=== PATIENT | female | born 1950 | race Caucasian/White ===

== ENCOUNTER 2016-11-11 00:22 | Emergency (ER) | payer MEDICARE, OTHER ==
[~2016-11-11 00:22] MED LIST: CLOP75 PO; ECOT81TA2 PO; GLIP5 PO; LISI-360 PO; LORTA5 PO; OMEP20TA39 PO; OXYC1SOL5 PO; PRAV20TA PO; TRAZ50TA4 PO
[2016-11-11 00:24] VITALS: BP 115/61; PULSE 116; RESP 16; TEMP 99; O2SAT 95
[2016-11-11] MEDS ORDERED: PROCHLORPERAZINE INJ 10 MG/2 ML VIAL IVS ONE (03:15)
[2016-11-11] MEDS ORDERED: ONDANSETRON HCL 4 MG/2 ML VIAL IVP ONE (03:15)
[2016-11-11] MEDS ORDERED: SODIUM CHLORIDE 0.9% FLUSH 10 ML FLUSH IV FLUSH PRN (03:15)
[2016-11-11] MEDS ORDERED: HYDROmorphone HCL PF 1 MG/ML VIAL IVS ONE (03:15)
[2016-11-11] MEDS ORDERED: LISI-515 PO ×2 (03:22)
[2016-11-11] MEDS ORDERED: GABA100C4 PO ×2 (03:22)
[2016-11-11] MEDS ORDERED: PRAV20TA2 PO ×2 (03:22)
[2016-11-11] MEDS ORDERED: GLIP1TAB60 PO ×2 (03:22)
[2016-11-11] MEDS ORDERED: CLOP75TA PO ×2 (03:22)
[2016-11-11] MEDS ORDERED: ASPI1TAB69 PO ×2 (03:22)
[2016-11-11] MEDS ORDERED: SERT-132 PO ×2 (03:22)
[2016-11-11 03:56] LABS: BICARBONATE 15.6 MEQ/L (21.0-32.0); POTASSIUM 4.1 MEQ/L (3.5-5.1)
[2016-11-11 03:57] LABS: AUTOMATED NEUTROPHIL # 4.5 TH/MM3 (1.8-7.7); BASOPHIL % 0.2 % (0.0-2.0); HEMATOCRIT 48.4 % (35.0-46.0); LYMPH % 16.2 % (9.0-44.0); LYMPHOCYTE # 0.9 TH/MM3 (1.0-4.8); MEAN CELL VOLUME 79.1 FL (80.0-100.0); MEAN CORPUSCULAR HEMOGLOBIN 26.6 PG (27.0-34.0); MEAN CORPUSCULAR HGB CONC 33.7 % (32.0-36.0); MONO % 5.6 % (0.0-8.0); PLATELET COUNT 97 TH/MM3 (150-450); RED BLOOD COUNT 6.12 MIL/MM3 (4.00-5.30); RED CELL DISTRIBUTION WIDTH 14.9 % (11.6-17.2); WHITE BLOOD COUNT 5.8 TH/MM3 (4.0-11.0)
[2016-11-11 04:30] LABS: HEMO FLAGS AUTO DIFF
[2016-11-11 04:32] LABS: PLATELET ESTIMATE SMEAR LOW (NORMAL); PLATELET MORPHOLOGY NORMAL (NORMAL); SCAN/DIFF AUTO DIFF CONFIRMED
[2016-11-11] MEDS ORDERED: PROM25TA5 PO (05:13)
--- NOTE | 2016-11-11 05:14 | PD ---
HPI Chief Complaint: Cold / Flu Symptoms Time Seen by Provider: 03:15 Travel History International Travel<30 days: No Contact w/Intl Traveler<30days: No Traveled to known affect area: No History of Present Illness HPI 66-year-old female arrives complaining of nausea vomiting diarrhea for about 3 nights. She also leads she is dehydrated. Oral intake causes vomiting. No blood in the emesis or diarrhea. Severity moderate. Onset gradual. 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) Cardiac Catheterization: Yes Cardiovascular Problems: Yes (HX CP, STRESS TEST NEGATIVE) High Cholesterol: Yes Chest Pain: No Congestive Heart Failure: No COPD: No Diabetes: Yes (GLIPIZIDE) Patient Takes Glucophage: No Diminished Hearing: No Endocrine: Yes Gastrointestinal Disorders: Yes (GERD) GERD: Yes Genitourinary: Yes (STRESS INCONTINENCE) Hepatitis: No Hiatal Hernia: No Hypertension: Yes Immune Disorder: No Implanted Vascular Access Dvce: Yes Kidney Stones: Yes Medical other: Yes (SEVERE PVD, HIGH BLOOD SUGARS, CANNOT MEASURE BP ON R ARM PER PT) Musculoskeletal: Yes (RHEUMATOID ARTHRITIS) Neurologic: No Psychiatric: No Reproductive: No Respiratory: Yes Myocardial Infarction: No Renal Failure: No Sleep Apnea: No Thyroid Disease: No Influenza Vaccination: Yes Past Surgical History Abdominal Surgery: Yes (APPENDECTOMY) AICD: No Appendectomy: Yes Arteriovenous Shunt: No Body Medical Devices: MULTIPLE LEG STENTS, PINS RIGHT ELBOW Cardiac Surgery: No Ear Surgery: No Endocrine Surgery: No Eye Surgery: No Genitourinary Surgery: Yes (LITHOTRIPSY LEFT KIDNEY STONE, OPEN REMOVAL LEFT KIDNEY STONE) Gynecologic Surgery: Yes (COMPLETE HYSTERECTOMY) Hysterectomy: Yes Insulin Pump: No Joint Replacement: No Oral Surgery: Yes (TONSILLECTOMY) Pacemaker: No Thoracic Surgery: No Tonsillectomy: Yes Other Surgery: Yes Social History Alcohol Use: No Tobacco Use: Yes (2 ppd) Substance Use: No Allergies-Medications (Allergen,Severity, Reaction): Coded Allergies: Metformin (Unverified Adverse Reaction, Severe, Diarrhea, 10/03/15) Vancomycin (Verified Adverse Reaction, Severe, 10/03/15) "severe yeast infection" Codeine (Verified Adverse Reaction, Intermediate, Nausea/Vomiting, 10/03/15 ) Reported Meds & Prescriptions Reported Meds & Active Scripts Active Phenergan (Promethazine HCl) 25 Mg Tab 25 Mg PO Q6H PRN Reported Clopidogrel (Clopidogrel Bisulfate) 75 Mg Tab 75 Mg PO DAILY Aspirin 81 Mg Tabdr 81 Mg PO DAILY Gabapentin 100 Mg Cap 100 Mg PO HS Lisinopril 20 Mg Tab 20 Mg PO DAILY Glipizide ER (Glipizide) 2.5 Mg Bibiana 2.5 Mg PO DAILY Take with breakfast or first main meal of the day Pravastatin 20 Mg Tab 20 Mg PO DAILY Sertraline (Sertraline HCl) 50 Mg Tab 50 Mg PO DAILY Review of Systems Except as stated in HPI: all other systems reviewed are Neg Gastrointestinal: Positive: Nausea, Vomiting, Abdominal Pain Physical Exam Narrative GENERAL: 66 yo F, WNWD, NAD SKIN: Warm and dry. HEAD: Atraumatic. Normocephalic. EYES: Pupils equal and round. No scleral icterus. No injection or drainage. ENT: No nasal bleeding or discharge. Mucous membranes pink and moist. NECK: Trachea midline. No JVD. CARDIOVASCULAR: Regular rate and rhythm. RESPIRATORY: No accessory muscle use. Clear to auscultation. Breath sounds equal bilaterally. GASTROINTESTINAL: Abdomen soft, non-tender, nondistended. Hepatic and splenic margins not palpable. MUSCULOSKELETAL: L BKA. R great toe amputation. Otherwise no gross deformity. NEUROLOGICAL: Awake and alert. No obvious cranial nerve deficits. Motor grossly within normal limits. Five out of 5 muscle strength in the arms and legs. Normal speech. PSYCHIATRIC: Appropriate mood and affect; insight and judgment normal. Data Data Last Documented VS Vital Signs Date Time Temp Pulse Resp B/P Pulse Ox O2 Delivery O2 Flow Rate FiO2 11/11/16 05:44 87 16 140/70 98 11/11/16 00:24 99.0 Room Air VS reviewed pulse 86 at 525am Orders Basic Metabolic Panel (Bmp) (11/11/16 03:15) Complete Blood Count With Diff (11/11/16 03:15) Iv Access Insert/Monitor (11/11/16 03:15) Ecg Monitoring (11/11/16 03:15) Oximetry (11/11/16 03:15) Ondansetron Inj (Zofran Inj) (11/11/16 03:15) Sodium Chloride 0.9% Flush (Ns Flush) (11/11/16 03:15) Hydromorphone Pf Inj (Dilaudid Pf Inj) (11/11/16 03:15) Prochlorperazine Inj (Compazine Inj) (11/11/16 03:15) Labs Laboratory Tests Test 11/11/16 03:33 White Blood Count 5.8 TH/MM3 Red Blood Count 6.12 MIL/MM3 Hemoglobin 16.3 GM/DL Hematocrit 48.4 % Mean Corpuscular Volume 79.1 FL Mean Corpuscular Hemoglobin 26.6 PG Mean Corpuscular Hemoglobin 33.7 % Concent Red Cell Distribution Width 14.9 % Platelet Count 97 TH/MM3 Mean Platelet Volume 9.0 FL Neutrophils (%) (Auto) 78.0 % Lymphocytes (%) (Auto) 16.2 % Monocytes (%) (Auto) 5.6 % Eosinophils (%) (Auto) 0.0 % Basophils (%) (Auto) 0.2 % Neutrophils # (Auto) 4.5 TH/MM3 Lymphocytes # (Auto) 0.9 TH/MM3 Monocytes # (Auto) 0.3 TH/MM3 Eosinophils # (Auto) 0.0 TH/MM3 Basophils # (Auto) 0.0 TH/MM3 CBC Comment AUTO DIFF Differential Comment AUTO DIFF CONFIRMED Platelet Estimate LOW Platelet Morphology Comment NORMAL Sodium Level 133 MEQ/L Potassium Level 4.1 MEQ/L Chloride Level 106 MEQ/L Carbon Dioxide Level 15.6 MEQ/L Anion Gap 11 MEQ/L Blood Urea Nitrogen 18 MG/DL Creatinine 0.96 MG/DL Estimat Glomerular Filtration 59 ML/MIN Rate Random Glucose 213 MG/DL Calcium Level 8.8 MG/DL MDM Medical Decision Making Medical Screen Exam Complete: Yes Emergency Medical Condition: Yes Medical Record Reviewed: Yes Differential Diagnosis Constipation, Gastritis, Acute Cholecystitis, Biliary Colic, Pancreatitis, BENOIT , Hepatitis, Bowel Obstruction, Cystitis, Mesenteric Ischemia, AAA, Appendicitis , Renal Stone/Hydronephrosis, GERD, perforated viscous Narrative Course CBC & BMP Diagram 11/11/16 03:33 The patient is resting comfortably and feels better, is alert and in no distress. The patients results and examination findings were discussed. The repeat examination is unremarkable and benign. The history, exam, diagnostic testing, and current condition do not suggest any significant pathology to warrant further testing, continued ED treatment, admission, or surgical evaluation at this point. The vital signs have been stable. The patient does not have uncontrollable pain, intractable vomiting, or other significant symptoms. The patient's condition is stable and appropriate for discharge. The patient will pursue further outpatient evaluation with a primary care physician or other designated or consulting physician as indicated in the discharge instructions. The patient expressed understanding and was agreeable with this plan. Diagnosis Primary Impression: Nausea & vomiting Qualified Code: R11.2 - Nausea and vomiting, intractability of vomiting not specified, unspecified vomiting type Additional Impression: Diarrhea Referrals: [facility] 2 days Additional Instructions: You have a choice when it comes to health care, and we are glad that you chose [facility]. Hopefully, we have met your expectations on today's visit. You are welcome to return to [facility] at any time, as we are committed to meeting the health care needs of our community. Med/Other Pt SpecificInfo: Prescription(s) given Scripts Promethazine (Phenergan)25 Mg Tab25 Mg PO Q6H PRN (Nausea/Vomiting) #20 TAB Ref 0 Prov:Blu Stevens MD 11/11/16 Disposition: 01 DISCHARGE HOME Condition: Stable Blu Stevens MD Nov 11, 2016 05:13
[2016-11-11 05:44] VITALS: BP 140/70
== END 2016-11-11 06:00 | disposition home or self-care (01) ==
LOC: NEPC 00:22
DX: R11.2 Nausea with vomiting, unspecified (principal); R19.7 Diarrhea, unspecified; E11.9 Type 2 diabetes mellitus without complications; Z79.4 Long term (current) use of insulin; E78.00 Pure hypercholesterolemia, unspecified; I10 Essential (primary) hypertension; M06.9 Rheumatoid arthritis, unspecified
CPT/HCPCS: 80048; 85025; 96374; 96375; J0780; J1170; J2405

== ENCOUNTER 2016-11-13 14:04 | Inpatient (IN) | payer OTHER, MEDICARE ==
[~2016-11-13] VITALS: Ht 167.6 cm; Wt 70.0 kg
[~2016-11-13 14:04] MED LIST changes: +ASPI1TAB69 PO; +CLOP75TA PO; +GABA100C4 PO; +GLIP1TAB60 PO; +LISI-515 PO; +PRAV20TA2 PO; +PROM25TA5 PO; +SERT-132 PO
[2016-11-13] MEDS ORDERED: SODIUM CHLOR 0.9% 1000 ML INJ 1,000 ML IV ONE ×2 (14:14→16:00)
[2016-11-13] MEDS ORDERED: ONDANSETRON HCL 4 MG/2 ML VIAL IVP ONE (14:15)
[2016-11-13] MEDS ORDERED: SODIUM CHLORIDE 0.9% FLUSH 10 ML FLUSH IVF PRN (14:15)
--- NOTE | 2016-11-13 14:19 | PD ---
HPI . Low blood pressure Chief Complaint: Low blood pressure Time Seen by Provider: 14:14 Travel History International Travel<30 days: No Contact w/Intl Traveler<30days: No History of Present Illness HPI Patient was sent to us from her doctor's office because of low blood pressure. She was being seen by her doctor because of a 5 day history of nausea, vomiting and diarrhea. She reports that she was seen here several days ago and given fluids and Phenergan. That the vomiting has stopped but she has now started having diarrhea. She describes it as black and watery. She states that she was told that her systolic blood pressure was about 70. She denies fever. She denies urinary tract symptoms. [id number]: GI system SEVERITY: 6+ episodes per day DURATION: 5 days TIMING: It started as vomiting. The vomiting has stopped and she now has diarrhea. MODIFYING FACTORS: Unrelieved by Phenergan ASSOCIATED SYMPTOMS: 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) Cardiac Catheterization: Yes Cardiovascular Problems: Yes (HX CP, STRESS TEST NEGATIVE) High Cholesterol: Yes Chest Pain: No Congestive Heart Failure: No COPD: No Diabetes: Yes (GLIPIZIDE) Diminished Hearing: No Endocrine: Yes Gastrointestinal Disorders: Yes (GERD) GERD: Yes Genitourinary: Yes (STRESS INCONTINENCE) Hepatitis: No Hiatal Hernia: No Hypertension: Yes Immune Disorder: No Implanted Vascular Access Dvce: Yes Kidney Stones: Yes Musculoskeletal: Yes (RHEUMATOID ARTHRITIS) Neurologic: No Psychiatric: No Reproductive: No Respiratory: Yes Myocardial Infarction: No Renal Failure: No Sleep Apnea: No Thyroid Disease: No Past Surgical History Abdominal Surgery: Yes (APPENDECTOMY) AICD: No Appendectomy: Yes Arteriovenous Shunt: No Body Medical Devices: MULTIPLE LEG STENTS, PINS RIGHT ELBOW Cardiac Surgery: No Ear Surgery: No Endocrine Surgery: No Eye Surgery: No Genitourinary Surgery: Yes (LITHOTRIPSY LEFT KIDNEY STONE, OPEN REMOVAL LEFT KIDNEY STONE) Gynecologic Surgery: Yes (COMPLETE HYSTERECTOMY) Hysterectomy: Yes Insulin Pump: No Joint Replacement: No Oral Surgery: Yes (TONSILLECTOMY) Pacemaker: No Thoracic Surgery: No Tonsillectomy: Yes Other Surgery: Yes Social History Alcohol Use: No Tobacco Use: Yes (2 ppd) Substance Use: No Allergies-Medications (Allergen,Severity, Reaction): Coded Allergies: Metformin (Verified Adverse Reaction, Severe, Diarrhea, 11/13/16) Vancomycin (Verified Adverse Reaction, Severe, 11/13/16) "severe yeast infection" Codeine (Verified Adverse Reaction, Intermediate, Nausea/Vomiting, 11/13/16 ) Reported Meds & Prescriptions Reported Meds & Active Scripts Active Phenergan (Promethazine HCl) 25 Mg Tab 25 Mg PO Q6H PRN Reported Tramadol (Tramadol HCl) 50 Mg Tab 50 Mg PO Q8H PRN Omeprazole 20 Mg Tab 20 Mg PO DAILY Clopidogrel (Clopidogrel Bisulfate) 75 Mg Tab 75 Mg PO DAILY Aspirin 81 Mg Tabdr 81 Mg PO DAILY Gabapentin 100 Mg Cap 100 Mg PO HS Lisinopril 20 Mg Tab 20 Mg PO DAILY Glipizide ER (Glipizide) 2.5 Mg Bibiana 2.5 Mg PO DAILY Take with breakfast or first main meal of the day Pravastatin 20 Mg Tab 20 Mg PO DAILY Sertraline (Sertraline HCl) 50 Mg Tab 50 Mg PO DAILY Review of Systems Except as stated in HPI: all other systems reviewed are Neg General / Constitutional: No: Fever, Chills Cardiovascular: No: Chest Pain or Discomfort Respiratory: No: Shortness of Breath Gastrointestinal: Positive: Nausea, Vomiting, Diarrhea, No: Abdominal Pain, Indigestion Genitourinary: No: Urgency, Frequency, Dysuria Physical Exam Narrative GENERAL: Healthy-appearing woman in no acute distress. SKIN: Warm and dry. HEAD: Atraumatic. Normocephalic. EYES: Pupils equal and round. ENT: No nasal bleeding or discharge. Mucous membranes pink and moist. NECK: Trachea midline. Neck supple. CARDIOVASCULAR: Regular rate and rhythm. Heart sounds normal. RESPIRATORY: No accessory muscle use. Lungs are clear with full air movement throughout. GASTROINTESTINAL: Abdomen soft, non-tender, nondistended. RECTAL: Black stool that is Hemoccult positive. No obvious hemorrhoid. MUSCULOSKELETAL: Left AKA NEUROLOGICAL: Awake and alert. No obvious cranial nerve deficits. Motor grossly within normal limits. Normal speech. PSYCHIATRIC: Appropriate mood and affect; insight and judgment normal. Data Data Last Documented VS Vital Signs Date Time Temp Pulse Resp B/P Pulse Ox O2 Delivery O2 Flow Rate FiO2 11/13/16 14:24 98.2 75 28 106/52 97 Orders Complete Blood Count With Diff (11/13/16 14:14) Comprehensive Metabolic Panel (11/13/16 14:14) Urinalysis - C+S If Indicated (11/13/16 14:14) Iv Access Insert/Monitor (11/13/16 14:14) Ecg Monitoring (11/13/16 14:14) Oximetry (11/13/16 14:14) Ondansetron Inj (Zofran Inj) (11/13/16 14:15) Sodium Chlor 0.9% 1000 Ml Inj (Ns 1000 M (11/13/16 14:14) Sodium Chloride 0.9% Flush (Ns Flush) (11/13/16 14:15) C Diff Toxin Pcr (11/13/16 14:14) Enteric Path (Stool) (11/13/16 14:14) Lactic Acid (11/13/16 14:14) Pantoprazole Inj (Protonix Inj) (11/13/16 15:15) Sodium Chlor 0.9% 1000 Ml Inj (Ns 1000 M (11/13/16 16:00) Admit Order (Ed Use Only) (11/13/16 16:14) Labs Laboratory Tests Test 11/13/16 11/13/16 14:45 14:46 White Blood Count 5.5 TH/MM3 Red Blood Count 5.34 MIL/MM3 Hemoglobin 14.2 GM/DL Hematocrit 42.0 % Mean Corpuscular Volume 78.8 FL Mean Corpuscular Hemoglobin 26.6 PG Mean Corpuscular Hemoglobin 33.8 % Concent Red Cell Distribution Width 14.5 % Platelet Count 98 TH/MM3 Mean Platelet Volume 9.6 FL Neutrophils (%) (Auto) 58.2 % Lymphocytes (%) (Auto) 33.5 % Monocytes (%) (Auto) 7.3 % Eosinophils (%) (Auto) 0.3 % Basophils (%) (Auto) 0.7 % Neutrophils # (Auto) 3.2 TH/MM3 Lymphocytes # (Auto) 1.8 TH/MM3 Monocytes # (Auto) 0.4 TH/MM3 Eosinophils # (Auto) 0.0 TH/MM3 Basophils # (Auto) 0.0 TH/MM3 CBC Comment AUTO DIFF Differential Total Cells 100 Counted Neutrophils % (Manual) 55 % Band Neutrophils % 13 % Lymphocytes % 25 % Monocytes % 5 % Eosinophils % 1 % Neutrophils # (Manual) 3.8 TH/MM3 Metamyelocytes 1 % Differential Comment FINAL DIFF MANUAL Platelet Estimate LOW Platelet Morphology Comment NORMAL Ovalocytes 1+ Sodium Level 136 MEQ/L Potassium Level 3.5 MEQ/L Chloride Level 107 MEQ/L Carbon Dioxide Level 21.7 MEQ/L Anion Gap 7 MEQ/L Blood Urea Nitrogen 26 MG/DL Creatinine 2.02 MG/DL Estimat Glomerular Filtration 25 ML/MIN Rate Random Glucose 116 MG/DL Calcium Level 7.6 MG/DL Total Bilirubin 0.5 MG/DL Aspartate Amino Transf 40 U/L (AST/SGOT) Alanine Aminotransferase 22 U/L (ALT/SGPT) Alkaline Phosphatase 76 U/L Total Protein 6.6 GM/DL Albumin 2.6 GM/DL Lactic Acid Level 1.8 mmol/L [facility] Medical Decision Making Medical Screen Exam Complete: Yes Emergency Medical Condition: Yes Differential Diagnosis Differential diagnosis of diarrhea includes but is not limited to early enteritis, bacterial enteritis, antibiotic induced diarrhea, irritable bowel syndrome Narrative Course Patient presents with low blood pressure associated with vomiting and diarrhea. She will be fluid resuscitated. CBC & BMP Diagram 11/13/16 14:45 The patient's renal function is worse than baseline. She will need to be admitted for treatment of the acute renal failure and for monitoring/evaluation of the GI bleed. HemaPrompt Point of Care Internal Pos. & Neg. Controls: Passed Fecal Specimen Occult Blood: Positive Physician Communication Physician Communication Dr. Gilbert will admit Diagnosis Primary Impression: Hypotension Qualified Code: I95.9 - Hypotension, unspecified hypotension type Additional Impressions: Acute renal failure Qualified Code: N17.9 - Acute renal failure, unspecified acute renal failure type GI bleed Qualified Code: K92.2 - Gastrointestinal hemorrhage, unspecified gastrointestinal hemorrhage type Admitting Information Admitting Physician Requests: Observation Condition: Stable Torie Barrios MD Nov 13, 2016 14:19
[2016-11-13 14:24] VITALS: BP 106/52; PULSE 75; RESP 28; TEMP 98.2; O2SAT 97
[2016-11-13 15:00] LABS: AUTOMATED NEUTROPHIL # 3.2 TH/MM3 (1.8-7.7); BASOPHIL % 0.7 % (0.0-2.0); EOSINOPHIL % 0.3 % (0.0-4.0); LYMPH % 33.5 % (9.0-44.0); LYMPHOCYTE # 1.8 TH/MM3 (1.0-4.8); MEAN CELL VOLUME 78.8 FL (80.0-100.0); MEAN CORPUSCULAR HEMOGLOBIN 26.6 PG (27.0-34.0); MEAN CORPUSCULAR HGB CONC 33.8 % (32.0-36.0); MONO % 7.3 % (0.0-8.0); NEUT % 58.2 % (16.0-70.0); PLATELET COUNT 98 TH/MM3 (150-450); RED BLOOD COUNT 5.34 MIL/MM3 (4.00-5.30); RED CELL DISTRIBUTION WIDTH 14.5 % (11.6-17.2); WHITE BLOOD COUNT 5.5 TH/MM3 (4.0-11.0)
[2016-11-13] MEDS ORDERED: OMEP20TA PO ×2 (15:02)
[2016-11-13] MEDS ORDERED: TRAM50TA PO ×2 (15:02)
[2016-11-13 15:07] LABS: HEMO FLAGS AUTO DIFF
[2016-11-13] MEDS ORDERED: PANTOPRAZOLE SODIUM 40 MG VIAL IV PUSH ONE (15:15)
[2016-11-13 15:16] LABS: ALT (GPT) 22 U/L (10-53); ANION GAP 7 MEQ/L (5-15); AST (GOT) 40 U/L (15-37); BICARBONATE 21.7 MEQ/L (21.0-32.0); BLOOD UREA NITROGEN 26 MG/DL (7-18); CHLORIDE 107 MEQ/L (98-107); GLOMERULAR FILTRATION RATE 25 ML/MIN (>89); SODIUM (NA) 136 MEQ/L (136-145)
[2016-11-13 15:19] LABS: ALKALINE PHOSPHATASE 76 U/L (45-117); POTASSIUM 3.5 MEQ/L (3.5-5.1); TOTAL BILIRUBIN ADULT 0.5 MG/DL (0.2-1.0)
[2016-11-13 16:05] LABS: BANDS 13 % (0-6); EOSINOPHILS 1 % (0-4); METAMYELOCYTES 1 % (0-1); NEUTROPHIL # MANUAL DIFF 3.8 TH/MM3 (1.8-7.7); POLYS (SEG NEUTROPHILS) 55 % (16-70); WBC DIFF SAMPLE 100
[2016-11-13 16:06] LABS: PLATELET ESTIMATE SMEAR LOW (NORMAL)
[2016-11-13 16:07] LABS: OVALOCYTES 1+ (NORMAL)
[2016-11-13 16:09] LABS: PLATELET MORPHOLOGY NORMAL (NORMAL); SCAN/DIFF FINAL DIFF MANUAL
[2016-11-13] MEDS ORDERED: SODIUM CHLORIDE 0.9% FLUSH 10 ML FLUSH IV FLUSH PRN (16:15)
[2016-11-13] MEDS ORDERED: ONDANSETRON HCL 4 MG/2 ML VIAL IVP PRN (16:15)
[2016-11-13] MEDS ORDERED: NALOXONE HCL 0.4 MG/ML AMP IV PRN (16:15)
--- NOTE | 2016-11-13 16:41 | HHI.HP ---
[facility] Primary Care Physician No Primary Care Physician Admission Diagnosis arf, hypotension, diarrhea, GI bleed Diagnoses: Chief Complaint: Hypotension Travel History International Travel<30 Days: No Contact w/Intl Traveler <30 Da: No Traveled to Known Affected Are: No History of Present Illness This is a 66-year-old female past medical history of peripheral vascular disease , hypertension, GERD who presented with diarrhea and nausea vomiting. Patient stated that this started Friday and worsen over time so she went to emergency department for 2 days ago in which she was discharged. Labs reviewed that time it was normal. Patient then stated that she went to her PCP today for follow- up and she was found to have hypotension with a systolic blood pressures in the 70s. Patient did admit having lightheadedness today. She denied any chest pain , soreness of breathing, abdominal pain. She stated that her nausea or resolved yesterday and that her diarrhea has been improving. Patient stated that she only had one diarrhea bowel movement yesterday. She remains afebrile. Review of Systems Constitutional: COMPLAINS OF: Dizziness, DENIES: Diaphoretic episodes, Fatigue , Fever, Weight gain, Weight loss, Chills, Change in appetite, Night Sweats Endocrine: DENIES: Abnorml menstrual pattern, Heat/cold intolerance, Polydipsia , Polyuria, Polyphagia Eyes: DENIES: Blurred vision, Diplopia, Eye inflammation, Eye pain, Vision loss , Photosensitivity, Double Vision Ears, nose, mouth, throat: DENIES: Tinnitus, Hearing loss, Vertigo, Nasal discharge, Oral lesions, Throat pain, Hoarseness, Ear Pain, Running Nose, Epistaxis, Sinus Pain, Toothache, Odynophagia Respiratory: DENIES: Apneas, Cough, Snoring, Wheezing, Hemoptysis, Sputum production, Shortness of breath Cardiovascular: DENIES: Chest pain, Palpitations, Syncope, Dyspnea on Exertion , PND, Lower Extremity Edema, Orthopnea, Claudication Gastrointestinal: DENIES: Abdominal pain, Black stools, Bloody stools, Constipation, Diarrhea, Nausea, Vomiting, Difficulty Swallowing, Anorexia Genitourinary: DENIES: Abnormal vaginal bleeding, Dysmenorrhea, Dyspareunia, Sexual dysfunction, Urinary frequency, Urinary incontinence, Urgency, Hematuria , Dysuria, Nocturia, Vaginal discharge Musculoskeletal: DENIES: Joint pain, Muscle aches, Stiffness, Joint Swelling, Back pain, Neck pain Integumentary: DENIES: Abnormal pigmentation, Pruritus, Rash, Nail changes, Breast masses, Breast skin changes, Nipple discharge Hematologic/lymphatic: DENIES: Bruising, Lymphadenopathy Immunologic/allergic: DENIES: Eczema, Urticaria Neurologic: DENIES: Abnormal gait, Headache, Localized weakness, Paresthesias, Seizures, Speech Problems, Tremor, Poor Balance Psychiatric: DENIES: Anxiety, Confusion, Mood changes, Depression, Hallucinations, Agitation, Suicidal Ideation, Homicidal Ideation, Delusions Past Family Social History Past Medical History Hypertension Rheumatoid arthritis Hyperlipidemia Peripheral vascular disease GERD Kidney stones Diabetes mellitus type 2 Past Surgical History Left AKA 2005 Right elbow surgery Right great toe surgery November 2013 Tonsillectomy Appendectomy Hysterectomy Left kidney lithotripsy Angioplasty due to SFA occlusion November 2004 Reported Medications Reported Meds & Active Scripts Active Phenergan (Promethazine HCl) 25 Mg Tab 25 Mg PO Q6H PRN Reported Tramadol (Tramadol HCl) 50 Mg Tab 50 Mg PO Q8H PRN Omeprazole 20 Mg Tab 20 Mg PO DAILY Clopidogrel (Clopidogrel Bisulfate) 75 Mg Tab 75 Mg PO DAILY Aspirin 81 Mg Tabdr 81 Mg PO DAILY Gabapentin 100 Mg Cap 100 Mg PO HS Lisinopril 20 Mg Tab 20 Mg PO DAILY Glipizide ER (Glipizide) 2.5 Mg Bibiana 2.5 Mg PO DAILY Take with breakfast or first main meal of the day Pravastatin 20 Mg Tab 20 Mg PO DAILY Sertraline (Sertraline HCl) 50 Mg Tab 50 Mg PO DAILY Allergies: Coded Allergies: Metformin (Verified Adverse Reaction, Severe, Diarrhea, 11/13/16) Vancomycin (Verified Adverse Reaction, Severe, 11/13/16) "severe yeast infection" Codeine (Verified Adverse Reaction, Intermediate, Nausea/Vomiting, 11/13/16 ) Active Ordered Medications Current Medications Ondansetron HCl 4 mg 4 mg ONCE ONCE IVP ; Start 11/13/16 at 14:15; Stop at 14:16; Status DC Sodium Chloride (NS 1000 ml Inj) 1,000 ml @ 1,000 mls/hr Q1H ONCE IV Last administered on 11/13/16 14:58; Start 11/13/16 at 14:14; Stop 11/13/16 at 15:13 ; Status DC Sodium Chloride (NS Flush) 2 ml UNSCH PRN IVF FLUSH AFTER USING IV ACCESS; Start 11/13/16 at 14:15; Stop 11/13/16 at 16:22; Status DC Pantoprazole Sodium 40 mg 40 mg ONCE ONCE IV PUSH Last administered on 15:41; Start 11/13/16 at 15:15; Stop 11/13/16 at 15:16; Status DC Sodium Chloride 1,000 ml @ 999 mls/hr BOLUS ONCE IV Last administered on 11/13 16:18; Start 11/13/16 at 16:00; Stop 11/13/16 at 17:00 Sodium Chloride (NS 1000 ml Inj) 1,000 ml @ 125 mls/hr Q8H IV ; Start 11/13/16 at 16:30 Sodium Chloride (NS Flush) 2 ml UNSCH PRN IV FLUSH FLUSH AFTER USING IV ACCESS ; Start 11/13/16 at 16:15 Sodium Chloride (NS Flush) 2 ml BID IV FLUSH ; Start 11/13/16 at 21:00 Ondansetron HCl (Zofran Inj) 4 mg Q6H PRN IVP NAUSEA OR VOMITING; Start at 16:15 Naloxone HCl (Narcan Inj) 0.4 mg UNSCH PRN IV SEE LABEL COMMENTS; Start at 16:15 Family History Mother had NC when she was 60 Father had diabetes mellitus at 65 Social History Patient smokes 1 pack per day for the past 40+ years. Denies alcohol or illicit drug use. Physical Exam Vital Signs Vital Signs Date Time Temp Pulse Resp B/P Pulse Ox O2 Delivery O2 Flow Rate FiO2 11/13/16 14:24 98.2 75 28 106/52 97 Physical Exam GENERAL: This is a well-nourished, well-developed patient, in no apparent distress. SKIN: No rashes, ecchymoses or lesions. Cool and dry. HEAD: Atraumatic. Normocephalic. No temporal or scalp tenderness. EYES: Pupils equal round and reactive. Extraocular motions intact. No scleral icterus. No injection or drainage. ENT: Nose without bleeding, purulent drainage or septal hematoma. Throat without erythema, tonsillar hypertrophy or exudate. Uvula midline. Airway patent. NECK: Trachea midline. No JVD or lymphadenopathy. Supple, nontender, no meningeal signs. CARDIOVASCULAR: Regular rate and rhythm without murmurs, gallops, or rubs. RESPIRATORY: Clear to auscultation. Breath sounds equal bilaterally. No wheezes , rales, or rhonchi. GASTROINTESTINAL: Abdomen soft, non-tender, nondistended. No hepato-splenomegaly , or palpable masses. No guarding. MUSCULOSKELETAL: Extremities without clubbing, cyanosis, or edema. No joint tenderness, effusion, or edema noted. No calf tenderness. Negative Homans sign bilaterally. Left leg above the knee amputation. NEUROLOGICAL: Awake and alert. Cranial nerves II through XII intact. Motor and sensory grossly within normal limits. Five out of 5 muscle strength in all muscle groups. Normal speech. Laboratory Laboratory Tests Test 11/13/16 11/13/16 14:45 14:46 White Blood Count 5.5 Red Blood Count 5.34 Hemoglobin 14.2 Hematocrit 42.0 Mean Corpuscular Volume 78.8 Mean Corpuscular Hemoglobin 26.6 Mean Corpuscular Hemoglobin 33.8 Concent Red Cell Distribution Width 14.5 Platelet Count 98 Mean Platelet Volume 9.6 Neutrophils (%) (Auto) 58.2 Lymphocytes (%) (Auto) 33.5 Monocytes (%) (Auto) 7.3 Eosinophils (%) (Auto) 0.3 Basophils (%) (Auto) 0.7 Neutrophils # (Auto) 3.2 Lymphocytes # (Auto) 1.8 Monocytes # (Auto) 0.4 Eosinophils # (Auto) 0.0 Basophils # (Auto) 0.0 CBC Comment AUTO DIFF Differential Total Cells 100 Counted Neutrophils % (Manual) 55 Band Neutrophils % 13 Lymphocytes % 25 Monocytes % 5 Eosinophils % 1 Neutrophils # (Manual) 3.8 Metamyelocytes 1 Differential Comment FINAL DIFF MANUAL Platelet Estimate LOW Platelet Morphology Comment NORMAL Ovalocytes 1+ Sodium Level 136 Potassium Level 3.5 Chloride Level 107 Carbon Dioxide Level 21.7 Anion Gap 7 Blood Urea Nitrogen 26 Creatinine 2.02 Estimat Glomerular Filtration 25 Rate Random Glucose 116 Calcium Level 7.6 Total Bilirubin 0.5 Aspartate Amino Transf 40 (AST/SGOT) Alanine Aminotransferase 22 (ALT/SGPT) Alkaline Phosphatase 76 Total Protein 6.6 Albumin 2.6 Lactic Acid Level 1.8 Result Diagram: 11/13/16 1445 11/13/16 1445 Assessment and Plan Assessment and Plan 66-year-old female past medical history of type 2 diabetes, hypertension, peripheral vascular disease who presented with hypotension Hypotension -Per patient's primary care provider systolic blood pressure was in the 70s. When patient presented to the emergency department her systolic blood pressure was 106. -Improved after fluid bolus. -Most likely secondary to dehydration. We'll continue with IV fluids and monitor her blood pressure. -Will hold any antihypertensive medication. Acute renal failure -Patient presented in the emergency department about 2 days ago which her renal function was normal. Patient now presents in acute renal failure. Her creatinine is 2.02. -This is due to dehydration. -She does report decreased urine output. Strict ins and outs. Continue to monitor creatinine. Avoid nephrotoxins. Gastroenteritis -Seems to resolve. Positive Hemoccult stool -Patient denied any bloody stool. Hemoglobin is stable and she's is hemodynamically stable at the moment. -May be a false positive. Will continue to trend hemoglobin and monitor patient clinically. -If she continues to be hemodynamically stable patient can get a colonoscopy as outpatient. Hypertension -Will hold antihypertensive medication. -If blood pressure improves and kidney function improves can consider restarting tomorrow. Peripheral vascular disease/GERD -Resume home medication. DVT prophylaxis -SCDs. Code Status full Discussed Condition With patient Physician Certification 2 Midnight Certification Type: Admission for Inpatient Services Order for Inpatient Services The services are ordered in accordance with Medicare regulations or non- Medicare payer requirements, as applicable. In the case of services not specified as inpatient-only, they are appropriately provided as inpatient services in accordance with the 2-midnight benchmark. Estimated LOS (days): 3 3 days is the estimated time the patient will need to remain in the hospital, assuming treatment plan goals are met and no additional complications. Post-Hospital Plan: Ann Arambula MD Nov 13, 2016 16:41
[2016-11-13] MEDS: NICOTINE 21 MG/24 HR PATCH T-DERMAL SCH (16:45)
[2016-11-13] MEDS ORDERED: traMADol HCL 50 MG TAB PO PRN (17:00)
[2016-11-13 17:14] LABS: BACTERIA, URINE MANY /hpf; BLOOD, URINE SMALL (NEG); COMMENT (UR) CULTURE INDICATED; CULTURE IF INDICATED CULTURE INDICATED; GLUCOSE,URINE NEG (NEG); KETONE, URINE NEG (NEG); MUCUS URINE FEW /lpf (OCC); SQUAMOUS EPITHELIAL CELL URINE 2 /hpf (0-5); URINE COLOR YELLOW (YELLW/STRAW)
[2016-11-13 17:15] LABS: NITRITE,URINE POS (NEG)
[2016-11-13 18:58] VITALS: BP 109/53; PULSE 74; RESP 18; O2SAT 98
[2016-11-13] MEDS: SODIUM CHLOR 0.9% 1000 ML INJ 1,000 ML IV SCH ×2 (20:07→23:58)
[2016-11-13 20:30] VITALS: PULSE 71
[2016-11-13 20:31] VITALS: BP 104/53; PULSE 68; RESP 18; TEMP 98.6; O2SAT 95
[2016-11-13] MEDS: SODIUM CHLORIDE 0.9% FLUSH 10 ML FLUSH IV FLUSH SCH (21:00)
[2016-11-13] MEDS ORDERED: GLUCAGON 1 MG/ML VIAL OTHER PRN (21:00)
[2016-11-13] MEDS ORDERED: DEXTROSE 50% IN WATER 50 ML VIAL(D50) IV PUSH PRN (21:00)
[2016-11-14 00:24] LABS: C. DIFF EPI 027 PRESUMPTIVE NEGATIVE (NEGATIVE); C. DIFF TOXIN PCR NEGATIVE (NEGATIVE)
[2016-11-14 00:48] VITALS: BP 102/51; PULSE 73; RESP 20; TEMP 98.7; O2SAT 92
[2016-11-14 03:30] VITALS: PULSE 60
[2016-11-14 04:22] VITALS: BP 139/65; PULSE 65; RESP 20; TEMP 98.5; O2SAT 95
[2016-11-14 04:27] LABS: HEMATOCRIT 37.9 % (35.0-46.0); MEAN CELL VOLUME 77.7 FL (80.0-100.0); MEAN CORPUSCULAR HEMOGLOBIN 26.3 PG (27.0-34.0); MEAN CORPUSCULAR HGB CONC 33.9 % (32.0-36.0); PLATELET COUNT 85 TH/MM3 (150-450); RED BLOOD COUNT 4.88 MIL/MM3 (4.00-5.30); WHITE BLOOD COUNT 4.5 TH/MM3 (4.0-11.0)
[2016-11-14 04:30] LABS: REVIEW FLAG FINAL
[2016-11-14 04:58] LABS: BICARBONATE 17.8 MEQ/L (21.0-32.0)
[2016-11-14 05:18] LABS: CALCIUM-PROTEIN CORRECTED 8.1 MG/DL (8.5-10.1)
[2016-11-14] MEDS: INSULIN ASPART SUPPLEMENTAL SCALE SQ SCH ×2 (07:02→11:22)
[2016-11-14 07:46] VITALS: BP 135/61; PULSE 66; RESP 20; TEMP 98; O2SAT 94
[2016-11-14] MEDS: SODIUM CHLORIDE 0.9% FLUSH 10 ML FLUSH IV FLUSH SCH (07:53)
[2016-11-14] MEDS ORDERED: glipiZIDE 5 MG TAB PO SCH (08:00)
[2016-11-14] MEDS: NICOTINE 21 MG/24 HR PATCH T-DERMAL SCH (09:00)
[2016-11-14] MEDS ORDERED: ASPIRIN EC 81 MG TABEC PO SCH (09:00)
[2016-11-14] MEDS ORDERED: CLOPIDOGREL 75 MG TAB PO SCH (09:00)
[2016-11-14] MEDS ORDERED: PRAVASTATIN SOD 20 MG TAB PO SCH (09:00)
[2016-11-14] MEDS ORDERED: SERTRALINE HCL 50 MG TAB PO SCH (09:00)
[2016-11-14] MEDS ORDERED: PANTOPRAZOLE SOD 20 MG DELAYED RELEASE TAB PO SCH (09:00)
[2016-11-14] MEDS: SODIUM CHLOR 0.9% 1000 ML INJ 1,000 ML IV SCH (09:08)
[2016-11-14] MEDS ORDERED: MACR100C2 PO (11:30)
--- NOTE | 2016-11-14 11:31 | HHI.DCPOC ---
Discharge Care Plan Diagnosis: (1) Hypotension (2) Acute renal failure (3) Nausea & vomiting (4) UTI (urinary tract infection) Goals to Promote Your Health * To prevent worsening of your condition and complications * To maintain your health at the optimal level Directions to Meet Your Goals Take your medications as prescribed Follow your dietary instruction Follow activity as directed Keep your appointments as scheduled Take your immunizations and boosters as scheduled If your symptoms worsen call your PCP, if no PCP go to Urgent Care Center or Emergency Room Smoking is Dangerous to Your Health. Avoid second hand smoke Call the 24-hour hour crisis hotline for domestic abuse at Ann Gilbert MD Nov 14, 2016 11:31
--- NOTE | 2016-11-14 11:31 | HHI.DS ---
Discharge Summary Admission Date Nov 13, 2016 at 16:16 Discharge Date: Nov 14, 2016 Admitting Diagnosis arf, hypotension, diarrhea, GI bleed (1) Acute renal failure ICD Code: N17.9 Diagnosis: Principal (2) Hypotension ICD Code: I95.9 Diagnosis: Principal (3) Nausea & vomiting ICD Code: R11.2 Diagnosis: Principal (4) UTI (urinary tract infection) ICD Code: N39.0 Diagnosis: Secondary Procedures none Brief History - From Admission This is a 66-year-old female past medical history of peripheral vascular disease , hypertension, GERD who presented with diarrhea and nausea vomiting. Patient stated that this started Friday and worsen over time so she went to emergency department for 2 days ago in which she was discharged. Labs reviewed that time it was normal. Patient then stated that she went to her PCP today for follow- up and she was found to have hypotension with a systolic blood pressures in the 70s. Patient did admit having lightheadedness today. She denied any chest pain , soreness of breathing, abdominal pain. She stated that her nausea or resolved yesterday and that her diarrhea has been improving. Patient stated that she only had one diarrhea bowel movement yesterday. She remains afebrile. CBC/BMP: 11/14/16 1033 11/14/16 0415 Significant Findings Laboratory Tests Test 11/13/16 11/13/16 11/14/16 14:45 16:51 04:15 Red Blood Count 5.34 MIL/MM3 (4.00-5.30) Mean Corpuscular Volume 78.8 FL 77.7 FL (80.0-100.0) (80.0-100.0) Mean Corpuscular Hemoglobin 26.6 PG 26.3 PG (27.0-34.0) (27.0-34.0) Platelet Count 98 TH/MM3 85 TH/MM3 (150-450) (150-450) Band Neutrophils % 13 % (0-6) Platelet Estimate LOW (NORMAL) Ovalocytes 1+ (NORMAL) Blood Urea Nitrogen 26 MG/DL (7-18) 20 MG/DL (7-18) Creatinine 2.02 MG/DL 1.04 MG/DL (0.50-1.00) (0.50-1.00) Estimat Glomerular Filtration 25 ML/MIN (>89) 53 ML/MIN (>89) Rate Random Glucose 116 MG/DL 188 MG/DL (74-106) (74-106) Calcium Level 7.6 MG/DL 7.1 MG/DL (8.5-10.1) (8.5-10.1) Aspartate Amino Transf 40 U/L (15-37) (AST/SGOT) Albumin 2.6 GM/DL (3.4-5.0) Urine Turbidity HAZY (CLEAR) Urine Protein 30 mg/dL (NEG-TRACE) Urine Occult Blood SMALL (NEG) Urine Nitrite POS (NEG) Urine Leukocyte Esterase LARGE (NEG) Urine RBC 5 /hpf (0-3) Urine WBC 35 /hpf (0-5) Urine Bacteria MANY /hpf (NONE) Urine Mucus FEW /lpf (OCC) Potassium Level 3.0 MEQ/L (3.5-5.1) Chloride Level 114 MEQ/L (98-107) Carbon Dioxide Level 17.8 MEQ/L (21.0-32.0) Protein Corrected Calcium 8.1 MG/DL (8.5-10.1) Total Protein 5.3 GM/DL (6.4-8.2) PE at Discharge GENERAL: in NAD CARDIOVASCULAR: Regular rate and rhythm without murmurs, gallops, or rubs. RESPIRATORY: Breath sounds equal bilaterally. No accessory muscle use. GASTROINTESTINAL: Abdomen soft, non-tender, nondistended. Pt update on day of discharge Follow-up for acute renal failure and hypotension. Patient stated that she feels well and she is ready go home. She denies nausea/vomiting or abdominal pain. She denies any episodes diarrhea or any bloody stools. She has no other complaints. Hospital Course 66-year-old female past medical history of type 2 diabetes, hypertension, peripheral vascular disease who presented with hypotension Hypotension -Resolved. -Per patient's primary care provider systolic blood pressure was in the 70s. When patient presented to the emergency department her systolic blood pressure was 106. -She continued to maintain her blood pressure while in the hospital. -Most likely secondary to dehydration. She was giving IV fluids and did well and was able to take oral intake. Acute renal failure -Patient presented in the emergency department about 2 days ago which her renal function was normal. Patient now presents in acute renal failure. Her creatinine is 2.02. Which after 1 night of IV fluids it improved to 1.01. -This was very likely due to dehydration. -Acute renal failure resolved during hospitalization. Gastroenteritis -Resolved before hospitalization. Positive Hemoccult stool -Patient denied any bloody stool. Hemoglobin is stable and she's is hemodynamically stable at the moment. -May be a false positive. Hemoglobin remained stable to the hospitalization although her second number did decrease but that was likely due to hemoconcentration. After that it stabilizes. Patient had no episodes of bloody stools while in the hospital. -Patient to follow-up her PCP in GI in regards to this determine if she needs a colonoscopy. Hypertension -Antihypertensive medication was held secondary to hypotension caused by dehydration. The next day blood pressure improved and actually one value was elevated. Patient was to restart her antihypertensive medication at home. Peripheral vascular disease/GERD -home medication was resumed during hospitalization. Type 2 diabetes -Home medication resumed. Pt Condition on Discharge: Good Discharge Disposition: Discharge Home Discharge Time: <= 30 minutes Discharge Instructions DIET: Follow Instructions for: Heart Healthy Diet, Diabetic Diet Activities you can perform: Regular-No Restrictions Follow up Referrals: PCP Follow-up - 2-3 Days New Medications: Nitrofurantoin Monohydrate Macrocrystals (Macrobid) 100 Mg Cap 100 MG PO BID Infection #14 Ref 0 CAP Continued Medications: Aspirin (Aspirin) 81 Mg Tabdr 81 MG PO DAILY TAB Clopidogrel (Clopidogrel) 75 Mg Tab 75 MG PO DAILY Blood Clot Prevention #30 Ref 0 TAB Gabapentin (Gabapentin) 100 Mg Cap 100 MG PO HS #30 Ref 0 CAP Glipizide ER (Glipizide ER) 2.5 Mg Bibiana 2.5 MG PO DAILY Take with breakfast or first main meal of the day Blood Sugar Management #30 Ref 0 TAB Lisinopril (Lisinopril) 20 Mg Tab 20 MG PO DAILY #30 Ref 0 TAB Omeprazole (Omeprazole) 20 Mg Tab 20 MG PO DAILY #30 Ref 0 TAB Pravastatin (Pravastatin) 20 Mg Tab 20 MG PO DAILY Cholesterol Management #30 Ref 0 TAB Promethazine (Phenergan) 25 Mg Tab 25 MG PO Q6H PRN Nausea/Vomiting #20 Ref 0 TAB Sertraline (Sertraline) 50 Mg Tab 50 MG PO DAILY #30 Ref 0 TAB Tramadol (Tramadol) 50 Mg Tab 50 MG PO Q8H PRN PAIN Ref 0 TAB Ann Gilbert MD Nov 14, 2016 11:31
[2016-11-14 11:55] VITALS: BP 172/74; PULSE 68; RESP 20; TEMP 98.1; O2SAT 94
== END 2016-11-14 15:05 | disposition home or self-care (01) | DRG 683 ==
LOC: NEPA 14:04 → NEDA 16:16 → NEPHCDU 20:11
PROVIDERS: ADMIT Family Medicine; ATTEND Family Medicine
DX: N17.9 Acute kidney failure, unspecified (principal); N39.0 Urinary tract infection, site not specified; Z89.612 Acquired absence of left leg above knee; I10 Essential (primary) hypertension; N39.3 Stress incontinence (female) (male); F17.210 Nicotine dependence, cigarettes, uncomplicated; K21.9 Gastro-esophageal reflux disease without esophagitis; M06.9 Rheumatoid arthritis, unspecified; I73.9 Peripheral vascular disease, unspecified; E78.5 Hyperlipidemia, unspecified; E86.0 Dehydration; K52.9 Noninfective gastroenteritis and colitis, unspecified; E11.9 Type 2 diabetes mellitus without complications; Z79.84 Long term (current) use of oral hypoglycemic drugs
CPT/HCPCS: 80048; 80053; 81001; 82948; 83605; 84155; 85007; 85018; 85025; 85027; 87077; 87086; 87186; 87493; 87506; 96361; 96374; 96375; C9113; J0780; J1170; J1815; J2405; J7030

== ENCOUNTER 2017-02-20 20:57 | Emergency (ER) | payer MEDICARE, OTHER ==
[~2017-02-20] VITALS: Ht 167.6 cm; Wt 65.0 kg
[~2017-02-20 20:57] MED LIST changes: -CLOP75 PO; -ECOT81TA2 PO; -GLIP5 PO; -LISI-360 PO; -LORTA5 PO; +MACR100C2 PO; +OMEP20TA PO; -OMEP20TA39 PO; -OXYC1SOL5 PO; -PRAV20TA PO; +TRAM50TA PO; -TRAZ50TA4 PO
[2017-02-20 20:59] VITALS: BP 143/68; PULSE 101; RESP 16; TEMP 98.7; O2SAT 97
[2017-02-20 21:38] VITALS: BP 139/79; PULSE 97; RESP 18; O2SAT 95
[2017-02-20] MEDS ORDERED: SODIUM CHLOR 0.9% 1000 ML INJ 1,000 ML IV SCH (21:38)
[2017-02-20 21:40] VITALS: O2SAT 94
[2017-02-20] MEDS ORDERED: ASPI81CH CHEW (21:41)
--- NOTE | 2017-02-20 21:42 | PD ---
HPI Chief Complaint: Allergic/Adverse Reaction Time Seen by Provider: 21:34 Travel History International Travel<30 days: No Contact w/Intl Traveler<30days: No Traveled to known affect area: No History of Present Illness HPI This is a 67-year-old female presents for evaluation of acute swelling of the tongue. She reports that she woke up from a nap at 6:30 PM and her tongue was swollen. She took 2 tablets of Benadryl at that time. Her symptoms have improved mildly since then. She now presents for evaluation. She denies any swelling of the lips. Denies any drug tightness, shortness of breath, rash, pruritus. This is never happened before. She reports that she was started on insulin about 2-3 weeks ago. No other new medications. She has been on lisinopril for 5 years. She has no other complaints at this time. 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) Cardiac Catheterization: Yes Cardiovascular Problems: Yes (HX CP, STRESS TEST NEGATIVE) High Cholesterol: Yes Chest Pain: No Congestive Heart Failure: No COPD: No Diabetes: Yes Diminished Hearing: No Endocrine: Yes Gastrointestinal Disorders: Yes (GERD) GERD: Yes Genitourinary: Yes (STRESS INCONTINENCE) Hepatitis: No Hiatal Hernia: No Hypertension: Yes Immune Disorder: No Implanted Vascular Access Dvce: Yes Kidney Stones: Yes Musculoskeletal: Yes (RHEUMATOID ARTHRITIS) Neurologic: No Psychiatric: No Reproductive: No Respiratory: Yes Myocardial Infarction: No Renal Failure: No Sleep Apnea: No Thyroid Disease: No Past Surgical History Abdominal Surgery: Yes (APPENDECTOMY) AICD: No Appendectomy: Yes Arteriovenous Shunt: No Body Medical Devices: MULTIPLE LEG STENTS, PINS RIGHT ELBOW Cardiac Surgery: No Ear Surgery: No Endocrine Surgery: No Eye Surgery: No Genitourinary Surgery: Yes (LITHOTRIPSY LEFT KIDNEY STONE, OPEN REMOVAL LEFT KIDNEY STONE) Gynecologic Surgery: Yes (COMPLETE HYSTERECTOMY) Hysterectomy: Yes Insulin Pump: No Joint Replacement: No Oral Surgery: Yes (TONSILLECTOMY) Pacemaker: No Thoracic Surgery: No Tonsillectomy: Yes Other Surgery: Yes Social History Alcohol Use: No Tobacco Use: Yes (2 ppd) Substance Use: No Allergies-Medications (Allergen,Severity, Reaction): Coded Allergies: Metformin (Verified Adverse Reaction, Severe, Diarrhea, 02/20/17) Vancomycin (Verified Adverse Reaction, Severe, 02/20/17) "severe yeast infection" Codeine (Verified Adverse Reaction, Intermediate, Nausea/Vomiting, 02/20/17) Reported Meds & Prescriptions Reported Meds & Active Scripts Active Claritin (Loratadine) 10 Mg Cap 10 Mg PO DAILY Pepcid (Famotidine) 40 Mg Tab 40 Mg PO HS Medrol Dosepak (Methylprednisolone) 4 Mg Dspk 4 Mg PO DIRECTED Per Pharmacist direction Reported Aspirin 81 Mg Chew 81 Mg CHEW DAILY Tramadol (Tramadol HCl) 50 Mg Tab 50 Mg PO Q8H PRN Omeprazole 20 Mg Tab 20 Mg PO DAILY Clopidogrel (Clopidogrel Bisulfate) 75 Mg Tab 75 Mg PO DAILY Aspirin 81 Mg Tabdr 81 Mg PO DAILY Gabapentin 100 Mg Cap 100 Mg PO HS Lisinopril 20 Mg Tab 20 Mg PO DAILY Glipizide ER (Glipizide) 2.5 Mg Bibiana 2.5 Mg PO DAILY Take with breakfast or first main meal of the day Pravastatin 20 Mg Tab 20 Mg PO DAILY Sertraline (Sertraline HCl) 50 Mg Tab 50 Mg PO DAILY Review of Systems Except as stated in HPI: all other systems reviewed are Neg Physical Exam Narrative GENERAL: This is a well-developed well-nourished female in no acute distress. Her vital signs reviewed. SKIN: Warm and dry. HEAD: Atraumatic. Normocephalic. EYES: Pupils equal and round. No scleral icterus. No injection or drainage. ENT: No nasal bleeding or discharge. Mucous membranes pink and moist. The tongue is swollen. There is no swelling of the uvula or the lips. Voice is not hoarse or muffled. NECK: Trachea midline. No JVD. CARDIOVASCULAR: Regular rate and rhythm. No murmur appreciated. RESPIRATORY: No accessory muscle use. Clear to auscultation. Breath sounds equal bilaterally. No wheezing. GASTROINTESTINAL: Abdomen soft, non-tender, nondistended. Hepatic and splenic margins not palpable. MUSCULOSKELETAL: No obvious deformities. No clubbing. No cyanosis. No edema. NEUROLOGICAL: Awake and alert. No obvious cranial nerve deficits. Motor grossly within normal limits. Normal speech. PSYCHIATRIC: Appropriate mood and affect; insight and judgment normal. Data Data Last Documented VS Vital Signs Date Time Temp Pulse Resp B/P Pulse Ox O2 Delivery O2 Flow Rate FiO2 02/20/17 21:40 94 Room Air 02/20/17 21:38 97 18 139/79 02/20/17 20:59 98.7 Orders Complete Blood Count With Diff (02/20/17 21:36) Comprehensive Metabolic Panel (02/20/17 21:36) Ecg Monitoring (02/20/17 21:36) Iv Access Insert/Monitor (02/20/17 21:36) Oximetry (02/20/17 21:36) Methylprednisolone So Succ Inj (Solumedr (02/20/17 21:45) Famotidine Inj (Pepcid Inj) (02/20/17 21:45) Sodium Chloride 0.9% Flush (Ns Flush) (02/20/17 21:45) Diphenhydramine Inj (Benadryl Inj) (02/20/17 21:45) Sodium Chlor 0.9% 1000 Ml Inj (Ns 1000 M (02/20/17 21:38) Epinephrine (1:1000) Inj (Adrenalin (1:1 (02/20/17 21:45) Methylprednisolone So Succ Inj (Solumedr (02/21/17 01:00) Epinephrine (1:1000) Inj (Adrenalin (1:1 (02/21/17 01:00) Labs Laboratory Tests Test 02/20/17 21:40 White Blood Count 10.7 TH/MM3 Red Blood Count 5.72 MIL/MM3 Hemoglobin 15.2 GM/DL Hematocrit 45.6 % Mean Corpuscular Volume 79.7 FL Mean Corpuscular Hemoglobin 26.6 PG Mean Corpuscular Hemoglobin 33.4 % Concent Red Cell Distribution Width 15.8 % Platelet Count 209 TH/MM3 Mean Platelet Volume 8.4 FL Neutrophils (%) (Auto) 72.2 % Lymphocytes (%) (Auto) 20.0 % Monocytes (%) (Auto) 3.9 % Eosinophils (%) (Auto) 3.2 % Basophils (%) (Auto) 0.7 % Neutrophils # (Auto) 7.7 TH/MM3 Lymphocytes # (Auto) 2.1 TH/MM3 Monocytes # (Auto) 0.4 TH/MM3 Eosinophils # (Auto) 0.3 TH/MM3 Basophils # (Auto) 0.1 TH/MM3 CBC Comment DIFF FINAL Differential Comment Sodium Level 141 MEQ/L Potassium Level 4.1 MEQ/L Chloride Level 108 MEQ/L Carbon Dioxide Level 25.4 MEQ/L Anion Gap 8 MEQ/L Blood Urea Nitrogen 11 MG/DL Creatinine 0.95 MG/DL Estimat Glomerular Filtration 59 ML/MIN Rate Random Glucose 180 MG/DL Calcium Level 9.2 MG/DL Total Bilirubin 0.3 MG/DL Aspartate Amino Transf 11 U/L (AST/SGOT) Alanine Aminotransferase 14 U/L (ALT/SGPT) Alkaline Phosphatase 126 U/L Total Protein 8.0 GM/DL Albumin 3.4 GM/DL [facility] Medical Decision Making Medical Screen Exam Complete: Yes Emergency Medical Condition: Yes Medical Record Reviewed: Yes Differential Diagnosis STEVE inhibitor-induced angioedema, acute allergic reaction, cellulitis Narrative Course This is a 67-year-old female who is on lisinopril. She presents with 3 hours of tongue swelling. She has no hives, no wheezing. Examination is consistent with angioedema of the tongue. The patient will be placed on the ECG monitor and pulse oximetry. She will be given IV fluids, H1 and H2 antihistamines, Solu -Medrol, 0.15 mg IM epinephrine. Basic lab work has been ordered. She will be monitored closely. 2255: Upon reexamination the patient is feeling improved. She still does have some swelling of the tongue. At the end of my shift the patient was signed out for additional monitoring, likely disposition home of symptoms continue to improve. Scripts Loratadine (Claritin)10 Mg Cap10 Mg PO DAILY #7 CAP Ref 0 Prov:Mj Cabral MD 02/21/17 Famotidine (Pepcid)40 Mg Tab40 Mg PO HS #7 TAB Ref 0 Prov:Mj Cabral MD 02/21/17 Methylprednisolone Dosepak (Medrol Dosepak)4 Mg Dspk4 Mg PO DIRECTED #1 DSPK Per Pharmacist direction Prov:Mj Cabral MD 02/21/17 Lavelle Dexter Feb 20, 2017 21:42
[2017-02-20] MEDS ORDERED: EPINEPHrine HCL (1:1000) 1 MG/ML VIAL IM ONE (21:45)
[2017-02-20] MEDS ORDERED: FAMOTIDINE 20 MG/2 ML VIAL IV PUSH ONE (21:45)
[2017-02-20] MEDS ORDERED: SODIUM CHLORIDE 0.9% FLUSH 10 ML FLUSH IV FLUSH PRN (21:45)
[2017-02-20] MEDS ORDERED: methylPREDNISolone SOD SUCC 125 MG/2 ML VIAL IVP ONE (21:45)
[2017-02-20] MEDS ORDERED: diphenhydrAMINE HCL 50 MG/ML VIAL IVP ONE (21:45)
[2017-02-20 22:09] LABS: AUTOMATED NEUTROPHIL # 7.7 TH/MM3 (1.8-7.7); BASOPHIL # 0.1 TH/MM3 (0-0.2); BASOPHIL % 0.7 % (0.0-2.0); EOSINOPHIL # 0.3 TH/MM3 (0-0.4); EOSINOPHIL % 3.2 % (0.0-4.0); HEMATOCRIT 45.6 % (35.0-46.0); HEMO FLAGS DIFF FINAL; LYMPHOCYTE # 2.1 TH/MM3 (1.0-4.8); MEAN CELL VOLUME 79.7 FL (80.0-100.0); MEAN CORPUSCULAR HEMOGLOBIN 26.6 PG (27.0-34.0); MEAN CORPUSCULAR HGB CONC 33.4 % (32.0-36.0); MONO % 3.9 % (0.0-8.0); NEUT % 72.2 % (16.0-70.0); PLATELET COUNT 209 TH/MM3 (150-450); RED BLOOD COUNT 5.72 MIL/MM3 (4.00-5.30); RED CELL DISTRIBUTION WIDTH 15.8 % (11.6-17.2); WHITE BLOOD COUNT 10.7 TH/MM3 (4.0-11.0)
[2017-02-20 22:24] LABS: ANION GAP 8 MEQ/L (5-15); AST (GOT) 11 U/L (15-37); BICARBONATE 25.4 MEQ/L (21.0-32.0); BLOOD UREA NITROGEN 11 MG/DL (7-18); CHLORIDE 108 MEQ/L (98-107); GLOMERULAR FILTRATION RATE 59 ML/MIN (>89); POTASSIUM 4.1 MEQ/L (3.5-5.1); SODIUM (NA) 141 MEQ/L (136-145)
[2017-02-20 22:27] LABS: ALKALINE PHOSPHATASE 126 U/L (45-117); ALT (GPT) 14 U/L (10-53); TOTAL BILIRUBIN ADULT 0.3 MG/DL (0.2-1.0)
--- NOTE | 2017-02-20 23:25 | PD ---
Physical Exam Narrative GENERAL: SKIN: Warm and dry. HEAD: Atraumatic. Normocephalic. EYES: Pupils equal and round. No scleral icterus. No injection or drainage. ENT: No nasal bleeding or discharge. Mucous membranes pink and moist....TONGUE ENLARGEMENT IS IMPROVING FROM INITIAL EXAM, NO STRIDOR, NO WHEEZING, NO UVULAR EDEMA NECK: Trachea midline. No JVD. CARDIOVASCULAR: Regular rate and rhythm. RESPIRATORY: No accessory muscle use. Clear to auscultation. Breath sounds equal bilaterally. GASTROINTESTINAL: Abdomen soft, non-tender, nondistended. Hepatic and splenic margins not palpable. MUSCULOSKELETAL: Extremities without clubbing, cyanosis, or edema. No obvious deformities. NEUROLOGICAL: Awake and alert. No obvious cranial nerve deficits. Motor grossly within normal limits. Five out of 5 muscle strength in the arms and legs. Normal speech. PSYCHIATRIC: Appropriate mood and affect; insight and judgment normal. Data Data Last Documented VS Vital Signs Date Time Temp Pulse Resp B/P Pulse Ox O2 Delivery O2 Flow Rate FiO2 02/20/17 21:40 94 Room Air 02/20/17 21:38 97 18 139/79 02/20/17 20:59 98.7 Orders Complete Blood Count With Diff (02/20/17 21:36) Comprehensive Metabolic Panel (02/20/17 21:36) Ecg Monitoring (02/20/17 21:36) Iv Access Insert/Monitor (02/20/17 21:36) Oximetry (02/20/17 21:36) Methylprednisolone So Succ Inj (Solumedr (02/20/17 21:45) Famotidine Inj (Pepcid Inj) (02/20/17 21:45) Sodium Chloride 0.9% Flush (Ns Flush) (02/20/17 21:45) Diphenhydramine Inj (Benadryl Inj) (02/20/17 21:45) Sodium Chlor 0.9% 1000 Ml Inj (Ns 1000 M (02/20/17 21:38) Epinephrine (1:1000) Inj (Adrenalin (1:1 (02/20/17 21:45) Methylprednisolone So Succ Inj (Solumedr (02/21/17 01:00) Epinephrine (1:1000) Inj (Adrenalin (1:1 (02/21/17 01:00) Labs Laboratory Tests Test 02/20/17 21:40 White Blood Count 10.7 TH/MM3 Red Blood Count 5.72 MIL/MM3 Hemoglobin 15.2 GM/DL Hematocrit 45.6 % Mean Corpuscular Volume 79.7 FL Mean Corpuscular Hemoglobin 26.6 PG Mean Corpuscular Hemoglobin 33.4 % Concent Red Cell Distribution Width 15.8 % Platelet Count 209 TH/MM3 Mean Platelet Volume 8.4 FL Neutrophils (%) (Auto) 72.2 % Lymphocytes (%) (Auto) 20.0 % Monocytes (%) (Auto) 3.9 % Eosinophils (%) (Auto) 3.2 % Basophils (%) (Auto) 0.7 % Neutrophils # (Auto) 7.7 TH/MM3 Lymphocytes # (Auto) 2.1 TH/MM3 Monocytes # (Auto) 0.4 TH/MM3 Eosinophils # (Auto) 0.3 TH/MM3 Basophils # (Auto) 0.1 TH/MM3 CBC Comment DIFF FINAL Differential Comment Sodium Level 141 MEQ/L Potassium Level 4.1 MEQ/L Chloride Level 108 MEQ/L Carbon Dioxide Level 25.4 MEQ/L Anion Gap 8 MEQ/L Blood Urea Nitrogen 11 MG/DL Creatinine 0.95 MG/DL Estimat Glomerular Filtration 59 ML/MIN Rate Random Glucose 180 MG/DL Calcium Level 9.2 MG/DL Total Bilirubin 0.3 MG/DL Aspartate Amino Transf 11 U/L (AST/SGOT) Alanine Aminotransferase 14 U/L (ALT/SGPT) Alkaline Phosphatase 126 U/L Total Protein 8.0 GM/DL Albumin 3.4 GM/DL [facility] Medical Record Reviewed: Yes Supervised Visit with PATRICIO: No Diagnosis Primary Impression: ANGIOEDEMA DUE TO STEVE INHIBITOR Patient Instructions: Angioedema (ED), General Instructions Additional Instruction: ADVISED TO STOP STEVE INHIBITOR AND CALL PRIMARY TO BE SWITCHED TO ANGIOTENSIN RECEPTOR AJITH (ARB) Scripts Loratadine (Claritin)10 Mg Cap10 Mg PO DAILY #7 CAP Ref 0 Prov:Mj Cabral MD 02/21/17 Famotidine (Pepcid)40 Mg Tab40 Mg PO HS #7 TAB Ref 0 Prov:Mj Cabral MD 02/21/17 Methylprednisolone Dosepak (Medrol Dosepak)4 Mg Dspk4 Mg PO DIRECTED #1 DSPK Per Pharmacist direction Prov:Mj Cabral MD 02/21/17 Disposition: 01 DISCHARGE HOME Condition: Stable Mj Cabral MD Feb 20, 2017 23:25
[2017-02-21] MEDS ORDERED: MEDR4PAK PO (00:54)
[2017-02-21] MEDS ORDERED: CLAR10CA3 PO (00:54)
[2017-02-21] MEDS ORDERED: FAMO1TAB73 PO (00:54)
[2017-02-21] MEDS ORDERED: methylPREDNISolone SOD SUCC 125 MG/2 ML VIAL IV PUSH ONE (01:00)
[2017-02-21] MEDS ORDERED: EPINEPHrine HCL (1:1000) 1 MG/ML VIAL IM ONE (01:00)
== END 2017-02-21 01:51 | disposition home or self-care (01) ==
LOC: NEPC 20:57
DX: T46.4X5A Adverse effect of angiotensin-converting-enzyme inhibitors, initial encounter (principal); T78.3XXA Angioneurotic edema, initial encounter; Y92.9 Unspecified place or not applicable; E11.9 Type 2 diabetes mellitus without complications; I10 Essential (primary) hypertension; K21.9 Gastro-esophageal reflux disease without esophagitis; M06.9 Rheumatoid arthritis, unspecified; Z79.84 Long term (current) use of oral hypoglycemic drugs
CPT/HCPCS: 80053; 85025; 96372; 96374; 96375; 96376; 99284; J0171; J1200; J2930; J7030

== ENCOUNTER 2017-03-19 11:24 | Inpatient (IN) | payer OTHER, MEDICARE ==
[2017-03-19] VITALS (12 sets, daily range): BP systolic 141–191; BP diastolic 87–110; PULSE 97–119; RESP 16–34; TEMP 97.2–98.9; O2SAT 95–100
[~2017-03-19 11:24] MED LIST changes: +ASPI81CH CHEW; +CLAR10CA3 PO; +FAMO1TAB73 PO; -MACR100C2 PO; +MEDR4PAK PO; -PROM25TA5 PO
[2017-03-19 12:05] LABS: AUTOMATED NEUTROPHIL # 7.3 TH/MM3 (1.8-7.7); BASOPHIL # 0.1 TH/MM3 (0-0.2); BASOPHIL % 0.5 % (0.0-2.0); EOSINOPHIL # 0.4 TH/MM3 (0-0.4); EOSINOPHIL % 3.5 % (0.0-4.0); HEMO FLAGS DIFF FINAL; LYMPH % 24.6 % (9.0-44.0); LYMPHOCYTE # 2.6 TH/MM3 (1.0-4.8); MEAN CELL VOLUME 81.6 FL (80.0-100.0); MEAN CORPUSCULAR HEMOGLOBIN 26.6 PG (27.0-34.0); MEAN CORPUSCULAR HGB CONC 32.7 % (32.0-36.0); MONO % 3.6 % (0.0-8.0); NEUT % 67.8 % (16.0-70.0); PLATELET COUNT 252 TH/MM3 (150-450); RED BLOOD COUNT 6.13 MIL/MM3 (4.00-5.30); RED CELL DISTRIBUTION WIDTH 15.1 % (11.6-17.2); WHITE BLOOD COUNT 10.8 TH/MM3 (4.0-11.0)
[2017-03-19 12:12] LABS: APTT (PATIENT) 27.3 SEC (24.3-30.1); INTERNATIONAL NORMALIZED RATIO 0.9 RATIO; PROTHROMBIN TIME - PATIENT 10.2 SEC (9.8-11.6)
--- NOTE | 2017-03-19 12:23 | PD ---
HPI Chief Complaint: Seizure Time Seen by Provider: 11:36 Travel History International Travel<30 days: No Contact w/Intl Traveler<30days: No Traveled to known affect area: No History of Present Illness HPI 67-year-old female presents by ambulance after her heard noise and had his own limited mobility issues so he called the ambulance to check on her. When the fire team got there she was found supine on the ground near her wheelchair with an initial GCS of 3. They placed her on the monitor and she was having intermittent runs of V. tach that resolved on its own. By the time the ambulance team got there she was a GCS of 6 and had been incontinent of urine. In route her blood pressure was significantly elevated. She was 162/ 128 on last blood pressure check. Patient cannot provide me with any history on initial discussion as she is altered and currently a GCS of 9. 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) Cardiac Catheterization: Yes Cardiovascular Problems: Yes (HX CP, STRESS TEST NEGATIVE) High Cholesterol: Yes Chest Pain: No Congestive Heart Failure: No COPD: No Diabetes: Yes Diminished Hearing: No Endocrine: Yes Gastrointestinal Disorders: Yes (GERD) GERD: Yes Genitourinary: Yes (STRESS INCONTINENCE) Hepatitis: No Hiatal Hernia: No Hypertension: Yes Immune Disorder: No Implanted Vascular Access Dvce: Yes Kidney Stones: Yes Musculoskeletal: Yes (RHEUMATOID ARTHRITIS) Neurologic: No Psychiatric: No Reproductive: No Respiratory: Yes Myocardial Infarction: No Renal Failure: No Sleep Apnea: No Thyroid Disease: No Past Surgical History Narrative Surgical Her prior records Abdominal Surgery: Yes (APPENDECTOMY) AICD: No Appendectomy: Yes Arteriovenous Shunt: No Body Medical Devices: MULTIPLE LEG STENTS, PINS RIGHT ELBOW Cardiac Surgery: No Ear Surgery: No Endocrine Surgery: No Eye Surgery: No Genitourinary Surgery: Yes (LITHOTRIPSY LEFT KIDNEY STONE, OPEN REMOVAL LEFT KIDNEY STONE) Gynecologic Surgery: Yes (COMPLETE HYSTERECTOMY) Hysterectomy: Yes Insulin Pump: No Joint Replacement: No Oral Surgery: Yes (TONSILLECTOMY) Pacemaker: No Thoracic Surgery: No Tonsillectomy: Yes Other Surgery: Yes Social History Narrative Social History by records Alcohol Use: No Tobacco Use: Yes (2 ppd) Substance Use: No Allergies-Medications (Allergen,Severity, Reaction): Coded Allergies: Lisinopril (Verified Allergy, Severe, TONGUE SWELLING, 03/19/17) Metformin (Verified Adverse Reaction, Severe, Diarrhea, 03/19/17) Vancomycin (Verified Adverse Reaction, Severe, 03/19/17) "severe yeast infection" Codeine (Verified Adverse Reaction, Intermediate, Nausea/Vomiting, 03/19/17) Reported Meds & Prescriptions Reported Meds & Active Scripts Active Reported Mapap (Acetaminophen) 325 Mg Tab 325 Mg PO Q4-6H PRN Unisom Sleepgels (Diphenhydramine (Sleep)) 50 Mg Cap 50 Mg PO HS PRN Lantus Inj (Insulin Glargine) 1,000 Unit/10 Ml Vial 10 Units SQ HS Allergy (Loratadine) 10 Mg Tab 10 Mg PO DAILY PRN Losartan (Losartan Potassium) 25 Mg Tab 25 Mg PO DAILY Aspirin 81 Mg Chew 81 Mg CHEW DAILY Tramadol (Tramadol HCl) 50 Mg Tab 50 Mg PO Q8H PRN Clopidogrel (Clopidogrel Bisulfate) 75 Mg Tab 75 Mg PO DAILY Gabapentin 100 Mg Cap 100 Mg PO HS Pravastatin 20 Mg Tab 20 Mg PO DAILY Sertraline (Sertraline HCl) 50 Mg Tab 50 Mg PO DAILY Review of Systems ROS Limitations: Clinical Condition, Altered Mental Status Physical Exam Exam Limitations: Clinical Condition, Altered Mental Status Narrative GENERAL: Ill-appearing patient. SKIN: Warm and dry. HEAD: Normocephalic and atraumatic. EYES: No injection or drainage. Pupils are 5 mm and reactive bilaterally ENT: No nasal drainage noted. NECK: Supple, trachea midline. CARDIOVASCULAR: Regular rate and rhythm RESPIRATORY: Breath sounds equal bilaterally at apices. No accessory muscle use. GASTROINTESTINAL: Abdomen nondistended. NEUROLOGICAL: Opens eyes to voice, mumbles to voice, moves all extremities to voice Data Data Last Documented VS Vital Signs Date Time Temp Pulse Resp B/P Pulse Ox O2 Delivery O2 Flow Rate FiO2 03/19/17 13:00 105 18 167/104 100 Nasal Cannula 2 03/19/17 11:29 97.2 Orders Thyroid Stimulating Hormone (03/19/17 11:36) Magnesium (Mg) (03/19/17 11:36) Phosphorus (Po4) (03/19/17 11:36) Complete Blood Count With Diff (03/19/17 11:36) Comprehensive Metabolic Panel (03/19/17 11:36) Ckmb (Isoenzyme) Profile (03/19/17 11:36) Troponin I (03/19/17 11:36) Urinalysis - C+S If Indicated (03/19/17 11:36) Act Partial Throm Time (Ptt) (03/19/17 11:36) Prothrombin Time / Inr (Pt) (03/19/17 11:36) Ct Brain W/O Iv Contrast(Rout) (03/19/17 ) B-Type Natriuretic Peptide (03/19/17 11:36) Chest, Single Ap (03/19/17 ) Electrocardiogram (03/19/17 ) Iv Access Insert/Monitor (03/19/17 11:36) Ecg Monitoring (03/19/17 11:36) Oximetry (03/19/17 11:36) Type And Screen (03/19/17 11:36) Sodium Chloride 0.9% Flush (Ns Flush) (03/19/17 11:45) Drug Screen, Random Urine (03/19/17 11:36) Alcohol (Ethanol) (03/19/17 11:36) Salicylates (Aspirin) (03/19/17 11:36) Tylenol (Acetaminophen) (03/19/17 11:36) Lactic Acid (03/19/17 11:36) Pelvis, Ap Only (Routine) (03/19/17 ) Blood Culture (03/19/17 11:52) Urinary Catheter Insert/Apply (03/19/17 11:52) Ct Cerv Spine W/O Contrast (03/19/17 ) Sodium Chlor 0.9% 1000 Ml Inj (Ns 1000 M (03/19/17 12:30) Urine Culture (03/19/17 11:35) Piperacil-Tazo 4.5 Gm Premix (Zosyn 4.5 (03/19/17 12:47) Sodium Chlor 0.9% 1000 Ml Inj (Ns 1000 M (03/19/17 13:00) Arterial Blood Gas (Abg) (03/19/17 ) Beta Hydroxybutyrate (Acetone) (03/19/17 12:52) Ct Abd/Pel W/O Iv Contrast (03/19/17 ) Lactic Acid (03/19/17 13:21) Basic Metabolic Panel (Bmp) (03/19/17 13:21) Insulin Aspart Inj (Novolog Inj) (03/19/17 13:30) Admit Order (Ed Use Only) (03/19/17 13:23) Consult Cardiology (03/19/17 ) B-Type Natriuretic Peptide (03/19/17 13:27) Labs Laboratory Tests Test 03/19/17 03/19/17 03/19/17 03/19/17 11:35 11:40 11:42 11:45 Urine Color YELLOW Urine Turbidity HAZY Urine pH 6.5 Urine Specific [place] 1.019 Urine Protein GREATER THAN 600 mg/dL Urine Glucose (UA) 300 mg/dL Urine Ketones TRACE mg/dL Urine Occult Blood MOD Urine Nitrite POS Urine Bilirubin NEG Urine Urobilinogen LESS THAN 2.0 MG/DL Urine Leukocyte Esterase MOD Urine RBC 10 /hpf Urine WBC 107 /hpf Urine WBC Clumps FEW Urine Squamous Epithelial <1 /hpf Cells Urine Bacteria FEW /hpf Urine Hyaline Casts 6 /lpf Urine Mucus FEW /lpf Microscopic Urinalysis Comment CULTURE INDICATED Urine Opiates Screen NEG Urine Barbiturates Screen NEG Urine Amphetamines Screen NEG Urine Benzodiazepines Screen NEG Urine Cocaine Screen NEG Urine Cannabinoids Screen NEG White Blood Count 10.8 TH/MM3 Red Blood Count 6.13 MIL/MM3 Hemoglobin 16.3 GM/DL Hematocrit 50.0 % Mean Corpuscular Volume 81.6 FL Mean Corpuscular Hemoglobin 26.6 PG Mean Corpuscular Hemoglobin 32.7 % Concent Red Cell Distribution Width 15.1 % Platelet Count 252 TH/MM3 Mean Platelet Volume 8.0 FL Neutrophils (%) (Auto) 67.8 % Lymphocytes (%) (Auto) 24.6 % Monocytes (%) (Auto) 3.6 % Eosinophils (%) (Auto) 3.5 % Basophils (%) (Auto) 0.5 % Neutrophils # (Auto) 7.3 TH/MM3 Lymphocytes # (Auto) 2.6 TH/MM3 Monocytes # (Auto) 0.4 TH/MM3 Eosinophils # (Auto) 0.4 TH/MM3 Basophils # (Auto) 0.1 TH/MM3 CBC Comment DIFF FINAL Differential Comment Prothrombin Time 10.2 SEC Prothromb Time International 0.9 RATIO Ratio Activated Partial 27.3 SEC Thromboplast Time Sodium Level 140 MEQ/L Potassium Level 3.0 MEQ/L Chloride Level 106 MEQ/L Carbon Dioxide Level 13.5 MEQ/L Anion Gap 21 MEQ/L Blood Urea Nitrogen 8 MG/DL Creatinine 1.25 MG/DL Estimat Glomerular Filtration 43 ML/MIN Rate Random Glucose 330 MG/DL Calcium Level 8.7 MG/DL Phosphorus Level 4.3 MG/DL Magnesium Level 1.9 MG/DL Total Bilirubin 0.4 MG/DL Aspartate Amino Transf 18 U/L (AST/SGOT) Alanine Aminotransferase 14 U/L (ALT/SGPT) Alkaline Phosphatase 146 U/L Total Creatine Kinase 59 U/L Troponin I LESS THAN 0.02 NG/ML B-Type Natriuretic Peptide 112 PG/ML Total Protein 7.9 GM/DL Albumin 3.4 GM/DL Thyroid Stimulating Hormone 1.840 uIU/ML 3rd Gen Salicylates Level 5.9 MG/DL Acetaminophen Level 4.1 MCG/ML Ethyl Alcohol Level LESS THAN 3 MG/DL B-Hydroxybutyrate 0.19 MMOL/L Blood Type O POSITIVE Antibody Screen NEGATIVE Lactic Acid Level 11.0 mmol/L Test 03/19/17 12:49 Blood Gas Puncture Site LT RADIAL Blood Gas Patient Temperature 98.6 Blood Gas HCO3 16 mmol/L Blood Gas Base Excess -8.2 mmol/L Blood Gas Oxygen Saturation 93 % Arterial Blood pH 7.36 Arterial Blood Partial 29 mmHg Pressure CO2 Arterial Blood Partial 85 mmHG Pressure O2 Arterial Blood Oxygen Content 20.7 Vol % Arterial Blood 3.2 % Carboxyhemoglobin Arterial Blood Methemoglobin 0.5 % Blood Gas Hemoglobin 15.9 G/DL Oxygen Delivery Device NASAL CANNULA Blood Gas Liter Flow 3 L/M MDM Medical Decision Making Medical Screen Exam Complete: Yes Emergency Medical Condition: Yes Medical Record Reviewed: Yes (past history confirmed) Interpretation(s) EMS EKG rhythm strip shows multiple stacked PVCs intermittently that appears sinus EKG shows sinus tachycardia at 110, no ST elevation or depression, and no arrhythmias. No significant T-wave inversions. CBC & BMP Diagram 03/19/17 11:40 Last [address] 03/19/17 0000 Signed Impressions: Service Date/Time: Sunday, March 19, 2017 11:53 - CONCLUSION: 1. No acute intracranial abnormality is identified. Blu Velez MD Chest X-Ray 03/19/17 0000 Signed Impressions: Service Date/Time: Sunday, March 19, 2017 12:21 - CONCLUSION: Mild failure bibasilar clinical changes worse in the right. Inflammatory process can't be entirely excluded. Marcos Velez MD FACR acetone is normal lactic acid is 11 Differential Diagnosis Intercranial bleed, postictal from seizure, electrolyte abnormality, mass, cardiac.... Narrative Course Patient with initial GCS of 9. We'll place end tidal CO2 as GCS has improved from prior and closely check. Staff will place IV and blood work will be sent. CT was called and when they were available I went with patient and no large bleed noted. Her GCS was improving and she was able to talk briefly. She asked why she was here. She cannot provide me with other details though. We' ll closely continue to monitor. As patient was coming back from CT scan she started to improve and cannot talk. She does not recall what happened to her or how she got here. She denies symptoms but is still a very poor historian and now a GCS of 14. She cannot tell me her medical history but does tell me her name. We'll continue to monitor. Lab work shows significantly elevated lactic acidosis with concurrent metabolic anion gap acidosis. Will add on acetone to rule out DKA although urine does not show significant ketones. UA shows urinary tract infection so we'll cover with Zosyn. Will add on CT abdomen pelvis given prior history of kidney stone to make sure that she does not have a septic stone. Patient will be admitted to the ICU for further care. 1504 notified by nurse that patient had another altered mental status episode but she did not know when it started but when she went in the room she was altered like she was before. When I assessed patient she is breathing on her own and has a good pulse. Her vitals are stable but she will not respond to voice at this time. Unknown if she had seizure activity. We will discuss with the ICU team and closely monitor, on review of monitor at 1501 she has significant artifact, ?seizure on recheck patient back to gcs of 14, icu doctor updated Critical Care Narrative Aggregate critical care time was 60 minutes. Time to perform other separately billable procedures was not included in the critical care time. My time did not include minutes spent treating any other patients simultaneously or on activities that did not directly contribute to the patient's treatment. The services I provided to this patient were to treat and/or prevent clinically significant deterioration that could result in: Aspiration, I provided critical care services requiring my management, as noted below: Chart data review, documentation time, medication orders and management, vital sign assessments/reviewing monitor data, ordering and reviewing lab tests, ordering and interpreting/reviewing x-rays and diagnostic studies, care of the patient and discussion of the patient with the admitting physicians. Physician Communication Physician Communication Dr. Taylor states that if ventricular tachycardia recurs to place on amiodarone dr yuen agrees to admit, states to cover with ssi for now, recheck lactic and bmp and will take over care dr monsivais updated about change and will see patient, states intubate if needs airway protection dr mosnivais updated about improvement in mental status and added keppra, ?seizure dr taylor states rhythm is sinus and updated at bedside dr gonzales will follow Diagnosis Primary Impression: Altered mental status Qualified Code: R41.82 - Altered mental status, unspecified altered mental status type Additional Impressions: Lactic acidosis High anion gap metabolic acidosis Hypokalemia UTI (urinary tract infection) Qualified Code: N39.0 - Urinary tract infection without hematuria, site unspecified Admitting Information Admitting Physician Requests: Admit Fabienne Mistry MD Mar 19, 2017 12:23
[2017-03-19 12:29] LABS: BACTERIA, URINE FEW /hpf; BLOOD, URINE MOD (NEG); COMMENT (UR) CULTURE INDICATED; CULTURE IF INDICATED CULTURE INDICATED; GLUCOSE,URINE 300 mg/dL (NEG); HYALINE CAST, URINE 6 /lpf (RARE); KETONE, URINE TRACE mg/dL (NEG); MUCUS URINE FEW /lpf (OCC); NITRITE,URINE POS (NEG); PH, URINE 6.5 (5.0-8.5); SQUAMOUS EPITHELIAL CELL URINE <1 /hpf (0-5); URINE COLOR YELLOW (YELLW/STRAW)
[2017-03-19] MEDS ORDERED: SODIUM CHLOR 0.9% 1000 ML INJ 1,000 ML IV ONE ×2 (12:30→13:00)
--- NOTE | 2017-03-19 12:30 | RADRPT ---
EXAM DATE/TIME: 03/19/2017 11:53 [facility] COMPARISON: No previous studies available for comparison. INDICATIONS : Fall today patient became unresponsive RADIATION DOSE: 56.38 CTDIvol (mGy) MEDICAL HISTORY : Cardiovascular disease. Hypertension. SURGICAL HISTORY : Appendectomy. Cholecystectomy.Hysterectomy. ENCOUNTER: Initial ACUITY: 1 day PAIN SCALE: Non-responsive LOCATION: cranial TECHNIQUE: Multiple contiguous axial images were obtained of the head. Using automated exposure control and adj ustment of the mA and/or kV according to patient size, radiation dose was kept as low as reasonably a chievable to obtain optimal diagnostic quality images. DICOM format image data is available electro nically for review and comparison. FINDINGS: CEREBRUM: The ventricles are normal for age. No evidence of midline shift, mass lesion, hemorrhage or acute in farction. No extra-axial fluid collections are seen. POSTERIOR FOSSA: The cerebellum and brainstem are intact. The 4th ventricle is midline. The cerebellopontine angle i s unremarkable. EXTRACRANIAL: The visualized portion of the orbits is intact. SKULL: The calvaria is intact. No evidence of skull fracture. CONCLUSION: 1. No acute intracranial abnormality is identified. Blu Velez MD on March 19, 2017 at 12:27 Board Certified Radiologist. This report was verified electronically.
[2017-03-19 12:35] LABS: ANION GAP 21 MEQ/L (5-15); AST (GOT) 18 U/L (15-37); BICARBONATE 13.5 MEQ/L (21.0-32.0); BLOOD UREA NITROGEN 8 MG/DL (7-18); CHLORIDE 106 MEQ/L (98-107); GLOMERULAR FILTRATION RATE 43 ML/MIN (>89); MAGNESIUM 1.9 MG/DL (1.5-2.5); SODIUM (NA) 140 MEQ/L (136-145)
[2017-03-19 12:37] LABS: ACETAMINOPHEN 4.1 MCG/ML (10.0-30.0); ALKALINE PHOSPHATASE 146 U/L (45-117); ALT (GPT) 14 U/L (10-53); TOTAL BILIRUBIN ADULT 0.4 MG/DL (0.2-1.0)
[2017-03-19 12:42] LABS: CREATINE KINASE 59 U/L (26-192)
[2017-03-19] MEDS ORDERED: PIPERACIL-TAZO 4.5 GM PREMIX 100 ML IV STA (12:47)
--- NOTE | 2017-03-19 12:50 | RADRPT ---
EXAM DATE/TIME: 03/19/2017 12:21 [facility] COMPARISON: CHEST SINGLE AP, October 03, 2015, 22:17. INDICATIONS : Palpitations. MEDICAL HISTORY : Hypertension. Gastroesophageal reflux disease. Diabetes mellitus type II. SURGICAL HISTORY : Hysterectomy. ENCOUNTER: Initial ACUITY: 1 day PAIN SCORE: Non-responsive. LOCATION: Bilateral chest FINDINGS: Bibasilar parenchymal changes are noted worse on the right. There is mild failure. Heart is minimal ly enlarged. The portion of the bony skeleton visualized is unremarkable. CONCLUSION: Mild failure bibasilar clinical changes worse in the right. Inflammatory process can't be entirely e xcluded. Marcos Velez MD FACR on March 19, 2017 at 12:48 Board Certified Radiologist. This report was verified electronically.
[2017-03-19 12:59] LABS: BLOOD GAS BASE EXCESS -8.2 mmol/L (-2-2); BLOOD GAS CARBOXYHEMOGLOBIN 3.2 % (0-4); BLOOD GAS HCO3 16 mmol/L (22-26); BLOOD GAS METHEMOGLOBIN 0.5 % (0-2); BLOOD GAS O2 HGB SATURATION 93 % (90-100); BLOOD GAS OXYGEN CONTENT 20.7 Vol % (12.0-20.0); BLOOD GAS PCO2 29 mmHg (38-42); BLOOD GAS PO2 85 mmHG (61-120); BLOOD GAS TOTAL HGB 15.9 G/DL (12.0-16.0); CRITICAL VALUE YES; TEMP CORR TO 98.6
[2017-03-19 13:00] LABS: DRAW SITE LT RADIAL; LITER FLOW 3 L/M; NUMBER OF ARTERIAL PUNCTURES 1; OXYGEN DEVICE NASAL CANNULA; STAT YES
[2017-03-19 13:28] LABS: AMPHETAMINE, URINE NEG (NEG); BARBITURATES, URINE NEG (NEG); COCAINE, URINE NEG (NEG)
[2017-03-19] MEDS ORDERED: INSULIN ASPART 1,000 UNITS/10 ML VIAL SQ ONE (13:30)
--- NOTE | 2017-03-19 13:33 | RADRPT ---
EXAM DATE/TIME: 03/19/2017 11:56 [facility] COMPARISON: No previous studies available for comparison. INDICATIONS : Fall today now unresponsive. RADIATION DOSE: 35.24 CTDIvol (mGy) MEDICAL HISTORY : Cardiovascular disease. Hypertension. SURGICAL HISTORY : Appendectomy. Cholecystectomy.Hysterectomy. ENCOUNTER: Initial ACUITY: 1 day PAIN SCALE: Non-responsive LOCATION: neck TECHNIQUE: Volumetric scanning of the cervical spine was performed. Multiplanar reconstructions in the sagittal, coronal and oblique axial planes were performed. Using automated exposure control and adjustment o f the mA and/or kV according to patient size, radiation dose was kept as low as reasonably achievable to obtain optimal diagnostic quality images. DICOM format image data is available electronically f or review and comparison. FINDINGS: VERTEBRAE: Normal vertebral body height. ALIGNMENT: No evidence of subluxation. C2-C3: The bony spinal canal is normal in size. No evidence of disc bulge or herniation. The neural forami na are bilaterally patent. C3-C4: The bony spinal canal is normal in size. No evidence of disc bulge or herniation. The neural forami na are bilaterally patent. C4-C5: A mild central bulge. No abutment of the cord or central canal stenosis. Bony uncovertebral hypertrop hy generates mild left neural foraminal narrowing. The right is patent. C5-C6: A mild central disc bulge just touches the ventral portion of the cord. No central canal stenosis. [place] uncovertebral hypertrophy generates mild left neural foraminal narrowing. The right is patent. C6-C7: The bony spinal canal is normal in size. No evidence of disc bulge or herniation. The neural forami na are bilaterally patent. C7-T1: The bony spinal canal is normal in size. No evidence of disc bulge or herniation. The neural forami na are bilaterally patent. CONCLUSION: 1. No fracture or dislocation. 2. Degenerative changes as detailed at each level in the above discussion. Camden Paulino Jr., MD on March 19, 2017 at 13:27 Board Certified Radiologist. This report was verified electronically.
--- NOTE | 2017-03-19 13:39 | RADRPT ---
EXAM DATE/TIME: 03/19/2017 12:25 [facility] COMPARISON: No previous studies available for comparison. INDICATIONS : Pelvic pain, fall. MEDICAL HISTORY : None. SURGICAL HISTORY : Hysterectomy. Aortic stent ENCOUNTER: Initial ACUITY: 1 day PAIN SCORE: 4/10 LOCATION: Bilateral hips FINDINGS: A single frontal view of the pelvis demonstrates no evidence of fracture. The bony pelvic ring is in tact. Bony mineralization is normal. The soft tissues are intact. A vascular stent overlies each he mipelvis. Surgical clips overlie the left hip. Moderate osteoarthritis of the right hip and mild oste oarthritis of the left hip. CONCLUSION: No fracture. Camden Paulino Jr., MD on March 19, 2017 at 13:36 Board Certified Radiologist. This report was verified electronically.
[2017-03-19] MEDS ORDERED: POTASSIUM CHLORIDE 25 MEQ EFFERVESCENT TAB PO PRN (14:00)
[2017-03-19] MEDS ORDERED: CHLORHEXIDINE GLUCONATE 2 % 1 PACK (2 CLOTHS) TOP PRN (14:00)
[2017-03-19] MEDS ORDERED: POTASSIUM PHOSPHATE MONOBASIC 500 MG TAB PO PRN (14:00)
[2017-03-19] MEDS ORDERED: SODIUM PHOSPHATE INJ 30 MMOL in SODIUM CHLOR 0.9% 250 ML INJ 240 ML IV PRN (14:00)
[2017-03-19] MEDS ORDERED: POTASSIUM CHLOR 20 MEQ PREMIX 100 ML IV PRN (14:00)
[2017-03-19] MEDS ORDERED: MAGNESIUM OXIDE 400 MG TAB PO PRN (14:00)
[2017-03-19] MEDS ORDERED: MAGNESIUM SULFATE INJ 2 GM in SODIUM CHLORIDE 0.9% INJ 96 ML IV PRN (14:00)
[2017-03-19] MEDS ORDERED: MAGNESIUM SULFATE INJ 4 GM in SODIUM CHLORIDE 0.9% INJ 92 ML IV PRN (14:00)
[2017-03-19] MEDS ORDERED: POTASSIUM PHOSPHATE INJ 30 MMOL in SODIUM CHLOR 0.9% 250 ML INJ 250 ML IV PRN (14:00)
[2017-03-19] MEDS ORDERED: POTASSIUM CHLOR 40 MEQ PREMIX 100 ML IV PRN ×2 (14:00)
[2017-03-19] MEDS ORDERED: MISCELLANEOUS NURSING INFORMATION XX SCH (14:00)
[2017-03-19] MEDS ORDERED: LACTULOSE SYRUP 20 GM/30 ML CUP PO PRN (14:00)
[2017-03-19] MEDS ORDERED: POTASSIUM PHOSPHATE MONOBASIC 500 MG TAB PO/TUBE PRN (14:00)
[2017-03-19] MEDS ORDERED: BISACODYL 10 MG SUPP RECTAL PRN (14:00)
--- NOTE | 2017-03-19 14:06 | RADRPT ---
EXAM DATE/TIME: 03/19/2017 13:30 [facility] COMPARISON: No previous studies available for comparison. INDICATIONS : Diffuse abdomen pain, calculi ORAL CONTRAST: No oral contrast ingested. RADIATION DOSE: 15.61 CTDIvol (mGy) MEDICAL HISTORY : Cardiovascular disease. Precancerous dysplasia of uterus. SURGICAL HISTORY : Appendectomy. Hysterectomy.Lithotripsy for left kidney stone ENCOUNTER: Initial ACUITY: 1 day PAIN SCALE: Non-responsive LOCATION: Bilateral upper quadrant TECHNIQUE: Volumetric scanning of the abdomen and pelvis was performed. Using automated exposure control and ad justment of the mA and/or kV according to patient size, radiation dose was kept as low as reasonably achievable to obtain optimal diagnostic quality images. DICOM format image data is available electro nically for review and comparison. FINDINGS: LOWER LUNGS: Minimal bibasilar parenchymal changes are evident. LIVER: Homogeneous density without lesion. There is no dilation of the biliary tree. No calcified gallston es. SPLEEN: Normal size with small calcification upper pole. PANCREAS: Within normal limits. KIDNEYS: The left kidney is small and shrunken containing several stones. The right kidney is hypertrophied c ontaining 3 small stones. There is mild prominence of the right ureter extending down to the right u reter ureteral vesicle junction. The bladder is decompressed by Balderrama. I don't see an obstructing s tone. ADRENAL GLANDS: Within normal limits. VASCULAR: Moderate vascular calcifications are noted worse at both iliacs. BOWEL/MESENTERY: The stomach, small bowel, and colon demonstrate no acute abnormality. There is no free intraperitone al air or fluid. ABDOMINAL WALL: Within normal limits. RETROPERITONEUM: There is no lymphadenopathy. BLADDER: Decompressed by Balderrama. REPRODUCTIVE: Within normal limits. INGUINAL: Evidence for previous bypass is seen on both the right and left. MUSCULOSKELETAL: Degenerative changes are present in the lumbar spine worse at L5-S1. CONCLUSION: Small shrunken left kidney providing little renal function Prominent right kidney with prominent right ureter. Stones are present in the kidney but I don't see an obstructing stone. Extensive vascu surgery in both inguinal regions. Marcos Velez MD FACR on March 19, 2017 at 14:01 Board Certified Radiologist. This report was verified electronically.
[2017-03-19] MEDS ORDERED: GLUCAGON 1 MG/ML VIAL OTHER PRN (14:30)
[2017-03-19] MEDS ORDERED: DEXTROSE 50% IN WATER 50 ML VIAL(D50) IV PRN (14:30)
[2017-03-19] MEDS ORDERED: MAGNESIUM HYDROXIDE SUSP 30 ML CUP PO PRN (15:00)
[2017-03-19] MEDS: RESP: ALBUTEROL 2.5 MG/IPRATROPIUM 0.5 MG NEB (SCH) INH ×2 (15:32→21:25)
[2017-03-19] MEDS: SODIUM CHLOR 0.9% 1000 ML INJ 1,000 ML IV SCH (15:38)
[2017-03-19] MEDS: PANTOPRAZOLE SODIUM 40 MG VIAL IV SCH (15:47)
[2017-03-19] MEDS ORDERED: LANTUS2P SQ (15:52)
[2017-03-19] MEDS ORDERED: LOSA25TA PO (15:52)
[2017-03-19] MEDS ORDERED: LORA-520 PO (15:52)
--- NOTE | 2017-03-19 15:56 | MB ---
cc: ALANIS JIMENEZ M.D. DATE OF CONSULTATION: 03/19/2017 REASON FOR CONSULTATION Possible nonsustained ventricular tachycardia. HISTORY OF PRESENT ILLNESS No history is obtainable from the patient. She is minimally responsive. Reportedly she is a 67-year-old white female with an extensive history of peripheral vascular disease, who was brought to the hospital after she was found unresponsive by her at home. Reportedly on monitor in the ambulance and in the emergency department she had salvos of wide complex tachycardia. No other clinical history is obtainable at this time. She is not with family in the room at this time. PAST MEDICAL HISTORY 1. History of left ureteral stone status post left ureteral stent 01/20/2005. She also has a history of right kidney stone status post lithotripsy 03/25/2005. 2. Hyperlipidemia. 3. Rheumatoid arthritis. 4. Diabetes. 5. Extensive history of peripheral vascular disease status post a number of endovascular and open surgical procedures on her left lower extremity in 2005 culminating in the need for a left hxasq-bmf-vprs amputation 07/27/2006. She is also status post a number of endovascular and open surgical procedures on her right lower extremity including right great toe transmetatarsal amputation 05/19/2014, most recently right common femoral and external iliac endarterectomy and right superficial femoral artery angioplasty 10/06/15. PAST SURGICAL HISTORY 1. Tonsillectomy. 2. Appendectomy. 3. Bilateral vein stripping in 1998. 4. A number of left lower extremity peripheral vascular surgeries eventually culminating in the need for left huxjr-cpt-yxlo amputation 07/27/2006. 5. History of transmetatarsal amputation of the right great toe 05/19/2014. MEDICATIONS Her cardiac medications at home: 1. Aspirin 81 mg daily. 2. Clopidogrel 75 mg daily. 3. Lisinopril 20 mg daily. 4. Pravastatin 20 mg q.h.s. ALLERGIES METFORMIN, VANCOMYCIN, CODEINE. FAMILY HISTORY Noncontributory. SOCIAL HISTORY Currently unobtainable. She reportedly continues to smoke cigarettes. There is no documented history of alcohol abuse. REVIEW OF SYSTEMS Currently unobtainable. PHYSICAL EXAMINATION VITAL SIGNS: On physical examination her blood pressure 147/99 with a pulse of 110, respirations 18. GENERAL: She is a well-developed, well-nourished white female currently minimally responsive. HEENT: Jugular venous pressure is normal. Carotid pulses are 2+ bilaterally and without bruits. CHEST: Examination of the chest reveals clear lung cameron anteriorly. CARDIAC: On cardiac examination she has a tachycardic regular rhythm without definite S3-S4 or murmur. ABDOMEN: On abdominal examination she has a soft abdomen. Bowel sounds are present. There is no definite hepatosplenomegaly. EXTREMITIES: Examination of extremities reveals the patient to be status post left ryqjl-cqg-wuky amputation. There is no edema of the right lower extremity. The right foot is cool. Pulses are nonpalpable in the distal right lower extremity. LABORATORY DATA Laboratory data includes WBC 10.8, hemoglobin 16.3, platelets 252, CK 59, troponin less than 0.02. Brain natriuretic peptide level 112. IMAGING STUDIES A chest x-ray shows bibasilar parenchymal changes, worse on the right. EKG Shows sinus tachycardia, left atrial abnormality. IMPRESSION Questionable salvos of wide complex tachycardia in this 67-year-old white female with an extensive history of peripheral vascular disease, history of diabetes, rheumatoid arthritis, hyperlipidemia, nephrolithiasis. Rhythm strip from [facility] has been reviewed. The rhythm strip appears to show sinus tachycardia, possibly with a wider complex QRS. The rhythm clearly is not ventricular tachycardia. All the rhythm strips here in the emergency department show considerable artifact. Overall the discernible rhythm strips appear to show sinus rhythm or sinus tachycardia. EKG also shows sinus tachycardia. There is no definite evidence for acute coronary syndrome. Initial cardiac enzymes are negative for myocardial infarction. Echocardiogram is pending. RECOMMENDATIONS 1. Await her 2-D echo. 2. Unless she definitively demonstrates nonsustained episodes of wide complex tachycardia, would recommend no additional workup or specific therapy at this time. 3. Replete her potassium. 4. Neurological workup for her mental status changes. MD LETY Pillai/RAOUL /3:11 PM /3:30 PM MTDMckenna
[2017-03-19] MEDS ORDERED: UNIS50CA PO (16:02)
[2017-03-19] MEDS ORDERED: MAPA325T PO (16:02)
--- NOTE | 2017-03-19 16:02 | MH ---
cc: YAMILET BOOTH M.D. DATE OF ADMISSION 03/19/2017 DATE OF 1950 HISTORY OF PRESENT ILLNESS The patient is a 67-year-old female with past medical history of rheumatoid arthritis, nephrolithiasis, diabetes mellitus, gastroesophageal reflux disease, peripheral vascular disease, hypertension who presented to [facility] ED with altered mental status. When the fire team got there she was found supine on the ground near her wheelchair with initial GCS score of 3. When she was placed on a monitor she noted to have intermittent runs of V-tach that resolved on its own. En route to the ER she was hypertensive with blood pressure 162/128 and she had a GCS score of 9 in the ER. The patient was tachycardiac, hypertensive and her laboratory data significant for lactic acid level 11.0 with mild acute kidney, creatinine of 1.25. CT scan of the brain in the ER negative for acute intracranial abnormalities. Chest x-ray showed mild failure bibasilar changes worse on the right. She also had a cervical spine CT which showed no fracture or dislocation and a CT scan of the abdomen and pelvis obtained as well which showed small left kidney, stones present in the kidney without any evidence of obstruction. She was hyperglycemic with a blood sugar of 330 on the BMP. The patient was given 15 units IV NovoLog insulin in the ER along with 2 liters of normal saline and Zosyn. Her urine drug screen is negative for amphetamines, benzodiazepines and cannabinoids. When seen in the ER she was on 2 liters nasal cannula with a saturation of 99% and blood pressure of 147/99. The patient does not remember what happened to her. She denies any history of seizures or CVA. In addition, she denies any chest pain, shortness of breath or any GI symptoms. She is oriented to time and place. EKG in the ED showed sinus tachycardia with rate of 109 beats per minute and possible left atrial enlargement. PAST MEDICAL HISTORY Significant for gastroesophageal reflux disease, peripheral vascular disease, diabetes, nephrolithiasis. PAST SURGICAL HISTORY Previous appendectomy. Previous stents in the lower extremity. Previous lithotripsy for left kidney stone. Previous hysterectomy and tonsillectomy. ALLERGIES ALLERGIES TO CODEINE, METFORMIN, VANCOMYCIN. SOCIAL HISTORY Nondrinker, active smoker. Denies any substance use. FAMILY HISTORY Noncontributory. MEDICATIONS Reported medications include: 1. Pravastatin. 2. Sertraline. 3. Lisinopril. 4. Gabapentin. 5. Plavix. 6. Omeprazole. 7. Tramadol. 8. Aspirin. REVIEW OF SYSTEMS As per HPI. The rest of the review of systems unremarkable. PHYSICAL EXAMINATION GENERAL: A 67-year-old female lying in bed in no acute respiratory distress, lethargic at times. VITAL SIGNS: Temperature 98.0, pulse of 99 to 100, blood pressure 147/99, saturation 99% on 2 liters oxygen. HEENT: Atraumatic, normocephalic. Pupils equal and round, reactive to light and accommodation. Extraocular muscles intact. Conjunctivae pink. Nonicteric sclerae. Oral mucosa within normal. NECK: Supple. No JVD, adenopathy or thyromegaly. Trachea in the midline. CARDIOVASCULAR: Tachycardiac. Normal S1-S2. No murmurs, rubs or gallops noted. PULMONARY EXAMINATION: Bilateral equal entry. No rales or wheezing. ABDOMEN: Soft, obese, nontender, no distension, positive bowel sounds. EXTREMITIES: No cyanosis, clubbing or edema. NEURO: Lethargic. No focal or sensory deficit. LABORATORY DATA Sodium 140, potassium 3.0, chloride 106, CO2 13, BUN 8, creatinine 1.25, glucose 330, lactic acid 11, AST 18, ALT 14, total bilirubin 0.4, BNP 112, TSH 1.84, WBC 10.8, hemoglobin 16, hematocrit 50, platelet count 252, INR 0.9, PT 10.2, PTT 27. Urine drug screen negative for amphetamines, benzodiazepines, cannabinoids. Tylenol level of 4.1 and aspirin level 5.9, beta-hydroxybutyrate 0.19. RADIOGRAPHIC STUDIES CT abdomen, pelvis showed small left kidney, prominent right kidney stones present. No evidence of obstruction. CT brain negative for acute intracranial abnormalities. Chest x-ray mild failure. CARDIOLOGY STUDIES EKG showed sinus tachycardia with a rate of 109 beats per minute. IMPRESSION 1. Respiratory insufficiency. 2. Altered mental status, rule out seizures. 3. Lactic acidemia. 4. Anion gap metabolic acidosis. 5. Mild acute kidney injury. 6. Hypertension. 7. Hypokalemia. 8. Questionable V-tach. 9. Urinary tract infection. 10. Hyperglycemia with underlying history of diabetes mellitus. 11. Nephrolithiasis. 12. Peripheral vascular disease. 13. Gastroesophageal reflux disease RECOMMENDATIONS 1. Monitor neuro status closely. A CT scan of the brain in the ED negative for acute intracranial abnormalities and urine drug screen panel unremarkable. Will check EEG to rule out seizures and will consult neurology service. 2. Continue with oxygen to maintain sats above 92%. 3. Bronchodilators in the form of DuoNeb q. 6 plus q. 2 p.r.n. for shortness of breath and aspiration precautions. 4. If there is any worsening in mental status will proceed with intubation for airway protection. 5. Monitor heart rate and blood pressure closely and maintain MAP greater than 65 mmHg. Monitor cardiac enzymes with troponins and will obtain 2-D echo to evaluate LV function and to rule out regional wall motion abnormalities. The patient is being seen by Dr. Powell from cardiology service. 6. Monitor renal function Is and Os and electrolyte replacement per protocol. Will place on IV fluids NS at 84 ml hour. Monitor lactic acid level, likely related to seizures. 7. Keep n.p.o. for now and place on Protonix 40 milligrams IV daily for GI prophylaxis. 8. Continue with antibiotics in the form of Zosyn and monitor for signs of infections which include fever and WBC. I will follow up on blood culture and urine cultures which were performed in the ER. 9. Monitor CBC. 10. Sliding scale insulin with Accu-Chek for glycemic control. TSH measured at 1.84. 11. GI prophylaxis with Protonix 40 milligrams daily and DVT prophylaxis with SCDs and heparin subcu. 12. Further recommendations will be based on hospital course. MD ARTURO Valdez/BJ /3:24 PM /3:42 PM
[2017-03-19] MEDS: levETIRAcetam INJ 500 MG in SODIUM CHLORIDE 0.9% INJ 100 ML IV SCH ×2 (16:07→20:34)
[2017-03-19] MEDS: INSULIN NovoLIN REGULAR SUPPLEMENTAL SCALE SQ SCH ×3 (16:35→23:00)
--- NOTE | 2017-03-19 17:56 | MB ---
cc: ASIYA MYRICK M.D. DATE OF CONSULTATION 03/19/17 REASON FOR CONSULTATION She is a 67-year-old seen in neurological consultation. She is still in the ER but she is being transferred to the unit. I spoke to Dr. Ford. I spoke to her nurse at the bedside. HISTORY OF PRESENT ILLNESS The patient had a history of psychiatric issues and a history of diabetes and rheumatoid arthritis. She comes in with altered mental status and she initially was found on the ground with a GCS score of 3. She has some brief V tach that resolved on its own. She improved in the following period of time and in the emergency room appeared to be much improved but eventually became much worse as well in regards to her responsiveness. She eventually became almost unresponsive in the ED. There is possibility of a seizure which was never witnessed in the emergency room. Keppra 500 milligrams have been ordered but when I saw the patient this had not been given yet. A CT brain was negative for acute process as well as CT cervical spine. She has a blood sugar of 330. Her drug screen was negative. MEDICATIONS Reportedly, she is on: 1. Gabapentin. 2. Plavix. 3. Tramadol. 4. Aspirin. 5. Lisinopril. 6. Sertraline. 7. Pravastatin. PHYSICAL EXAMINATION Examination shows the patient to be asleep but when awakened, she startled and she did not establish eye contact, she seems to be searching for me in the room. She would not count fingers appropriately and seems to fall back asleep quickly when left alone. Her pupils were about the same size, reactive. There is not any overt weakness, though there is some flattening on the left face. I am not sure she if she is neglecting her left side but this is possible. She has diminished reflexes throughout and plantar responses probably flexor bilaterally. I noted some perseveration and she is unable to provide any history and her mental status precludes from obtaining additional information. Her speech was fairly clear but verbalize simple words. LABORATORY DATA White count 10.8, hemoglobin 16.3, platelets 252. Sodium normal, potassium 3.0, BUN 8, creatinine 1.25, glucose 330, calcium 8.7. Lactic acid 11.0, AST and ALT normal. CPK 59, TSH normal. Urine toxicology negative. ASSESSMENT Acute encephalopathy, imprecise cause. Possible seizures, unusual for metabolic encephalopathy to present this severe but possibility as well. Possible cerebrovascular event. MRI of brain pending. As discussed with Dr. Ford will obtain an EEG ANGELA. Keppra to be initiated and monitor her neuro status closely. Thank you for asking us to assist in her care and I will follow her with you. Asiya Myrick MD OFC/EO /4:32 PM /5:38 PM
--- NOTE | 2017-03-19 18:28 | MG ---
cc: CHINYERE SHAH Lab No: Date: 03/19/2017 Age: Sex: F Race: TEST NUMBER [id number] TECHNIQUE A 17 channel EEG. DESCRIPTION The background rhythm reveals generalized slowing mainly in the theta range at 6 Hz. There is some muscle artifact present. There are no lateralizing features present. No epileptiform discharges are seen. Photic stimulation was done with no significant driving response. INTERPRETATION Abnormal study consistent with a moderate diffuse encephalopathy. No seizure activity is identified. MD MIGNON Collier/LLOYD /6:15 PM /6:18 PM
[2017-03-19 19:24] LABS: BICARBONATE 18.2 MEQ/L (21.0-32.0)
[2017-03-19 19:28] LABS: POTASSIUM 2.7 MEQ/L (3.5-5.1)
--- NOTE | 2017-03-19 19:37 | RADRPT ---
EXAM DATE/TIME: 03/19/2017 18:11 [place] COMPARISON: CT BRAIN W/O CONTRAST, March 19, 2017, 11:53. INDICATIONS : Altered mental status. Seizures MEDICAL HISTORY : Cardiovascular disease. Precancerous dysplasia of uterus. SURGICAL HISTORY : Appendectomy. Hysterectomy. Lithotripsy for left kidney stone, Right Great toe amputation, Left lower limb amputation ENCOUNTER: Initial ACUITY: 1 day PAIN SCORE: Nonresponsive. LOCATION: cranial TECHNIQUE: Multiplanar, multisequence MRI of the brain was performed without contrast. FINDINGS: This is a limited quality examination due to significant patient motion. Fast acquisition sequences were performed and the degree of head motion ranges more than 50 between several adjacent images. T he ventricles are normal in size. No extra-axial fluid or blood is seen. No focal areas of restrict ed diffusion seen. On the susceptibility weighted images, no evidence of blood products. No gross a bnormality seen in the brainstem or cerebellum. CONCLUSION: No gross abnormality seen. Significant limitation of image quality due to patient motion. The diffu kang-weighted images, however, are diagnostic and there are no focal areas of restricted diffusion. Camden Flores MD on March 19, 2017 at 19:32 Board Certified Radiologist. This report was verified electronically.
[2017-03-19] MEDS: PIPERACIL-TAZO 4.5 GM PREMIX 100 ML IV SCH (20:34)
[2017-03-19] MEDS: DOCUSATE SODIUM 50 MG/SENNA 8.6 MG TAB PO SCH (20:34)
[2017-03-19] MEDS: HEPARIN SODIUM - SQ 10,000 UNITS/ML VIAL SQ SCH (20:35)
[2017-03-19] MEDS: LABETALOL HCL 100 MG/20 ML VIAL IV PUSH PRN (20:35)
[2017-03-19] MEDS ORDERED: POTASSIUM PHOSPHATE INJ 15 MMOL in SODIUM CHLORIDE 0.9% INJ 150 ML IV ONE (21:00)
[2017-03-19] MEDS ORDERED: SENNOSIDES 8.6 MG TAB PO PRN (21:00)
[2017-03-19] MEDS: POTASSIUM CHLOR 20 MEQ PREMIX 100 ML IV PRN (22:13)
[2017-03-20] VITALS (10 sets, daily range): BP systolic 145–168; BP diastolic 81–94; PULSE 98–108; RESP 23–34; TEMP 97.8–100; O2SAT 92–95
[2017-03-20] MEDS: PIPERACIL-TAZO 4.5 GM PREMIX 100 ML IV SCH ×4 (01:01→20:25)
[2017-03-20] MEDS: POTASSIUM CHLOR 20 MEQ PREMIX 100 ML IV PRN ×3 (01:02→05:59)
[2017-03-20] MEDS: INSULIN NovoLIN REGULAR SUPPLEMENTAL SCALE SQ SCH ×5 (03:00→19:00)
[2017-03-20] MEDS: RESP: ALBUTEROL 2.5 MG/IPRATROPIUM 0.5 MG NEB (SCH) INH ×4 (03:45→21:30)
[2017-03-20] MEDS: SODIUM CHLOR 0.9% 1000 ML INJ 1,000 ML IV SCH ×2 (04:11→16:16)
[2017-03-20] MEDS: CHLORHEXIDINE GLUCONATE 2 % 1 PACK (2 CLOTHS) TOP SCH (04:11)
[2017-03-20] MEDS: ONDANSETRON HCL 4 MG/2 ML VIAL IV PUSH PRN ×2 (04:12→20:23)
[2017-03-20] MEDS: LABETALOL HCL 100 MG/20 ML VIAL IV PUSH PRN (04:42)
[2017-03-20] MEDS: PROCHLORPERAZINE INJ 10 MG/2 ML VIAL IM PRN (06:25)
--- NOTE | 2017-03-20 07:38 | PD.CARD.PN ---
Subjective Subjective Remarks Denies any recent CP. Denies dyspnea, palpitations, syncope, dizziness. Objective Medications Item Value Date Time Heparin Sodium 5,000 units 03/19/172099 (Porcine) Q12HR/SQ 03/19/172034 (Heparin Inj) Vital Signs / I&O Vital Signs Date Time Temp Pulse Resp B/P Pulse Ox O2 Delivery O2 Flow Rate FiO2 03/20/17 04:24 94 Simple Mask 6.00 03/20/17 00:00 98.1 100 33 159/88 94 03/20/17 00:00 100 03/19/17 22:00 100 03/19/17 21:25 96 Nasal Cannula 2.00 03/19/17 20:00 112 03/19/17 20:00 98.9 112 34 191/110 95 03/19/17 16:40 98 16 167/87 99 Nasal Cannula 2 03/19/17 16:00 109 33 157/104 98 03/19/17 16:00 97 16 168/87 99 Nasal Cannula 2 03/19/17 15:33 99 Nasal Cannula 6.00 03/19/17 15:31 98 03/19/17 14:00 98.0 104 18 147/99 99 Nasal Cannula 2 03/19/17 13:00 105 18 167/104 100 Nasal Cannula 2 03/19/17 12:00 107 18 158/108 100 Nasal Cannula 2 03/19/17 11:42 97 03/19/17 11:29 119 24 141/90 96 03/19/17 11:29 97.2 119 24 141/90 96 Room Air I/O 03/19/17 03/19/17 03/19/17 03/20/17 03/20/17 03/20/17 06:59 14:59 22:59 06:59 14:59 22:59 Intake Total 809 ml Output Total 125 ml Balance 684 ml Intake Oral 0 ml IV Total 809 ml Output Urine Total 125 ml Physical Exam GENERAL: Well developed, well nourished. No acute distress. HEENT: Jugular venous pressure is normal. CHEST: Lungs clear to auscultation anteriorly. CARDIAC: Tachycardic regular rhythm without S3, S4, or murmur. ABDOMEN: Soft, nontender, no hepatosplenomegaly. Bowel sounds present. EXTREMITIES: No right pedal edema. Patient s/p left AKA. Laboratory Laboratory Tests Test 03/19/17 03/19/17 03/19/17 03/19/17 11:35 11:40 11:42 11:45 Urine Color YELLOW Urine Turbidity HAZY Urine pH 6.5 Urine Specific [place] 1.019 Urine Protein GREATER THAN 600 mg/dL Urine Glucose (UA) 300 mg/dL Urine Ketones TRACE mg/dL Urine Occult Blood MOD Urine Nitrite POS Urine Bilirubin NEG Urine Urobilinogen LESS THAN 2.0 MG/DL Urine Leukocyte Esterase MOD Urine RBC 10 /hpf Urine WBC 107 /hpf Urine WBC Clumps FEW Urine Squamous Epithelial <1 /hpf Cells Urine Bacteria FEW /hpf Urine Hyaline Casts 6 /lpf Urine Mucus FEW /lpf Microscopic Urinalysis Comment CULTURE INDICATED Urine Opiates Screen NEG Urine Barbiturates Screen NEG Urine Amphetamines Screen NEG Urine Benzodiazepines Screen NEG Urine Cocaine Screen NEG Urine Cannabinoids Screen NEG White Blood Count 10.8 TH/MM3 Red Blood Count 6.13 MIL/MM3 Hemoglobin 16.3 GM/DL Hematocrit 50.0 % Mean Corpuscular Volume 81.6 FL Mean Corpuscular Hemoglobin 26.6 PG Mean Corpuscular Hemoglobin 32.7 % Concent Red Cell Distribution Width 15.1 % Platelet Count 252 TH/MM3 Mean Platelet Volume 8.0 FL Neutrophils (%) (Auto) 67.8 % Lymphocytes (%) (Auto) 24.6 % Monocytes (%) (Auto) 3.6 % Eosinophils (%) (Auto) 3.5 % Basophils (%) (Auto) 0.5 % Neutrophils # (Auto) 7.3 TH/MM3 Lymphocytes # (Auto) 2.6 TH/MM3 Monocytes # (Auto) 0.4 TH/MM3 Eosinophils # (Auto) 0.4 TH/MM3 Basophils # (Auto) 0.1 TH/MM3 CBC Comment DIFF FINAL Differential Comment Prothrombin Time 10.2 SEC Prothromb Time International 0.9 RATIO Ratio Activated Partial 27.3 SEC Thromboplast Time Sodium Level 140 MEQ/L Potassium Level 3.0 MEQ/L Chloride Level 106 MEQ/L Carbon Dioxide Level 13.5 MEQ/L Anion Gap 21 MEQ/L Blood Urea Nitrogen 8 MG/DL Creatinine 1.25 MG/DL Estimat Glomerular Filtration 43 ML/MIN Rate Random Glucose 330 MG/DL Calcium Level 8.7 MG/DL Phosphorus Level 4.3 MG/DL Magnesium Level 1.9 MG/DL Total Bilirubin 0.4 MG/DL Aspartate Amino Transf 18 U/L (AST/SGOT) Alanine Aminotransferase 14 U/L (ALT/SGPT) Alkaline Phosphatase 146 U/L Total Creatine Kinase 59 U/L Troponin I LESS THAN 0.02 NG/ML B-Type Natriuretic Peptide 112 PG/ML Total Protein 7.9 GM/DL Albumin 3.4 GM/DL Thyroid Stimulating Hormone 1.840 uIU/ML 3rd Gen Salicylates Level 5.9 MG/DL Acetaminophen Level 4.1 MCG/ML Ethyl Alcohol Level LESS THAN 3 MG/DL B-Hydroxybutyrate 0.19 MMOL/L Blood Type O POSITIVE Antibody Screen NEGATIVE Lactic Acid Level 11.0 mmol/L Test 03/19/17 03/19/17 03/19/17 03/19/17 12:49 13:30 17:00 18:55 Blood Gas Puncture Site LT RADIAL Blood Gas Patient Temperature 98.6 Blood Gas HCO3 16 mmol/L Blood Gas Base Excess -8.2 mmol/L Blood Gas Oxygen Saturation 93 % Arterial Blood pH 7.36 Arterial Blood Partial 29 mmHg Pressure CO2 Arterial Blood Partial 85 mmHG Pressure O2 Arterial Blood Oxygen Content 20.7 Vol % Arterial Blood 3.2 % Carboxyhemoglobin Arterial Blood Methemoglobin 0.5 % Blood Gas Hemoglobin 15.9 G/DL Oxygen Delivery Device NASAL CANNULA Blood Gas Liter Flow 3 L/M Sodium Level 143 MEQ/L Potassium Level 2.7 MEQ/L Chloride Level 112 MEQ/L Carbon Dioxide Level 18.2 MEQ/L Anion Gap 13 MEQ/L Blood Urea Nitrogen 7 MG/DL Creatinine 0.97 MG/DL Estimat Glomerular Filtration 58 ML/MIN Rate Random Glucose 198 MG/DL Lactic Acid Level 3.2 mmol/L Calcium Level 8.0 MG/DL Nasal Screen MRSA (PCR) MRSA NOT DETECTED Phosphorus Level 1.8 MG/DL Imaging Last 48 hours Impressions Pelvis X-Ray 03/19/17 0000 Signed Impressions: Service Date/Time: Sunday, March 19, 2017 12:25 - CONCLUSION: No fracture. Camden Paulino Jr., MD Head CT 03/19/17 0000 Signed Impressions: Service Date/Time: Sunday, March 19, 2017 11:53 - CONCLUSION: 1. No acute intracranial abnormality is identified. Blu Velez MD Chest X-Ray 03/19/17 0000 Signed Impressions: Service Date/Time: Sunday, March 19, 2017 12:21 - CONCLUSION: Mild failure bibasilar clinical changes worse in the right. Inflammatory process can't be entirely excluded. Marcos Velez MD FACR Cervical Spine CT 03/19/17 0000 Signed Impressions: Service Date/Time: Sunday, March 19, 2017 11:56 - CONCLUSION: 1. No fracture or dislocation. 2. Degenerative changes as detailed at each level in the above discussion. Camden Paulino Jr., MD Brain MRI 03/19/17 Signed Impressions: Service Date/Time: Sunday, March 19, 2017 18:11 - CONCLUSION: No gross abnormality seen. Significant limitation of image quality due to patient motion. The diffusion-weighted images, however, are diagnostic and there are no focal areas of restricted diffusion. Camden Flores MD Abdomen/Pelvis CT 03/19/17 0000 Signed Impressions: Service Date/Time: Sunday, March 19, 2017 13:30 - CONCLUSION: Small shrunken left kidney providing little renal function Prominent right kidney with prominent right ureter. Stones are present in the kidney but I don't see an obstructing stone. Extensive vascu surgery in both inguinal regions. Marcos Velez MD FACR Assessment and Plan Problem List: (1) Ventricular tachycardia Assessment and Plan: Stable overnight. Again, I see no evidence for VT on review of rhythm strips from unit, ER, [facility]. Her tachycardia appears to be sinus tachycardia. Will f/u as needed. Replete K. (2) HTN (hypertension) Assessment and Plan: Hypertensive. Rec consider beta maribell or amlodipine. Code Status full code Discussed Condition With patient Problem Qualifiers (1) HTN (hypertension): Qualified Code: I10 - Essential hypertension Craig Powell MD Mar 20, 2017 07:38
[2017-03-20] MEDS: PANTOPRAZOLE SODIUM 40 MG VIAL IV SCH (09:39)
[2017-03-20] MEDS: levETIRAcetam INJ 500 MG in SODIUM CHLORIDE 0.9% INJ 100 ML IV SCH ×2 (09:39→20:25)
[2017-03-20] MEDS: DOCUSATE SODIUM 50 MG/SENNA 8.6 MG TAB PO SCH ×2 (09:39→20:28)
[2017-03-20] MEDS: HEPARIN SODIUM - SQ 10,000 UNITS/ML VIAL SQ SCH ×2 (09:40→20:24)
--- NOTE | 2017-03-20 11:10 | HHI.CCPN ---
Subjective Remarks/Hospital Course The patient is a 67-year-old female with past medical history of rheumatoid arthritis, nephrolithiasis, diabetes mellitus, gastroesophageal reflux disease, peripheral vascular disease, hypertension who presented to [facility] ED with altered mental status. When the fire team got there she was found supine on the ground near her wheelchair with initial GCS score of 3. When she was placed on a monitor she noted to have intermittent runs of V-tach that resolved on its own. En route to the ER she was hypertensive with blood pressure 162/128 and she had a GCS score of 9 in the ER. The patient was tachycardiac, hypertensive and her laboratory data significant for lactic acid level 11.0 with mild acute kidney, creatinine of 1.25. CT scan of the brain in the ER negative for acute intracranial abnormalities. Chest x-ray showed mild failure bibasilar changes worse on the right. She also had a cervical spine CT which showed no fracture or dislocation and a CT scan of the abdomen and pelvis obtained as well which showed small left kidney, stones present in the kidney without any evidence of obstruction. She was hyperglycemic with a blood sugar of 330 on the BMP. The patient was given 15 units IV NovoLog insulin in the ER along with 2 liters of normal saline and Zosyn. Her urine drug screen is negative for amphetamines, benzodiazepines and cannabinoids. When seen in the ER she was on 2 liters nasal cannula with a saturation of 99% and blood pressure of 147/99. The patient does not remember what happened to her. She denies any history of seizures or CVA. In addition, she denies any chest pain, shortness of breath or any GI symptoms. She is oriented to time and place. EKG in the ED showed sinus tachycardia with rate of 109 beats per minute and possible left atrial enlargement. SUBJ 03/20/17: Patient is oriented 3 today. Lab work is pending for today. EEG shows encephalopathy and no seizures. MRI negative for any acute findings. No further arrhythmia reported. Per Dr. Powell he did not see evidence for VT on review of EKG from ICU, ER, and EVAC. Echo pending Objective Vital Signs Date Time Temp Pulse Resp B/P Pulse Ox O2 Delivery O2 Flow Rate FiO2 03/20/17 08:45 92 Nasal Cannula 5.00 03/20/17 06:00 98 03/20/17 04:00 97.8 34 168/94 Intake and Output 8/2/17 8/2/17 8/3/17 08:00 16:00 00:00 Intake Total 809 ml Output Total 125 ml Balance 684 ml Result Diagram: 03/19/17 1140 03/19/17 1330 Other Results Laboratory Tests Test 03/19/17 12:49 Blood Gas Puncture Site LT RADIAL Blood Gas Patient Temperature 98.6 Blood Gas HCO3 16 mmol/L (22-26) Blood Gas Base Excess -8.2 mmol/L (-2-2) Blood Gas Oxygen Saturation 93 % (90-100) Arterial Blood pH 7.36 (7.380-7.420) Arterial Blood Partial 29 mmHg (38-42) Pressure CO2 Arterial Blood Partial 85 mmHG Pressure O2 (61-120) Arterial Blood Oxygen Content 20.7 Vol % (12.0-20.0) Arterial Blood 3.2 % (0-4) Carboxyhemoglobin Arterial Blood Methemoglobin 0.5 % (0-2) Blood Gas Hemoglobin 15.9 G/DL (12.0-16.0) Oxygen Delivery Device NASAL CANNULA Blood Gas Liter Flow 3 L/M Objective Remarks GENERAL: A 67-year-old female lying in bed in no acute respiratory distress, lying in bed slightly lethargic HEENT: Atraumatic, normocephalic. Pupils equal and round, oral mucosa dry NECK: Supple. No JVD, adenopathy or thyromegaly. Trachea in the midline. CARDIOVASCULAR: Tachycardiac. Normal S1-S2. No murmurs, rubs or gallops noted. PULMONARY EXAMINATION: Bilateral equal entry. No rales or wheezing. ABDOMEN: Soft, obese, nontender, no distension, positive bowel sounds. EXTREMITIES: No cyanosis, clubbing or edema. NEURO: Slightly lethargic but awake alert oriented 3. No focal deficits Urinary Catheter: Yes Assessment to: Continue A/P Assessment and Plan IMPRESSION Altered mental status Metabolic encephalopathy most likely secondary to sepsis Lactic acidemia. Anion gap metabolic acidosis. Mild acute kidney injury. Hypertension. Hypokalemia. Questionable V-tach. Urinary tract infection. Hyperglycemia with underlying history of diabetes mellitus. Nephrolithiasis. Peripheral vascular disease. Gastroesophageal reflux disease RECOMMENDATIONS - Monitor neuro status closely. A CT scan of the brain in the ED, MRI negative for acute intracranial abnormalities and urine drug screen panel unremarkable. - Resume Zoloft and Neurontin - EEG negative for seizures. Acute mental status change symptoms seem secondary to sepsis and UTI - Continue with oxygen to maintain sats above 92%. - Bronchodilators in the form of DuoNeb q. 6 plus q. 2 p.r.n. for shortness of breath and aspiration precautions. - Monitor heart rate and blood pressure closely and maintain MAP greater than 65 mmHg. - Monitor cardiac enzymes with troponins and 2-D echo to evaluate LV function and to rule out regional wall motion abnormalities. - Restart aspirin Plavix and losartan restart statins - Dr. Powell however, he did not see any evidence of V. tach on strips - Monitor renal function Is and Os and electrolyte replacement per protocol. - Continue IV fluids NS at 84 ml hour. Trend lactic acid level - Bedside swallow and start diet - Protonix 40 milligrams IV daily for GI prophylaxis. - Continue with antibiotics in the form of Zosyn and monitor for signs of infections which include fever and WBC. - Follow up on blood culture and urine cultures which were performed in the ER. - Monitor CBC. - Sliding scale insulin with Accu-Chek for glycemic control. TSH measured at 1.84. - GI prophylaxis with Protonix 40 milligrams daily and DVT prophylaxis with SCDs and heparin subcu. Consult hospitalist to assume care in a.m. repeat CMP electrolytes. If normalizing can transfer to floor later today Level 3 Leif Ayala MD Mar 20, 2017 11:10
--- NOTE | 2017-03-20 12:08 | HHI.PR ---
Review/Management Daily Summary 03/20 alert and oriented, no recall of events yesterday moves all limbs well no hemiparesis language ok eeg consistent with met encephalopathy dx metabolic encephalopathy, would d/c anticonvulsants in a few days Subjective Subjective Comments No new acute events reported No headache Active Medications Current Medications Medications (Trade) Dose Ordered Sig/Deuce Route Start Time Stop Time Status Last Admin (NS Flush) 2 ml UNSCH PRN IVF 03/19/17 11:45 (Protonix Inj) 40 mg DAILY IV 03/19/17 15:00 03/20/17 09:39 (Heparin Inj) 5,000 units Q12HR SQ 03/19/17 21:00 03/20/17 09:40 Miscellaneous Information 1 [id number] XX 03/19/17 14:00 (Chlorhexidine 2% Cloth) 3 pack Taper DAILY@04 TOP 03/20/17 04:00 03/16/18 03:59 03/20/17 04:11 (Chlorhexidine 2% Cloth) 3 pack UNSCH PRN TOP 03/19/17 14:00 (Kimberly-Colace) 1 tab BID PO 03/19/17 21:00 03/20/17 09:39 (Milk Of Magnesia Liq) 30 ml Q12HR PRN PO 03/19/17 15:00 (Senokot) 17.2 mg Q12HR PRN PO 03/19/17 21:00 (Dulcolax Supp) 10 mg DAILY PRN RECTAL 03/19/17 14:00 Lactulose 30 ml 30 ml DAILY PRN PO 03/19/17 14:00 Sodium Chloride 1,000 ml @ 84 mls/hr [id number] IV 03/19/17 14:00 03/20/17 04:11 Potassium Chloride 100 ml @ 50 mls/hr Q2H PRN IV 03/19/17 14:00 (KCl 20 Meq Premix Inj) 100 ml @ 50 mls/hr Q2H PRN IV 03/19/17 14:00 03/20/17 05:59 Potassium Bicarb/ Potassium Chloride 50 meq 50 meq UNSCH PRN PO 03/19/17 14:00 Potassium Chloride 100 ml @ 25 mls/hr UNSCH PRN IV 03/19/17 14:00 Potassium Chloride 100 ml @ 50 mls/hr Q2H PRN IV 03/19/17 14:00 (Magnesium Sulfate Inj/NS Inj) 100 ml @ 50 mls/hr UNSCH PRN IV 03/19/17 14:00 Magnesium Oxide 800 mg 800 mg UNSCH PRN PO 03/19/17 14:00 (Magnesium Sulfate Inj/NS Inj) 100 ml @ 50 mls/hr UNSCH PRN IV 03/19/17 14:00 Potassium Phosphate 2000 mg 2,000 mg Q4H PRN PO 03/19/17 14:00 (Sodium Phosphate Inj/NS 250 ml Inj) 250 ml @ 42 mls/hr UNSCH PRN IV 03/19/17 14:00 Potassium Phosphate 2000 mg 2,000 mg UNSCH PRN PO/TUBE 03/19/17 14:00 (Potassium Phosphate Inj/NS 250 ml Inj) 260 ml @ 42 mls/hr UNSCH PRN IV 03/19/17 14:00 (D50w (Vial) Inj) 50 ml UNSCH PRN IV 03/19/17 14:30 (Glucagon Inj) 1 mg UNSCH PRN OTHER 03/19/17 14:30 Insulin Human Regular 1 1 Q4H SQ 03/19/17 15:00 03/19/17 23:00 Piperacillin Sod/ Tazobactam Sod 100 ml @ 200 mls/hr Q6H IV 03/19/17 20:00 03/20/17 09:38 (Keppra Inj/NS Inj) 105 ml @ 420 mls/hr Q12HR IV 03/19/17 15:30 03/20/17 09:39 (Trandate Inj) 10 mg Q4H PRN IV PUSH 03/19/17 20:30 03/20/17 04:42 (Apresoline Inj) 20 mg Q4H PRN IV PUSH 03/19/17 20:30 (Zofran Inj) 4 mg Q6HR PRN IV PUSH 03/19/17 20:30 03/20/17 04:12 (Compazine Inj) 5 mg Q6H PRN IM 03/20/17 06:15 03/20/17 06:25 (Aspirin Chew) 81 mg DAILY CHEW 03/21/17 09:00 UNV (Plavix) 75 mg DAILY PO 03/21/17 09:00 UNV (Neurontin) 100 mg HS PO 03/20/17 21:00 UNV (Cozaar) 25 mg DAILY PO 03/21/17 09:00 UNV (Pravachol) 20 mg DAILY PO 03/21/17 09:00 UNV (Zoloft) 50 mg DAILY PO 03/21/17 09:00 UNV Allergies Allergies Coded Allergies Lisinopril (Verified Allergy, Severe, TONGUE SWELLING, 03/19/17) Metformin (Verified Adverse Reaction, Severe, Diarrhea, 03/19/17) Vancomycin (Verified Adverse Reaction, Severe, 03/19/17) Codeine (Verified Adverse Reaction, Intermediate, Nausea/Vomiting, 03/19/17) Exam I&O / VS 03/19/17 03/19/17 03/20/17 15:00 23:00 07:00 Intake Total 809 ml 883 ml Output Total 125 ml 150 ml Balance 684 ml 733 ml Intake Oral 0 ml 0 ml IV Total 809 ml 883 ml Output Urine Total 125 ml 150 ml # Bowel Movements 0 Vital Signs Date Time Temp Pulse Resp B/P Pulse Ox O2 Delivery O2 Flow Rate FiO2 03/20/17 08:45 92 Nasal Cannula 5.00 03/20/17 06:00 98 03/20/17 04:24 94 Simple Mask 6.00 03/20/17 04:00 108 03/20/17 04:00 97.8 108 34 168/94 93 03/20/17 02:00 99 03/20/17 00:00 98.1 100 33 159/88 94 03/20/17 00:00 100 03/19/17 22:00 100 03/19/17 21:25 96 Nasal Cannula 2.00 03/19/17 20:00 112 03/19/17 20:00 98.9 112 34 191/110 95 03/19/17 16:40 98 16 167/87 99 Nasal Cannula 2 03/19/17 16:00 109 33 157/104 98 03/19/17 16:00 97 16 168/87 99 Nasal Cannula 2 03/19/17 15:33 99 Nasal Cannula 6.00 03/19/17 15:31 98 03/19/17 14:00 98.0 104 18 147/99 99 Nasal Cannula 2 03/19/17 13:00 105 18 167/104 100 Nasal Cannula 2 Objective Radiology Results Last 48 hours Impressions Pelvis X-Ray 03/19/17 0000 Signed Impressions: Service Date/Time: Sunday, March 19, 2017 12:25 - CONCLUSION: No fracture. Camden Paulino Jr., MD Head CT 03/19/17 0000 Signed Impressions: Service Date/Time: Sunday, March 19, 2017 11:53 - CONCLUSION: 1. No acute intracranial abnormality is identified. Blu Velez MD Chest X-Ray 03/19/17 0000 Signed Impressions: Service Date/Time: Sunday, March 19, 2017 12:21 - CONCLUSION: Mild failure bibasilar clinical changes worse in the right. Inflammatory process can't be entirely excluded. Marcos Velez MD FACR Cervical Spine CT 03/19/17 0000 Signed Impressions: Service Date/Time: Sunday, March 19, 2017 11:56 - CONCLUSION: 1. No fracture or dislocation. 2. Degenerative changes as detailed at each level in the above discussion. Camden Paulino Jr., MD Brain MRI 03/19/17 0000 Signed Impressions: Service Date/Time: Sunday, March 19, 2017 18:11 - CONCLUSION: No gross abnormality seen. Significant limitation of image quality due to patient motion. The diffusion-weighted images, however, are diagnostic and there are no focal areas of restricted diffusion. Camden Flores MD Abdomen/Pelvis CT 03/19/17 0000 Signed Impressions: Service Date/Time: Sunday, March 19, 2017 13:30 - CONCLUSION: Small shrunken left kidney providing little renal function Prominent right kidney with prominent right ureter. Stones are present in the kidney but I don't see an obstructing stone. Extensive vascu surgery in both inguinal regions. Marcos Velez MD FACR Micro and Labs Laboratory Tests Test 03/19/17 03/19/17 03/19/17 03/19/17 12:49 13:30 17:00 18:55 Blood Gas Puncture Site LT RADIAL Blood Gas Patient Temperature 98.6 Blood Gas HCO3 16 Blood Gas Base Excess -8.2 Blood Gas Oxygen Saturation 93 Arterial Blood pH 7.36 Arterial Blood Partial 29 Pressure CO2 Arterial Blood Partial 85 Pressure O2 Arterial Blood Oxygen Content 20.7 Arterial Blood 3.2 Carboxyhemoglobin Arterial Blood Methemoglobin 0.5 Blood Gas Hemoglobin 15.9 Oxygen Delivery Device NASAL CANNULA Blood Gas Liter Flow 3 Sodium Level 143 Potassium Level 2.7 Chloride Level 112 Carbon Dioxide Level 18.2 Anion Gap 13 Blood Urea Nitrogen 7 Creatinine 0.97 Estimat Glomerular Filtration 58 Rate Random Glucose 198 Lactic Acid Level 3.2 Calcium Level 8.0 Nasal Screen MRSA (PCR) MRSA NOT DETECTED Phosphorus Level 1.8 Date/Time Procedure Status Source Growth 03/19/17 13:30 Aerobic Blood Culture - Preliminary Resulted Blood Peripheral NO GROWTH IN 1 DAY 03/19/17 13:30 Anaerobic Blood Culture - Preliminary Resulted Blood Peripheral NO GROWTH IN 1 DAY 03/19/17 11:35 Urine Culture Received Urine Clean Catch Pending Mili Myrick MD Mar 20, 2017 12:08
[2017-03-20 15:15] LABS: AUTOMATED NEUTROPHIL # 9.8 TH/MM3 (1.8-7.7); BASOPHIL # 0.1 TH/MM3 (0-0.2); BASOPHIL % 0.4 % (0.0-2.0); HEMATOCRIT 43.5 % (35.0-46.0); HEMO FLAGS DIFF FINAL; LYMPH % 20.7 % (9.0-44.0); LYMPHOCYTE # 2.7 TH/MM3 (1.0-4.8); MEAN CELL VOLUME 80.2 FL (80.0-100.0); MEAN CORPUSCULAR HEMOGLOBIN 26.4 PG (27.0-34.0); MEAN CORPUSCULAR HGB CONC 32.9 % (32.0-36.0); MONO % 4.8 % (0.0-8.0); NEUT % 74.1 % (16.0-70.0); PLATELET COUNT 195 TH/MM3 (150-450); RED BLOOD COUNT 5.42 MIL/MM3 (4.00-5.30); RED CELL DISTRIBUTION WIDTH 15.4 % (11.6-17.2); WHITE BLOOD COUNT 13.2 TH/MM3 (4.0-11.0)
--- NOTE | 2017-03-20 15:27 | EKG ---
Date Performed: 03/19/2017 Time Performed: 11:39:47 PTAGE: 67 years EKG: SINUS TACHYCARDIA POSSIBLE LEFT ATRIAL ENLARGEMENT Nonspecific ST-T wave changes. When comp ared to previous tracing, the patient is now Tachycardic. ABNORMAL RHYTHM ECG PREVIOUS TRACING : 10/03/2015 22.25 DOCTOR: Kellen Barclay Interpretating Date/Time 03/20/2017 15:26:09
[2017-03-20 15:49] LABS: ANION GAP 12 MEQ/L (5-15)
[2017-03-20 15:53] LABS: ALKALINE PHOSPHATASE 101 U/L (45-117); ALT (GPT) 13 U/L (10-53); AST (GOT) 18 U/L (15-37); BICARBONATE 16.9 MEQ/L (21.0-32.0); BLOOD UREA NITROGEN 11 MG/DL (7-18); CHLORIDE 117 MEQ/L (98-107); GLOMERULAR FILTRATION RATE 48 ML/MIN (>89); MAGNESIUM 1.6 MG/DL (1.5-2.5); POTASSIUM 3.8 MEQ/L (3.5-5.1); SODIUM (NA) 146 MEQ/L (136-145); TOTAL BILIRUBIN ADULT 0.5 MG/DL (0.2-1.0)
--- NOTE | 2017-03-20 16:13 | ECHRPT ---
Indication: Cardiomyopathy, unspecified CONCLUSIONS The left ventricular systolic function is mildly reduced with an estimated ejection fraction in the range of 45- 50%. Wall thickness is measured at the upper limits of normal. Normal left ventricular size. Mild mitral valve regurgitation. There is a small pericardial effusion present. Very technically difficult study. BP: 141 / 90 HR: 119 Rhythm: Sinus MEASUREMENTS (Male / Female) Normal Values Technical Quality:Very technically difficult study 2D ECHO LV Diastolic Diameter PLAX 3.5 cm 4.2 - 5.9 / 3.9 - 5.3 cm LV Systolic Diameter PLAX 2.8 cm IVS Diastolic Thickness 1.1 cm 0.6 - 1.0 / 0.6 - 0.9 cm LVPW Diastolic Thickness 1.1 cm 0.6 - 1.0 / 0.6 - 0.9 cm LV Relative Wall Thickness 0.6 LVOT Diameter 2.0 cm M-MODE Aortic Root Diameter MM 2.2 cm LA Systolic Diameter MM 3.8 cm LA Ao Ratio MM 1.7 AV Cusp Separation MM 1.8 cm DOPPLER AV Peak Velocity 99.1 cm/s AV Peak Gradient 3.9 mmHg LVOT Peak Velocity 72.6 cm/s LVOT Peak Gradient 2.1 mmHg AV Area Cont Eq pk 2.3 cm MR Peak Velocity 358.0 cm/s MR Peak Gradient 51.3 mmHg Mitral E Point Velocity 101.0 cm/s Mitral A Point Velocity 128.0 cm/s Mitral E to A Ratio 0.8 LV E' Lateral Velocity 4.7 cm/s Mitral E to LV E' Lateral Ratio 21.6 FINDINGS LEFT VENTRICLE The left ventricular systolic function is mildly reduced with an estimated ejection fraction in the range of 45- 50%. Wall thickness is measured at the upper limits of normal. Normal left ventricular size. RIGHT VENTRICLE Normal right ventricular size and systolic function. LEFT ATRIUM The left atrial size is normal. RIGHT ATRIUM The right atrial size is normal. ATRIAL SEPTUM Normal atrial septal thickness without atrial level shunting by limited color doppler interrogation. AORTA The aortic root and proximal ascending aorta are normal in size on limited imaging. MITRAL VALVE Mild mitral valve regurgitation. AORTIC VALVE Trileaflet aortic valve. No aortic valve stenosis or regurgitation. TRICUSPID VALVE Structurally normal tricuspid valve. No tricuspid valve stenosis or regurgitation. PULMONARY VALVE The pulmonary valve is not well visualized. VESSELS The inferior vena cava is normal in size. PERICARDIUM There is a small pericardial effusion present. Kemal Arechiga MD, FACC (Electronically Signed) Final Date:20 March 2017 16:12
[2017-03-20] MEDS: GABAPENTIN 100 MG CAP PO SCH (20:28)
[2017-03-21] VITALS (26 sets, daily range): BP systolic 69–158; BP diastolic 45–100; PULSE 95–143; RESP 23–32; TEMP 97.9–98.9; O2SAT 82–95
[2017-03-21] MEDS: RESP: IPRATROPIUM 0.5 MG/2.5 ML NEB INH PRN (00:05)
[2017-03-21] MEDS: hydrALAZINE HCL 20 MG/ML VIAL IV PUSH PRN (00:28)
[2017-03-21] MEDS ORDERED: METOPROLOL TARTRATE 5 MG/5 ML VIAL IV PUSH SCH ×2 (00:30→04:00)
[2017-03-21 01:10] LABS: BLOOD GAS BASE EXCESS -8.3 mmol/L (-2-2); BLOOD GAS CARBOXYHEMOGLOBIN 1.1 % (0-4); BLOOD GAS HCO3 16 mmol/L (22-26); BLOOD GAS METHEMOGLOBIN 1.1 % (0-2); BLOOD GAS O2 HGB SATURATION 97 % (90-100); BLOOD GAS OXYGEN CONTENT 19.5 Vol % (12.0-20.0); BLOOD GAS PCO2 26 mmHg (38-42); BLOOD GAS PO2 160 mmHg (61-120); BLOOD GAS TOTAL HGB 14.1 G/DL (12.0-16.0); TEMP CORR TO 98.6
[2017-03-21 01:11] LABS: CRITICAL VALUE YES; FIO2 100 %; LITER FLOW 15 L/M
[2017-03-21 01:12] LABS: DRAW SITE LT RADIAL; NUMBER OF ARTERIAL PUNCTURES 1; STAT YES; ULNAR PULSE PRESENT
[2017-03-21] MEDS: PIPERACIL-TAZO 4.5 GM PREMIX 100 ML IV SCH ×4 (01:45→20:35)
[2017-03-21] MEDS: SODIUM CHLOR 0.9% 1000 ML INJ 1,000 ML IV SCH (01:45)
[2017-03-21] MEDS: PROCHLORPERAZINE INJ 10 MG/2 ML VIAL IM PRN (01:54)
[2017-03-21] MEDS: RESP: ALBUTEROL 2.5 MG/IPRATROPIUM 0.5 MG NEB (SCH) INH ×4 (03:54→20:09)
[2017-03-21] MEDS: CHLORHEXIDINE GLUCONATE 2 % 1 PACK (2 CLOTHS) TOP SCH (04:00)
[2017-03-21 07:27] LABS: AUTOMATED NEUTROPHIL # 13.4 TH/MM3 (1.8-7.7); BASOPHIL # 0.1 TH/MM3 (0-0.2); BASOPHIL % 0.7 % (0.0-2.0); HEMATOCRIT 40.8 % (35.0-46.0); HEMO FLAGS DIFF FINAL; LYMPH % 10.8 % (9.0-44.0); LYMPHOCYTE # 1.7 TH/MM3 (1.0-4.8); MEAN CELL VOLUME 80.2 FL (80.0-100.0); MEAN CORPUSCULAR HEMOGLOBIN 26.6 PG (27.0-34.0); MEAN CORPUSCULAR HGB CONC 33.2 % (32.0-36.0); NEUT % 84.5 % (16.0-70.0); PLATELET COUNT 164 TH/MM3 (150-450); RED BLOOD COUNT 5.08 MIL/MM3 (4.00-5.30); RED CELL DISTRIBUTION WIDTH 15.4 % (11.6-17.2); WHITE BLOOD COUNT 15.8 TH/MM3 (4.0-11.0)
[2017-03-21 07:47] LABS: ALKALINE PHOSPHATASE 90 U/L (45-117); ALT (GPT) 11 U/L (10-53); ANION GAP 12 MEQ/L (5-15); AST (GOT) 21 U/L (15-37); BICARBONATE 16.3 MEQ/L (21.0-32.0); BLOOD UREA NITROGEN 13 MG/DL (7-18); CHLORIDE 116 MEQ/L (98-107); GLOMERULAR FILTRATION RATE 54 ML/MIN (>89); MAGNESIUM 1.6 MG/DL (1.5-2.5); POTASSIUM 3.5 MEQ/L (3.5-5.1); SODIUM (NA) 144 MEQ/L (136-145); TOTAL BILIRUBIN ADULT 0.6 MG/DL (0.2-1.0)
--- NOTE | 2017-03-21 08:28 | HHI.PR ---
Subjective Remarks f/u; encephalopathy patient is moderate respiratory distress and on oxygen mask. no fever. has some cough. d/w the RN and it seems that her mentation has slightly improved. Objective Vitals Vital Signs Date Time Temp Pulse Resp B/P Pulse Ox O2 Delivery O2 Flow Rate FiO2 03/21/17 06:00 116 03/21/17 04:00 98.7 102 28 158/75 95 03/21/17 04:00 102 03/21/17 02:00 143 03/21/17 01:15 95 Non-Rebreather 15.00 03/21/17 00:00 111 03/21/17 00:00 98.9 111 26 150/100 86 03/21/17 00:00 89 Simple Mask 10.00 03/20/17 22:00 104 03/20/17 21:30 95 Nasal Cannula 5.00 03/20/17 20:00 100.0 100 23 145/81 94 03/20/17 20:00 99 03/20/17 12:15 98.3 03/20/17 08:45 92 Nasal Cannula 5.00 I/O 03/20/17 03/20/17 03/20/17 03/21/17 03/21/17 03/21/17 07:00 15:00 23:00 07:00 15:00 23:00 Intake Total 883 ml 1541 ml 874 ml Output Total 150 ml 325 ml 200 ml Balance 733 ml 1216 ml 674 ml Intake Oral 0 ml 150 ml 200 ml IV Total 883 ml 1391 ml 674 ml Output Urine Total 150 ml 325 ml 200 ml # Bowel Movements 0 3 0 Result Diagram: 03/21/17 0653 03/21/17 0653 Imaging Last Impressions Pelvis X-Ray 03/19/17 0000 Signed Impressions: Service Date/Time: Sunday, March 19, 2017 12:25 - CONCLUSION: No fracture. Camden Paulino Jr., MD Head CT 03/19/17 0000 Signed Impressions: Service Date/Time: Sunday, March 19, 2017 11:53 - CONCLUSION: 1. No acute intracranial abnormality is identified. Blu Velez MD Chest X-Ray 03/19/17 0000 Signed Impressions: Service Date/Time: Sunday, March 19, 2017 12:21 - CONCLUSION: Mild failure bibasilar clinical changes worse in the right. Inflammatory process can't be entirely excluded. Marcos Velez MD FACR Cervical Spine CT 03/19/17 0000 Signed Impressions: Service Date/Time: Sunday, March 19, 2017 11:56 - CONCLUSION: 1. No fracture or dislocation. 2. Degenerative changes as detailed at each level in the above discussion. Camden Paulino Jr., MD Brain MRI 03/19/17 0000 Signed Impressions: Service Date/Time: Sunday, March 19, 2017 18:11 - CONCLUSION: No gross abnormality seen. Significant limitation of image quality due to patient motion. The diffusion-weighted images, however, are diagnostic and there are no focal areas of restricted diffusion. Camden Flores MD Abdomen/Pelvis CT 03/19/17 0000 Signed Impressions: Service Date/Time: Sunday, March 19, 2017 13:30 - CONCLUSION: Small shrunken left kidney providing little renal function Prominent right kidney with prominent right ureter. Stones are present in the kidney but I don't see an obstructing stone. Extensive vascu surgery in both inguinal regions. Marcos Velez MD FACR Objective Remarks GENERAL: with some respiratory distress CARDIOVASCULAR: Regular rate and regular rhythm without murmurs, gallops, or rubs. RESPIRATORY: diminished air entry in bases GASTROINTESTINAL: Abdomen soft, non-tender, nondistended. Normal, active bowel sounds MUSCULOSKELETAL: s/p left AKA NEURO: Alert & Oriented x4 to person, place, time, situation. Moves all ext x4 Medications and IVs Current Medications Sodium Chloride 2 ml 2 ml UNSCH PRN IVF FLUSH AFTER USING IV ACCESS; Start 03/19 at 11:45 Sodium Chloride 1,000 ml @ 999 mls/hr BOLUS ONCE IV Last administered on 12:34; Start 03/19/17 at 12:30; Stop 03/19/17 at 13:30; Status DC Piperacillin Sod/ Tazobactam Sod 100 ml @ 200 mls/hr ONCE STAT IV Last administered on 03/19/17 13:47; Start 03/19/17 at 12:47; Stop 03/19/17 at 13:16; Status DC Sodium Chloride (NS 1000 ml Inj) 1,000 ml @ 999 mls/hr BOLUS ONCE IV Last administered on 03/19/17 13:23; Start 03/19/17 at 13:00; Stop 03/19/17 at 14:00; Status DC Insulin Aspart (NovoLOG INJ) 15 units ONCE ONCE SQ Last administered on 13:50; Start 03/19/17 at 13:30; Stop 03/19/17 at 13:31; Status DC Pantoprazole Sodium (Protonix Inj) 40 mg DAILY IV Last administered on 09:39; Start 03/19/17 at 15:00 Albuterol/ Ipratropium (Duoneb Neb) 1 ampule Q6HR NEB INH Last administered on 03/21/17 03:54; Start 03/19/17 at 16:00 Ipratropium [place] (Atrovent Neb) 0.5 mg Q2HR NEB PRN INH WHEEZING Last administered on 03/21/17 00:05; Start 03/19/17 at 14:00 Heparin Sodium (Porcine) (Heparin Inj) 5,000 units Q12HR SQ Last administered on 03/20/17 20:24; Start 03/19/17 at 21:00 Miscellaneous Information 1 Q361D XX ; Start 03/19/17 at 14:00 Chlorhexidine Gluconate (Chlorhexidine 2% Cloth) 3 pack Taper DAILY@04 TOP Last administered on 03/21/17 04:00; Start 03/20/17 at 04:00; Stop 03/16/18 at 03 :59 Chlorhexidine Gluconate (Chlorhexidine 2% Cloth) 3 pack UNSCH PRN TOP HYGIENIC CARE; Start 03/19/17 at 14:00 Senna/Docusate Sodium (Kimberly-Colace) 1 tab BID PO Last administered on 03/20/17 09:39; Start 03/19/17 at 21:00 Magnesium Hydroxide (Milk Of Magnesia Liq) 30 ml Q12HR PRN PO MILD - MODERATE CONSTIPATION; Start 03/19/17 at 15:00 Sennosides (Senokot) 17.2 mg Q12HR PRN PO MODERATE - SEVERE CONSTIPATION; Start 03/19/17 at 21:00 Bisacodyl (Dulcolax Supp) 10 mg DAILY PRN RECTAL SEVERE CONSITIPATION; Start at 14:00 Lactulose 30 ml 30 ml DAILY PRN PO SEVERE CONSITIPATION; Start 03/19/17 at 14:00 Sodium Chloride 1,000 ml @ 84 mls/hr [id number] IV Last administered on 03/21/17 01:45; Start 03/19/17 at 14:00 Potassium Chloride 100 ml @ 50 mls/hr Q2H PRN IV For Potassium 2.8 - 3.2 mEq/L ; Start 03/19/17 at 14:00; Stop 03/20/17 at 22:35; Status DC Potassium Chloride (KCl 20 Meq Premix Inj) 100 ml @ 50 mls/hr Q2H PRN IV For Potassium 2.8 - 3.2 mEq/L Last administered on 03/20/17 05:59; Start 03/19/17 at 14:00; Stop 03/20/17 at 22:35; Status DC Potassium Bicarb/ Potassium Chloride 50 meq 50 meq UNSCH PRN PO For Potassium 3.3 - 3.5 mEq/L; Start 03/19/17 at 14:00; Stop 03/20/17 at 22:35; Status DC Potassium Chloride 100 ml @ 25 mls/hr UNSCH PRN IV For Potassium 3.3 - 3.5 mEq /L; Start 03/19/17 at 14:00; Stop 03/20/17 at 22:35; Status DC Potassium Chloride 100 ml @ 50 mls/hr Q2H PRN IV For Potassium 3.3 - 3.5 mEq/L ; Start 03/19/17 at 14:00; Stop 03/20/17 at 22:35; Status DC Magnesium Sulfate/ Sodium Chloride (Magnesium Sulfate Inj/NS Inj) 100 ml @ 50 mls/hr UNSCH PRN IV For Magnesium 0.9 - 1.1 mg/dL; Start 03/19/17 at 14:00; Stop 03/20/17 at 22:36; Status DC Magnesium Oxide 800 mg 800 mg UNSCH PRN PO For Magnesium 1.2 - 1.6 mg/dL; Start 03/19/17 at 14:00; Stop 03/20/17 at 22:36; Status DC Magnesium Sulfate/ Sodium Chloride (Magnesium Sulfate Inj/NS Inj) 100 ml @ 50 mls/hr UNSCH PRN IV For Magnesium 1.2 - 1.6 mg/dL; Start 03/19/17 at 14:00; Stop 03/20/17 at 22:36; Status DC Potassium Phosphate 2000 mg 2,000 mg Q4H PRN PO For Phosphorus < 2.5 mg/dL; Start 03/19/17 at 14:00; Stop 03/20/17 at 22:36; Status DC Sodium Phosphate/ Sodium Chloride (Sodium Phosphate Inj/NS 250 ml Inj) 250 ml @ 42 mls/hr UNSCH PRN IV For Phosphorus < 2.5 mg/dL; Start 03/19/17 at 14:00; Stop 03/20/17 at 22:36; Status DC Potassium Phosphate 2000 mg 2,000 mg UNSCH PRN PO/TUBE SEE LABEL COMMENTS; Start 03/19/17 at 14:00; Stop 03/20/17 at 22:36; Status DC Potassium Phosphate/Sodium Chloride (Potassium Phosphate Inj/NS 250 ml Inj) 260 ml @ 42 mls/hr UNSCH PRN IV SEE LABEL COMMENTS; Start 03/19/17 at 14:00; Stop 03/20/17 at 22:36; Status DC Dextrose (D50w (Vial) Inj) 50 ml UNSCH PRN IV HYPOGLYCEMIA-SEE COMMENTS; Start 03/19/17 at 14:30 Glucagon (Glucagon Inj) 1 mg UNSCH PRN OTHER HYPOGLYCEMIA-SEE COMMENTS; Start 03/19/17 at 14:30 Insulin Human Regular 1 1 Q4H SQ Last administered on 03/20/17 11:00; Start 03/19/17 at 15:00; Stop 03/20/17 at 21:26; Status DC Piperacillin Sod/ Tazobactam Sod 100 ml @ 200 mls/hr Q6H IV Last administered on 03/21/17 01:45; Start 03/19/17 at 20:00 Levetriacetam 500 mg/Sodium Chloride 105 ml @ 420 mls/hr Q12HR IV Last administered on 03/20/17 20:25; Start 03/19/17 at 15:30 Potassium Phosphate/Sodium Chloride (Potassium Phosphate Inj/NS Inj) 155 ml @ 38.75 mls/ hr ONCE ONCE IV Last administered on 03/19/17 20:47; Start 03/19/17 at 21:00; Stop 03/20/17 at 00:59; Status DC Labetalol HCl (Trandate Inj) 10 mg Q4H PRN IV PUSH SBP>150, DBP>90 Last administered on 03/20/17 04:42; Start 03/19/17 at 20:30 Hydralazine HCl (Apresoline Inj) 20 mg Q4H PRN IV PUSH SBP>150, DBP>90 Last administered on 03/21/17 00:28; Start 03/19/17 at 20:30 Ondansetron HCl (Zofran Inj) 4 mg Q6HR PRN IV PUSH NAUSEA OR VOMITING Last administered on 03/20/17 20:23; Start 03/19/17 at 20:30 Prochlorperazine Edisylate (Compazine Inj) 5 mg Q6H PRN IM nausea Last administered on 03/21/17 01:54; Start 03/20/17 at 06:15 Aspirin (Aspirin Chew) 81 mg DAILY CHEW ; Start 03/21/17 at 09:00 Clopidogrel Bisulfate (Plavix) 75 mg DAILY PO ; Start 03/21/17 at 09:00 Gabapentin (Neurontin) 100 mg HS PO Last administered on 03/20/17 20:28; Start 03/20/17 at 21:00 Losartan Potassium (Cozaar) 25 mg DAILY PO ; Start 03/21/17 at 09:00 Pravastatin Sodium (Pravachol) 20 mg DAILY PO ; Start 03/21/17 at 09:00 Sertraline HCl (Zoloft) 50 mg DAILY PO ; Start 03/21/17 at 09:00 Insulin Human Regular (NovoLIN R SUPPLEMENTAL SCALE) 1 ACHS SLIDING SCALE SQ ; Start 03/21/17 at 07:00 Metoprolol Tartrate (Lopressor Inj) 5 mg NOW IV PUSH ; Start 03/21/17 at 00:30; Stop 03/21/17 at 01:45; Status DC Metoprolol Tartrate (Lopressor Inj) 5 mg NOW IV PUSH Last administered on 03:50; Start 03/21/17 at 04:00; Stop 03/21/17 at 04:20; Status DC A/P Assessment and Plan A/P Metabolic encephalopathy most likely secondary to sepsis continue neurochecks- EEG with encephalopathy and no seizure activity. will dc antiepileptics in a few days - per neurology. acute respiratory failure ABG was reviewed - will check CXR today. continue with oxygen to keep O2 sat > 90%- neb treatment- Hypertension- continue losaratn- will monitor and adjust the regimen as needed. PVD- continue aspirin, plavix and statin Hypokalemia-replaced Questionable V-tach. cardiology evaluation noted- no VT appreciated on Tele- echo with EF 45% Urinary tract infection continue Zosyn- follow the UC. Hyperglycemia with underlying history of diabetes mellitus. accu-check with SSI. Gastroesophageal reflux disease; continue PPI patient with respiratory distress. will keep in ICU and low threshold to reconsult biometric screener. d/w the RN. Paulie Bartlett MD Mar 21, 2017 08:28
[2017-03-21] MEDS: ASPIRIN 81 MG CHEW TAB CHEW SCH (08:38)
[2017-03-21] MEDS: PRAVASTATIN SOD 20 MG TAB PO SCH (08:38)
[2017-03-21] MEDS: CLOPIDOGREL 75 MG TAB PO SCH (08:38)
[2017-03-21] MEDS: SERTRALINE HCL 50 MG TAB PO SCH (08:38)
[2017-03-21] MEDS: DOCUSATE SODIUM 50 MG/SENNA 8.6 MG TAB PO SCH ×2 (08:38→20:36)
[2017-03-21] MEDS: HEPARIN SODIUM - SQ 10,000 UNITS/ML VIAL SQ SCH ×2 (08:39→20:36)
[2017-03-21] MEDS: PANTOPRAZOLE SODIUM 40 MG VIAL IV SCH (08:39)
[2017-03-21] MEDS: INSULIN NovoLIN REGULAR SUPPLEMENTAL SCALE SQ SCH ×4 (08:40→20:36)
[2017-03-21] MEDS ORDERED: LOSARTAN 25 MG TAB PO SCH (09:00)
--- NOTE | 2017-03-21 09:16 | RADRPT ---
EXAM DATE/TIME: 03/21/2017 08:20 [facility] COMPARISON: CHEST SINGLE AP, March 19, 2017, 12:21. INDICATIONS : Short of breath. MEDICAL HISTORY : Hypertension. Gastroesophageal reflux disease. Diabetes mellitus type II. SURGICAL HISTORY : Hysterectomy. ENCOUNTER: Subsequent ACUITY: 2 days PAIN SCORE: 2/10 LOCATION: Bilateral chest FINDINGS: Persistent moderate congestive failure remains with cardiomegaly. There is no pleural effusion or ot her consolidation. The portion of the bony skeleton visualized is unremarkable. CONCLUSION: Persistent congestive failure. Marcos Velez MD FACR on March 21, 2017 at 9:14 Board Certified Radiologist. This report was verified electronically.
[2017-03-21] MEDS ORDERED: BUMETANIDE INJ 1 MG/4 ML VIAL IV PUSH ONE (09:30)
[2017-03-21] MEDS: levETIRAcetam INJ 500 MG in SODIUM CHLORIDE 0.9% INJ 100 ML IV SCH ×2 (09:55→20:35)
[2017-03-21] MEDS: GABAPENTIN 100 MG CAP PO SCH (20:35)
[2017-03-22] VITALS (20 sets, daily range): BP systolic 132–183; BP diastolic 66–104; PULSE 94–123; RESP 19–38; TEMP 97.2–98.7; O2SAT 91–98
[2017-03-22] MEDS: PIPERACIL-TAZO 4.5 GM PREMIX 100 ML IV SCH ×3 (02:00→23:37)
[2017-03-22] MEDS: RESP: IPRATROPIUM 0.5 MG/2.5 ML NEB INH PRN (02:13)
[2017-03-22] MEDS: CHLORHEXIDINE GLUCONATE 2 % 1 PACK (2 CLOTHS) TOP SCH (03:00)
[2017-03-22] MEDS ORDERED: diphenhydrAMINE HCL 25 MG CAP PO ONE (03:00)
[2017-03-22] MEDS: RESP: ALBUTEROL 2.5 MG/IPRATROPIUM 0.5 MG NEB (SCH) INH ×5 (04:13→23:22)
[2017-03-22] MEDS: INSULIN NovoLIN REGULAR SUPPLEMENTAL SCALE SQ SCH ×4 (07:00→21:05)
[2017-03-22 07:32] LABS: BICARBONATE 19.1 MEQ/L (21.0-32.0)
[2017-03-22 07:37] LABS: POTASSIUM 2.9 MEQ/L (3.5-5.1)
[2017-03-22] MEDS: LABETALOL HCL 100 MG/20 ML VIAL IV PUSH PRN ×2 (07:48→18:32)
[2017-03-22] MEDS: PANTOPRAZOLE SODIUM 40 MG VIAL IV SCH (08:15)
[2017-03-22] MEDS: PRAVASTATIN SOD 20 MG TAB PO SCH (08:17)
[2017-03-22] MEDS: CLOPIDOGREL 75 MG TAB PO SCH (08:17)
[2017-03-22] MEDS: SERTRALINE HCL 50 MG TAB PO SCH (08:17)
[2017-03-22] MEDS: DOCUSATE SODIUM 50 MG/SENNA 8.6 MG TAB PO SCH ×2 (08:18→21:00)
[2017-03-22] MEDS: ASPIRIN 81 MG CHEW TAB CHEW SCH (08:18)
[2017-03-22] MEDS: HEPARIN SODIUM - SQ 10,000 UNITS/ML VIAL SQ SCH ×2 (08:18→20:56)
--- NOTE | 2017-03-22 08:25 | HHI.PR ---
Subjective Remarks still with some respiratory distress and wheezing. currently on oxygen mask. denies chest pain and no fever. noted elevated BP's over night. d/w the RN. Objective Vitals Vital Signs Date Time Temp Pulse Resp B/P Pulse Ox O2 Delivery O2 Flow Rate FiO2 03/22/17 07:52 102 27 149/72 94 03/22/17 07:00 97.2 120 28 171/102 92 03/22/17 06:00 123 03/22/17 04:15 94 Simple Mask 10.00 03/22/17 04:00 98.7 118 19 160/81 92 03/22/17 04:00 118 03/22/17 02:00 110 03/22/17 00:00 98.1 112 38 168/89 93 03/22/17 00:00 112 03/21/17 22:00 114 03/21/17 20:13 93 Simple Mask 6.00 03/21/17 20:00 97.9 106 27 123/63 93 03/21/17 20:00 106 03/21/17 19:00 93 Simple Mask 8.00 03/21/17 16:15 104 30 87/55 90 03/21/17 15:01 105 31 90/47 92 03/21/17 14:00 101 26 79/45 93 03/21/17 13:45 101 29 86/60 91 03/21/17 13:31 100 27 82/64 88 03/21/17 13:26 101 29 80/55 90 03/21/17 13:21 100 26 69/49 82 03/21/17 13:00 99 32 90/55 94 03/21/17 12:50 92 Nasal Cannula 4.00 03/21/17 12:01 97 23 84/55 88 03/21/17 12:00 99 26 80/51 86 03/21/17 11:31 101 24 102/77 94 03/21/17 11:00 95 24 90/52 92 03/21/17 10:30 98 24 97/56 92 03/21/17 10:00 100 23 124/65 93 03/21/17 09:00 104 29 134/77 95 I/O 03/21/17 03/21/17 03/21/17 03/22/17 03/22/17 03/22/17 07:00 15:00 23:00 07:00 15:00 23:00 Intake Total 874 ml 811 ml 359 ml 506 ml Output Total 200 ml 550 ml 250 ml 250 ml Balance 674 ml 261 ml 109 ml 256 ml Intake Oral 200 ml 120 ml 240 ml 240 ml IV Total 674 ml 691 ml 119 ml 266 ml Output Urine Total 200 ml 550 ml 250 ml 250 ml # Bowel Movements 0 4 1 1 Result Diagram: 03/21/17 0653 03/22/17 0610 Imaging Last Impressions Chest X-Ray 03/21/17 0000 Signed Impressions: Service Date/Time: Tuesday, March 21, 2017 08:20 - CONCLUSION: Persistent congestive failure. Marcos Velez MD FACR Pelvis X-Ray 03/19/17 Signed Impressions: Service Date/Time: Sunday, March 19, 2017 12:25 - CONCLUSION: No fracture. Camden Paulino Jr., MD Head CT 03/19/17 Signed Impressions: Service Date/Time: Sunday, March 19, 2017 11:53 - CONCLUSION: 1. No acute intracranial abnormality is identified. Blu Velez MD Cervical Spine CT 03/19/17 0000 Signed Impressions: Service Date/Time: Sunday, March 19, 2017 11:56 - CONCLUSION: 1. No fracture or dislocation. 2. Degenerative changes as detailed at each level in the above discussion. Camden Paulino Jr., MD Brain MRI 03/19/17 0000 Signed Impressions: Service Date/Time: Sunday, March 19, 2017 18:11 - CONCLUSION: No gross abnormality seen. Significant limitation of image quality due to patient motion. The diffusion-weighted images, however, are diagnostic and there are no focal areas of restricted diffusion. Camden Flores MD Abdomen/Pelvis CT 03/19/17 0000 Signed Impressions: Service Date/Time: Sunday, March 19, 2017 13:30 - CONCLUSION: Small shrunken left kidney providing little renal function Prominent right kidney with prominent right ureter. Stones are present in the kidney but I don't see an obstructing stone. Extensive vascu surgery in both inguinal regions. Marcos Velez MD FACR Objective Remarks GENERAL: with some respiratory distress CARDIOVASCULAR: Regular rate and regular rhythm without murmurs, gallops, or rubs. RESPIRATORY: diffuse bilateral wheezing GASTROINTESTINAL: Abdomen soft, non-tender, nondistended. Normal, active bowel sounds MUSCULOSKELETAL: s/p left AKA NEURO: Alert & Oriented x4 to person, place, time, situation. Moves all ext x4 Medications and IVs Current Medications Sodium Chloride 2 ml 2 ml UNSCH PRN IVF FLUSH AFTER USING IV ACCESS; Start 03/19 at 11:45 Sodium Chloride 1,000 ml @ 999 mls/hr BOLUS ONCE IV Last administered on 12:34; Start 03/19/17 at 12:30; Stop 03/19/17 at 13:30; Status DC Piperacillin Sod/ Tazobactam Sod 100 ml @ 200 mls/hr ONCE STAT IV Last administered on 03/19/17 13:47; Start 03/19/17 at 12:47; Stop 03/19/17 at 13:16; Status DC Sodium Chloride (NS 1000 ml Inj) 1,000 ml @ 999 mls/hr BOLUS ONCE IV Last administered on 03/19/17 13:23; Start 03/19/17 at 13:00; Stop 03/19/17 at 14:00; Status DC Insulin Aspart (NovoLOG INJ) 15 units ONCE ONCE SQ Last administered on 13:50; Start 03/19/17 at 13:30; Stop 03/19/17 at 13:31; Status DC Pantoprazole Sodium (Protonix Inj) 40 mg DAILY IV Last administered on 08:39; Start 03/19/17 at 15:00 Albuterol/ Ipratropium (Duoneb Neb) 1 ampule Q6HR NEB INH Last administered on 03/22/17 04:13; Start 03/19/17 at 16:00 Ipratropium [place] (Atrovent Neb) 0.5 mg Q2HR NEB PRN INH WHEEZING Last administered on 03/22/17 02:13; Start 03/19/17 at 14:00 Heparin Sodium (Porcine) (Heparin Inj) 5,000 units Q12HR SQ Last administered on 03/21/17 20:36; Start 03/19/17 at 21:00 Miscellaneous Information 1 Q361D XX ; Start 03/19/17 at 14:00 Chlorhexidine Gluconate (Chlorhexidine 2% Cloth) 3 pack Taper DAILY@04 TOP Last administered on 03/22/17 03:00; Start 03/20/17 at 04:00; Stop 03/16/18 at 03 :59 Chlorhexidine Gluconate (Chlorhexidine 2% Cloth) 3 pack UNSCH PRN TOP HYGIENIC CARE; Start 03/19/17 at 14:00 Senna/Docusate Sodium (Kimberly-Colace) 1 tab BID PO Last administered on 03/20/17 09:39; Start 03/19/17 at 21:00 Magnesium Hydroxide (Milk Of Magnesia Liq) 30 ml Q12HR PRN PO MILD - MODERATE CONSTIPATION; Start 03/19/17 at 15:00 Sennosides (Senokot) 17.2 mg Q12HR PRN PO MODERATE - SEVERE CONSTIPATION; Start 03/19/17 at 21:00 Bisacodyl (Dulcolax Supp) 10 mg DAILY PRN RECTAL SEVERE CONSITIPATION; Start at 14:00 Lactulose 30 ml 30 ml DAILY PRN PO SEVERE CONSITIPATION; Start 03/19/17 at 14:00 Sodium Chloride 1,000 ml @ 84 mls/hr [id number] IV Last administered on 03/21/17 01:45; Start 03/19/17 at 14:00; Status Hold Potassium Chloride 100 ml @ 50 mls/hr Q2H PRN IV For Potassium 2.8 - 3.2 mEq/L ; Start 03/19/17 at 14:00; Stop 03/20/17 at 22:35; Status DC Potassium Chloride (KCl 20 Meq Premix Inj) 100 ml @ 50 mls/hr Q2H PRN IV For Potassium 2.8 - 3.2 mEq/L Last administered on 03/20/17 05:59; Start 03/19/17 at 14:00; Stop 03/20/17 at 22:35; Status DC Potassium Bicarb/ Potassium Chloride 50 meq 50 meq UNSCH PRN PO For Potassium 3.3 - 3.5 mEq/L; Start 03/19/17 at 14:00; Stop 03/20/17 at 22:35; Status DC Potassium Chloride 100 ml @ 25 mls/hr UNSCH PRN IV For Potassium 3.3 - 3.5 mEq /L; Start 03/19/17 at 14:00; Stop 03/20/17 at 22:35; Status DC Potassium Chloride 100 ml @ 50 mls/hr Q2H PRN IV For Potassium 3.3 - 3.5 mEq/L ; Start 03/19/17 at 14:00; Stop 03/20/17 at 22:35; Status DC Magnesium Sulfate/ Sodium Chloride (Magnesium Sulfate Inj/NS Inj) 100 ml @ 50 mls/hr UNSCH PRN IV For Magnesium 0.9 - 1.1 mg/dL; Start 03/19/17 at 14:00; Stop 03/20/17 at 22:36; Status DC Magnesium Oxide 800 mg 800 mg UNSCH PRN PO For Magnesium 1.2 - 1.6 mg/dL; Start 03/19/17 at 14:00; Stop 03/20/17 at 22:36; Status DC Magnesium Sulfate/ Sodium Chloride (Magnesium Sulfate Inj/NS Inj) 100 ml @ 50 mls/hr UNSCH PRN IV For Magnesium 1.2 - 1.6 mg/dL; Start 03/19/17 at 14:00; Stop 03/20/17 at 22:36; Status DC Potassium Phosphate 2000 mg 2,000 mg Q4H PRN PO For Phosphorus < 2.5 mg/dL; Start 03/19/17 at 14:00; Stop 03/20/17 at 22:36; Status DC Sodium Phosphate/ Sodium Chloride (Sodium Phosphate Inj/NS 250 ml Inj) 250 ml @ 42 mls/hr UNSCH PRN IV For Phosphorus < 2.5 mg/dL; Start 03/19/17 at 14:00; Stop 03/20/17 at 22:36; Status DC Potassium Phosphate 2000 mg 2,000 mg UNSCH PRN PO/TUBE SEE LABEL COMMENTS; Start 03/19/17 at 14:00; Stop 03/20/17 at 22:36; Status DC Potassium Phosphate/Sodium Chloride (Potassium Phosphate Inj/NS 250 ml Inj) 260 ml @ 42 mls/hr UNSCH PRN IV SEE LABEL COMMENTS; Start 03/19/17 at 14:00; Stop 03/20/17 at 22:36; Status DC Dextrose (D50w (Vial) Inj) 50 ml UNSCH PRN IV HYPOGLYCEMIA-SEE COMMENTS; Start 03/19/17 at 14:30 Glucagon (Glucagon Inj) 1 mg UNSCH PRN OTHER HYPOGLYCEMIA-SEE COMMENTS; Start 03/19/17 at 14:30 Insulin Human Regular 1 1 Q4H SQ Last administered on 03/20/17 11:00; Start 03/19/17 at 15:00; Stop 03/20/17 at 21:26; Status DC Piperacillin Sod/ Tazobactam Sod 100 ml @ 200 mls/hr Q6H IV Last administered on 03/22/17 02:00; Start 03/19/17 at 20:00 Levetriacetam 500 mg/Sodium Chloride 105 ml @ 420 mls/hr Q12HR IV Last administered on 03/21/17 20:35; Start 03/19/17 at 15:30 Potassium Phosphate/Sodium Chloride (Potassium Phosphate Inj/NS Inj) 155 ml @ 38.75 mls/ hr ONCE ONCE IV Last administered on 03/19/17 20:47; Start 03/19/17 at 21:00; Stop 03/20/17 at 00:59; Status DC Labetalol HCl (Trandate Inj) 10 mg Q4H PRN IV PUSH SBP>150, DBP>90 Last administered on 03/22/17 07:48; Start 03/19/17 at 20:30 Hydralazine HCl (Apresoline Inj) 20 mg Q4H PRN IV PUSH SBP>150, DBP>90 Last administered on 03/21/17 00:28; Start 03/19/17 at 20:30 Ondansetron HCl (Zofran Inj) 4 mg Q6HR PRN IV PUSH NAUSEA OR VOMITING Last administered on 03/20/17 20:23; Start 03/19/17 at 20:30 Prochlorperazine Edisylate (Compazine Inj) 5 mg Q6H PRN IM nausea Last administered on 03/21/17 01:54; Start 03/20/17 at 06:15 Aspirin (Aspirin Chew) 81 mg DAILY CHEW Last administered on 03/21/17 08:38; Start 03/21/17 at 09:00 Clopidogrel Bisulfate (Plavix) 75 mg DAILY PO Last administered on 03/21/17 08: 38; Start 03/21/17 at 09:00 Gabapentin (Neurontin) 100 mg HS PO Last administered on 03/21/17 20:35; Start 03/20/17 at 21:00 Losartan Potassium (Cozaar) 25 mg DAILY PO Last administered on 03/21/17 08:38 ; Start 03/21/17 at 09:00; Status Hold Pravastatin Sodium (Pravachol) 20 mg DAILY PO Last administered on 03/21/17 08: 38; Start 03/21/17 at 09:00 Sertraline HCl (Zoloft) 50 mg DAILY PO Last administered on 03/21/17 08:38; Start 03/21/17 at 09:00 Insulin Human Regular (NovoLIN R SUPPLEMENTAL SCALE) 1 ACHS SLIDING SCALE SQ Last administered on 03/21/17 20:36; Start 03/21/17 at 07:00 Metoprolol Tartrate (Lopressor Inj) 5 mg NOW IV PUSH ; Start 03/21/17 at 00:30; Stop 03/21/17 at 01:45; Status DC Metoprolol Tartrate (Lopressor Inj) 5 mg NOW IV PUSH Last administered on 03:50; Start 03/21/17 at 04:00; Stop 03/21/17 at 04:20; Status DC Bumetanide (Bumex Inj) 1 mg ONCE ONCE IV PUSH Last administered on 03/21/17 09 :53; Start 03/21/17 at 09:30; Stop 03/21/17 at 09:33; Status DC Diphenhydramine HCl (Benadryl) 25 mg ONCE ONCE PO Last administered on 02:53; Start 03/22/17 at 03:00; Stop 03/22/17 at 03:01; Status DC A/P Assessment and Plan A/P Metabolic encephalopathy most likely secondary to sepsis- seems to be improving. EEG with encephalopathy and no seizure activity. evaluated by neurology; will dc antiepileptics in a few days - per neurology. acute respiratory failure- likely due to acute systolic CHF dose of Bumex today and will monitor the response continue with oxygen to keep O2 sat > 90%- neb treatment- Hypertension-losaratn was held yesterday due to low-normal BP's- BP has trended up over night- will consider resuming BP meds soon if BP stable. PVD- continue aspirin, plavix and statin Hypokalemia-will replace and monitor. Questionable V-tach. cardiology evaluation noted- no VT appreciated on Tele- echo with EF 45% Urinary tract infection UC with klebsiella- change Zosyn to Rocephin Hyperglycemia with underlying history of diabetes mellitus. accu-check with SSI. Gastroesophageal reflux disease; continue PPI DVT prophylaxis with subq Heparin patient still with respiratory distress. continue to monitor closely in ICU. d/w the FANI. Paulie Bartlett MD Mar 22, 2017 08:25
[2017-03-22] MEDS ORDERED: POTASSIUM CHLORIDE 10 MEQ CONTROLLED RELEASE TAB PO ONE ×3 (08:30→16:00)
[2017-03-22] MEDS ORDERED: BUMETANIDE INJ 1 MG/4 ML VIAL IV PUSH ONE ×2 (08:30→21:15)
[2017-03-22] MEDS: levETIRAcetam INJ 500 MG in SODIUM CHLORIDE 0.9% INJ 100 ML IV SCH ×2 (08:46→20:52)
[2017-03-22] MEDS: traMADol HCL 50 MG TAB PO PRN ×2 (08:47→20:55)
[2017-03-22] MEDS ORDERED: cefTRIAXone INJ 1,000 MG in SODIUM CHLORIDE 0.9% INJ 100 ML IV SCH (09:00)
[2017-03-22] MEDS: GABAPENTIN 100 MG CAP PO SCH (20:56)
[2017-03-22] MEDS: hydrALAZINE HCL 20 MG/ML VIAL IV PUSH PRN (20:56)
[2017-03-22 21:13] LABS: BLOOD GAS BASE EXCESS -8.5 mmol/L (-2-2); BLOOD GAS CARBOXYHEMOGLOBIN 1.2 % (0-4); BLOOD GAS HCO3 16 mmol/L (22-26); BLOOD GAS METHEMOGLOBIN 0.8 % (0-2); BLOOD GAS O2 HGB SATURATION 93 % (90-100); BLOOD GAS OXYGEN CONTENT 17.9 Vol % (12.0-20.0); BLOOD GAS PCO2 32 mmHg (38-42); BLOOD GAS PO2 81 mmHg (61-120); BLOOD GAS TOTAL HGB 13.7 G/DL (12.0-16.0); TEMP CORR TO 98.6
[2017-03-22 21:14] LABS: CRITICAL VALUE YES; DRAW SITE RT RADIAL; FIO2 100 %; LITER FLOW 15 L/M; NUMBER OF ARTERIAL PUNCTURES 1; OXYGEN DEVICE NRB; STAT YES; ULNAR PULSE PRESENT
[2017-03-22] MEDS ORDERED: ALBUMIN HUMAN 25% 25 GM/100 ML BAGP IV ONE (21:15)
[2017-03-22] MEDS ORDERED: POTASSIUM CHLORIDE 25 MEQ EFFERVESCENT TAB PO ONE (21:15)
[2017-03-22] MEDS ORDERED: methylPREDNISolone SOD SUCC 125 MG/2 ML VIAL IV PUSH ONE (21:30)
[2017-03-22] MEDS ORDERED: RESP: ALBUTEROL 2.5 MG/IPRATROPIUM 0.5 MG NEB (PRN) NEB (21:30)
--- NOTE | 2017-03-22 21:42 | RADRPT ---
EXAM DATE/TIME: 03/22/2017 21:09 [facility] COMPARISON: No previous studies available for comparison. INDICATIONS : Evaluate for respiratory disease. MEDICAL HISTORY : Hypertension. Gastroesophageal reflux disease. Diabetes mellitus type II. SURGICAL HISTORY : Hysterectomy. ENCOUNTER: Subsequent ACUITY: 4 - 6 days PAIN SCORE: Non-responsive. LOCATION: chest FINDINGS: A single view of the chest demonstrates bilateral airspace disease, worse on the right side especiall y perihilar and basilar with effusions. Differential diagnosis includes pulmonary edema, possibly wit h superimposed infection. No pneumothorax. Mild cardiomegaly. CONCLUSION: 1. Cardiomegaly with pulmonary edema pattern. More focal consolidation in the right upper lobe could represent superimposed pneumonia. Héctor Teague MD on March 22, 2017 at 21:39 Board Certified Radiologist. This report was verified electronically.
--- NOTE | 2017-03-22 22:27 | HHI.CCPN ---
Subjective Remarks/Hospital Course The patient is a 67-year-old female with past medical history of rheumatoid arthritis, nephrolithiasis, diabetes mellitus, gastroesophageal reflux disease, peripheral vascular disease, hypertension who presented to [facility] ED with altered mental status. When the fire team got there she was found supine on the ground near her wheelchair with initial GCS score of 3. When she was placed on a monitor she noted to have intermittent runs of V-tach that resolved on its own. En route to the ER she was hypertensive with blood pressure 162/128 and she had a GCS score of 9 in the ER. The patient was tachycardiac, hypertensive and her laboratory data significant for lactic acid level 11.0 with mild acute kidney, creatinine of 1.25. CT scan of the brain in the ER negative for acute intracranial abnormalities. Chest x-ray showed mild failure bibasilar changes worse on the right. She also had a cervical spine CT which showed no fracture or dislocation and a CT scan of the abdomen and pelvis obtained as well which showed small left kidney, stones present in the kidney without any evidence of obstruction. She was hyperglycemic with a blood sugar of 330 on the BMP. The patient was given 15 units IV NovoLog insulin in the ER along with 2 liters of normal saline and Zosyn. Her urine drug screen is negative for amphetamines, benzodiazepines and cannabinoids. When seen in the ER she was on 2 liters nasal cannula with a saturation of 99% and blood pressure of 147/99. The patient does not remember what happened to her. She denies any history of seizures or CVA. In addition, she denies any chest pain, shortness of breath or any GI symptoms. She is oriented to time and place. EKG in the ED showed sinus tachycardia with rate of 109 beats per minute and possible left atrial enlargement. SUBJ 03/20/17: Patient is oriented 3 today. Lab work is pending for today. EEG shows encephalopathy and no seizures. MRI negative for any acute findings. No further arrhythmia reported. Per Dr. Powell he did not see evidence for VT on review of EKG from ICU, ER, and EVAC. Echo pending RECONSULT 03/22/17: Critical care reconsulted today for acute hypoxemic respiratory failure and severe respiratory distress. On my evaluation patient was in severe respiratory distress tachypneic with bilateral crackles and rhonchi. Immediately placed on BiPAP and was given 2 mg Bumex IV. Also DuoNeb breathing treatments restarted, Solu-Medrol 125 mg 1 IV and 60 mg every 8 hours started. Chest x-ray shows worsening and severe pulmonary edema right more than left. Her symptoms are predominantly secondary to CHF exacerbation, pneumonia seems less likely. Echo showed EF 45-50% and mild MR. Scheduled Lasix 40 mg IV q12 started Objective Vital Signs Date Time Temp Pulse Resp B/P Pulse Ox O2 Delivery O2 Flow Rate FiO2 03/22/17 21:38 98 100 03/22/17 20:02 Simple Mask 10.00 03/22/17 18:00 110 03/22/17 16:00 29 159/100 03/22/17 12:00 97.4 Intake and Output 03/21/17 03/21/17 03/22/17 08:00 16:00 00:00 Intake Total 874 ml 811 ml 359 ml Output Total 200 ml 550 ml 250 ml Balance 674 ml 261 ml 109 ml Result Diagram: 03/21/17 0653 03/22/17 0610 Other Results Laboratory Tests Test 03/22/17 20:50 Blood Gas Puncture Site RT RADIAL Blood Gas Patient Temperature 98.6 Blood Gas HCO3 16 mmol/L (22-26) Blood Gas Base Excess -8.5 mmol/L (-2-2) Blood Gas Oxygen Saturation 93 % (90-100) Arterial Blood pH 7.33 (7.380-7.420) Arterial Blood Partial 32 mmHg (38-42) Pressure CO2 Arterial Blood Partial 81 mmHg Pressure O2 (61-120) Arterial Blood Oxygen Content 17.9 Vol % (12.0-20.0) Arterial Blood 1.2 % (0-4) Carboxyhemoglobin Arterial Blood Methemoglobin 0.8 % (0-2) Blood Gas Hemoglobin 13.7 G/DL (12.0-16.0) Oxygen Delivery Device NRB Blood Gas Liter Flow 15 L/M Blood Gas Inspired Oxygen 100 % Objective Remarks GENERAL: A 67-year-old female lying in bed in severe respiratory distress, just now placed on BiPAP HEENT: Atraumatic, normocephalic. Pupils equal and round, oral mucosa dry NECK: Supple. No JVD, adenopathy or thyromegaly. Trachea in the midline. CARDIOVASCULAR: Tachycardic. Normal S1-S2. No murmurs, rubs or gallops noted. PULMONARY EXAMINATION: Bilateral equal entry. Tachypneic in respiratory distress on BiPAP. Bilateral readings and rhonchi ABDOMEN: Soft, obese, nontender, no distension, positive bowel sounds. EXTREMITIES: No cyanosis, clubbing or edema. S/p L AKA NEURO: Lethargic but awake alert. No focal deficits A/P Assessment and Plan IMPRESSION Acute hypoxemic respiratory failure CHF exacerbation Sepsis Urinary tract infection. Metabolic encephalopathy most likely secondary to sepsis Lactic acidemia. Anion gap metabolic acidosis. Acute kidney injury. Hypertension. Hypokalemia. Questionable V-tach. Hyperglycemia with underlying history of diabetes mellitus. Nephrolithiasis. Peripheral vascular disease. Gastroesophageal reflux disease RECOMMENDATIONS NEURO: Metabolic encephalopathy - Monitor neuro status closely. A CT scan of the brain in the ED, MRI negative for acute intracranial abnormalities and urine drug screen panel unremarkable. - Continue Zoloft and Neurontin - EEG negative for seizures. Acute mental status change symptoms seem secondary to sepsis and UTI RESP: Acute hypoxemic respiratory failure Pulmonary edema COPD with exacerbation - BiPAP 15/7. May need endotracheal intubation and mechanical ventilation - Bronchodilators in the form of DuoNeb q. 4 plus q. 2 p.r.n. for shortness of breath and aspiration precautions. - IV Solu-Medrol 125 mg 1 and 60 every 8 hours -Discontinue Rocephin start empiric Zosyn CVS: Acute systolic heart failure exacerbation Pulmonary edema Possible Ventricular tachycardia on admission - Chest x-ray consistent with pulmonary edema from CHF - IV Bumex 2 mg 1 stat given. Start scheduled IV Lasix 40 mg every 12 - 2-D echo showed 45-50% ejection fraction and mild MR (EF may be exaggerated on Echo due to MR) - Monitor heart rate and blood pressure closely and maintain MAP greater than 65 mmHg. - Monitor cardiac enzymes with troponins - Continue aspirin Plavix and losartan. Continue statins - Dr. Powell following GI: - Keep nothing by mouth, IV Protonix : - Monitor renal function Is and Os and electrolyte replacement per protocol. - DC IVF, check lactic acid level ID/HEME Sepsis UTI - Discontinue Rocephin, started empirically Zosyn to cover for possible healthcare associated pneumonia - Blood culture neg and urine cultures with Klebsiella pansensitive - Monitor CBC. ENDO: Type 2 diabetes with hyperglycemia - Sliding scale insulin with Accu-Chek for glycemic control. TSH measured at 1.84. - Add Levemir if hypoglycemic with steroids Proph: - GI prophylaxis with Protonix 40 milligrams daily and DVT prophylaxis with SCDs and heparin subcutaneous. CCT 45 MIN Patient critically ill with acute hypoxemic respiratory failure and pulmonary edema from CHF. Currently requiring 100% oxygen on BiPAP and still tachypneic. If not improved in the next couple of hours with BiPAP IV Bumex and Solu- Medrol with breathing treatments, patient will need endotracheal intubation and ventilatory support Leif Ayala MD Mar 22, 2017 22:27
[2017-03-22 23:23] LABS: AUTOMATED NEUTROPHIL # 12.8 TH/MM3 (1.8-7.7); BASOPHIL # 0.1 TH/MM3 (0-0.2); BASOPHIL % 0.4 % (0.0-2.0); HEMATOCRIT 40.5 % (35.0-46.0); HEMO FLAGS DIFF FINAL; LYMPHOCYTE # 0.9 TH/MM3 (1.0-4.8); MEAN CELL VOLUME 81.1 FL (80.0-100.0); MEAN CORPUSCULAR HEMOGLOBIN 26.3 PG (27.0-34.0); MEAN CORPUSCULAR HGB CONC 32.4 % (32.0-36.0); MONO % 3.7 % (0.0-8.0); NEUT % 89.9 % (16.0-70.0); PLATELET COUNT 155 TH/MM3 (150-450); RED BLOOD COUNT 4.99 MIL/MM3 (4.00-5.30); RED CELL DISTRIBUTION WIDTH 15.3 % (11.6-17.2); WHITE BLOOD COUNT 14.3 TH/MM3 (4.0-11.0)
[2017-03-22 23:43] LABS: ALKALINE PHOSPHATASE 88 U/L (45-117); ALT (GPT) 14 U/L (10-53); ANION GAP 14 MEQ/L (5-15); AST (GOT) 23 U/L (15-37); BICARBONATE 17.9 MEQ/L (21.0-32.0); BLOOD UREA NITROGEN 17 MG/DL (7-18); CHLORIDE 113 MEQ/L (98-107); GLOMERULAR FILTRATION RATE 55 ML/MIN (>89); POTASSIUM 4.8 MEQ/L (3.5-5.1); SODIUM (NA) 145 MEQ/L (136-145); TOTAL BILIRUBIN ADULT 0.8 MG/DL (0.2-1.0)
[2017-03-23] VITALS (16 sets, daily range): BP systolic 107–172; BP diastolic 57–90; PULSE 82–108; RESP 20–26; TEMP 97.4–98.9; O2SAT 92–100
[2017-03-23] MEDS: LABETALOL HCL 100 MG/20 ML VIAL IV PUSH PRN (00:34)
[2017-03-23] MEDS: PIPERACIL-TAZO 4.5 GM PREMIX 100 ML IV SCH ×4 (03:32→21:46)
[2017-03-23] MEDS: RESP: ALBUTEROL 2.5 MG/IPRATROPIUM 0.5 MG NEB (SCH) INH ×5 (03:45→20:02)
[2017-03-23] MEDS: CHLORHEXIDINE GLUCONATE 2 % 1 PACK (2 CLOTHS) TOP SCH (04:00)
[2017-03-23] MEDS: FUROSEMIDE 40 MG/4 ML VIAL IV PUSH SCH ×3 (04:07→18:00)
--- NOTE | 2017-03-23 04:50 | RADRPT ---
EXAM DATE/TIME: 03/23/2017 03:49 [facility] COMPARISON: CHEST SINGLE AP, March 22, 2017, 21:09. INDICATIONS : Shortness of breath MEDICAL HISTORY : Hypertension. Gastroesophageal reflux disease. Diabetes mellitus type II. SURGICAL HISTORY : Hysterectomy. ENCOUNTER: Subsequent ACUITY: 4 - 6 days PAIN SCORE: 7/10 LOCATION: Bilateral chest FINDINGS: The cardiac silhouette is enlarged in transverse diameter. There is patchy alveolar disease bilateral ly compatible with edema or pneumonia. Small bilateral pleural effusions are identified. CONCLUSION: 1. Patchy alveolar disease characteristic of edema or pneumonia. There has been no significant thomas e when compared to the prior exam. oHmer Lujan MD on March 23, 2017 at 4:48 Board Certified Radiologist. This report was verified electronically.
[2017-03-23] MEDS: INSULIN NovoLIN REGULAR SUPPLEMENTAL SCALE SQ SCH ×3 (06:36→15:57)
[2017-03-23] MEDS: methylPREDNISolone SOD SUCC 125 MG/2 ML VIAL IV PUSH SCH ×3 (06:37→21:46)
--- NOTE | 2017-03-23 08:03 | HHI.CCPN ---
Subjective Remarks/Hospital Course The patient is a 67-year-old female with past medical history of rheumatoid arthritis, nephrolithiasis, diabetes mellitus, gastroesophageal reflux disease, peripheral vascular disease, hypertension who presented to [facility] ED with altered mental status. When the fire team got there she was found supine on the ground near her wheelchair with initial GCS score of 3. When she was placed on a monitor she noted to have intermittent runs of V-tach that resolved on its own. En route to the ER she was hypertensive with blood pressure 162/128 and she had a GCS score of 9 in the ER. The patient was tachycardiac, hypertensive and her laboratory data significant for lactic acid level 11.0 with mild acute kidney, creatinine of 1.25. CT scan of the brain in the ER negative for acute intracranial abnormalities. Chest x-ray showed mild failure bibasilar changes worse on the right. She also had a cervical spine CT which showed no fracture or dislocation and a CT scan of the abdomen and pelvis obtained as well which showed small left kidney, stones present in the kidney without any evidence of obstruction. She was hyperglycemic with a blood sugar of 330 on the BMP. The patient was given 15 units IV NovoLog insulin in the ER along with 2 liters of normal saline and Zosyn. Her urine drug screen is negative for amphetamines, benzodiazepines and cannabinoids. When seen in the ER she was on 2 liters nasal cannula with a saturation of 99% and blood pressure of 147/99. The patient does not remember what happened to her. She denies any history of seizures or CVA. In addition, she denies any chest pain, shortness of breath or any GI symptoms. She is oriented to time and place. EKG in the ED showed sinus tachycardia with rate of 109 beats per minute and possible left atrial enlargement. SUBJ 03/20/17: Patient is oriented 3 today. Lab work is pending for today. EEG shows encephalopathy and no seizures. MRI negative for any acute findings. No further arrhythmia reported. Per Dr. Powell he did not see evidence for VT on review of EKG from ICU, ER, and EVAC. Echo pending RECONSULT 03/22/17: Critical care reconsulted today for acute hypoxemic respiratory failure and severe respiratory distress. On my evaluation patient was in severe respiratory distress tachypneic with bilateral crackles and rhonchi. Immediately placed on BiPAP and was given 2 mg Bumex IV. Also DuoNeb breathing treatments restarted, Solu-Medrol 125 mg 1 IV and 60 mg every 8 hours started. Chest x-ray shows worsening and severe pulmonary edema right more than left. Her symptoms are predominantly secondary to CHF exacerbation, pneumonia seems less likely. Echo showed EF 45-50% and mild MR. Scheduled Lasix 40 mg IV q12 started 03/23: The patient diuresised 2 kg, after administration of Bumex last night. Patient currently on 4 L nasal cannula with O2 sat 94% in no respiratory distress. The patient continues on Lasix twice a day. Diet advanced this a.m.. Objective Vital Signs Date Time Temp Pulse Resp B/P Pulse Ox O2 Delivery O2 Flow Rate FiO2 03/23/17 07:00 94 Nasal Cannula 3.00 03/23/17 06:00 88 03/23/17 05:30 40 03/23/17 04:00 97.6 22 134/69 Intake and Output 03/22/17 03/22/17 03/22/17 07:59 15:59 23:59 Intake Total 506 ml 780 ml 590 ml Output Total 250 ml 1275 ml 275 ml Balance 256 ml -495 ml 315 ml Result Diagram: 03/22/17 2259 03/22/17 2259 Other Results Laboratory Tests Test 03/22/17 20:50 Blood Gas Puncture Site RT RADIAL Blood Gas Patient Temperature 98.6 Blood Gas HCO3 16 mmol/L (22-26) Blood Gas Base Excess -8.5 mmol/L (-2-2) Blood Gas Oxygen Saturation 93 % (90-100) Arterial Blood pH 7.33 (7.380-7.420) Arterial Blood Partial 32 mmHg (38-42) Pressure CO2 Arterial Blood Partial 81 mmHg Pressure O2 (61-120) Arterial Blood Oxygen Content 17.9 Vol % (12.0-20.0) Arterial Blood 1.2 % (0-4) Carboxyhemoglobin Arterial Blood Methemoglobin 0.8 % (0-2) Blood Gas Hemoglobin 13.7 G/DL (12.0-16.0) Oxygen Delivery Device NRB Blood Gas Liter Flow 15 L/M Blood Gas Inspired Oxygen 100 % Imaging Last Impressions Chest X-Ray 03/23/17 0600 Signed Impressions: Service Date/Time: Thursday, March 23, 2017 03:49 - CONCLUSION: 1. Patchy alveolar disease characteristic of edema or pneumonia. There has been no significant change when compared to the prior exam. Homer Lujan MD Pelvis X-Ray 03/19/17 Signed Impressions: Service Date/Time: Sunday, March 19, 2017 12:25 - CONCLUSION: No fracture. Camden Paulino Jr., MD Head CT 03/19/17 Signed Impressions: Service Date/Time: Sunday, March 19, 2017 11:53 - CONCLUSION: 1. No acute intracranial abnormality is identified. Blu Velez MD Cervical Spine CT 03/19/17 Signed Impressions: Service Date/Time: Sunday, March 19, 2017 11:56 - CONCLUSION: 1. No fracture or dislocation. 2. Degenerative changes as detailed at each level in the above discussion. Camden Paulino Jr., MD Brain MRI 03/19/17 Signed Impressions: Service Date/Time: Sunday, March 19, 2017 18:11 - CONCLUSION: No gross abnormality seen. Significant limitation of image quality due to patient motion. The diffusion-weighted images, however, are diagnostic and there are no focal areas of restricted diffusion. Camden Flores MD Abdomen/Pelvis CT 03/19/17 Signed Impressions: Service Date/Time: Sunday, March 19, 2017 13:30 - CONCLUSION: Small shrunken left kidney providing little renal function Prominent right kidney with prominent right ureter. Stones are present in the kidney but I don't see an obstructing stone. Extensive vascu surgery in both inguinal regions. Marcos Velez MD FACR Objective Remarks GENERAL: A 67-year-old female lying in bed in no apparent distress on nasal cannula HEENT: Atraumatic, normocephalic. Pupils equal and round, oral mucosa dry NECK: Supple. No JVD, adenopathy or thyromegaly. Trachea in the midline. CARDIOVASCULAR: Tachycardic. Normal S1-S2. No murmurs, rubs or gallops noted. PULMONARY EXAMINATION: Bilateral equal entry. No accessory muscle movement. Noted scattered rhonchi bilaterally ABDOMEN: Soft, obese, nontender, no distension, normoactive bowel sounds. EXTREMITIES: No cyanosis, clubbing or edema. S/p L AKA, right great toe amputation well healed scar NEURO: GCS 15, alert and oriented. No focal deficits A/P Assessment and Plan IMPRESSION Acute hypoxemic respiratory failure-resolved CHF exacerbation Sepsis Urinary tract infection. Metabolic encephalopathy most likely secondary to sepsis Lactic acidemia. Anion gap metabolic acidosis. Acute kidney injury. Hypertension. Hypokalemia. Questionable V-tach. Hyperglycemia with underlying history of diabetes mellitus. Nephrolithiasis. Peripheral vascular disease. Gastroesophageal reflux disease RECOMMENDATIONS NEURO: Metabolic encephalopathy - Monitor neuro status closely. A CT scan of the brain in the ED, MRI negative for acute intracranial abnormalities and urine drug screen panel unremarkable. - Continue Zoloft and Neurontin - EEG negative for seizures. Acute mental status change symptoms seem secondary to sepsis and UTI RESP: Acute hypoxemic respiratory failure Pulmonary edema COPD with exacerbation - Currently on nasal cannula 4 L/m O2 sat 94% continue to monitor and wean - Bronchodilators in the form of DuoNeb q. 4 plus q. 2 p.r.n. for shortness of breath and aspiration precautions. - IV Solu-Medrol 125 mg 1 and 60 every 8 hours -Discontinue Rocephin start empiric Zosyn (day 2) CVS: Acute systolic heart failure exacerbation Pulmonary edema Possible Ventricular tachycardia on admission-resolved - Chest x-ray consistent with pulmonary edema from CHF - IV Bumex 2 mg 1 stat given. Start scheduled IV Lasix 40 mg every 12 - 2-D echo showed 45-50% ejection fraction and mild MR (EF may be exaggerated on Echo due to MR) - Monitor heart rate and blood pressure closely and maintain MAP greater than 65 mmHg. - Monitor cardiac enzymes with troponins - Continue aspirin Plavix and losartan. Continue statins - Dr. Powell following GI: - Begin heart healthy diet, IV Protonix : - Monitor renal function Is and Os and electrolyte replacement per protocol. - DC IVF, check lactic acid level ID/HEME Sepsis UTI - Discontinue Rocephin, started empirically Zosyn to cover for possible healthcare associated pneumonia - Blood culture neg and urine cultures with Klebsiella pansensitive - Monitor CBC. ENDO: Type 2 diabetes with hyperglycemia - Sliding scale insulin with Accu-Chek for glycemic control. TSH measured at 1.84. - Add Levemir if hypoglycemic with steroids Proph: - GI prophylaxis with Protonix 40 milligrams daily and DVT prophylaxis with SCDs and heparin SQ Dispo: Continue diuresis and aggressive pulmonary toileting, plan to wean FiO2. [facility] Discussed with [employer] SPECIALIST at bedside and patient. Level 2 Physician Darcy Huynh MD Mar 23, 2017 08:03
[2017-03-23 08:44] LABS: AUTOMATED NEUTROPHIL # 10.3 TH/MM3 (1.8-7.7); BASOPHIL % 0.1 % (0.0-2.0); HEMATOCRIT 40.1 % (35.0-46.0); HEMO FLAGS DIFF FINAL; LYMPH % 7.1 % (9.0-44.0); LYMPHOCYTE # 0.8 TH/MM3 (1.0-4.8); MEAN CELL VOLUME 81.7 FL (80.0-100.0); MEAN CORPUSCULAR HEMOGLOBIN 26.4 PG (27.0-34.0); MEAN CORPUSCULAR HGB CONC 32.3 % (32.0-36.0); MONO % 2.6 % (0.0-8.0); NEUT % 90.2 % (16.0-70.0); PLATELET COUNT 148 TH/MM3 (150-450); RED BLOOD COUNT 4.91 MIL/MM3 (4.00-5.30); RED CELL DISTRIBUTION WIDTH 15.2 % (11.6-17.2); WHITE BLOOD COUNT 11.4 TH/MM3 (4.0-11.0)
[2017-03-23] MEDS: levETIRAcetam INJ 500 MG in SODIUM CHLORIDE 0.9% INJ 100 ML IV SCH ×2 (09:01→21:03)
[2017-03-23] MEDS: SODIUM CHLORIDE 0.9% FLUSH 10 ML FLUSH IVF PRN ×2 (09:02→21:05)
[2017-03-23] MEDS: POTASSIUM CHLORIDE 25 MEQ EFFERVESCENT TAB PO SCH ×2 (09:02→21:04)
[2017-03-23] MEDS: PANTOPRAZOLE SODIUM 40 MG VIAL IV SCH (09:02)
[2017-03-23] MEDS: HEPARIN SODIUM - SQ 10,000 UNITS/ML VIAL SQ SCH ×2 (09:03→21:04)
[2017-03-23] MEDS: SERTRALINE HCL 50 MG TAB PO SCH (09:03)
[2017-03-23] MEDS: DOCUSATE SODIUM 50 MG/SENNA 8.6 MG TAB PO SCH ×2 (09:03→21:03)
[2017-03-23] MEDS: ASPIRIN 81 MG CHEW TAB CHEW SCH (09:03)
[2017-03-23] MEDS: PRAVASTATIN SOD 20 MG TAB PO SCH (09:03)
[2017-03-23] MEDS: CLOPIDOGREL 75 MG TAB PO SCH (09:03)
[2017-03-23 09:42] LABS: ALKALINE PHOSPHATASE 77 U/L (45-117); ALT (GPT) 11 U/L (10-53); ANION GAP 12 MEQ/L (5-15); AST (GOT) 12 U/L (15-37); BICARBONATE 20.6 MEQ/L (21.0-32.0); BLOOD UREA NITROGEN 19 MG/DL (7-18); CHLORIDE 107 MEQ/L (98-107); GLOMERULAR FILTRATION RATE 46 ML/MIN (>89); MAGNESIUM 1.7 MG/DL (1.5-2.5); POTASSIUM 3.3 MEQ/L (3.5-5.1); SODIUM (NA) 140 MEQ/L (136-145); TOTAL BILIRUBIN ADULT 0.8 MG/DL (0.2-1.0)
[2017-03-23] MEDS ORDERED: DEXTROSE 50% IN WATER 50 ML VIAL(D50) IV PUSH PRN (17:30)
[2017-03-23] MEDS ORDERED: GLUCAGON 1 MG/ML VIAL OTHER PRN (17:30)
[2017-03-23] MEDS: GABAPENTIN 100 MG CAP PO SCH (21:03)
[2017-03-23] MEDS: MEDIUM DOSE INSULIN NOVOLIN REGULAR SUPPLEMENTAL SCALE SQ SCH (21:05)
[2017-03-23] MEDS: traMADol HCL 50 MG TAB PO PRN (23:11)
[2017-03-24] VITALS (16 sets, daily range): BP systolic 99–150; BP diastolic 54–74; PULSE 87–101; RESP 18–22; TEMP 97.4–99.2; O2SAT 93–99
[2017-03-24] MEDS: RESP: ALBUTEROL 2.5 MG/IPRATROPIUM 0.5 MG NEB (SCH) INH ×5 (01:05→15:32)
[2017-03-24] MEDS: CHLORHEXIDINE GLUCONATE 2 % 1 PACK (2 CLOTHS) TOP SCH (04:00)
--- NOTE | 2017-03-24 04:56 | RADRPT ---
EXAM DATE/TIME: 03/24/2017 03:17 [facility] COMPARISON: CHEST SINGLE AP, March 23, 2017, 3:49. INDICATIONS : Short of breath. MEDICAL HISTORY : Hypertension. Gastroesophageal reflux disease. Diabetes mellitus type II. SURGICAL HISTORY : None. ENCOUNTER: Subsequent ACUITY: 1 week PAIN SCORE: 0/10 LOCATION: Bilateral chest FINDINGS: There are bilateral infiltrates again seen, decreased on the right since the previous study. Cardiome ashtyn. CONCLUSION: Improved aeration on the right. Eloy Boss MD on March 24, 2017 at 4:54 Board Certified Radiologist. This report was verified electronically.
[2017-03-24] MEDS: PIPERACIL-TAZO 4.5 GM PREMIX 100 ML IV SCH ×4 (05:05→23:33)
[2017-03-24] MEDS: methylPREDNISolone SOD SUCC 125 MG/2 ML VIAL IV PUSH SCH ×2 (05:05→21:39)
[2017-03-24] MEDS: MEDIUM DOSE INSULIN NOVOLIN REGULAR SUPPLEMENTAL SCALE SQ SCH ×4 (06:50→21:00)
[2017-03-24 07:53] LABS: AUTOMATED NEUTROPHIL # 13.2 TH/MM3 (1.8-7.7); BASOPHIL % 0.2 % (0.0-2.0); HEMO FLAGS DIFF FINAL; LYMPH % 5.7 % (9.0-44.0); LYMPHOCYTE # 0.8 TH/MM3 (1.0-4.8); MEAN CELL VOLUME 78.6 FL (80.0-100.0); MEAN CORPUSCULAR HGB CONC 34.3 % (32.0-36.0); MONO % 2.7 % (0.0-8.0); NEUT % 91.4 % (16.0-70.0); PLATELET COUNT 168 TH/MM3 (150-450); RED BLOOD COUNT 4.57 MIL/MM3 (4.00-5.30); RED CELL DISTRIBUTION WIDTH 15.4 % (11.6-17.2); WHITE BLOOD COUNT 14.5 TH/MM3 (4.0-11.0)
[2017-03-24 08:26] LABS: BICARBONATE 25.8 MEQ/L (21.0-32.0); MAGNESIUM 1.6 MG/DL (1.5-2.5)
[2017-03-24] MEDS: DOCUSATE SODIUM 50 MG/SENNA 8.6 MG TAB PO SCH ×2 (09:00→21:39)
[2017-03-24] MEDS: FUROSEMIDE 40 MG/4 ML VIAL IV PUSH SCH ×2 (10:32→18:09)
[2017-03-24] MEDS: ASPIRIN 81 MG CHEW TAB CHEW SCH (10:33)
[2017-03-24] MEDS: POTASSIUM CHLORIDE 25 MEQ EFFERVESCENT TAB PO SCH ×2 (10:33→21:38)
[2017-03-24] MEDS: CLOPIDOGREL 75 MG TAB PO SCH (10:33)
[2017-03-24] MEDS: PRAVASTATIN SOD 20 MG TAB PO SCH (10:33)
[2017-03-24] MEDS: SERTRALINE HCL 50 MG TAB PO SCH (10:33)
[2017-03-24] MEDS: levETIRAcetam INJ 500 MG in SODIUM CHLORIDE 0.9% INJ 100 ML IV SCH (10:34)
[2017-03-24] MEDS: PANTOPRAZOLE SODIUM 40 MG VIAL IV SCH (10:34)
[2017-03-24] MEDS: HEPARIN SODIUM - SQ 10,000 UNITS/ML VIAL SQ SCH ×2 (10:35→21:39)
[2017-03-24] MEDS ORDERED: POTASSIUM CHLORIDE 25 MEQ EFFERVESCENT TAB PO ONE ×2 (11:30→23:45)
--- NOTE | 2017-03-24 15:06 | HHI.PR ---
Subjective Remarks The patient was resting comfortably in bed. She said she was coughing quite a bit. She doesn't remember too much from the first couple days of hospitalization. She recalls getting recent retinal surgery on her left eye and she had a injection in her eye and she remembers it being painful before she passed out. She currently does not complain of any pain in her left eye. She denies any prior history of COPD or heart failure. Objective Vitals Vital Signs Date Time Temp Pulse Resp B/P Pulse Ox O2 Delivery O2 Flow Rate FiO2 03/24/17 07:48 94 Nasal Cannula 3.00 03/24/17 06:00 99 03/24/17 05:00 Nasal Cannula 3.00 03/24/17 04:01 96 40 03/24/17 04:00 88 03/24/17 04:00 98.1 88 22 134/68 96 03/24/17 02:00 87 03/24/17 01:06 95 40 03/24/17 00:00 101 03/24/17 00:00 98.5 101 22 133/74 99 03/24/17 00:00 99 Bi-Pap 40 03/23/17 22:00 99 03/23/17 20:02 93 Nasal Cannula 4.00 03/23/17 20:00 101 03/23/17 20:00 98.9 101 22 107/57 94 03/23/17 20:00 94 Nasal Cannula 3.00 03/23/17 18:00 108 03/23/17 16:00 98.1 93 26 126/63 92 03/23/17 16:00 103 I/O 03/23/17 03/23/17 03/23/17 03/24/17 03/24/17 03/24/17 07:00 15:00 23:00 07:00 15:00 23:00 Intake Total 350 ml 460 ml 720 ml 256 ml Output Total 2500 ml 180 ml 775 ml 500 ml Balance -2150 ml 280 ml -55 ml -244 ml Intake Oral 120 ml 240 ml 480 ml IV Total 230 ml 220 ml 240 ml 256 ml Output Urine Total 2500 ml 180 ml 775 ml 500 ml # Bowel Movements 0 0 0 1 Result Diagram: 03/24/1765103/24/17651 Imaging Last Impressions Chest X-Ray 03/24/17599 Signed Impressions: Service Date/Time: Friday, March 24, 2017 03:17 - CONCLUSION: Improved aeration on the right. Eloy Boss MD Pelvis X-Ray 03/19/17 Signed Impressions: Service Date/Time: Sunday, March 19, 2017 12:25 - CONCLUSION: No fracture. Camden Paulino Jr., MD Head CT 03/19/17 Signed Impressions: Service Date/Time: Sunday, March 19, 2017 11:53 - CONCLUSION: 1. No acute intracranial abnormality is identified. Blu Velez MD Cervical Spine CT 03/19/17 Signed Impressions: Service Date/Time: Sunday, March 19, 2017 11:56 - CONCLUSION: 1. No fracture or dislocation. 2. Degenerative changes as detailed at each level in the above discussion. Camden Paulino Jr., MD Brain MRI 03/19/17 Signed Impressions: Service Date/Time: Sunday, March 19, 2017 18:11 - CONCLUSION: No gross abnormality seen. Significant limitation of image quality due to patient motion. The diffusion-weighted images, however, are diagnostic and there are no focal areas of restricted diffusion. Camden Flores MD Abdomen/Pelvis CT 03/19/17 Signed Impressions: Service Date/Time: Sunday, March 19, 2017 13:30 - CONCLUSION: Small shrunken left kidney providing little renal function Prominent right kidney with prominent right ureter. Stones are present in the kidney but I don't see an obstructing stone. Extensive vascu surgery in both inguinal regions. Marcos Velez MD FACR Objective Remarks GENERAL: Resting comfortably, coughing. HEENT: Atraumatic, normocephalic. Pupils equal and round, oral mucosa dry NECK: Supple. No JVD, adenopathy or thyromegaly. Trachea in the midline. CARDIOVASCULAR: Tachycardic. Normal S1-S2. No murmurs, rubs or gallops noted. PULMONARY: Diffuse bilateral wheezing. ABDOMEN: Soft, nontender, no distension, normoactive bowel sounds. EXTREMITIES: No cyanosis, clubbing or edema. S/p L AKA, right great toe amputation, well healed scar. NEURO: No gross deficits. PSYCH: Mood and affect appropriate. Medications and IVs Current Medications Medications (Trade) Dose Ordered Sig/Deuce Route Start Time Stop Time Status Last Admin (NS Flush) 2 ml UNSCH PRN IVF 03/19/17 11:45 03/23/17 21:05 (Protonix Inj) 40 mg DAILY IV 03/19/17 15:00 03/24/17 10:34 (Heparin Inj) 5,000 units Q12HR SQ 03/19/17 21:00 03/24/17 10:35 Miscellaneous Information 1 Q361D XX 03/19/17 14:00 (Chlorhexidine 2% Cloth) 3 pack Taper DAILY@04 TOP 03/20/17 04:00 03/16/18 03:59 03/24/17 04:00 (Chlorhexidine 2% Cloth) 3 pack UNSCH PRN TOP 03/19/17 14:00 (Kimberly-Colace) 1 tab BID PO 03/19/17 21:00 03/23/17 21:03 (Milk Of Magnesia Liq) 30 ml Q12HR PRN PO 03/19/17 15:00 (Senokot) 17.2 mg Q12HR PRN PO 03/19/17 21:00 (Dulcolax Supp) 10 mg DAILY PRN RECTAL 03/19/17 14:00 Lactulose 30 ml 30 ml DAILY PRN PO 03/19/17 14:00 (NS 1000 ml Inj) 1,000 ml @ 84 mls/hr [id number] IV 03/19/17 14:00 Hold 03/21/17 01:45 (D50w (Vial) Inj) 50 ml UNSCH PRN IV 03/19/17 14:30 Glucagon 1 mg 1 mg UNSCH PRN OTHER 03/19/17 14:30 (Keppra Inj/NS Inj) 105 ml @ 420 mls/hr Q12HR IV 03/19/17 15:30 03/24/17 10:34 (Trandate Inj) 10 mg Q4H PRN IV PUSH 03/19/17 20:30 03/23/17 00:34 (Apresoline Inj) 20 mg Q4H PRN IV PUSH 03/19/17 20:30 03/22/17 20:56 (Zofran Inj) 4 mg Q6HR PRN IV PUSH 03/19/17 20:30 03/20/17 20:23 (Compazine Inj) 5 mg Q6H PRN IM 03/20/17 06:15 03/21/17 01:54 (Aspirin Chew) 81 mg DAILY CHEW 03/21/17 09:00 03/24/17 10:33 (Plavix) 75 mg DAILY PO 03/21/17 09:00 03/24/17 10:33 (Neurontin) 100 mg HS PO 03/20/17 21:00 03/23/17 21:03 (Cozaar) 25 mg DAILY PO 03/21/17 09:00 Hold 03/21/17 08:38 (Pravachol) 20 mg DAILY PO 03/21/17 09:00 03/24/17 10:33 (Zoloft) 50 mg DAILY PO 03/21/17 09:00 03/24/17 10:33 (Ultram) 50 mg Q8H PRN PO 03/22/17 08:30 03/23/17 23:11 (SoluMEDROL INJ) 60 mg Q8HR IV PUSH 03/23/17 06:00 03/24/17 05:05 (Lasix Inj) 40 mg BID@09,18 IV PUSH 03/23/17 04:00 03/24/17 10:32 Potassium Bicarb/ Potassium Chloride 25 meq 25 meq Q12HR PO 03/23/17 09:00 03/24/17 10:33 (Zosyn 4.5 Gm Premix) 100 ml @ 200 mls/hr Q6H IV 03/22/17 22:30 03/24/17 10:31 (D50w (Vial) Inj) 50 ml UNSCH PRN IV PUSH 03/23/17 17:30 (Glucagon Inj) 1 mg UNSCH PRN OTHER 03/23/17 17:30 (Levemir Inj) 15 units DAILY SQ 03/24/17 15:15 A/P Assessment and Plan Metabolic encephalopathy CT, MRI of the brain negative for acute intracranial abnormalities and urine drug screen panel unremarkable. EEG negative for seizures. Acute mental status change symptoms seem secondary to sepsis and UTI. Neurology consultation appreciated.'s - continue antibiotics. - neuro checks. - physical therapy. - DC antiepileptics. Acute hypoxemic respiratory failure/ Acute systolic CHF/ COPD exacerbation Pulmonary edema noted on imaging. Echo with EF 40-45%, mild MR. the patient reports no history of heart failure and COPD. She still smokes significant amounts daily. - oxygen and nebs as needed, as well as standing nebs. - Lasix 40 mg IV BID. - IV Solu-Medrol 40 mg every 8 hours. - continue empiric Zosyn (day 3). - Continue aspirin, Plavix, statin and losartan. - Dr. Powell following. - Smoking cessation instruction. - Tesjoseph Gallego for cough. - Sputum culture and Gram stain requested. Sepsis/ UTI Blood culture neg and urine cultures with Klebsiella, pansensitive. - continue Zosyn. - Follow blood cultures. Type 2 diabetes Poorly controlled, exacerbated by steroids. - Sliding scale insulin with Accu-Chek for glycemic control. - Add Levemir 15 units daily and adjust as needed. Hypokalemia Exacerbated by Lasix. - continue supplementation and replete as needed. - Follow BMP. Acute renal insufficiency Exacerbated by diuresis. - Follow BMP. - Avoid nephrotoxic agents. PPx: SCDs and heparin SQ Discharge Planning Anticipate transfer to the floor tomorrow Faraz Ramirez DO Mar 24, 2017 15:06
[2017-03-24] MEDS: INSULIN DETEMIR 100 UNITS/ML VIAL SQ SCH (16:21)
[2017-03-24] MEDS: GABAPENTIN 100 MG CAP PO SCH (21:39)
[2017-03-24] MEDS: BENZONATATE 100 MG CAP PO PRN (21:42)
[2017-03-24 22:51] LABS: BICARBONATE 28.5 MEQ/L (21.0-32.0)
[2017-03-24 22:56] LABS: POTASSIUM 2.9 MEQ/L (3.5-5.1)
[2017-03-25] VITALS (12 sets, daily range): BP systolic 124–140; BP diastolic 59–76; PULSE 77–102; RESP 18–19; TEMP 97.5–98.6; O2SAT 91–98
[2017-03-25] MEDS: POTASSIUM CHLOR 20 MEQ PREMIX 100 ML IV SCH ×2 (00:43→03:13)
[2017-03-25] MEDS: RESP: ALBUTEROL 2.5 MG/IPRATROPIUM 0.5 MG NEB (SCH) INH ×6 (02:02→20:08)
[2017-03-25] MEDS: CHLORHEXIDINE GLUCONATE 2 % 1 PACK (2 CLOTHS) TOP SCH (04:00)
[2017-03-25] MEDS: BENZONATATE 100 MG CAP PO PRN (04:19)
[2017-03-25] MEDS: methylPREDNISolone SOD SUCC 125 MG/2 ML VIAL IV PUSH SCH ×3 (06:36→21:41)
[2017-03-25] MEDS: PIPERACIL-TAZO 4.5 GM PREMIX 100 ML IV SCH ×4 (06:36→21:41)
[2017-03-25] MEDS: MEDIUM DOSE INSULIN NOVOLIN REGULAR SUPPLEMENTAL SCALE SQ SCH ×4 (07:00→21:52)
[2017-03-25] MEDS: DOCUSATE SODIUM 50 MG/SENNA 8.6 MG TAB PO SCH ×2 (09:00→21:00)
[2017-03-25] MEDS: INSULIN DETEMIR 100 UNITS/ML VIAL SQ SCH ×2 (09:00→11:49)
[2017-03-25] MEDS ORDERED: guaiFENesin/DEXTROMETHORPHAN 200 MG/20 MG/10 ML CUP PO ONE (09:15)
[2017-03-25] MEDS ORDERED: BENZONATATE 100 MG CAP PO PRN (09:15)
[2017-03-25 09:22] LABS: HEMATOCRIT 41.1 % (35.0-46.0); MEAN CELL VOLUME 80.7 FL (80.0-100.0); MEAN CORPUSCULAR HEMOGLOBIN 26.2 PG (27.0-34.0); MEAN CORPUSCULAR HGB CONC 32.4 % (32.0-36.0); PLATELET COUNT 198 TH/MM3 (150-450); RED BLOOD COUNT 5.09 MIL/MM3 (4.00-5.30); RED CELL DISTRIBUTION WIDTH 15.4 % (11.6-17.2); REVIEW FLAG FINAL; WHITE BLOOD COUNT 11.6 TH/MM3 (4.0-11.0)
--- NOTE | 2017-03-25 09:22 | HHI.PR ---
Subjective Remarks The patient complained of a bothersome cough. She says her breathing seems to be doing okay. No acute complaints other than the cough. She says codeine makes her sick to the stomach, but she'd be willing to try it if needed. Objective Vitals Vital Signs Date Time Temp Pulse Resp B/P Pulse Ox O2 Delivery O2 Flow Rate FiO2 03/25/17 08:40 98 Nasal Cannula 3.00 03/25/17 08:10 98.6 89 18 128/64 96 03/25/17 04:29 Nasal Cannula 3.00 Humidified 03/25/17 04:00 97.6 77 18 138/67 93 03/25/17 02:02 93 Nasal Cannula 3.00 03/25/17 00:00 97.7 81 18 140/68 91 03/24/17 21:42 89 03/24/17 20:00 97.4 87 18 145/62 94 03/24/17 18:34 97.7 88 20 150/65 96 03/24/17 18:00 98 03/24/17 16:00 98 03/24/17 16:00 99.2 93 22 149/72 95 03/24/17 14:00 98 03/24/17 12:00 98.8 92 22 143/67 93 03/24/17 12:00 98 03/24/17 10:00 96 I/O 03/24/17 03/24/17 03/24/17 03/25/17 03/25/17 03/25/17 07:00 15:00 23:00 07:00 15:00 23:00 Intake Total 256 ml 436 ml Output Total 500 ml 1100 ml 1000 ml Balance -244 ml -664 ml -1000 ml Intake Oral 240 ml IV Total 256 ml 196 ml Output Urine Total 500 ml 1100 ml 1000 ml # Voids 1 # Bowel Movements 1 2 2 Result Diagram: 03/24/17 0652 03/24/17 2155 Imaging Last Impressions Chest X-Ray 03/24/17 0600 Signed Impressions: Service Date/Time: Friday, March 24, 2017 03:17 - CONCLUSION: Improved aeration on the right. Eloy Boss MD Pelvis X-Ray 03/19/17 0000 Signed Impressions: Service Date/Time: Sunday, March 19, 2017 12:25 - CONCLUSION: No fracture. Camden Paulino Jr., MD Head CT 03/19/17 0000 Signed Impressions: Service Date/Time: Sunday, March 19, 2017 11:53 - CONCLUSION: 1. No acute intracranial abnormality is identified. Blu Velez MD Cervical Spine CT 03/19/17 0000 Signed Impressions: Service Date/Time: Sunday, March 19, 2017 11:56 - CONCLUSION: 1. No fracture or dislocation. 2. Degenerative changes as detailed at each level in the above discussion. Camden Paulino Jr., MD Brain MRI 03/19/17 0000 Signed Impressions: Service Date/Time: Sunday, March 19, 2017 18:11 - CONCLUSION: No gross abnormality seen. Significant limitation of image quality due to patient motion. The diffusion-weighted images, however, are diagnostic and there are no focal areas of restricted diffusion. Camden Flores MD Abdomen/Pelvis CT 03/19/17 0000 Signed Impressions: Service Date/Time: Sunday, March 19, 2017 13:30 - CONCLUSION: Small shrunken left kidney providing little renal function Prominent right kidney with prominent right ureter. Stones are present in the kidney but I don't see an obstructing stone. Extensive vascu surgery in both inguinal regions. Marcos Velez MD FACR Objective Remarks GENERAL: Resting comfortably, coughing. HEENT: Atraumatic, normocephalic. Pupils equal and round, oral mucosa dry. NECK: Supple. No JVD, adenopathy or thyromegaly. Trachea in the midline. CARDIOVASCULAR: Tachycardic. Normal S1-S2. No murmurs, rubs or gallops noted. PULMONARY: Scattered rhonchi. ABDOMEN: Soft, nontender, no distension, normoactive bowel sounds. EXTREMITIES: No cyanosis, clubbing or edema. S/p L AKA, right great toe amputation, well healed scar. NEURO: No gross deficits. PSYCH: Mood and affect appropriate. Medications and IVs Current Medications Medications (Trade) Dose Ordered Sig/Deuce Route Start Time Stop Time Status Last Admin (NS Flush) 2 ml UNSCH PRN IVF 03/19/17 11:45 03/23/17 21:05 (Heparin Inj) 5,000 units Q12HR SQ 03/19/17 21:00 03/24/17 21:39 Miscellaneous Information 1 Q361D XX 03/19/17 14:00 (Chlorhexidine 2% Cloth) Taper DAILY@04 TOP 03/20/17 04:00 03/16/18 03:59 03/24/17 04:00 (Chlorhexidine 2% Cloth) 3 pack UNSCH PRN TOP 03/19/17 14:00 (Kimberly-Colace) 1 tab BID PO 03/19/17 21:00 03/24/17 21:39 (Milk Of Magnesia Liq) 30 ml Q12HR PRN PO 03/19/17 15:00 (Senokot) 17.2 mg Q12HR PRN PO 03/19/17 21:00 (Dulcolax Supp) 10 mg DAILY PRN RECTAL 03/19/17 14:00 (Lactulose Liq) 30 ml DAILY PRN PO 03/19/17 14:00 (D50w (Vial) Inj) 50 ml UNSCH PRN IV 03/19/17 14:30 (Glucagon Inj) 1 mg UNSCH PRN OTHER 03/19/17 14:30 (Trandate Inj) 10 mg Q4H PRN IV PUSH 03/19/17 20:30 03/23/17 00:34 (Apresoline Inj) 20 mg Q4H PRN IV PUSH 03/19/17 20:30 03/22/17 20:56 (Zofran Inj) 4 mg Q6HR PRN IV PUSH 03/19/17 20:30 03/20/17 20:23 (Compazine Inj) 5 mg Q6H PRN IM 03/20/17 06:15 03/21/17 01:54 (Aspirin Chew) 81 mg DAILY CHEW 03/21/17 09:00 03/24/17 10:33 (Plavix) 75 mg DAILY PO 03/21/17 09:00 03/24/17 10:33 (Neurontin) 100 mg HS PO 03/20/17 21:00 03/24/17 21:39 (Cozaar) 25 mg DAILY PO 03/21/17 09:00 Hold 03/21/17 08:38 (Pravachol) 20 mg DAILY PO 03/21/17 09:00 03/24/17 10:33 (Zoloft) 50 mg DAILY PO 03/21/17 09:00 03/24/17 10:33 (Ultram) 50 mg Q8H PRN PO 03/22/17 08:30 03/23/17 23:11 (Lasix Inj) 40 mg BID@09,18 IV PUSH 03/23/17 04:00 03/24/17 18:09 Potassium Bicarb/ Potassium Chloride 25 meq 25 meq Q12HR PO 03/23/17 09:00 03/24/17 21:38 (Zosyn 4.5 Gm Premix) 100 ml @ 200 mls/hr Q6H IV 03/22/17 22:30 03/25/17 06:36 (D50w (Vial) Inj) 50 ml UNSCH PRN IV PUSH 03/23/17 17:30 (Glucagon Inj) 1 mg UNSCH PRN OTHER 03/23/17 17:30 (Levemir Inj) 15 units DAILY SQ 03/24/17 15:15 03/24/17 16:21 (SoluMEDROL INJ) 40 mg Q8HR IV PUSH 03/24/17 22:00 03/25/17 06:36 (Protonix) 40 mg DAILY PO 03/25/17 09:00 (Levemir Inj) 10 units HS SQ 03/25/17 21:00 UNV (Tessalon) 200 mg TID PRN PO 03/25/17 09:15 (Robitussin Dm 200-20 Mg/10 ml Liq) 10 ml ONCE ONCE PO 03/25/17 09:15 03/25/17 09:16 (Robitussin Dm 200-20 Mg/10 ml Liq) 10 ml Q4H PRN PO 03/25/17 09:15 UNV A/P Assessment and Plan Metabolic encephalopathy CT, MRI of the brain negative for acute intracranial abnormalities and urine drug screen panel unremarkable. EEG negative for seizures. Acute mental status change symptoms seem secondary to sepsis and UTI. Neurology consultation appreciated. - continue antibiotics. - neuro checks. - physical therapy. - DC antiepileptics. Acute hypoxemic respiratory failure/ Acute systolic CHF/ COPD exacerbation Pulmonary edema noted on imaging. Echo with EF 40-45%, mild MR. the patient reports no history of heart failure and COPD. She still smokes significant amounts daily. - oxygen and nebs as needed, as well as standing nebs. - Lasix 40 mg IV BID. - IV Solu-Medrol 40 mg every 8 hours. - continue empiric Zosyn (day 4). - Continue aspirin, Plavix, statin and losartan. - Dr. Powell following. - Smoking cessation instruction. - Tessalon Perlrashad for cough. Add Robitussin. - Sputum culture and Gram stain requested. Sepsis/ UTI Blood culture neg and urine cultures with Klebsiella, pansensitive. - continue Zosyn. - Follow blood cultures. Type 2 diabetes Poorly controlled, exacerbated by steroids. - Sliding scale insulin with Accu-Chek for glycemic control. - Add Levemir 15 units daily, 10 units HS and adjust as needed. Hypokalemia Exacerbated by Lasix. - continue supplementation. - replete with PO/ IV KCl as needed and follow BMP. Acute renal insufficiency Exacerbated by diuresis. - Follow BMP. - Avoid nephrotoxic agents. PPx: SCDs and heparin SQ Discharge Planning Awaiting clinical improvement Faraz Ramirez DO Mar 25, 2017 09:22
[2017-03-25 09:39] LABS: BICARBONATE 25.7 MEQ/L (21.0-32.0); MAGNESIUM 1.8 MG/DL (1.5-2.5)
[2017-03-25] MEDS: HEPARIN SODIUM - SQ 10,000 UNITS/ML VIAL SQ SCH ×2 (09:58→21:40)
[2017-03-25] MEDS: PRAVASTATIN SOD 20 MG TAB PO SCH (09:59)
[2017-03-25] MEDS: PANTOPRAZOLE SOD 40 MG DELAYED RELEASE TAB PO SCH (09:59)
[2017-03-25] MEDS: ASPIRIN 81 MG CHEW TAB CHEW SCH (09:59)
[2017-03-25] MEDS: SERTRALINE HCL 50 MG TAB PO SCH (09:59)
[2017-03-25] MEDS: CLOPIDOGREL 75 MG TAB PO SCH (09:59)
[2017-03-25] MEDS: FUROSEMIDE 40 MG/4 ML VIAL IV PUSH SCH ×2 (10:00→17:23)
[2017-03-25] MEDS: POTASSIUM CHLORIDE 25 MEQ EFFERVESCENT TAB PO SCH ×2 (10:14→21:40)
[2017-03-25] MEDS ORDERED: guaiFENesin/DEXTROMETHORPHAN 200 MG/20 MG/10 ML CUP PO PRN (13:00)
[2017-03-25 15:17] LABS: BLOOD, URINE SMALL (NEG); COMMENT (UR) CULT NOT INDICATED; CULTURE IF INDICATED CULT NOT INDICATED; GLUCOSE,URINE 150 mg/dL (NEG); KETONE, URINE NEG (NEG); NITRITE,URINE NEG (NEG); SQUAMOUS EPITHELIAL CELL URINE 1 /hpf (0-5); URINE COLOR LIGHT-YELLOW (YELLW/STRAW)
--- NOTE | 2017-03-25 19:35 | HHI.PR ---
Review/Management Daily Summary 03/20 alert and oriented, no recall of events yesterday moves all limbs well no hemiparesis language ok eeg consistent with met encephalopathy dx metabolic encephalopathy, would d/c anticonvulsants in a few days 03/25 doing well seemed well oriented this evening motor bedside all ok will follow prn Subjective Subjective Comments No acute events reported No headache No chest pain No dyspnea Active Medications Current Medications Medications (Trade) Dose Ordered Sig/Deuce Route Start Time Stop Time Status Last Admin (NS Flush) 2 ml UNSCH PRN IVF 03/19/17 11:45 03/23/17 21:05 (Heparin Inj) 5,000 units Q12HR SQ 03/19/17 21:00 03/25/17 09:58 Miscellaneous Information 1 Q361D XX 03/19/17 14:00 (Chlorhexidine 2% Cloth) Taper DAILY@04 TOP 03/20/17 04:00 03/16/18 03:59 03/24/17 04:00 (Chlorhexidine 2% Cloth) 3 pack UNSCH PRN TOP 03/19/17 14:00 (Kimberly-Colace) 1 tab BID PO 03/19/17 21:00 03/24/17 21:39 (Milk Of Magnesia Liq) 30 ml Q12HR PRN PO 03/19/17 15:00 (Senokot) 17.2 mg Q12HR PRN PO 03/19/17 21:00 (Dulcolax Supp) 10 mg DAILY PRN RECTAL 03/19/17 14:00 (Lactulose Liq) 30 ml DAILY PRN PO 03/19/17 14:00 (D50w (Vial) Inj) 50 ml UNSCH PRN IV 03/19/17 14:30 (Glucagon Inj) 1 mg UNSCH PRN OTHER 03/19/17 14:30 (Trandate Inj) 10 mg Q4H PRN IV PUSH 03/19/17 20:30 03/23/17 00:34 (Apresoline Inj) 20 mg Q4H PRN IV PUSH 03/19/17 20:30 03/22/17 20:56 (Zofran Inj) 4 mg Q6HR PRN IV PUSH 03/19/17 20:30 03/20/17 20:23 (Compazine Inj) 5 mg Q6H PRN IM 03/20/17 06:15 03/21/17 01:54 (Aspirin Chew) 81 mg DAILY CHEW 03/21/17 09:00 03/25/17 09:59 (Plavix) 75 mg DAILY PO 03/21/17 09:00 03/25/17 09:59 (Neurontin) 100 mg HS PO 03/20/17 21:00 03/24/17 21:39 (Cozaar) 25 mg DAILY PO 03/21/17 09:00 Hold 03/21/17 08:38 (Pravachol) 20 mg DAILY PO 03/21/17 09:00 03/25/17 09:59 (Zoloft) 50 mg DAILY PO 03/21/17 09:00 03/25/17 09:59 (Ultram) 50 mg Q8H PRN PO 03/22/17 08:30 03/23/17 23:11 (Lasix Inj) 40 mg BID@09,18 IV PUSH 03/23/17 04:00 03/25/17 17:23 Potassium Bicarb/ Potassium Chloride 25 meq 25 meq Q12HR PO 03/23/17 09:00 03/25/17 10:14 (Zosyn 4.5 Gm Premix) 100 ml @ 200 mls/hr Q6H IV 03/22/17 22:30 03/25/17 16:08 (D50w (Vial) Inj) 50 ml UNSCH PRN IV PUSH 03/23/17 17:30 (Glucagon Inj) 1 mg UNSCH PRN OTHER 03/23/17 17:30 (Levemir Inj) 15 units DAILY SQ 03/24/17 15:15 03/25/17 11:49 (SoluMEDROL INJ) 40 mg Q8HR IV PUSH 03/24/17 22:00 03/25/17 14:00 (Protonix) 40 mg DAILY PO 03/25/17 09:00 03/25/17 09:59 (Levemir Inj) 10 units HS SQ 03/25/17 21:00 (Tessalon) 200 mg TID PRN PO 03/25/17 09:15 03/25/17 18:00 (Robitussin Dm 200-20 Mg/10 ml Liq) 10 ml Q4H PRN PO 03/25/17 13:00 Allergies Allergies Coded Allergies Lisinopril (Verified Allergy, Severe, TONGUE SWELLING, 03/19/17) Metformin (Verified Adverse Reaction, Severe, Diarrhea, 03/19/17) Vancomycin (Verified Adverse Reaction, Severe, 03/19/17) Codeine (Verified Adverse Reaction, Intermediate, Nausea/Vomiting, 03/19/17) Exam I&O / VS 03/24/17 03/24/17 03/25/17 15:00 23:00 07:00 Intake Total 436 ml Output Total 1100 ml 1000 ml Balance -664 ml -1000 ml Intake Oral 240 ml IV Total 196 ml Output Urine Total 1100 ml 1000 ml # Voids 1 # Bowel Movements 2 2 Vital Signs Date Time Temp Pulse Resp B/P Pulse Ox O2 Delivery O2 Flow Rate FiO2 03/25/17 16:17 96 Nasal Cannula 3.00 03/25/17 16:04 98.4 92 18 124/76 96 03/25/17 12:26 98.0 90 18 127/59 95 03/25/17 08:40 98 Nasal Cannula 3.00 03/25/17 08:10 98.6 89 18 128/64 96 03/25/17 07:00 Nasal Cannula 3.00 03/25/17 07:00 102 03/25/17 04:29 Nasal Cannula 3.00 Humidified 03/25/17 04:00 97.6 77 18 138/67 93 03/25/17 02:02 93 Nasal Cannula 3.00 03/25/17 00:00 97.7 81 18 140/68 91 03/24/17 21:42 89 03/24/17 20:00 97.4 87 18 145/62 94 Objective Micro and Labs Laboratory Tests Test 03/24/17 03/25/17 03/25/17 21:55 07:05 14:55 Sodium Level 139 139 Potassium Level 2.9 4.0 Chloride Level 101 102 Carbon Dioxide Level 28.5 25.7 Anion Gap 10 11 Blood Urea Nitrogen 22 24 Creatinine 1.25 1.12 Estimat Glomerular Filtration 43 49 Rate Random Glucose 151 305 Calcium Level 8.6 8.3 White Blood Count 11.6 Red Blood Count 5.09 Hemoglobin 13.3 Hematocrit 41.1 Mean Corpuscular Volume 80.7 Mean Corpuscular Hemoglobin 26.2 Mean Corpuscular Hemoglobin 32.4 Concent Red Cell Distribution Width 15.4 Platelet Count 198 Mean Platelet Volume 9.3 Magnesium Level 1.8 Urine Color LIGHT-YELLOW Urine Turbidity CLEAR Urine pH 7.0 Urine Specific [place] 1.010 Urine Protein 100 Urine Glucose (UA) 150 Urine Ketones NEG Urine Occult Blood SMALL Urine Nitrite NEG Urine Bilirubin NEG Urine Urobilinogen LESS THAN 2.0 Urine Leukocyte Esterase NEG Urine RBC 5 Urine WBC 1 Urine Squamous Epithelial 1 Cells Microscopic Urinalysis Comment CULT NOT INDICATED Mili Myrick MD Mar 25, 2017 19:35
[2017-03-25] MEDS ORDERED: INSULIN DETEMIR 100 UNITS/ML VIAL SQ SCH (21:00)
[2017-03-25] MEDS: GABAPENTIN 100 MG CAP PO SCH (21:40)
[2017-03-26] VITALS (8 sets, daily range): BP systolic 110–193; BP diastolic 59–88; PULSE 75–89; RESP 20; TEMP 98–99.1; O2SAT 90–97
[2017-03-26] MEDS: RESP: ALBUTEROL 2.5 MG/IPRATROPIUM 0.5 MG NEB (SCH) INH ×4 (00:39→16:34)
[2017-03-26] MEDS: CHLORHEXIDINE GLUCONATE 2 % 1 PACK (2 CLOTHS) TOP SCH (04:00)
[2017-03-26] MEDS: methylPREDNISolone SOD SUCC 125 MG/2 ML VIAL IV PUSH SCH (05:14)
[2017-03-26] MEDS: PIPERACIL-TAZO 4.5 GM PREMIX 100 ML IV SCH ×3 (05:14→16:30)
[2017-03-26] MEDS: MEDIUM DOSE INSULIN NOVOLIN REGULAR SUPPLEMENTAL SCALE SQ SCH ×3 (06:07→16:00)
[2017-03-26] MEDS: INSULIN DETEMIR 100 UNITS/ML VIAL SQ SCH (08:06)
[2017-03-26] MEDS: ASPIRIN 81 MG CHEW TAB CHEW SCH (08:41)
[2017-03-26] MEDS: SERTRALINE HCL 50 MG TAB PO SCH (08:41)
[2017-03-26] MEDS: CLOPIDOGREL 75 MG TAB PO SCH (08:41)
[2017-03-26] MEDS: FUROSEMIDE 40 MG/4 ML VIAL IV PUSH SCH (08:41)
[2017-03-26] MEDS: POTASSIUM CHLORIDE 25 MEQ EFFERVESCENT TAB PO SCH (08:41)
[2017-03-26] MEDS: PRAVASTATIN SOD 20 MG TAB PO SCH (08:41)
[2017-03-26] MEDS: HEPARIN SODIUM - SQ 10,000 UNITS/ML VIAL SQ SCH (08:42)
[2017-03-26] MEDS: DOCUSATE SODIUM 50 MG/SENNA 8.6 MG TAB PO SCH (08:42)
[2017-03-26] MEDS: PANTOPRAZOLE SOD 40 MG DELAYED RELEASE TAB PO SCH (08:42)
[2017-03-26 11:08] LABS: BICARBONATE 23.1 MEQ/L (21.0-32.0); MAGNESIUM 2.1 MG/DL (1.5-2.5); POTASSIUM 3.4 MEQ/L (3.5-5.1)
[2017-03-26] MEDS ORDERED: POTASSIUM CHLORIDE 25 MEQ EFFERVESCENT TAB PO ONE (13:15)
[2017-03-26] MEDS ORDERED: INSULIN ASPART 1,000 UNITS/10 ML VIAL SQ ONE (13:30)
[2017-03-26] MEDS ORDERED: BENZ100 PO (13:33)
[2017-03-26] MEDS ORDERED: AUGM875T3 PO (13:34)
[2017-03-26] MEDS ORDERED: PRED20 PO (13:34)
[2017-03-26] MEDS ORDERED: POTA-163 PO (13:34)
[2017-03-26] MEDS ORDERED: VENTAER INH (13:34)
[2017-03-26] MEDS ORDERED: FURO1TAB60 PO (13:34)
--- NOTE | 2017-03-26 13:38 | HHI.DCPOC ---
Discharge Care Plan Diagnosis: (1) HTN (hypertension) (2) UTI (urinary tract infection) (3) Hypokalemia (4) High anion gap metabolic acidosis (5) Altered mental status (6) Acute renal failure (7) Poorly controlled type 2 diabetes mellitus (8) Tobacco dependency (9) Acute respiratory failure Goals to Promote Your Health * To prevent worsening of your condition and complications * To maintain your health at the optimal level Directions to Meet Your Goals Take your medications as prescribed Follow your dietary instruction Follow activity as directed Keep your appointments as scheduled Take your immunizations and boosters as scheduled If your symptoms worsen call your PCP, if no PCP go to Urgent Care Center or Emergency Room Smoking is Dangerous to Your Health. Avoid second hand smoke Call the 24-hour hour crisis hotline for domestic abuse at Faraz Ramirez DO Mar 26, 2017 13:38
--- NOTE | 2017-03-26 13:49 | HHI.DS ---
Discharge Summary Admission Date Mar 19, 2017 at 13:27 Discharge Date: Mar 26, 2017 Admitting Diagnosis lactic acidosis, uti, altered mental status (1) Poorly controlled type 2 diabetes mellitus ICD Code: E11.9 (2) High anion gap metabolic acidosis ICD Code: E87.2 (3) Tobacco dependency ICD Code: F17.200 (4) Altered mental status ICD Code: R41.82 (5) Acute renal failure ICD Code: N17.9 (6) UTI (urinary tract infection) ICD Code: N39.0 Diagnosis: Principal (7) Acute respiratory failure ICD Code: J96.00 Diagnosis: Principal (8) Hypokalemia ICD Code: E87.6 Diagnosis: Principal (9) HTN (hypertension) ICD Code: I10 Procedures None Brief History - From Admission The patient is a 67-year-old female with past medical history of rheumatoid arthritis, nephrolithiasis, diabetes mellitus, gastroesophageal reflux disease, peripheral vascular disease, hypertension who presented to [facility] ED with altered mental status. When the fire team got there she was found supine on the ground near her wheelchair with initial GCS score of 3. When she was placed on a monitor she noted to have intermittent runs of V-tach that resolved on its own. En route to the ER she was hypertensive with blood pressure 162/128 and she had a GCS score of 9 in the ER. The patient was tachycardiac, hypertensive and her laboratory data significant for lactic acid level 11.0 with mild acute kidney, creatinine of 1.25. CT scan of the brain in the ER negative for acute intracranial abnormalities. Chest x-ray showed mild failure bibasilar changes worse on the right. She also had a cervical spine CT which showed no fracture or dislocation and a CT scan of the abdomen and pelvis obtained as well which showed small left kidney, stones present in the kidney without any evidence of obstruction. She was hyperglycemic with a blood sugar of 330 on the BMP. The patient was given 15 units IV NovoLog insulin in the ER along with 2 liters of normal saline and Zosyn. Her urine drug screen is negative for amphetamines, benzodiazepines and cannabinoids. When seen in the ER she was on 2 liters nasal cannula with a saturation of 99% and blood pressure of 147/99. The patient does not remember what happened to her. She denies any history of seizures or CVA. In addition, she denies any chest pain, shortness of breath or any GI symptoms. She is oriented to time and place. EKG in the ED showed sinus tachycardia with rate of 109 beats per minute and possible left atrial enlargement. CBC/BMP: 03/25/17 0705 03/26/17 0855 Significant Findings Laboratory Tests Test 03/24/17 03/24/17 03/25/17 03/25/17 06:52 21:55 07:05 14:55 White Blood Count 14.5 TH/MM3 11.6 TH/MM3 (4.0-11.0) (4.0-11.0) Mean Corpuscular Volume 78.6 FL (80.0-100.0) Neutrophils (%) (Auto) 91.4 % (16.0-70.0) Lymphocytes (%) (Auto) 5.7 % (9.0-44.0) Neutrophils # (Auto) 13.2 TH/MM3 (1.8-7.7) Lymphocytes # (Auto) 0.8 TH/MM3 (1.0-4.8) Potassium Level 3.0 MEQ/L 2.9 MEQ/L (3.5-5.1) (3.5-5.1) Blood Urea Nitrogen 22 MG/DL (7-18) 22 MG/DL (7-18) 24 MG/DL (7-18) Creatinine 1.13 MG/DL 1.25 MG/DL 1.12 MG/DL (0.50-1.00) (0.50-1.00) (0.50-1.00) Estimat Glomerular Filtration 48 ML/MIN (>89) 43 ML/MIN (>89) 49 ML/MIN (>89) Rate Random Glucose 252 MG/DL 151 MG/DL 305 MG/DL (74-106) (74-106) (74-106) Calcium Level 8.1 MG/DL 8.3 MG/DL (8.5-10.1) (8.5-10.1) Mean Corpuscular Hemoglobin 26.2 PG (27.0-34.0) Urine Protein 100 mg/dL (NEG-TRACE) Urine Glucose (UA) 150 mg/dL (NEG) Urine Occult Blood SMALL (NEG) Urine RBC 5 /hpf (0-3) Test 03/26/17 08:55 Potassium Level 3.4 MEQ/L (3.5-5.1) Blood Urea Nitrogen 31 MG/DL (7-18) Creatinine 1.26 MG/DL (0.50-1.00) Estimat Glomerular Filtration 43 ML/MIN (>89) Rate Random Glucose 322 MG/DL (74-106) Calcium Level 8.1 MG/DL (8.5-10.1) Imaging Last Impressions Chest X-Ray 03/24/17 0600 Signed Impressions: Service Date/Time: Friday, March 24, 2017 03:17 - CONCLUSION: Improved aeration on the right. Eloy Boss MD Pelvis X-Ray 03/19/17 0000 Signed Impressions: Service Date/Time: Sunday, March 19, 2017 12:25 - CONCLUSION: No fracture. Camden Paulino Jr., MD Head CT 03/19/17 0000 Signed Impressions: Service Date/Time: Sunday, March 19, 2017 11:53 - CONCLUSION: 1. No acute intracranial abnormality is identified. Blu Velez MD Cervical Spine CT 03/19/17 0000 Signed Impressions: Service Date/Time: Sunday, March 19, 2017 11:56 - CONCLUSION: 1. No fracture or dislocation. 2. Degenerative changes as detailed at each level in the above discussion. Camden Paulino Jr., MD Brain MRI 03/19/17 0000 Signed Impressions: Service Date/Time: Sunday, March 19, 2017 18:11 - CONCLUSION: No gross abnormality seen. Significant limitation of image quality due to patient motion. The diffusion-weighted images, however, are diagnostic and there are no focal areas of restricted diffusion. Camden Flores MD Abdomen/Pelvis CT 03/19/17 0000 Signed Impressions: Service Date/Time: Sunday, March 19, 2017 13:30 - CONCLUSION: Small shrunken left kidney providing little renal function Prominent right kidney with prominent right ureter. Stones are present in the kidney but I don't see an obstructing stone. Extensive vascu surgery in both inguinal regions. Marcos Velez MD FACR PE at Discharge GENERAL: Resting comfortably, coughing. HEENT: Atraumatic, normocephalic. Pupils equal and round, oral mucosa dry. NECK: Supple. No JVD, adenopathy or thyromegaly. Trachea in the midline. CARDIOVASCULAR: Tachycardic. Normal S1-S2. No murmurs, rubs or gallops noted. PULMONARY: Scattered rhonchi. ABDOMEN: Soft, nontender, no distension, normoactive bowel sounds. EXTREMITIES: No cyanosis, clubbing or edema. S/p L AKA, right great toe amputation, well healed scar. NEURO: No gross deficits. PSYCH: Mood and affect appropriate. Pt update on day of discharge The patient was resting comfortably in bed and wanted to go home. She had no acute complaints. She wanted to know what caused her shortness of breath. Discussed with nursing. Hospital Course Metabolic encephalopathy CT, MRI of the brain negative for acute intracranial abnormalities and urine drug screen panel unremarkable. EEG negative for seizures. She was found to have a UTI/ sepsis. Neurology was consulted. She was placed on antiepileptics but those were discontinued. She was placed on neuro checks. She worked with physical therapy. Mental status returned to baseline. Acute hypoxemic respiratory failure/ Acute systolic CHF/ COPD exacerbation Pulmonary edema noted on imaging. Echo with EF 40-45%, mild MR. The patient reports no history of heart failure or COPD. She still smokes significant amounts daily. She received oxygen and nebs as needed, as well as standing nebs. She was diuresed with Lasix 40 mg IV BID. Cardiology was consulted. She was placed on IV Solu-Medrol. She was continued on empiric Zosyn. She continued aspirin, Plavix, statin and losartan. She received smoking cessation instruction. She received Tessalon Perles and Robitussin for cough. She will complete a prednisone taper. She will be d/c on Augmentin. She will be d/c with albuterol. She will be referred to pulmonology. She will continue Lasix. She will follow up with cardiology. Sepsis/ UTI Blood culture neg and urine cultures with Klebsiella, pansensitive. She received Zosyn. She will complete a course of Augmentin. Type 2 diabetes Poorly controlled, exacerbated by steroids. She received sliding scale insulin with Accu-Chek for glycemic control. We increased Levemir to 15 units daily, 10 units HS. Her steroids were weaned. She will resume her home regimen and will monitor her blood sugars at home. She will follow up with her PCP. Hypokalemia Exacerbated by Lasix. She will be discharged with KCl daily. She will have a repeat BMP in 3-5 days. Acute renal insufficiency Exacerbated by diuresis. Her diuretics were decreased. She will have a repeat BMP in 3-5 days and will follow up with her PCP. Pt Condition on Discharge: Stable Discharge Disposition: Discharge Home Discharge Time: > 30 minutes Discharge Instructions DIET: Follow Instructions for: Diabetic Diet Activities you can perform: Weight Bearing as Thaddeus Follow up Referrals: Cardiology - 1 Week with Craig Powell MD PCP Follow-up - 1 Week Pulmonology - 1 Week with Bennett Neri MD New Orders: BASIC METABOLIC PROF - 3-5 Days New Medications: Albuterol 18 GM Inh (Ventolin Hfa 18 GM Inh) 90 Mcg/Act Aer 2 PUFF INH Q6H PRN SHORTNESS OF BREATH #1 Ref 0 INHALER Amoxicillin-Clavulanate (Augmentin) 875-125 Mg Tab 1 TAB PO BID Infection Days 2 Ref 0 TAB Furosemide (Lasix) 40 Mg Tab 40 MG PO DAILY Volume overload #30 Ref 0 TAB Potassium Chloride ER (Potassium Chloride ER) 20 Meq Tab 20 MEQ PO DAILY Electrolyte Replacement #30 Ref 0 TAB Prednisone (Prednisone) 20 Mg Tab 20 MG PO DAILY Breathing #5 Ref 0 TAB Benzonatate (Tessalon Perles) 100 Mg Cap 200 MG PO TID PRN Cough #20 CAP Continued Medications: Acetaminophen (Mapap) 325 Mg Tab 325 MG PO Q4-6H PRN PAIN 1 TO 10 AND/OR AGITATION Ref 0 TAB Aspirin (Aspirin) 81 Mg Chew 81 MG CHEW DAILY Ref 0 TAB Clopidogrel (Clopidogrel) 75 Mg Tab 75 MG PO DAILY Blood Clot Prevention #30 Ref 0 TAB Diphenhydramine (Sleep) (Unisom Sleepgels) 50 Mg Cap 50 MG PO HS PRN SLEEP CAP Gabapentin (Gabapentin) 100 Mg Cap 100 MG PO HS #30 Ref 0 CAP Insulin Glargine Inj (Lantus Inj) 1,000 Unit/10 Ml Vial 10 UNITS SQ HS Blood Sugar Management Ref 0 VIAL Loratadine (Allergy) 10 Mg Tab 10 MG PO DAILY PRN ALLERGIES Losartan (Losartan) 25 Mg Tab 25 MG PO DAILY Blood Pressure Management #30 Ref 0 TAB Pravastatin (Pravastatin) 20 Mg Tab 20 MG PO DAILY Cholesterol Management #30 Ref 0 TAB Sertraline (Sertraline) 50 Mg Tab 50 MG PO DAILY #30 Ref 0 TAB Tramadol (Tramadol) 50 Mg Tab 50 MG PO Q8H PRN PAIN Ref 0 TAB Faraz Ramirez DO Mar 26, 2017 13:49
[2017-03-26] MEDS ORDERED: INSULIN DETEMIR 100 UNITS/ML VIAL SQ SCH (21:00)
== END 2017-03-26 18:51 | disposition home or self-care (01) | DRG 871 ==
LOC: NEPC 11:24 → NEDA 13:27 → HIMN 16:40 → N05B 03-24 18:16
PROVIDERS: ADMIT Hospitalist; ATTEND Hospitalist
PROC: 5A09457 Assistance with Respiratory Ventilation, 24-96 Consecutive Hours, Continuous Positive Airway Pressure (ICD-10-PCS; principal; 2017-03-22)
DX: A41.9 Sepsis, unspecified organism (principal); G93.41 Metabolic encephalopathy; J96.01 Acute respiratory failure with hypoxia; I50.21 Acute systolic (congestive) heart failure; N39.0 Urinary tract infection, site not specified; E87.2 Acidosis; J44.1 Chronic obstructive pulmonary disease with (acute) exacerbation; N17.9 Acute kidney failure, unspecified; K21.9 Gastro-esophageal reflux disease without esophagitis; E87.6 Hypokalemia; I11.0 Hypertensive heart disease with heart failure; E11.51 Type 2 diabetes mellitus with diabetic peripheral angiopathy without gangrene; E11.65 Type 2 diabetes mellitus with hyperglycemia; R40.2411 Glasgow coma scale score 13-15, in the field [EMT or ambulance]; N39.3 Stress incontinence (female) (male); M06.9 Rheumatoid arthritis, unspecified; N27.0 Small kidney, unilateral; N20.0 Calculus of kidney; E78.5 Hyperlipidemia, unspecified; B96.1 Klebsiella pneumoniae [K. pneumoniae] as the cause of diseases classified elsewhere; T38.0X5A Adverse effect of glucocorticoids and synthetic analogues, initial encounter; F17.210 Nicotine dependence, cigarettes, uncomplicated; Z79.4 Long term (current) use of insulin; Z88.1 Allergy status to other antibiotic agents; Z88.5 Allergy status to narcotic agent; Z89.411 Acquired absence of right great toe; Z89.612 Acquired absence of left leg above knee
CPT/HCPCS: 36600; 51702; 70450; 70551; 71010; 72125; 72170; 74176; 80048; 80053; 80307; 81001; 82010; 82550; 82805; 82948; 83605; 83735; 83880; 84100; 84443; 84484; 85025; 85027; 85610; 85730; 86850; 86900; 86901; 87040; 87077; 87086; 87186; 87641; 93005; 93306; 94003; 94640; 95819; 96360; C9113; J0360; J0696; J0780; J1644; J1815; J1940; J1953; J2405; J2543; J2930; J3480; J7030; J7644; P9047

== ENCOUNTER 2017-06-08 20:52 | Emergency (ER) | payer MEDICARE, OTHER ==
[~2017-06-08 20:52] MED LIST changes: -ASPI1TAB69 PO; +AUGM875T3 PO; +BENZ100 PO; -CLAR10CA3 PO; -FAMO1TAB73 PO; +FURO1TAB60 PO; -GLIP1TAB60 PO; +LANTUS2P SQ; -LISI-515 PO; +LORA-520 PO; +LOSA25TA PO; +MAPA325T PO; -MEDR4PAK PO; -OMEP20TA PO; +POTA-163 PO; +PRED20 PO; +UNIS50CA PO; +VENTAER INH
[2017-06-08 21:00] VITALS: BP 118/79; PULSE 83; RESP 20; TEMP 98.5; O2SAT 100
[2017-06-08] MEDS ORDERED: ONDANSETRON ODT 4 MG TAB PO ONE (21:30)
[2017-06-08] MEDS ORDERED: MORPHINE SULFATE 4 MG/ML INJ IM ONE (21:30)
--- NOTE | 2017-06-08 21:34 | PD ---
HPI Chief Complaint: Back/ Neck Pain or Injury Time Seen by Provider: 21:20 Travel History International Travel<30 days: No Contact w/Intl Traveler<30days: No Traveled to known affect area: No History of Present Illness HPI 67-year-old female complains of low back pain. Patient states that the pain started this morning get worse this evening. Patient has history of sciatica in the past. Patient states the pain is severe cramping pain and sharp pain localized to lower back area. Patient denies any pain radiation. Patient denies any dysuria or frequency. Patient denies any vaginal discharge or bleeding. Patient denies any fever chills. Patient denies any focal weakness or numbness of extremity. Patient has history of neuropathy and is not new. Patient denies any back injury. Patient has history of diabetes and states that her blood sugar has been under control. Patient has been taking tramadol without relief of the back pain. PFSH Past Medical History Hx Anticoagulant Therapy: Yes Arthritis: Yes Asthma: No Autoimmune Disease: Yes (Rheumatoid Arthritis) Blood Disorders: No Anxiety: Yes Depression: Yes Heart Rhythm Problems: Yes (tachycardia) Cancer: No (precancerous dysplasia of the uterus) Cardiac Catheterization: Yes Cardiovascular Problems: Yes (Peripheral vascular disease) High Cholesterol: Yes Chest Pain: Yes (HX CP, STRESS TEST NEGATIVE) Congestive Heart Failure: No Diabetes: Yes Patient Takes Glucophage: Yes (GLIPIZIDE LAST TAKEN 06/08/17) Diminished Hearing: No Endocrine: Yes Gastrointestinal Disorders: Yes (GERD) GERD: Yes Genitourinary: Yes (STRESS INCONTINENCE) Hepatitis: No Hiatal Hernia: No Hypertension: Yes Immune Disorder: Yes Implanted Vascular Access Dvce: Yes Kidney Stones: Yes Musculoskeletal: Yes (RHEUMATOID ARTHRITIS) Neurologic: No Psychiatric: No Reproductive: Yes Respiratory: Yes Myocardial Infarction: No Renal Failure: No Sleep Apnea: No Thyroid Disease: No Tetanus Vaccination: Unknown ?: Not Past Surgical History Abdominal Surgery: Yes (APPENDECTOMY) AICD: No Appendectomy: Yes Arteriovenous Shunt: No Body Medical Devices: MULTIPLE LEG STENTS, PINS RIGHT ELBOW Cardiac Surgery: No Ear Surgery: No Endocrine Surgery: No Eye Surgery: No Genitourinary Surgery: Yes (LITHOTRIPSY LEFT KIDNEY STONE, OPEN REMOVAL LEFT KIDNEY STONE) Gynecologic Surgery: Yes (COMPLETE HYSTERECTOMY) Hysterectomy: Yes Insulin Pump: No Joint Replacement: No Oral Surgery: Yes (TONSILLECTOMY) Pacemaker: No Thoracic Surgery: No Tonsillectomy: Yes Other Surgery: Yes Social History Alcohol Use: No Tobacco Use: Yes (1 PPD) Substance Use: No Allergies-Medications (Allergen,Severity, Reaction): Coded Allergies: lisinopril (Unverified Allergy, Severe, TONGUE SWELLING, 06/08/17) metformin (Unverified Adverse Reaction, Severe, Diarrhea, 06/08/17) vancomycin (Unverified Adverse Reaction, Severe, 06/08/17) "severe yeast infection" codeine (Unverified Adverse Reaction, Intermediate, Nausea/Vomiting, 06/08) Reported Meds & Prescriptions Reported Meds & Active Scripts Active Potassium Chloride ER (Potassium Chloride) 20 Meq Tab 20 Meq PO DAILY Lasix (Furosemide) 40 Mg Tab 40 Mg PO DAILY Prednisone 20 Mg Tab 20 Mg PO DAILY Ventolin Hfa 18 GM Inh (Albuterol Sulfate) 90 Mcg/Act Aer 2 Puff INH Q6H PRN Augmentin (Amoxicillin-Clavulanate) 875-125 Mg Tab 1 Tab PO BID 2 Days Tessalon Perles (Benzonatate) 100 Mg Cap 200 Mg PO TID PRN Reported Mapap (Acetaminophen) 325 Mg Tab 325 Mg PO Q4-6H PRN Unisom Sleepgels (Diphenhydramine (Sleep)) 50 Mg Cap 50 Mg PO HS PRN Lantus Inj (Insulin Glargine) 1,000 Unit/10 Ml Vial 10 Units SQ HS Allergy (Loratadine) 10 Mg Tab 10 Mg PO DAILY PRN Losartan (Losartan Potassium) 25 Mg Tab 25 Mg PO DAILY Aspirin 81 Mg Chew 81 Mg CHEW DAILY Tramadol (Tramadol HCl) 50 Mg Tab 50 Mg PO Q8H PRN Clopidogrel (Clopidogrel Bisulfate) 75 Mg Tab 75 Mg PO DAILY Gabapentin 100 Mg Cap 100 Mg PO HS Pravastatin 20 Mg Tab 20 Mg PO DAILY Sertraline (Sertraline HCl) 50 Mg Tab 50 Mg PO DAILY Review of Systems General / Constitutional: No: Fever Eyes: No: Visual changes HENT: No: Headaches Cardiovascular: No: Chest Pain or Discomfort Respiratory: No: Shortness of Breath Gastrointestinal: No: Abdominal Pain Genitourinary: No: Dysuria Musculoskeletal: No: Pain Skin: No Rash Neurologic: No: Weakness Psychiatric: No: Depression Endocrine: No: Polydipsia Hematologic/Lymphatic: No: Easy Bruising Physical Exam Narrative GENERAL: Well-nourished, well-developed patient. SKIN: Focused skin assessment warm/dry. HEAD: Normocephalic. EYES: No scleral icterus. No injection or drainage. NECK: Supple, trachea midline. No JVD or lymphadenopathy. CARDIOVASCULAR: Regular rate and rhythm without murmurs, gallops, or rubs. RESPIRATORY: Breath sounds equal bilaterally. No accessory muscle use. GASTROINTESTINAL: Abdomen soft, non-tender, nondistended. MUSCULOSKELETAL: No cyanosis, or edema. BACK: Patient has moderate tenderness on palpation lumbar area, without obvious deformity. No CVA tenderness. Neurologic exam: Sensory motor function right leg intact. Left leg status post AKA. Data Data Last Documented VS Vital Signs Date Time Temp Pulse Resp B/P (MAP) Pulse Ox O2 Delivery O2 Flow Rate FiO2 06/08/17 21:00 98.5 83 20 118/79 (92) 100 Orders Orders Morphine Inj (Morphine Inj) (06/08/17 21:30) Ondansetron Odt (Zofran Odt) (06/08/17 21:30) Ct Lumb Spine W/O Contrast (06/08/17 21:30) MDM Medical Decision Making Medical Screen Exam Complete: Yes Emergency Medical Condition: Yes Interpretation(s) Last Impressions Lumbar Spine CT 06/08/172129 Signed Impressions: Service Date/Time: Thursday, June 08, 2017 22:31 - CONCLUSION: 1. Compared with abdomen CT from March 19, 2017 there are new mild compression fractures through the superior endplate of T12, inferior endplate of L1, superior endplate at L3 and superior endplate L4 without significant retropulsion. No significant bony canal stenosis. The fractures do appear to be subacute. The bones are osteopenic. Héctor Teague MD Differential Diagnosis Differential diagnosis including lumbar strain, fracture, HNP. Narrative Course 67-year-old female with low back pain. Morphine 4 mg IM. Zofran 4 mg ODT. Diagnosis Primary Impression: Low back pain Qualified Codes: M54.5 - Low back pain Patient Instructions: General Instructions Additional Instructions: Take medications as needed for pain. Follow-up with personal physician and orthopedist. Med/Other Pt SpecificInfo: Prescription(s) given Scripts Hydrocodone-Acetaminophen ([place]) 5-325 mg Tab 1 TAB PO Q6H Y for PAIN, #30 TAB 0 Refills Prov: Zain Schulte MD 06/08/17 Disposition: 01 DISCHARGE HOME Condition: Stable Zain Schulte MD Jun 08, 2017 21:34
--- NOTE | 2017-06-08 23:09 | RADRPT ---
EXAM DATE/TIME: 06/08/2017 22:31 [facility] COMPARISON: No previous studies available for comparison. INDICATIONS : Low back pain that radiates down both legs. RADIATION DOSE: 35.86 CTDIvol (mGy) MEDICAL HISTORY : Cardiovascular disease. Hypertension. Gastroesophageal reflux disease.Diabetes, uterine cancer SURGICAL HISTORY : Appendectomy. Hysterectomy.leg amputation ENCOUNTER: Initial ACUITY: 1 day PAIN SCALE: 10/10 LOCATION: lower back TECHNIQUE: Volumetric scanning of the lumbar spine was performed. Multiplanar reconstructions in the sagittal, coronal and oblique axial planes were performed. Using automated exposure control and adjustment of the mA and/or kV according to patient size, radiation dose was kept as low as reasonably achievable t o obtain optimal diagnostic quality images. DICOM format image data is available electronically for review and comparison. FINDINGS: Comparison is made with a coronal CT through the lumbar spine performed as part of the abdomen CT on March 19. Since March there is a mild compression fracture superior endplate T12. There is also a ne w compression fracture inferior endplate L1 and superior endplate L3. L2 is intact. Since March is also a new mild compression of L4. . No definite acute fracture L5. Moderate degenerative disc disease. These fractures are not associat ed with significant retropulsion. The bones do appear osteopenic. Straightening of normal lumbar lord osis. Minimal degenerative retrolisthesis of L5 on S1. CONCLUSION: 1. Compared with abdomen CT from March 19, 2017 there are new mild compression fractures through the superior endplate of T12, inferior endplate of L1, superior endplate at L3 and superior endplate L4 w ithout significant retropulsion. No significant bony canal stenosis. The fractures do appear to be briceño bacute. The bones are osteopenic. Héctor Teague MD on June 08, 2017 at 23:00 Board Certified Radiologist. This report was verified electronically.
[2017-06-08] MEDS ORDERED: NORC5TAB PO (23:19)
[2017-06-08] MEDS ORDERED: HYDROmorphone HCL PF 1 MG/ML VIAL IM ONE (23:45)
[2017-06-09 00:27] VITALS: BP 131/78
== END 2017-06-09 00:31 | disposition home or self-care (01) ==
LOC: NEPD 20:52
DX: M54.5 Low back pain (principal); E11.9 Type 2 diabetes mellitus without complications; M06.9 Rheumatoid arthritis, unspecified; F41.9 Anxiety disorder, unspecified; F32.9 Major depressive disorder, single episode, unspecified; I73.9 Peripheral vascular disease, unspecified; K21.9 Gastro-esophageal reflux disease without esophagitis; I10 Essential (primary) hypertension; Z87.442 Personal history of urinary calculi
CPT/HCPCS: 72131; 96372; 99285; J1170; J2270

== ENCOUNTER → 2017-06-26 | Outpatient (CLI) | payer OTHER ==
[~2017-06-26] MED LIST changes: +ASPI-516 CHEW; -ASPI81CH CHEW; +NORC5TAB PO
== END ==
LOC: HRSP 08:31
PROVIDERS: ATTEND Specialist
DX: J44.9 Chronic obstructive pulmonary disease, unspecified (principal)
CPT/HCPCS: 94060; 94726; 94729

== ENCOUNTER 2017-08-29 16:25 | Inpatient (IN) | payer OTHER, MEDICARE ==
[2017-08-29] VITALS (10 sets, daily range): BP systolic 153–254; BP diastolic 80–127; PULSE 84–132; RESP 14–40; TEMP 97.9–99.5; O2SAT 97–100
[~2017-08-29] VITALS: Ht 167.6 cm; Wt 66.3 kg
[2017-08-29] MEDS ORDERED: SODIUM CHLORIDE 0.9% FLUSH 10 ML FLUSH IVF PRN (16:30)
[2017-08-29] MEDS: RESP: ALBUTEROL 2.5 MG/IPRATROPIUM 0.5 MG NEB (SCH) INH ×4 (16:30→23:56)
--- NOTE | 2017-08-29 16:35 | PD ---
HPI Chief Complaint: Respiratory Distress Time Seen by Provider: 16:26 Travel History International Travel<30 days: No Contact w/Intl Traveler<30days: No Traveled to known affect area: No History of Present Illness HPI 67-year-old female patient with history of COPD, smoking, peripheral vascular disease, status post left AKA, presents to the ER today because she was smoking today and started having coughing and respiratory distress. She is barely able to talk when EMS got there, was given Solu-Medrol and has had 2 nebulizers according to EMS with some improvement symptoms. History is limited due to the patient's respiratory distress, barely able to speak. Modifying Factors: None Associated Signs & Symptoms: Respiratory distress, coughing, wheezing Risk Factors: COPD, smoking PFSH Past Medical History Hx Anticoagulant Therapy: Yes Arthritis: Yes Asthma: No Autoimmune Disease: Yes (Rheumatoid Arthritis) Blood Disorders: No Anxiety: Yes Depression: Yes Heart Rhythm Problems: Yes (tachycardia) Cancer: No (precancerous dysplasia of the uterus) Cardiac Catheterization: Yes Cardiovascular Problems: Yes (Peripheral vascular disease) High Cholesterol: Yes Chest Pain: Yes (HX CP, STRESS TEST NEGATIVE) Congestive Heart Failure: No Diabetes: Yes Diminished Hearing: No Endocrine: Yes Gastrointestinal Disorders: Yes (GERD) GERD: Yes Genitourinary: Yes (STRESS INCONTINENCE) Hepatitis: No Hiatal Hernia: No Hypertension: Yes Immune Disorder: Yes Implanted Vascular Access Dvce: Yes Kidney Stones: Yes Musculoskeletal: Yes (RHEUMATOID ARTHRITIS) Neurologic: No Psychiatric: No Reproductive: Yes Respiratory: Yes Myocardial Infarction: No Renal Failure: No Sleep Apnea: No Thyroid Disease: No Past Surgical History Abdominal Surgery: Yes (APPENDECTOMY) AICD: No Appendectomy: Yes Arteriovenous Shunt: No Body Medical Devices: MULTIPLE LEG STENTS, PINS RIGHT ELBOW Cardiac Surgery: No Ear Surgery: No Endocrine Surgery: No Eye Surgery: No Genitourinary Surgery: Yes (LITHOTRIPSY LEFT KIDNEY STONE, OPEN REMOVAL LEFT KIDNEY STONE) Gynecologic Surgery: Yes (COMPLETE HYSTERECTOMY) Hysterectomy: Yes Insulin Pump: No Joint Replacement: No Oral Surgery: Yes (TONSILLECTOMY) Pacemaker: No Thoracic Surgery: No Tonsillectomy: Yes Other Surgery: Yes Social History Alcohol Use: No Tobacco Use: Yes (1 PPD) Substance Use: No Allergies-Medications (Allergen,Severity, Reaction): Coded Allergies: lisinopril (Unverified Allergy, Severe, TONGUE SWELLING, 08/29/17) metformin (Unverified Adverse Reaction, Severe, Diarrhea, 08/29/17) vancomycin (Unverified Adverse Reaction, Severe, 08/29/17) "severe yeast infection" codeine (Unverified Adverse Reaction, Intermediate, Nausea/Vomiting, ) Reported Meds & Prescriptions Reported Meds & Active Scripts Active Potassium Chloride ER (Potassium Chloride) 20 Meq Tab 20 Meq PO DAILY Lasix (Furosemide) 40 Mg Tab 40 Mg PO DAILY Ventolin Hfa 18 GM Inh (Albuterol Sulfate) 90 Mcg/Act Aer 2 Puff INH Q6H PRN Reported Alendronate (Alendronate Sodium) 70 Mg Tab 70 Mg PO Q7D Meloxicam 15 Mg Tab 15 Mg PO DAILY Carvedilol 6.25 Mg Tab 6.25 Mg PO BID Atorvastatin (Atorvastatin Calcium) 40 Mg Tab 40 Mg PO HS Glipizide XL (Glipizide) 5 Mg Bibiana 5 Mg PO DAILY Take with breakfast or first main meal of the day Lantus Inj (Insulin Glargine) 1,000 Unit/10 Ml Vial 14 Units SQ HS Losartan (Losartan Potassium) 25 Mg Tab 25 Mg PO DAILY Tramadol (Tramadol HCl) 50 Mg Tab 50 Mg PO Q8H PRN Clopidogrel (Clopidogrel Bisulfate) 75 Mg Tab 75 Mg PO DAILY Gabapentin 100 Mg Cap 100 Mg PO HS Sertraline (Sertraline HCl) 50 Mg Tab 50 Mg PO DAILY Review of Systems ROS Limitations: Clinical Condition Except as stated in HPI: all other systems reviewed are Neg Physical Exam Narrative GENERAL: Well-developed elderly white female patient currently in moderate respiratory distress. Awake and alert. SKIN: Focused skin assessment warm/dry. HEAD: Atraumatic. Normocephalic. EYES: Pupils equal and round. No scleral icterus. No injection or drainage. ENT: No nasal bleeding or discharge. Mucous membranes pink and moist. NECK: Trachea midline. No JVD. CARDIOVASCULAR: Regular rate and rhythm. No murmur appreciated. RESPIRATORY: Moderate accessory muscle use. Wheezing throughout bilaterally. Breath sounds equal bilaterally. GASTROINTESTINAL: Abdomen soft, non-tender, nondistended. Hepatic and splenic margins not palpable. MUSCULOSKELETAL: No obvious deformities. No clubbing. No cyanosis. No edema. NEUROLOGICAL: Awake and alert. No obvious cranial nerve deficits. Motor grossly within normal limits. Speaking 1-2 words at a time. PSYCHIATRIC: Appropriate mood and affect; insight and judgment poor. Data Data Last Documented VS Vital Signs Date Time Temp Pulse Resp B/P (MAP) Pulse Ox O2 Delivery O2 Flow Rate FiO2 08/29/17 18:12 83 180/84 08/29/17 18:00 97 BiPAP 60 08/29/17 16:37 34 08/29/17 16:34 15.00 08/29/17 16:31 99.5 Orders Orders Complete Blood Count With Diff (08/29/17 16:26) Comprehensive Metabolic Panel (08/29/17 16:26) B-Type Natriuretic Peptide (08/29/17 16:26) Act Partial Throm Time (Ptt) (08/29/17 16:) Prothrombin Time / Inr (Pt) (08/29/17 16:) Ckmb (Isoenzyme) Profile (08/29/17 16:) Troponin I (08/29/17 16:26) Arterial Blood Gas (Abg) (08/29/17 16:26) Iv Access Insert/Monitor (08/29/17 16:26) Electrocardiogram (08/29/17 16:26) Ecg Monitoring (08/29/17 16:26) Oximetry (08/29/17 16:26) Oxygen Administration (08/29/17 16:26) Chest, Single Ap (08/29/17 16:26) Sodium Chloride 0.9% Flush (Ns Flush) (08/29/17 16:30) Albuterol-Ipratropium Neb (Duoneb Neb) (08/29/17 16:30) Resp Bipap / Cpap Non Invas Vt (08/29/17 16:26) Nitroglycerin 2% Oint (Nitroglycerin 2% (08/29/17 17:30) Nitroglycerin-D5w 50 Mg/250 Ml (Nitrogly (08/29/17 18:00) Furosemide Inj (Lasix Inj) (08/29/17 18:00) Admit Order (Ed Use Only) (08/29/17 18:18) Urinary Catheter Insert/Apply (08/29/17 18:21) Labs Laboratory Tests Test 08/29/17 16:30 08/29/17 17:02 White Blood Count 13.4 TH/MM3 Red Blood Count 6.30 MIL/MM3 Hemoglobin 16.9 GM/DL Hematocrit 50.7 % Mean Corpuscular Volume 80.6 FL Mean Corpuscular Hemoglobin 26.8 PG Mean Corpuscular Hemoglobin Concent 33.3 % Red Cell Distribution Width 16.1 % Platelet Count 214 TH/MM3 Mean Platelet Volume 8.6 FL Neutrophils (%) (Auto) 38.4 % Lymphocytes (%) (Auto) 51.5 % Monocytes (%) (Auto) 5.0 % Eosinophils (%) (Auto) 3.8 % Basophils (%) (Auto) 1.3 % Neutrophils # (Auto) 5.1 TH/MM3 Lymphocytes # (Auto) 6.9 TH/MM3 Monocytes # (Auto) 0.7 TH/MM3 Eosinophils # (Auto) 0.5 TH/MM3 Basophils # (Auto) 0.2 TH/MM3 CBC Comment AUTO DIFF Differential Total Cells Counted 100 Neutrophils % (Manual) 48 % Lymphocytes % 49 % Monocytes % 1 % Eosinophils % 2 % Neutrophils # (Manual) 6.4 TH/MM3 Differential Comment FINAL DIFF MANUAL Platelet Estimate NORMAL Platelet Morphology Comment NORMAL Red Cell Morphology Comment NORMAL Prothrombin Time 9.7 SEC Prothromb Time International Ratio 1.0 RATIO Activated Partial Thromboplast Time 25.4 SEC Blood Urea Nitrogen 9 MG/DL Creatinine 1.22 MG/DL Random Glucose 184 MG/DL Total Protein 7.7 GM/DL Albumin 3.0 GM/DL Calcium Level 8.2 MG/DL Alkaline Phosphatase 239 U/L Aspartate Amino Transf (AST/SGOT) 41 U/L Alanine Aminotransferase (ALT/SGPT) 34 U/L Total Bilirubin 0.5 MG/DL Sodium Level 142 MEQ/L Potassium Level 4.6 MEQ/L Chloride Level 114 MEQ/L Carbon Dioxide Level 19.4 MEQ/L Anion Gap 9 MEQ/L Estimat Glomerular Filtration Rate 44 ML/MIN Total Creatine Kinase 90 U/L Troponin I LESS THAN 0.02 NG/ML B-Type Natriuretic Peptide 619 PG/ML Blood Gas Puncture Site RT RADIAL Blood Gas Patient Temperature 98.6 Blood Gas HCO3 19 mmol/L Blood Gas Base Excess -7.7 mmol/L Blood Gas Oxygen Saturation 96 % Arterial Blood pH 7.22 Arterial Blood Partial Pressure CO2 48 mmHg Arterial Blood Partial Pressure O2 158 mmHG Arterial Blood Oxygen Content 22.6 Vol % Arterial Blood Carboxyhemoglobin 2.3 % Arterial Blood Methemoglobin 0.6 % Blood Gas Hemoglobin 16.6 G/DL Oxygen Delivery Device BiPAP Blood Gas Ventilator Setting IPAP 16/EPAP 5 Blood Gas Inspired Oxygen 60 % MDM Medical Decision Making Medical Screen Exam Complete: Yes Emergency Medical Condition: Yes Medical Record Reviewed: Yes Interpretation(s) EKG shows sinus tachycardia at rate of 119 bpm with no signs of acute ST-T changes. However, this is a poor quality EKG secondary to patient's respiratory distress. Last 24 hours Impressions Chest X-Ray 08/29/17 1626 Signed Impressions: Service Date/Time: Tuesday, August 29, 2017 17:04 - CONCLUSION: 1. Diffuse bilateral, right > left, mid to lower lung zone interstitial and alveolar opacities. Differential considerations include positive fluid balance versus atypical infection. Memo Corrales MD Laboratory Tests Test 08/29/17 16:30 08/29/17 17:02 White Blood Count 13.4 TH/MM3 (4.0-11.0) Red Blood Count 6.30 MIL/MM3 (4.00-5.30) Hemoglobin 16.9 GM/DL (11.6-15.3) Hematocrit 50.7 % (35.0-46.0) Mean Corpuscular Hemoglobin 26.8 PG (27.0-34.0) Lymphocytes (%) (Auto) 51.5 % (9.0-44.0) Lymphocytes # (Auto) 6.9 TH/MM3 (1.0-4.8) Eosinophils # (Auto) 0.5 TH/MM3 (0-0.4) Lymphocytes % 49 % (9-44) Prothrombin Time 9.7 SEC (9.8-11.6) Creatinine 1.22 MG/DL (0.50-1.00) Random Glucose 184 MG/DL (74-106) Albumin 3.0 GM/DL (3.4-5.0) Calcium Level 8.2 MG/DL (8.5-10.1) Alkaline Phosphatase 239 U/L (45-117) Aspartate Amino Transf (AST/SGOT) 41 U/L (15-37) Chloride Level 114 MEQ/L (98-107) Carbon Dioxide Level 19.4 MEQ/L (21.0-32.0) Estimat Glomerular Filtration Rate 44 ML/MIN (>89) Troponin I LESS THAN 0.02 NG/ML B-Type Natriuretic Peptide 619 PG/ML (0-100) Blood Gas HCO3 19 mmol/L (22-26) Blood Gas Base Excess -7.7 mmol/L (-2-2) Arterial Blood pH 7.22 (7.380-7.420) Arterial Blood Partial Pressure CO2 48 mmHg (38-42) Arterial Blood Partial Pressure O2 158 mmHG (61-120) Arterial Blood Oxygen Content 22.6 Vol % (12.0-20.0) Blood Gas Hemoglobin 16.6 G/DL (12.0-16.0) Differential Diagnosis Shortness of breath, coughing, wheezing: COPD exacerbation versus pneumonia versus bronchitis Narrative Course Patient was initially given Solu-Medrol and nebulizers by EMS. I have added on nebulizers and BiPAP in the ER with improvement in breathing according to the patient. Her blood pressures are fairly elevated and nitro drip was initiated in the ER. Chest x-ray showing pulmonary edema and Lasix was also given. At this point, she is looking improved and able to speak more on BiPAP. However, considering her worsening in symptoms and concerns of hypertensive emergency as well as new onset CHF, my plan would be to admit her for further treatment. Case was discussed with Dr. Quinn for admission. Aggregate critical care time was 30 minutes. Time to perform other separately billable procedures was not included in the critical care time. My time did not include minutes spent treating any other patients simultaneously or on activities that did not directly contribute to the patient's treatment. The services I provided to this patient were to treat and/or prevent clinically significant deterioration that could result in: Worsening respiratory distress, MA, CVA, respiratory failure, I provided critical care services requiring my management, as noted below: Chart data review, documentation time, medication orders and management, vital sign assessments/reviewing monitor data, ordering and reviewing lab tests, ordering and interpreting/reviewing x-rays and diagnostic studies, care of the patient and discussion of the patient with the admitting physicians. Diagnosis Primary Impression: Pulmonary edema Additional Impressions: Hypertensive emergency COPD exacerbation Admitting Information Admitting Physician Requests: it Francisco Javier Gonzalez MD Aug 29, 2017 16:35
[2017-08-29 16:44] LABS: AUTOMATED NEUTROPHIL # 5.1 TH/MM3 (1.8-7.7); BASOPHIL # 0.2 TH/MM3 (0-0.2); BASOPHIL % 1.3 % (0.0-2.0); EOSINOPHIL # 0.5 TH/MM3 (0-0.4); EOSINOPHIL % 3.8 % (0.0-4.0); HEMATOCRIT 50.7 % (35.0-46.0); HEMOGLOBIN 16.9 GM/DL (11.6-15.3); LYMPH % 51.5 % (9.0-44.0); LYMPHOCYTE # 6.9 TH/MM3 (1.0-4.8); MEAN CELL VOLUME 80.6 FL (80.0-100.0); MEAN CORPUSCULAR HEMOGLOBIN 26.8 PG (27.0-34.0); MEAN CORPUSCULAR HGB CONC 33.3 % (32.0-36.0); MEAN PLATELET VOLUME 8.6 FL (7.0-11.0); MONOCYTE # 0.7 TH/MM3 (0-0.9); NEUT % 38.4 % (16.0-70.0); PLATELET COUNT 214 TH/MM3 (150-450); RED CELL DISTRIBUTION WIDTH 16.1 % (11.6-17.2); WHITE BLOOD COUNT 13.4 TH/MM3 (4.0-11.0)
[2017-08-29 17:03] LABS: PROTHROMBIN TIME - PATIENT 9.7 SEC (9.8-11.6)
[2017-08-29 17:28] LABS: ALKALINE PHOSPHATASE 239 U/L (45-117); ALT (GPT) 34 U/L (10-53); AST (GOT) 41 U/L (15-37); BICARBONATE 19.4 MEQ/L (21.0-32.0); BLOOD UREA NITROGEN 9 MG/DL (7-18); CALCIUM 8.2 MG/DL (8.5-10.1); CHLORIDE 114 MEQ/L (98-107); CREATININE 1.22 MG/DL (0.50-1.00); GLOMERULAR FILTRATION RATE 44 ML/MIN (>89); GLUCOSE,RANDOM 184 MG/DL (74-106); SODIUM (NA) 142 MEQ/L (136-145); TOTAL BILIRUBIN ADULT 0.5 MG/DL (0.2-1.0); TOTAL PROTEIN 7.7 GM/DL (6.4-8.2); TROPONIN I LESS THAN 0.02 NG/ML (0.02-0.05)
[2017-08-29 17:29] LABS: LYMPHOCYTES 49 % (9-44); MONOCYTES 1 % (0-8); NEUTROPHIL # MANUAL DIFF 6.4 TH/MM3 (1.8-7.7); POLYS (SEG NEUTROPHILS) 48 % (16-70)
[2017-08-29] MEDS ORDERED: NITROGLYCERIN 2% OINT 1 GM PACKET TOPICAL ONE (17:30)
--- NOTE | 2017-08-29 17:44 | RADRPT ---
EXAM DATE/TIME: 08/29/2017 17:04 [facility] COMPARISON: CHEST SINGLE AP, March 24, 2017, 3:17. INDICATIONS : Shortness of breath. MEDICAL HISTORY : Chronic obstructive pulmonary disease. Hypertension. Gastroesophageal reflux disease. Diabetes mellitus type II. SURGICAL HISTORY : None. ENCOUNTER: Initial ACUITY: 1 day PAIN SCORE: 0/10 LOCATION: chest FINDINGS: Diffuse interstitial and alveolar opacities in the mid to lower lung zones, most prominently on the r ight. Cardiomediastinal contours are within normal limits. Bony thorax is intact. CONCLUSION: 1. Diffuse bilateral, right > left, mid to lower lung zone interstitial and alveolar opacities. Diffe rential considerations include positive fluid balance versus atypical infection. Memo Corrales MD on August 29, 2017 at 17:39 Board Certified Radiologist. This report was verified electronically.
[2017-08-29] MEDS ORDERED: FUROSEMIDE 40 MG/4 ML VIAL IV PUSH ONE (18:00)
[2017-08-29] MEDS: NITROGLYCERIN-D5W 50 MG/250 ML 250 ML IV PRN (18:00)
[2017-08-29] MEDS ORDERED: MELO15TA20 PO (18:22)
[2017-08-29] MEDS ORDERED: ALEN1TAB48 PO (18:22)
[2017-08-29] MEDS ORDERED: ATOR40TA16 PO (18:22)
[2017-08-29] MEDS ORDERED: GLIP-157 PO (18:22)
[2017-08-29] MEDS ORDERED: CARV6.252 PO (18:22)
[2017-08-29] MEDS ORDERED: BISACODYL 10 MG SUPP RECTAL PRN (19:00)
[2017-08-29] MEDS ORDERED: LACTULOSE SYRUP 20 GM/30 ML CUP PO PRN (19:00)
[2017-08-29] MEDS ORDERED: MAGNESIUM HYDROXIDE SUSP 30 ML CUP PO PRN (19:00)
[2017-08-29] MEDS ORDERED: ACETAMINOPHEN 325 MG TAB PO PRN (19:00)
[2017-08-29] MEDS ORDERED: RESP: ALBUTEROL 2.5 MG/IPRATROPIUM 0.5 MG NEB (PRN) INH (19:00)
[2017-08-29] MEDS ORDERED: MISCELLANEOUS NURSING INFORMATION XX SCH (19:00)
[2017-08-29] MEDS ORDERED: CHLORHEXIDINE GLUCONATE 2 % 1 PACK (2 CLOTHS) TOP PRN (19:00)
[2017-08-29] MEDS ORDERED: ONDANSETRON HCL 4 MG/2 ML VIAL IV PUSH PRN (19:00)
[2017-08-29] MEDS ORDERED: ZOLPIDEM TARTRATE 5 MG TAB PO PRN (19:00)
[2017-08-29] MEDS ORDERED: SODIUM CHLORIDE 0.9% FLUSH 10 ML FLUSH IV FLUSH PRN (19:00)
[2017-08-29] MEDS ORDERED: SENNOSIDES 8.6 MG TAB PO PRN (19:00)
[2017-08-29] MEDS ORDERED: GLUCAGON 1 MG/ML VIAL OTHER PRN (19:15)
[2017-08-29] MEDS ORDERED: DEXTROSE 50% IN WATER 50 ML VIAL(D50) IV PUSH PRN (19:15)
[2017-08-29] MEDS ORDERED: PILL SPLITTER OTHER PRN (19:30)
--- NOTE | 2017-08-29 19:56 | HHI.HP ---
HPI Service Critical Care Medicine Primary Care Physician Bandar Vu MD Admission Diagnosis respiratory distress/COPD/pulmonary edema/BiPAP Diagnosis: Travel History International Travel<30 Days: No Contact w/Intl Traveler <30 Da: No Traveled to Known Affected Are: No History of Present Illness 67-year-old female patient with history of COPD, tobacco use disorder, peripheral vascular disease, status post left AKA, presents today because she felt extremely short of breath after she was smoking today. She was barely able to talk when EMS got there, was given Solu-Medrol and has had 2 nebulizers according to EMS with some improvement symptoms. History is limited due to the patient's respiratory distress. Review of Systems ROS Unobtainable patient in respiratory distress Past Family Social History Allergies: Coded Allergies: lisinopril (Unverified Allergy, Severe, TONGUE SWELLING, 08/29/17) metformin (Unverified Adverse Reaction, Severe, Diarrhea, 08/29/17) vancomycin (Unverified Adverse Reaction, Severe, 08/29/17) "severe yeast infection" codeine (Unverified Adverse Reaction, Intermediate, Nausea/Vomiting, ) Past Medical History Diabetes mellitus Peripheral vascular disease COPD Gastroesophageal reflux disease Nephrolithiasis Past Surgical History Appendectomy Stents in lower extremities Lithotripsy Hysterectomy Tonsillectomy Reported Medications Reported Meds & Active Scripts Active Potassium Chloride ER (Potassium Chloride) 20 Meq Tab 20 Meq PO DAILY Lasix (Furosemide) 40 Mg Tab 40 Mg PO DAILY Ventolin Hfa 18 GM Inh (Albuterol Sulfate) 90 Mcg/Act Aer 2 Puff INH Q6H PRN Reported Alendronate (Alendronate Sodium) 70 Mg Tab 70 Mg PO Q7D Meloxicam 15 Mg Tab 15 Mg PO DAILY Carvedilol 6.25 Mg Tab 6.25 Mg PO BID Atorvastatin (Atorvastatin Calcium) 40 Mg Tab 40 Mg PO HS Glipizide XL (Glipizide) 5 Mg Bibiana 5 Mg PO DAILY Take with breakfast or first main meal of the day Lantus Inj (Insulin Glargine) 1,000 Unit/10 Ml Vial 14 Units SQ HS Losartan (Losartan Potassium) 25 Mg Tab 25 Mg PO DAILY Tramadol (Tramadol HCl) 50 Mg Tab 50 Mg PO Q8H PRN Clopidogrel (Clopidogrel Bisulfate) 75 Mg Tab 75 Mg PO DAILY Gabapentin 100 Mg Cap 100 Mg PO HS Sertraline (Sertraline HCl) 50 Mg Tab 50 Mg PO DAILY Active Ordered Medications Current Medications Medications (Trade) Dose Ordered Sig/Deuce Route PRN Reason Start Time Stop Time Status Last Admin Dose Admin Sodium Chloride (NS Flush) 2 ml UNSCH PRN IVF FLUSH AFTER USING IV ACCESS 08/29/17 16:30 Nitroglycerin/ Dextrose 250 ml @ 1.5 mls/hr TITRATE PRN IV Hypertension 08/29/17 18:00 08/30/17 01:30 Alendronate Sodium (Fosamax) 70 mg Q7D PO 08/30/17 09:00 Atorvastatin Calcium (Lipitor) 40 mg HS PO 08/29/17 21:00 08/29/17 21:19 Carvedilol (Coreg) 6.25 mg BID PO 08/29/17 21:00 08/29/17 21:19 Clopidogrel Bisulfate (Plavix) 75 mg DAILY PO 08/30/17 09:00 Furosemide (Lasix) 40 mg DAILY PO 08/31/17 09:00 Gabapentin (Neurontin) 100 mg HS PO 08/29/17 21:00 08/29/17 21:19 Insulin Detemir (Levemir Inj) 14 units HS SQ 08/29/17 21:00 08/29/17 21:20 Losartan Potassium (Cozaar) 25 mg DAILY PO 08/30/17 09:00 Meloxicam (Mobic) 15 mg DAILY PO 08/30/17 09:00 Sertraline HCl (Zoloft) 50 mg DAILY PO 08/30/17 09:00 Tramadol HCl (Ultram) 50 mg Q8H PRN PO PAIN 1-10 08/29/17 19:00 08/29/17 21:49 Glipizide (Glucotrol) 2.5 mg BIDAC PO 08/30/17 07:00 Sodium Chloride (NS Flush) 2 ml UNSCH PRN IV FLUSH FLUSH AFTER USING IV ACCESS 08/29/17 19:00 Sodium Chloride (NS Flush) 2 ml BID IV FLUSH 08/29/17 21:00 08/29/17 21:20 Acetaminophen (Tylenol) 650 mg Q6H PRN PO FEVER >101F 08/29/17 19:00 Famotidine (Pepcid Inj) 20 mg Q12HR IV PUSH 08/29/17 21:00 08/29/17 21:19 Ondansetron HCl (Zofran Inj) 4 mg Q6H PRN IV PUSH NAUSEA OR VOMITING 08/29/17 19:00 Zolpidem Tartrate (Ambien) 5 mg HS PRN PO INSOMNIA 08/29/17 19:00 Albuterol/ Ipratropium (Duoneb Neb) 1 ampule Q4HR NEB INH 08/29/17 20:00 08/29/17 23:56 Albuterol/ Ipratropium (Duoneb Neb) 1 ampule Q2HR NEB PRN INH WHEEZING 08/29/17 19:00 Enoxaparin Sodium (Lovenox Inj) 40 mg Q24H SQ 08/29/17 21:00 08/29/17 21:20 Miscellaneous Information 1 Q361D XX 08/29/17 19:00 08/29/17 19:00 Chlorhexidine Gluconate (Chlorhexidine 2% Cloth) 3 pack Taper DAILY@04 TOP 08/30/17 04:00 08/26/18 03:59 08/29/17 21:32 Chlorhexidine Gluconate (Chlorhexidine 2% Cloth) 3 pack UNSCH PRN TOP HYGIENIC CARE 08/29/17 19:00 Senna/Docusate Sodium (Kimberly-Colace) 1 tab BID PO 08/29/17 21:00 Magnesium Hydroxide (Milk Of Magnesia Liq) 30 ml Q12H PRN PO Mild constipation 08/29/17 19:00 Sennosides (Senokot) 17.2 mg Q12H PRN PO Moderate constipation 08/29/17 19:00 Bisacodyl (Dulcolax Supp) 10 mg DAILY PRN RECTAL SEVERE CONSITIPATION 08/29/17 19:00 Lactulose (Lactulose Liq) 30 ml DAILY PRN PO SEVERE CONSITIPATION 08/29/17 19:00 Furosemide (Lasix Inj) 20 mg Q6H IV PUSH 08/30/17 00:00 08/30/17 18:01 08/29/17 23:04 Dextrose (D50w (Vial) Inj) 50 ml UNSCH PRN IV PUSH HYPOGLYCEMIA-SEE COMMENTS 08/29/17 19:15 Glucagon (Glucagon Inj) 1 mg UNSCH PRN OTHER HYPOGLYCEMIA-SEE COMMENTS 08/29/17 19:15 Insulin Aspart (NovoLOG SUPPLEMENTAL SCALE) 1 ACHS SLIDING SCALE SQ 08/29/17 21:00 08/29/17 21:20 Miscellaneous (Pill Splitter) 1 ea UNSCH PRN OTHER SEE LABEL COMMENTS 08/29/17 19:30 Methylprednisolone Sodium Succinate (SoluMEDROL INJ) 40 mg Q12HR IV PUSH 08/30/17 03:00 UNV Azithromycin 500 mg/Sodium Chloride 250 ml @ 250 mls/hr Q24H IV 08/30/17 03:00 UNV Cefepime HCl 2000 mg/Sodium Chloride 100 ml @ 200 mls/hr Q8H IV 08/30/17 03:00 UNV Family History No family history of early malignancy or coronary artery disease Social History Active smoker, denies alcohol or illicit drug abuse Physical Exam Vital Signs Vital Signs Date Time Temp Pulse Resp B/P (MAP) Pulse Ox O2 Delivery O2 Flow Rate FiO2 08/29/17 19:54 84 14 BiPAP 40 08/29/17 19:34 97 40 08/29/17 19:12 97 175/87 08/29/17 19:08 99 50 08/29/17 18:50 92 185/82 08/29/17 18:40 96 192/85 08/29/17 18:30 92 188/88 08/29/17 18:25 87 182/91 08/29/17 18:20 86 186/85 08/29/17 18:12 83 180/84 08/29/17 18:05 82 186/89 08/29/17 18:00 97 BiPAP 60 08/29/17 18:00 85 188/88 08/29/17 16:39 132 254/127 (169) 08/29/17 16:37 127 34 98 Non-Rebreather 08/29/17 16:34 98 Non-Rebreather 15.00 100 08/29/17 16:34 98 Non-Rebreather 15.00 100 08/29/17 16:31 99.5 119 40 191/117 (141) 97 08/29/17 16:28 100 60 Physical Exam GENERAL: Well-developed elderly white female patient currently in severe respiratory distress on facemask BiPAP. Awake and alert. SKIN: Focused skin assessment warm/dry. HEAD: Atraumatic. Normocephalic. EYES: Pupils equal and round. No scleral icterus. No injection or drainage. ENT: No nasal bleeding or discharge. Mucous membranes pink and moist. NECK: Trachea midline. No JVD. CARDIOVASCULAR: Regular rate and rhythm. No murmur appreciated. RESPIRATORY: Moderate accessory muscle use. Wheezing throughout bilaterally. Breath sounds equal bilaterally. GASTROINTESTINAL: Abdomen soft, non-tender, nondistended. Hepatic and splenic margins not palpable. MUSCULOSKELETAL: No obvious deformities. No clubbing. No cyanosis. No edema. NEUROLOGICAL: Awake and alert. No obvious cranial nerve deficits. Motor grossly within normal limits. Speaking 1-2 words at a time. Laboratory Laboratory Tests Test 08/29/17 16:30 08/29/17 17:02 White Blood Count 13.4 Red Blood Count 6.30 Hemoglobin 16.9 Hematocrit 50.7 Mean Corpuscular Volume 80.6 Mean Corpuscular Hemoglobin 26.8 Mean Corpuscular Hemoglobin Concent 33.3 Red Cell Distribution Width 16.1 Platelet Count 214 Mean Platelet Volume 8.6 Neutrophils (%) (Auto) 38.4 Lymphocytes (%) (Auto) 51.5 Monocytes (%) (Auto) 5.0 Eosinophils (%) (Auto) 3.8 Basophils (%) (Auto) 1.3 Neutrophils # (Auto) 5.1 Lymphocytes # (Auto) 6.9 Monocytes # (Auto) 0.7 Eosinophils # (Auto) 0.5 Basophils # (Auto) 0.2 CBC Comment AUTO DIFF Differential Total Cells Counted 100 Neutrophils % (Manual) 48 Lymphocytes % 49 Monocytes % 1 Eosinophils % 2 Neutrophils # (Manual) 6.4 Differential Comment FINAL DIFF MANUAL Platelet Estimate NORMAL Platelet Morphology Comment NORMAL Red Cell Morphology Comment NORMAL Prothrombin Time 9.7 Prothromb Time International Ratio 1.0 Activated Partial Thromboplast Time 25.4 Blood Urea Nitrogen 9 Creatinine 1.22 Random Glucose 184 Total Protein 7.7 Albumin 3.0 Calcium Level 8.2 Alkaline Phosphatase 239 Aspartate Amino Transf (AST/SGOT) 41 Alanine Aminotransferase (ALT/SGPT) 34 Total Bilirubin 0.5 Sodium Level 142 Potassium Level 4.6 Chloride Level 114 Carbon Dioxide Level 19.4 Anion Gap 9 Estimat Glomerular Filtration Rate 44 Total Creatine Kinase 90 Troponin I LESS THAN 0.02 B-Type Natriuretic Peptide 619 Blood Gas Puncture Site RT RADIAL Blood Gas Patient Temperature 98.6 Blood Gas HCO3 19 Blood Gas Base Excess -7.7 Blood Gas Oxygen Saturation 96 Arterial Blood pH 7.22 Arterial Blood Partial Pressure CO2 48 Arterial Blood Partial Pressure O2 158 Arterial Blood Oxygen Content 22.6 Arterial Blood Carboxyhemoglobin 2.3 Arterial Blood Methemoglobin 0.6 Blood Gas Hemoglobin 16.6 Oxygen Delivery Device BiPAP Blood Gas Ventilator Setting IPAP 16/EPAP 5 Blood Gas Inspired Oxygen 60 Date/Time Source Procedure Growth Status 08/29/17 19:10 Blood Peripheral Aerobic Blood Culture Pending Received 08/29/17 19:10 Blood Peripheral Anaerobic Blood Culture Pending Received Result Diagram: 08/29/17 1630 08/29/17 1630 Imaging Last 24 hours Impressions Chest X-Ray 08/29/17 1626 Signed Impressions: Service Date/Time: Tuesday, August 29, 2017 17:04 - CONCLUSION: 1. Diffuse bilateral, right > left, mid to lower lung zone interstitial and alveolar opacities. Differential considerations include positive fluid balance versus atypical infection. Memo Corrales MD Septic Shock Reassessment Septic shock perfusion: reassessment completed Caprini VTE Risk Assessment Caprini VTE Risk Assessment: Mod/High Risk (score >= 2) Caprini Risk Assessment Model Point Value = 1 Point Value = 2 Point Value = 3 Point Value = 5 Age 41-60 Minor surgery BMI > 25 kg/m2 Swollen legs Varicose veins or History of unexplained or recurrent spontaneous Oral contraceptives or hormone replacement Sepsis (< 1 month) Serious lung disease, including pneumonia (< 1 month) Abnormal pulmonary function Acute myocardial infarction Congestive heart failure (< 1 month) History of inflammatory bowel disease Medical patient at bed rest Age 61-74 Arthroscopic surgery Major open surgery (> 45 min) Laparoscopic surgery (> 45 min) Malignancy Confined to bed (> 72 hours) Immobilizing plaster cast Central venous access Age >= 75 History of VTE Family history of VTE Factor V Leiden Prothrombin [id number] Lupus anticoagulant Anticardiolipin antibodies Elevated serum homocysteine Heparin-induced thrombocytopenia Other congenital or acquired thrombophilia Stroke (< 1 month) Elective arthroplasty Hip, pelvis, or leg fracture Acute spinal cord injury (< 1 month) Prophylaxis Regimen Total Risk Factor Score Risk Level Prophylaxis Regimen 0-1 Low Early ambulation 2 Moderate Order ONE of the following: *Sequential Compression Device (SCD) *Heparin 5000 units SQ BID 3-4 Higher Order ONE of the following medications: *Heparin 5000 units SQ TID *Enoxaparin/Lovenox 40 mg SQ daily (WT < 150 kg, CrCl > 30 mL/min) *Enoxaparin/Lovenox 30 mg SQ daily (WT < 150 kg, CrCl > 10-29 mL/min) *Enoxaparin/Lovenox 30 mg SQ BID (WT < 150 kg, CrCl > 30 mL/min) AND/OR *Sequential Compression Device (SCD) 5 or more Highest Order ONE of the following medications: *Heparin 5000 units SQ TID (Preferred with Epidurals) *Enoxaparin/Lovenox 40 mg SQ daily (WT < 150 kg, CrCl > 30 mL/min) *Enoxaparin/Lovenox 30 mg SQ daily (WT < 150 kg, CrCl > 10-29 mL/min) *Enoxaparin/Lovenox 30 mg SQ BID (WT < 150 kg, CrCl > 30 mL/min) AND *Sequential Compression Device (SCD) Assessment and Plan Assessment and Plan Respiratory failure - COPD exacerbation - Pulmonary edema - Aerosols - IV steroids - Empiric antibiotics - Aggressive diuresis - BiPAP when necessary Diabetes mellitus - Insulin sliding scale - Glipizide Hypertension - Cozaar - Coreg - Nitro drip to keep SBP less than 160 CHF - No acute ischemic EKG changes - Troponins negative - Series of troponins and EKGs - 2-D echo - Cozaar - Coreg Peripheral vascular disease - Plavix GERD - IV Pepcid DVT GI prophylaxis - Teds SCDs - Subcutaneous Lovenox - Pepcid Critical Care: The total critical care time was 35 minutes. Time to perform other separately billable procedures was not included in the critical care time. Edgar Quinn MD Aug 29, 2017 19:56
[2017-08-29] MEDS: DOCUSATE SODIUM 50 MG/SENNA 8.6 MG TAB PO SCH ×2 (21:00→21:19)
[2017-08-29] MEDS: CARVEDILOL 6.25 MG TAB PO SCH (21:19)
[2017-08-29] MEDS: ATORVASTATIN 40 MG TAB PO SCH (21:19)
[2017-08-29] MEDS: GABAPENTIN 100 MG CAP PO SCH (21:19)
[2017-08-29] MEDS: FAMOTIDINE 20 MG/2 ML VIAL IV PUSH SCH (21:19)
[2017-08-29] MEDS: INSULIN DETEMIR 100 UNITS/ML VIAL SQ SCH (21:20)
[2017-08-29] MEDS: INSULIN ASPART SUPPLEMENTAL SCALE SQ SCH (21:20)
[2017-08-29] MEDS: ENOXAPARIN SODIUM 40 MG/0.4 ML SYRINGE SQ SCH (21:20)
[2017-08-29] MEDS: SODIUM CHLORIDE 0.9% FLUSH 10 ML FLUSH IV FLUSH SCH (21:20)
[2017-08-29] MEDS: CHLORHEXIDINE GLUCONATE 2 % 1 PACK (2 CLOTHS) TOP SCH (21:32)
[2017-08-29] MEDS: traMADol HCL 50 MG TAB PO PRN (21:49)
[2017-08-29] MEDS: FUROSEMIDE 20 MG/2 ML VIAL IV PUSH SCH (23:04)
[2017-08-30] VITALS (21 sets, daily range): BP systolic 105–169; BP diastolic 58–78; PULSE 72–102; RESP 13–38; TEMP 98.3–99; O2SAT 95–100
[2017-08-30] MEDS: NITROGLYCERIN-D5W 50 MG/250 ML 250 ML IV PRN ×2 (01:30→11:52)
[2017-08-30 03:32] LABS: AUTOMATED NEUTROPHIL # 5.3 TH/MM3 (1.8-7.7); BASOPHIL % 0.5 % (0.0-2.0); EOSINOPHIL % 0.1 % (0.0-4.0); HEMATOCRIT 42.5 % (35.0-46.0); HEMOGLOBIN 14.2 GM/DL (11.6-15.3); LYMPH % 18.4 % (9.0-44.0); LYMPHOCYTE # 1.2 TH/MM3 (1.0-4.8); MEAN CELL VOLUME 77.9 FL (80.0-100.0); MEAN CORPUSCULAR HGB CONC 33.4 % (32.0-36.0); MEAN PLATELET VOLUME 8.3 FL (7.0-11.0); MONOCYTE # 0.1 TH/MM3 (0-0.9); PLATELET COUNT 169 TH/MM3 (150-450); RED BLOOD COUNT 5.45 MIL/MM3 (4.00-5.30); WHITE BLOOD COUNT 6.6 TH/MM3 (4.0-11.0)
[2017-08-30] MEDS: AZITHROMYCIN INJ 500 MG in SODIUM CHLOR 0.9% 250 ML INJ 250 ML IV SCH (03:37)
[2017-08-30] MEDS: methylPREDNISolone SOD SUCC 40 MG/1 ML VIAL IV PUSH SCH ×2 (03:37→16:59)
[2017-08-30] MEDS: CEFEPIME INJ 2,000 MG in SODIUM CHLORIDE 0.9% INJ 100 ML IV SCH ×2 (03:38→16:54)
[2017-08-30 03:52] LABS: PROTHROMBIN TIME - PATIENT 10.1 SEC (9.8-11.6)
[2017-08-30 03:57] LABS: ALBUMIN 2.8 GM/DL (3.4-5.0); ALT (GPT) 26 U/L (10-53); AST (GOT) 16 U/L (15-37); BICARBONATE 20.8 MEQ/L (21.0-32.0); BLOOD UREA NITROGEN 15 MG/DL (7-18); CALCIUM 8.4 MG/DL (8.5-10.1); CHLORIDE 108 MEQ/L (98-107); CREATININE 1.44 MG/DL (0.50-1.00); GLOMERULAR FILTRATION RATE 37 ML/MIN (>89); GLUCOSE,RANDOM 220 MG/DL (74-106); MAGNESIUM 1.7 MG/DL (1.5-2.5); SODIUM (NA) 139 MEQ/L (136-145)
[2017-08-30 03:58] LABS: ALKALINE PHOSPHATASE 192 U/L (45-117); TOTAL BILIRUBIN ADULT 0.6 MG/DL (0.2-1.0); TOTAL PROTEIN 6.9 GM/DL (6.4-8.2)
[2017-08-30] MEDS: RESP: ALBUTEROL 2.5 MG/IPRATROPIUM 0.5 MG NEB (SCH) INH ×2 (04:08→07:57)
[2017-08-30] MEDS: glipiZIDE 5 MG TAB PO SCH ×2 (06:05→16:58)
[2017-08-30] MEDS: FUROSEMIDE 20 MG/2 ML VIAL IV PUSH SCH ×3 (06:05→17:00)
[2017-08-30] MEDS: INSULIN ASPART SUPPLEMENTAL SCALE SQ SCH ×4 (08:00→20:17)
[2017-08-30] MEDS: DOCUSATE SODIUM 50 MG/SENNA 8.6 MG TAB PO SCH ×2 (09:00→20:16)
[2017-08-30] MEDS ORDERED: ALENDRONATE SODIUM 70 MG TAB PO SCH (09:00)
[2017-08-30] MEDS: SERTRALINE HCL 50 MG TAB PO SCH (09:04)
[2017-08-30] MEDS: LOSARTAN 25 MG TAB PO SCH (09:04)
[2017-08-30] MEDS: CLOPIDOGREL 75 MG TAB PO SCH (09:04)
[2017-08-30] MEDS: MELOXICAM 15 MG TAB PO SCH (09:04)
[2017-08-30] MEDS: CARVEDILOL 6.25 MG TAB PO SCH ×2 (09:04→20:16)
[2017-08-30] MEDS: FAMOTIDINE 20 MG/2 ML VIAL IV PUSH SCH ×2 (09:05→20:16)
[2017-08-30] MEDS: SODIUM CHLORIDE 0.9% FLUSH 10 ML FLUSH IV FLUSH SCH ×2 (09:05→20:17)
[2017-08-30] MEDS ORDERED: RESP: ALBUTEROL 2.5 MG/IPRATROPIUM 0.5 MG NEB (PRN) NEB (11:00)
[2017-08-30] MEDS: BUDESONIDE-FORMOTEROL 160/4.5 MCG INHALER INH SCH ×2 (11:00→21:00)
--- NOTE | 2017-08-30 11:45 | MB ---
cc: YAMILET BOOTH M.D. DATE OF CONSULTATION: 08/30/2017 REASON FOR CONSULTATION: Chronic obstructive pulmonary disease exacerbation. HISTORY OF PRESENT ILLNESS: The patient is a 67 year-old female with past medical history of diabetes mellitus, recent diagnosis of chronic obstructive pulmonary disease, peripheral vascular disease, gastroesophageal reflux disease, nephrolithiasis, status post left above-knee amputation who presented to [facility] emergency department last night with a one day history of worsening shortness of breath. She denies any associated symptoms of fever, chills or any constitutional symptoms. The patient was given Solu-Medrol and two nebulizer treatments per Emergency Medical Services. She denies any orthopnea, paroxysmal nocturnal dyspnea or edema of lower extremities. The patient remains an active smoker when she smokes a pack and half of cigarettes per day and has been a smoker for over 40 years. She was recently diagnosed with chronic obstructive pulmonary disease and is being followed by Dr. Miranda as an outpatient. She denies any use of home oxygen and she is on albuterol inhalers at home. Arterial blood gas was preformed in the emergency department which showed acute hypercapnic respiratory acidosis with a pH of 7.22, co2 42, pa02 158, bicarb 19, saturations of 96% on BiPAP. 16/5 with 60% FIO2. When seeing the patient, patient is on two liters nasal cannula with saturation of 95 to 97%. Her laboratory data was significant for elevated B-type natriuretic peptide at 619, lactic acid of 2.9. A chest x-ray yesterday showed diffuse bilateral, right greater then left interstitial and alveolar opacities. She was placed on bronchodilators, antibiotics and steroids. The patient denies any prior intubations. PAST MEDICAL HISTORY: Significant for diabetes. Peripheral vascular disease. Chronic obstructive pulmonary disease. Gastroesophageal reflux disease. Nephrolithiasis. PAST SURGICAL HISTORY: Previous stents in the lower extremity. Previous appendectomies. Hysterectomy. Tonsillectomy. Lithotripsy. ALLERGIES CODEINE LISINOPRIL METFORMIN VANCOMYCIN MEDICATIONS: Reported medications include Coreg. Meloxicam Alendronate Glipizide. Atorvastatin. Lantus. Tramadol Plavix Gabapentin Sertraline. SOCIAL HISTORY: Active smoker, she smokes a pack and half cigarettes per day and has been smoking for over 40 years, she denies any alcohol or illicit drug use. FAMILY HISTORY: No history of coronary artery disease. REVIEW OF SYSTEMS As per history of present illness. The rest of the review of systems is unremarkable. PHYSICAL EXAMINATION: IN GENERAL: A 67 year old female lying in bed in no acute distress. VITAL SIGNS: Afebrile. Pulse 94, blood pressure 139/62, o2 saturations 97% on two liters of oxygen. HEAD, EYES, EARS, NOSE, AND THROAT: Atraumatic, normocephalic, Pupils equal, round, reactive to light and accommodation, extraocular muscles intact. Conjunctiva pink, no nonicteric sclera, oral mucosa is normal. NECK: Neck supple, no jugular venous distention, adenopathy or thyromegaly. Trachea is midline. CARDIOVASCULAR SYSTEM: Regular rate and rhythm, normal S1, S2, no murmurs, rubs or gallops. LUNGS: Bilateral equal entry with a few coarse breath sounds. No wheezing. ABDOMEN: Soft, nontender, no distention. Positive bowel sounds. EXTREMITIES: No cyanosis, clubbing or edema. LABORATORY DATA: Sodium 139, potassium 4.2, chloride 108, co2 20, BUN 15, creatinine 1.44. Glucose 220, lactic acid 2.9, B-type natriuretic peptide 619, White blood cell 6.6, hemoglobin 14.2, hematocrit 42, platelet count 169, arterial blood gas showed pH of 7.22, co2 48, pao2 158, bicarbonate 19, saturations 96%. INR 1, PT 10.1. PTT 27.8. RADIOGRAPHIC STUDIES: Chest x-ray showed diffuse bilateral interstitial and alveolar opacities. IMPRESSION: 1. Acute hypercapnic respiratory failure. 2. Diffuse bilateral pulmonary infiltrates. 3. Differential diagnosis, fluid overload versus infectious process. 4. Chronic obstructive pulmonary disease exacerbation. 5. Congestive heart failure decompensation with elevated B-type natriuretic peptide on admission. 6. Active tobacco use. 7. Acute kidney injury, mild. 8. Mild lactic acidemia. 9. Mild elevated troponins. RECOMMENDATIONS: 1. We will continue with oxygen and maintain saturations above 92%. 2. Bronchodilators. We will place the patient on duoneb q four hours plus q two as needed for shortness of breath in addition we will start Symbicort. 3. Continue with intravenous steroids. She was placed on Solu-Medrol 40 mg IV q 12 hours. 4. We will repeat chest x-ray now and arterial blood gas. 5. Continue with Diuretics. 6. Noninvasive positive pressure ventilation as needed for respiratory disease. 7. Will need pulmonary stress test as an outpatient to assess the severity of her obstructive lung disease. 8. Continue with antibiotics. The patient was placed on cefepime and azithromycin. Monitor for signs of infections which include fever and white blood count. Her staph pneumonia, legionella urinary antigen is negative. We will obtain a sputum culture with a gram stain. Follow up on blood cultures from yesterday. 9. The patient just had a echocardiogram to evaluate her left ventricular function, follow up. We will follow up. 10. Gastrointestinal and deep venous thrombosis prophylaxis. She is on Pepcid and Lovenox respectively. Further recommendations will be based on hospital course. Thank you for consultation and allowing us to participate in this patients care. MD ARTURO Valdez/joyce /11:01 AM /11:11 AM
[2017-08-30] MEDS: RESP: ALBUTEROL 2.5 MG/IPRATROPIUM 0.5 MG NEB (SCH) NEB ×4 (11:49→23:52)
--- NOTE | 2017-08-30 12:02 | RADRPT ---
EXAM DATE/TIME: 08/30/2017 11:34 [place] COMPARISON: CHEST SINGLE AP, August 29, 2017, 17:04. INDICATIONS : Shortness of breath MEDICAL HISTORY : Chronic obstructive pulmonary disease. Hypertension. Gastroesophageal reflux disease. Diabetes mellit us type II SURGICAL HISTORY : None. ENCOUNTER: Subsequent ACUITY: 2 days PAIN SCORE: 0/10 LOCATION: Bilateral chest FINDINGS: Single AP view of the chest. The lungs are clear. Cardiomediastinal silhouette within normal limits. No evidence of pleural effusion or pneumothorax. CONCLUSION: No acute cardiopulmonary disease identified. Wiliam Irby MD on August 30, 2017 at 11:59 Board Certified Radiologist. This report was verified electronically.
--- NOTE | 2017-08-30 13:57 | ECHRPT ---
Indication: Heart Failure CONCLUSIONS Normal left ventricular size and function. Wall thickness is normal. No regional wall motion abnormalities are present. Mild thickening of the mitral valve leaflets. Mild mitral annular calcification. Mild mitral valve regurgitation. Slight aortic valve sclerosis.The pulmonary valve is not well visualized. BP: / HR: Rhythm: Sinus MEASUREMENTS (Male / Female) Normal Values Technical Quality:Fair 2D ECHO LV Diastolic Diameter PLAX 4.8 cm 4.2 - 5.9 / 3.9 - 5.3 cm LV Systolic Diameter PLAX 3.0 cm IVS Diastolic Thickness 1.2 cm 0.6 - 1.0 / 0.6 - 0.9 cm LVPW Diastolic Thickness 1.2 cm 0.6 - 1.0 / 0.6 - 0.9 cm LV Relative Wall Thickness 0.5 RV Internal Dim ED PLAX 2.0 cm LVOT Diameter 1.8 cm LA Systolic Diameter LX 3.3 cm 3.0 - 4.0 / 2.7 - 3.8 cm M-MODE Aortic Root Diameter MM 2.6 cm LA Systolic Diameter MM 3.7 cm LA Ao Ratio MM 1.4 AV Cusp Separation MM 1.5 cm DOPPLER AV Peak Velocity 140.0 cm/s AV Peak Gradient 7.8 mmHg LVOT Peak Velocity 89.8 cm/s LVOT Peak Gradient 3.2 mmHg AV Area Cont Eq pk 1.6 cm MV Area PHT 4.9 cm Mitral E Point Velocity 99.7 cm/s Mitral A Point Velocity 134.0 cm/s Mitral E to A Ratio 0.7 LV E' Lateral Velocity 5.5 cm/s Mitral E to LV E' Lateral Ratio 18.3 LV E' Septal Velocity 4.9 cm/s Mitral E to LV E' Septal Ratio 20.5 PV Peak Velocity 113.0 cm/s PV Peak Gradient 5.1 mmHg FINDINGS LEFT VENTRICLE The left ventricular systolic function is normal with an estimated ejection fraction in the range of 60-65%. Normal left ventricular size. Wall thickness is normal. No regional wall motion abnormalities are present. RIGHT VENTRICLE Normal right ventricular size and systolic function. LEFT ATRIUM The left atrial size is normal. RIGHT ATRIUM The right atrial size is normal. ATRIAL SEPTUM Normal atrial septal thickness without atrial level shunting by limited color doppler interrogation. AORTA The aortic root and proximal ascending aorta are normal in size on limited imaging. MITRAL VALVE Mild thickening of the mitral valve leaflets. Mild mitral annular calcification. Mild mitral valve regurgitation. AORTIC VALVE Trileaflet aortic valve. Slight aortic valve sclerosis. TRICUSPID VALVE Structurally normal tricuspid valve. No tricuspid valve stenosis or regurgitation. PULMONARY VALVE The pulmonary valve is not well visualized. VESSELS The inferior vena cava is normal in size. PERICARDIUM No pericardial effusion. Gabriel Hurst MD (Electronically Signed) Final Date:30 August 2017 13:56
--- NOTE | 2017-08-30 15:10 | EKG ---
Date Performed: 08/29/2017 Time Performed: 16:31:43 PTAGE: 67 years EKG: SINUS TACHYCARDIA LEFT ATRIAL ENLARGEMENT NONSPECIFIC T-WAVE ABNORMALITY ABNORMAL ECG PREVIOUS TRACING 03/19/17 @ 11.39.47 Since previous tracing, no significant change noted DOCTOR: Gabriel Hurst Interpretating Date/Time 08/30/2017 15:10:08
--- NOTE | 2017-08-30 16:01 | EKG ---
Date Performed: 08/29/2017 Time Performed: 21:20:19 PTAGE: 67 years EKG: Sinus rhythm WITH SINUS ARRHYTHMIA LEFT ATRIAL ENLARGEMENT Compared to previous tracing, ST changes appear improv ed ABNORMAL ECG PREVIOUS TRACING : 08/29/2017 16.31 DOCTOR: Gabriel Hurst Interpretating Date/Time 08/30/2017 16:00:25
--- NOTE | 2017-08-30 16:03 | HHI.CCPN ---
Subjective Remarks/Hospital Course History of Present Illness 67-year-old female patient with history of COPD, tobacco use disorder, peripheral vascular disease, status post left AKA, presents today because she felt extremely short of breath after she was smoking today. She was barely able to talk when EMS got there, was given Solu-Medrol and has had 2 nebulizers according to EMS with some improvement symptoms. History is limited due to the patient's respiratory distress. Subjective: 08/30: Patient complaining of back pain, and requesting nicotine patch. Respiratory status slightly improved. Objective Vital Signs Date Time Temp Pulse Resp B/P (MAP) Pulse Ox O2 Delivery O2 Flow Rate FiO2 08/30/17 15:00 85 08/30/17 12:00 99.0 28 105/58 (74) 96 08/30/17 07:58 Nasal Cannula 2.00 08/30/17 07:00 97 Intake and Output 08/30/17 08/30/17 08/31/17 08:00 16:00 00:00 Intake Total 910 ml Output Total 1300 ml Balance -390 ml Result Diagram: 08/30/17 0326 08/30/17 0326 Other Results Microbiology Date/Time Source Procedure Growth Status 08/30/17 04:00 Urine Catheterized Urine Legionella Antigen - Final PRESUMPTIVE NEGATIVE FOR LEGIONELLA P... Complete 08/30/17 04:00 Urine Catheterized Urine Streptococcus pneumoniae Antigen (M - Final PRESUMPTIVE NEGATIVE FOR STREPTOCOCCU... Complete Laboratory Tests Test 08/29/17 17:02 08/30/17 12:30 Blood Gas Puncture Site RT RADIAL RT RADIAL Blood Gas Patient Temperature 98.6 98.6 Blood Gas HCO3 19 mmol/L (22-26) 17 mmol/L (22-26) Blood Gas Base Excess -7.7 mmol/L (-2-2) -6.1 mmol/L (-2-2) Blood Gas Oxygen Saturation 96 % (90-100) 95 % (90-100) Arterial Blood pH 7.22 (7.380-7.420) 7.45 (7.380-7.420) Arterial Blood Partial Pressure CO2 48 mmHg (38-42) 25 mmHg (38-42) Arterial Blood Partial Pressure O2 158 mmHG (61-120) 90 mmHg (61-120) Arterial Blood Oxygen Content 22.6 Vol % (12.0-20.0) 18.9 Vol % (12.0-20.0) Arterial Blood Carboxyhemoglobin 2.3 % (0-4) 0.8 % (0-4) Arterial Blood Methemoglobin 0.6 % (0-2) 1.3 % (0-2) Blood Gas Hemoglobin 16.6 G/DL (12.0-16.0) 14.1 G/DL (12.0-16.0) Oxygen Delivery Device BiPAP NASAL CANNULA Blood Gas Ventilator Setting IPAP 16/EPAP 5 Blood Gas Inspired Oxygen 60 % Blood Gas Liter Flow 2 L/M Imaging Last Impressions Chest X-Ray 08/30/17 0000 Signed Impressions: Service Date/Time: Wednesday, August 30, 2017 11:34 - CONCLUSION: No acute cardiopulmonary disease identified. Wiliam Irby MD Last 24 hours Impressions Chest X-Ray 08/29/17 1626 Signed Impressions: Service Date/Time: Tuesday, August 29, 2017 17:04 - CONCLUSION: 1. Diffuse bilateral, right > left, mid to lower lung zone interstitial and alveolar opacities. Differential considerations include positive fluid balance versus atypical infection. Memo Corrales MD Objective Remarks GENERAL: Well-developed elderly white female patient on nasal cannula, currently undergoing breathing treatment. Awake and alert. SKIN: Focused skin assessment warm/dry. HEAD: Atraumatic. Normocephalic. EYES: Pupils equal and round. No scleral icterus. No injection or drainage. ENT: No nasal bleeding or discharge. Mucous membranes pink and moist. NECK: Trachea midline. No JVD. CARDIOVASCULAR: Regular rate and rhythm. No murmur appreciated. RESPIRATORY: Noaccessory muscle use. Wheezing throughout bilaterally. Breath sounds equal bilaterally. GASTROINTESTINAL: Abdomen soft, non-tender, nondistended. Hepatic and splenic margins not palpable. MUSCULOSKELETAL: No obvious deformities. No clubbing. No cyanosis. No edema. NEUROLOGICAL: Awake and alert. No obvious cranial nerve deficits. Motor grossly within normal limits. A/P Assessment and Plan Respiratory failure - COPD exacerbation - Pulmonary edema - Aerosols - IV steroids - Empiric antibiotics - Aggressive diuresis - BiPAP when necessary -Strep pneumo antigen negative. Legionella antigen negative. Follow-up influenza antigen Diabetes mellitus - Insulin sliding scale - Glipizide Hypertension - Cozaar - Coreg - Nitro drip to keep SBP less than 160 CHF - No acute ischemic EKG changes - Troponins negative - Series of troponins and EKGs - 2-D echo-EF 60-65% no RWMA - Cozaar - Coreg Peripheral vascular disease - Plavix GERD - IV Pepcid DVT GI prophylaxis - Teds SCDs - Subcutaneous Lovenox - Pepcid Critical Care: Level 2 . Plan transfer to [facility] am. Plan transfer to [facility] floor when bed available Physician Darcy Huynh MD Aug 30, 2017 16:03
--- NOTE | 2017-08-30 16:10 | EKG ---
Date Performed: 08/30/2017 Time Performed: 03:45:44 PTAGE: 67 years EKG: Sinus rhythm . Nonspecific ST-T abnormality more prominent from the prior tracing Normal ECG PREVIOUS TRACING : 08/29/17 @ 2120 DOCTOR: Gabriel Hurst Interpretating Date/Time 08/30/2017 16:10:01
[2017-08-30] MEDS: NICOTINE 21 MG/24 HR PATCH T-DERMAL SCH (16:56)
[2017-08-30] MEDS: traMADol HCL 50 MG TAB PO PRN (17:00)
[2017-08-30] MEDS: ENOXAPARIN SODIUM 40 MG/0.4 ML SYRINGE SQ SCH (20:16)
[2017-08-30] MEDS: INSULIN DETEMIR 100 UNITS/ML VIAL SQ SCH (20:16)
[2017-08-30] MEDS: GABAPENTIN 100 MG CAP PO SCH (20:16)
[2017-08-30] MEDS: ATORVASTATIN 40 MG TAB PO SCH (20:16)
[2017-08-31] VITALS (21 sets, daily range): BP systolic 115–172; BP diastolic 64–78; PULSE 65–102; RESP 18–39; TEMP 97.8–98.9; O2SAT 94–100
[2017-08-31] MEDS: methylPREDNISolone SOD SUCC 40 MG/1 ML VIAL IV PUSH SCH ×2 (02:42→16:09)
[2017-08-31] MEDS: AZITHROMYCIN INJ 500 MG in SODIUM CHLOR 0.9% 250 ML INJ 250 ML IV SCH (02:42)
[2017-08-31] MEDS: CEFEPIME INJ 2,000 MG in SODIUM CHLORIDE 0.9% INJ 100 ML IV SCH (02:44)
[2017-08-31] MEDS: RESP: ALBUTEROL 2.5 MG/IPRATROPIUM 0.5 MG NEB (SCH) NEB ×5 (03:23→20:32)
[2017-08-31] MEDS: CHLORHEXIDINE GLUCONATE 2 % 1 PACK (2 CLOTHS) TOP SCH (04:00)
[2017-08-31 05:12] LABS: HEMATOCRIT 40.5 % (35.0-46.0); HEMOGLOBIN 13.4 GM/DL (11.6-15.3); MEAN CELL VOLUME 78.1 FL (80.0-100.0); MEAN CORPUSCULAR HEMOGLOBIN 25.9 PG (27.0-34.0); MEAN CORPUSCULAR HGB CONC 33.1 % (32.0-36.0); MEAN PLATELET VOLUME 8.7 FL (7.0-11.0); PLATELET COUNT 170 TH/MM3 (150-450); RED BLOOD COUNT 5.19 MIL/MM3 (4.00-5.30); RED CELL DISTRIBUTION WIDTH 16.2 % (11.6-17.2); WHITE BLOOD COUNT 12.8 TH/MM3 (4.0-11.0)
[2017-08-31 05:42] LABS: BICARBONATE 24.3 MEQ/L (21.0-32.0); CALCIUM 8.3 MG/DL (8.5-10.1); CREATININE 1.63 MG/DL (0.50-1.00)
[2017-08-31] MEDS: glipiZIDE 5 MG TAB PO SCH ×2 (06:23→16:09)
--- NOTE | 2017-08-31 08:14 | HHI.PR ---
Subjective Remarks No events overnight. Feeling better on 2L oxygen with good sats. Afebrile. Objective Vital Signs Vital Signs Date Time Temp Pulse Resp B/P (MAP) Pulse Ox O2 Delivery O2 Flow Rate FiO2 08/31/17 06:00 84 08/31/17 04:00 97.8 85 29 142/64 (90) 98 08/31/17 04:00 85 08/31/17 02:00 90 08/31/17 00:00 98.9 98 20 155/65 (95) 100 08/31/17 00:00 65 08/30/17 22:00 99 08/30/17 20:09 97 Nasal Cannula 2.00 08/30/17 20:00 98.6 88 27 162/70 (100) 99 08/30/17 20:00 89 08/30/17 19:00 Nasal Cannula 2.00 98 08/30/17 18:00 72 08/30/17 17:00 82 08/30/17 16:00 86 08/30/17 16:00 99.0 86 14 119/59 (79) 99 08/30/17 15:00 85 08/30/17 14:30 85 136/60 08/30/17 14:00 83 08/30/17 14:00 83 147/69 08/30/17 13:45 84 155/72 08/30/17 13:15 84 133/64 08/30/17 13:00 83 08/30/17 13:00 83 140/63 08/30/17 12:45 90 124/57 08/30/17 12:30 85 154/67 08/30/17 12:15 101 186/86 08/30/17 12:02 84 105/58 08/30/17 12:00 84 08/30/17 12:00 99.0 84 28 105/58 (74) 96 08/30/17 11:52 89 115/55 08/30/17 11:00 102 08/30/17 10:00 86 08/30/17 09:00 89 I/O 08/30/17 08/30/17 08/30/17 08/31/17 08/31/17 08/31/17 07:00 15:00 23:00 07:00 15:00 23:00 Intake Total 910 ml 1500 ml 470 ml 200 ml Output Total 1300 ml 1350 ml 1000 ml Balance -390 ml 150 ml -530 ml 200 ml Intake Oral 240 ml 1400 ml 120 ml IV Total 670 ml 100 ml 350 ml 200 ml Output Urine Total 1300 ml 1350 ml 1000 ml Result Diagram: 08/31/17 0443 08/31/17 0443 Other Results Last Impressions Chest X-Ray 08/30/17 0000 Signed Impressions: Service Date/Time: Wednesday, August 30, 2017 11:34 - CONCLUSION: No acute cardiopulmonary disease identified. Wiliam Irby MD Objective Remarks GENERAL: Patient is 67 yo lying in bed in NAD SKIN: Warm and dry. HEAD: Normocephalic. EYES: No scleral icterus. No injection or drainage. NECK: Supple, trachea midline. No JVD or lymphadenopathy. CARDIOVASCULAR: Regular rate and rhythm without murmurs, gallops, or rubs. RESPIRATORY: Breath sounds equal bilaterally. No accessory muscle use. Diminished GASTROINTESTINAL: Abdomen soft, non-tender, nondistended. MUSCULOSKELETAL: No cyanosis, or edema. Neuro: Awake and alert. A/P Assessment and Plan 1. Acute hypercapnic respiratory failure...improved 2. COPD exac 3. CHF 4. Active tobacco use. 5. Acute kidney injury, 6. Mild lactic acidemia. 7. Mild elevated troponins. Plan Continue with oxygen and maintain sats>92%. Bronchodilators(DuoNeb, Symbicort) Solu-Medrol 40 mg IV q 12 hours. CXR yesterday showed resolving pulm opacities BIPAP PRN for respiratory disease. PFT as an outpatient to assess the severity of her obstructive lung disease. Continue with abx- on cefepime and azithromycin Strep pneumonia, legionella urinary antigen and Influenza screening all negative. GI/DVT prophylaxis- on Pepcid and Lovenox respectively. Ernesto Ford MD Aug 31, 2017 08:14
[2017-08-31] MEDS: DOCUSATE SODIUM 50 MG/SENNA 8.6 MG TAB PO SCH ×2 (09:00→20:23)
[2017-08-31] MEDS: REMOVE OLD PATCH T-DERMAL SCH (09:00)
[2017-08-31] MEDS: NICOTINE 21 MG/24 HR PATCH T-DERMAL SCH (09:00)
[2017-08-31] MEDS: BUDESONIDE-FORMOTEROL 160/4.5 MCG INHALER INH SCH ×2 (09:00→23:49)
[2017-08-31] MEDS: SERTRALINE HCL 50 MG TAB PO SCH (09:49)
[2017-08-31] MEDS: LOSARTAN 25 MG TAB PO SCH (09:49)
[2017-08-31] MEDS: FUROSEMIDE 40 MG TAB PO SCH (09:49)
[2017-08-31] MEDS: INSULIN ASPART SUPPLEMENTAL SCALE SQ SCH ×4 (09:50→20:24)
[2017-08-31] MEDS: CLOPIDOGREL 75 MG TAB PO SCH (09:50)
[2017-08-31] MEDS: MELOXICAM 15 MG TAB PO SCH (09:50)
[2017-08-31] MEDS: FAMOTIDINE 20 MG/2 ML VIAL IV PUSH SCH (09:50)
[2017-08-31] MEDS: CARVEDILOL 6.25 MG TAB PO SCH ×2 (09:50→20:23)
[2017-08-31] MEDS: SODIUM CHLORIDE 0.9% FLUSH 10 ML FLUSH IV FLUSH SCH ×2 (09:50→20:25)
--- NOTE | 2017-08-31 13:54 | HHI.CCPN ---
Subjective Remarks/Hospital Course History of Present Illness 67-year-old female patient with history of COPD, tobacco use disorder, peripheral vascular disease, status post left AKA, presents today because she felt extremely short of breath after she was smoking today. She was barely able to talk when EMS got there, was given Solu-Medrol and has had 2 nebulizers according to EMS with some improvement symptoms. History is limited due to the patient's respiratory distress. Subjective: 08/30: Patient complaining of back pain, and requesting nicotine patch. Respiratory status slightly improved. 08/31: clinically improving. on nc o2. complains of cough. denies other complaints. cultures NGTD. ROS otherwise negative. tolerating diet. Objective Vital Signs Date Time Temp Pulse Resp B/P (MAP) Pulse Ox O2 Delivery O2 Flow Rate FiO2 08/31/17 11:00 83 08/31/17 08:22 98 Nasal Cannula 2.00 08/31/17 08:00 98.5 18 115/76 (89) 08/31/17 07:00 93 Intake and Output 08/31/17 08/31/17 09/01/17 08:00 16:00 00:00 Intake Total 670 ml Output Total 1000 ml Balance -330 ml Result Diagram: 08/31/17 0443 08/31/17 0443 Other Results Microbiology Date/Time Source Procedure Growth Status 08/30/17 16:32 Nasal Washing Influenza Types A,B Antigen (ISAIAS) - Final NEGATIVE FOR FLU A AND B ANTIGEN.... Complete 08/30/17 04:00 Urine Catheterized Urine Legionella Antigen - Final PRESUMPTIVE NEGATIVE FOR LEGIONELLA P... Complete 08/30/17 04:00 Urine Catheterized Urine Streptococcus pneumoniae Antigen (M - Final PRESUMPTIVE NEGATIVE FOR STREPTOCOCCU... Complete Imaging Last Impressions Chest X-Ray 08/30/17 0000 Signed Impressions: Service Date/Time: Wednesday, August 30, 2017 11:34 - CONCLUSION: No acute cardiopulmonary disease identified. Wiliam Irby MD Last 24 hours Impressions Chest X-Ray 08/29/17 1626 Signed Impressions: Service Date/Time: Tuesday, August 29, 2017 17:04 - CONCLUSION: 1. Diffuse bilateral, right > left, mid to lower lung zone interstitial and alveolar opacities. Differential considerations include positive fluid balance versus atypical infection. Memo Corrales MD Objective Remarks GENERAL: frail elderly white female patient on nasal cannula. Awake and alert. SKIN: Focused skin assessment warm/dry. HEAD: Atraumatic. Normocephalic. EYES: Pupils equal and round. No scleral icterus. No injection or drainage. ENT: No nasal bleeding or discharge. Mucous membranes pink and moist. NECK: Trachea midline. No JVD. CARDIOVASCULAR: Regular rate and rhythm. sinus by tele. RESPIRATORY: No accessory muscle use. equal chest rise. nc o2. GASTROINTESTINAL: Abdomen soft, non-tender, nondistended. MUSCULOSKELETAL: No obvious deformities. No clubbing. No cyanosis. No edema. NEUROLOGICAL: Awake and alert. No obvious cranial nerve deficits. Motor grossly within normal limits. A/P Assessment and Plan Assessment: 67yF with Acute COPD exacerbation. cultures have been NGTD. remains afebrile. will de-escalate therapy to Levaquin po monotherapy for full duration 7 days (5 more days, anticipated stop date 09/04). stable for transfer out of ICU. Acute COPD exacerbation Acute hypoxic and hypercaribc respiratory failure - COPD exacerbation - Pulmonary edema- improved. - Aerosols - IV steroids - Empiric antibiotics: de-escalate to levaquin monotherapy. - wean o2 by nc for goal spo2 > 88% -Strep pneumo antigen negative. Legionella antigen negative. influenza ag negative. Diabetes mellitus - Insulin sliding scale - Glipizide Hypertension - Cozaar - Coreg - d/c nitro drip. CHF- preserved EF type. - No acute ischemic EKG changes - Troponins negative - 2-D echo-EF 60-65% no RWMA - Cozaar - Coreg Peripheral vascular disease - Plavix GERD - change to po pepcid. DVT GI prophylaxis - Teds SCDs - Subcutaneous Lovenox - Pepcid Critical Care: transfer to floor. consult hospitalist service for ongoing management. Fernando Barron MD Aug 31, 2017 13:54
[2017-08-31] MEDS: LEVOFLOXACIN 750 MG TAB PO SCH (16:11)
[2017-08-31] MEDS: FAMOTIDINE 20 MG TAB PO SCH (20:23)
[2017-08-31] MEDS: ATORVASTATIN 40 MG TAB PO SCH (20:23)
[2017-08-31] MEDS: INSULIN DETEMIR 100 UNITS/ML VIAL SQ SCH (20:24)
[2017-08-31] MEDS: GABAPENTIN 100 MG CAP PO SCH (20:24)
[2017-08-31] MEDS: ENOXAPARIN SODIUM 40 MG/0.4 ML SYRINGE SQ SCH (20:24)
[2017-08-31] MEDS ORDERED: FAMOTIDINE 20 MG/2 ML VIAL IV PUSH SCH (21:00)
[2017-09-01] VITALS (11 sets, daily range): BP systolic 108–180; BP diastolic 55–81; PULSE 70–87; RESP 18–20; TEMP 98–99.1; O2SAT 95–99
[2017-09-01] MEDS: RESP: ALBUTEROL 2.5 MG/IPRATROPIUM 0.5 MG NEB (SCH) NEB ×6 (00:30→19:49)
[2017-09-01] MEDS: CHLORHEXIDINE GLUCONATE 2 % 1 PACK (2 CLOTHS) TOP SCH (04:00)
[2017-09-01] MEDS: methylPREDNISolone SOD SUCC 40 MG/1 ML VIAL IV PUSH SCH ×2 (04:20→15:30)
[2017-09-01] MEDS: INSULIN ASPART SUPPLEMENTAL SCALE SQ SCH ×4 (08:50→20:09)
[2017-09-01] MEDS: REMOVE OLD PATCH T-DERMAL SCH (09:00)
[2017-09-01] MEDS: DOCUSATE SODIUM 50 MG/SENNA 8.6 MG TAB PO SCH ×2 (09:00→20:08)
[2017-09-01] MEDS: NICOTINE 21 MG/24 HR PATCH T-DERMAL SCH (09:07)
[2017-09-01] MEDS: SERTRALINE HCL 50 MG TAB PO SCH (09:08)
[2017-09-01] MEDS: FAMOTIDINE 20 MG TAB PO SCH ×2 (09:08→20:08)
[2017-09-01] MEDS: LOSARTAN 25 MG TAB PO SCH (09:08)
[2017-09-01] MEDS: CLOPIDOGREL 75 MG TAB PO SCH (09:08)
[2017-09-01] MEDS: LEVOFLOXACIN 750 MG TAB PO SCH (09:08)
[2017-09-01] MEDS: FUROSEMIDE 40 MG TAB PO SCH (09:09)
[2017-09-01] MEDS: CARVEDILOL 6.25 MG TAB PO SCH ×2 (09:09→20:08)
[2017-09-01] MEDS: SODIUM CHLORIDE 0.9% FLUSH 10 ML FLUSH IV FLUSH SCH ×2 (09:09→20:07)
[2017-09-01] MEDS: glipiZIDE 5 MG TAB PO SCH ×2 (09:09→15:30)
[2017-09-01] MEDS: MELOXICAM 15 MG TAB PO SCH (09:09)
[2017-09-01] MEDS: BUDESONIDE-FORMOTEROL 160/4.5 MCG INHALER INH SCH ×2 (09:11→20:07)
[2017-09-01] MEDS: traMADol HCL 50 MG TAB PO PRN (09:13)
--- NOTE | 2017-09-01 16:10 | HHI.PR ---
Subjective Remarks History of Present Illness 67-year-old female patient with history of COPD, tobacco use disorder, peripheral vascular disease, status post left AKA, presents today because she felt extremely short of breath after she was smoking today. She was barely able to talk when EMS got there, was given Solu-Medrol and has had 2 nebulizers according to EMS with some improvement symptoms. History is limited due to the patient's respiratory distress. Subjective: 08/30: Patient complaining of back pain, and requesting nicotine patch. Respiratory status slightly improved. 08/31: clinically improving. on nc o2. complains of cough. denies other complaints. cultures NGTD. ROS otherwise negative. tolerating diet. 09-01 TRANSFERRED TO OUR SERVICE TODAY WAS IN ICU COPD EXACERBATION CONTINUE ON CURRENT TREATMENT WITH NEBS AND STEROIDS PT AND OT DW PATIENT STILL SOB WANTS SLEEPER Objective Vitals Vital Signs Date Time Temp Pulse Resp B/P (MAP) Pulse Ox O2 Delivery O2 Flow Rate FiO2 09/01/17 12:00 99.1 86 20 110/55 (73) 95 09/01/17 08:00 Room Air 09/01/17 08:00 98.7 81 20 180/81 (114) 96 09/01/17 08:00 85 09/01/17 07:37 96 21 09/01/17 04:00 98.6 82 18 123/80 (94) 95 09/01/17 03:45 80 09/01/17 00:00 98.0 70 18 121/71 (88) 95 09/01/17 00:00 Room Air 08/31/17 23:45 80 08/31/17 20:37 76 08/31/17 20:32 96 21 08/31/17 20:00 98.2 77 18 172/78 (109) 96 08/31/17 20:00 Room Air 08/31/17 18:00 79 08/31/17 17:00 78 08/31/17 16:00 98.3 95 39 135/67 (89) 96 08/31/17 16:00 95 I/O 08/31/17 08/31/17 08/31/17 09/01/17 09/01/17 09/01/17 07:00 15:00 23:00 07:00 15:00 23:00 Intake Total 470 ml 200 ml 700 ml 480 ml Output Total 1000 ml 1250 ml Balance -530 ml 200 ml -550 ml 480 ml Intake Oral 120 ml 700 ml 480 ml IV Total 350 ml 200 ml Output Urine Total 1000 ml 1250 ml # Voids 4 6 Result Diagram: 08/31/173 08/31/17 0443 Other Results Laboratory Tests Test 08/29/17 16:30 08/29/17 17:02 08/29/17 21:10 08/29/17 22:14 White Blood Count 13.4 TH/MM3 Red Blood Count 6.30 MIL/MM3 Hemoglobin 16.9 GM/DL Hematocrit 50.7 % Mean Corpuscular Volume 80.6 FL Mean Corpuscular Hemoglobin 26.8 PG Mean Corpuscular Hemoglobin Concent 33.3 % Red Cell Distribution Width 16.1 % Platelet Count 214 TH/MM3 Mean Platelet Volume 8.6 FL Neutrophils (%) (Auto) 38.4 % Lymphocytes (%) (Auto) 51.5 % Monocytes (%) (Auto) 5.0 % Eosinophils (%) (Auto) 3.8 % Basophils (%) (Auto) 1.3 % Neutrophils # (Auto) 5.1 TH/MM3 Lymphocytes # (Auto) 6.9 TH/MM3 Monocytes # (Auto) 0.7 TH/MM3 Eosinophils # (Auto) 0.5 TH/MM3 Basophils # (Auto) 0.2 TH/MM3 CBC Comment AUTO DIFF Differential Total Cells Counted 100 Neutrophils % (Manual) 48 % Lymphocytes % 49 % Monocytes % 1 % Eosinophils % 2 % Neutrophils # (Manual) 6.4 TH/MM3 Differential Comment FINAL DIFF MANUAL Platelet Estimate NORMAL Platelet Morphology Comment NORMAL Red Cell Morphology Comment NORMAL Prothrombin Time 9.7 SEC Prothromb Time International Ratio 1.0 RATIO Activated Partial Thromboplast Time 25.4 SEC Blood Urea Nitrogen 9 MG/DL Creatinine 1.22 MG/DL Random Glucose 184 MG/DL Total Protein 7.7 GM/DL Albumin 3.0 GM/DL Calcium Level 8.2 MG/DL Alkaline Phosphatase 239 U/L Aspartate Amino Transf (AST/SGOT) 41 U/L Alanine Aminotransferase (ALT/SGPT) 34 U/L Total Bilirubin 0.5 MG/DL Sodium Level 142 MEQ/L Potassium Level 4.6 MEQ/L Chloride Level 114 MEQ/L Carbon Dioxide Level 19.4 MEQ/L Anion Gap 9 MEQ/L Estimat Glomerular Filtration Rate 44 ML/MIN Total Creatine Kinase 90 U/L Troponin I LESS THAN 0.02 NG/ML 0.07 NG/ML B-Type Natriuretic Peptide 619 PG/ML Blood Gas Puncture Site RT RADIAL Blood Gas Patient Temperature 98.6 Blood Gas HCO3 19 mmol/L Blood Gas Base Excess -7.7 mmol/L Blood Gas Oxygen Saturation 96 % Arterial Blood pH 7.22 Arterial Blood Partial Pressure CO2 48 mmHg Arterial Blood Partial Pressure O2 158 mmHG Arterial Blood Oxygen Content 22.6 Vol % Arterial Blood Carboxyhemoglobin 2.3 % Arterial Blood Methemoglobin 0.6 % Blood Gas Hemoglobin 16.6 G/DL Oxygen Delivery Device BiPAP Blood Gas Ventilator Setting IPAP 16/EPAP 5 Blood Gas Inspired Oxygen 60 % Nasal Screen MRSA (PCR) MRSA NOT DETECTED Test 08/30/17 03:26 08/30/17 12:30 08/31/17 04:43 08/31/17 04:46 White Blood Count 6.6 TH/MM3 12.8 TH/MM3 Red Blood Count 5.45 MIL/MM3 5.19 MIL/MM3 Hemoglobin 14.2 GM/DL 13.4 GM/DL Hematocrit 42.5 % 40.5 % Mean Corpuscular Volume 77.9 FL 78.1 FL Mean Corpuscular Hemoglobin 26.0 PG 25.9 PG Mean Corpuscular Hemoglobin Concent 33.4 % 33.1 % Red Cell Distribution Width 16.0 % 16.2 % Platelet Count 169 TH/MM3 170 TH/MM3 Mean Platelet Volume 8.3 FL 8.7 FL Neutrophils (%) (Auto) 80.0 % Lymphocytes (%) (Auto) 18.4 % Monocytes (%) (Auto) 1.0 % Eosinophils (%) (Auto) 0.1 % Basophils (%) (Auto) 0.5 % Neutrophils # (Auto) 5.3 TH/MM3 Lymphocytes # (Auto) 1.2 TH/MM3 Monocytes # (Auto) 0.1 TH/MM3 Eosinophils # (Auto) 0.0 TH/MM3 Basophils # (Auto) 0.0 TH/MM3 CBC Comment DIFF FINAL Differential Comment Prothrombin Time 10.1 SEC Prothromb Time International Ratio 1.0 RATIO Activated Partial Thromboplast Time 27.8 SEC Blood Urea Nitrogen 15 MG/DL 29 MG/DL Creatinine 1.44 MG/DL 1.63 MG/DL Random Glucose 220 MG/DL 165 MG/DL Total Protein 6.9 GM/DL Albumin 2.8 GM/DL Calcium Level 8.4 MG/DL 8.3 MG/DL Phosphorus Level 3.0 MG/DL Magnesium Level 1.7 MG/DL Alkaline Phosphatase 192 U/L Aspartate Amino Transf (AST/SGOT) 16 U/L Alanine Aminotransferase (ALT/SGPT) 26 U/L Total Bilirubin 0.6 MG/DL Sodium Level 139 MEQ/L 137 MEQ/L Potassium Level 4.2 MEQ/L 4.0 MEQ/L Chloride Level 108 MEQ/L 104 MEQ/L Carbon Dioxide Level 20.8 MEQ/L 24.3 MEQ/L Anion Gap 10 MEQ/L 9 MEQ/L Estimat Glomerular Filtration Rate 37 ML/MIN 32 ML/MIN Lactic Acid Level 2.9 mmol/L 2.1 mmol/L Troponin I 0.06 NG/ML Blood Gas Puncture Site RT RADIAL Blood Gas Patient Temperature 98.6 Blood Gas HCO3 17 mmol/L Blood Gas Base Excess -6.1 mmol/L Blood Gas Oxygen Saturation 95 % Arterial Blood pH 7.45 Arterial Blood Partial Pressure CO2 25 mmHg Arterial Blood Partial Pressure O2 90 mmHg Arterial Blood Oxygen Content 18.9 Vol % Arterial Blood Carboxyhemoglobin 0.8 % Arterial Blood Methemoglobin 1.3 % Blood Gas Hemoglobin 14.1 G/DL Oxygen Delivery Device NASAL CANNULA Blood Gas Liter Flow 2 L/M Imaging Last Impressions Chest X-Ray 08/30/17 0000 Signed Impressions: Service Date/Time: Wednesday, August 30, 2017 11:34 - CONCLUSION: No acute cardiopulmonary disease identified. Wiliam Irby MD Objective Remarks GENERAL: AWAKE ALERT AND ORIENTED x3 -IN MILD DISTRESS SKIN: Warm and dry. HEAD: Atraumatic. Normocephalic. EYES: Pupils equal and round. No scleral icterus. No injection or drainage. EOMI ENT: No nasal bleeding or discharge. Mucous membranes pink and moist.TONGUE MIDLINE NECK: Trachea midline. No JVD. SUPPLE CARDIOVASCULAR: Regular rate and rhythm. S1,S2 NO S3 OR S4 NO HEAVE OR THRILL RESPIRATORY: No accessory muscle use. FEW rhonchi and wheezes bilaterally. Breath sounds equal bilaterally. GASTROINTESTINAL: Abdomen soft, non-tender, nondistended. Hepatic and splenic margins not palpable. MUSCULOSKELETAL: Extremities without clubbing, cyanosis, or edema. No obvious deformities. NEUROLOGICAL: Awake and alert. No obvious cranial nerve deficits. Motor grossly within normal limits. Five out of 5 muscle strength in the arms and legs. Normal speech. Left [id number] amputation-right great toe amputation PSYCHIATRIC: Appropriate mood and affect; insight and judgment normal. Medications and IVs Current Medications Sodium Chloride (NS Flush) 2 ml UNSCH PRN IVF FLUSH AFTER USING IV ACCESS; Start 08/29/17 at 16:30; Stop 08/30/17 at 16:21; Status DC Albuterol/ Ipratropium (Duoneb Neb) 1 ampule Q15M INH Last administered on 08/29at 16:45; Start 08/29/17 at 16:30; Stop 08/29/17 at 16:46; Status DC Nitroglycerin (Nitroglycerin 2% Oint) 1 inch ONCE ONCE TOPICAL ; Start at 17:30; Stop 08/29/17 at 17:52; Status DC Nitroglycerin/ Dextrose 250 ml @ 1.5 mls/hr TITRATE PRN IV Hypertension Last administered on 08/30/17at 11:52; Start 08/29/17 at 18:00; Stop 08/31/17 at 13:44 ; Status DC Furosemide (Lasix Inj) 40 mg ONCE ONCE IV PUSH Last administered on 08/29/17at 18:10; Start 08/29/17 at 18:00; Stop 08/29/17 at 18:01; Status DC Alendronate Sodium (Fosamax) 70 mg Q7D PO Last administered on 08/30/17at 09:04 ; Start 08/30/17 at 09:00 Atorvastatin Calcium (Lipitor) 40 mg HS PO Last administered on 08/31/17at 20:23 ; Start 08/29/17 at 21:00 Carvedilol (Coreg) 6.25 mg BID PO Last administered on 09/01/17at 09:09; Start 08/29/17 at 21:00 Clopidogrel Bisulfate (Plavix) 75 mg DAILY PO Last administered on 09/01/17at 09 :08; Start 08/30/17 at 09:00 Furosemide (Lasix) 40 mg DAILY PO Last administered on 09/01/17at 09:09; Start 08/31/17 at 09:00 Gabapentin (Neurontin) 100 mg HS PO Last administered on 08/31/17at 20:24; Start 08/29/17 at 21:00 Insulin Detemir (Levemir Inj) 14 units HS SQ Last administered on 08/31/17at 20: 24; Start 08/29/17 at 21:00 Losartan Potassium (Cozaar) 25 mg DAILY PO Last administered on 09/01/17at 09:08 ; Start 08/30/17 at 09:00 Meloxicam (Mobic) 15 mg DAILY PO Last administered on 09/01/17at 09:09; Start at 09:00 Sertraline HCl (Zoloft) 50 mg DAILY PO Last administered on 09/01/17 09:08; Start 08/30/17 at 09:00 Tramadol HCl (Ultram) 50 mg Q8H PRN PO PAIN 1-10 Last administered on at 09:13; Start 08/29/17 at 19:00 Glipizide (Glucotrol) 2.5 mg BIDAC PO Last administered on 09/01/17at 15:30; Start 08/30/17 at 07:00 Sodium Chloride (NS Flush) 2 ml UNSCH PRN IV FLUSH FLUSH AFTER USING IV ACCESS ; Start 08/29/17 at 19:00 Sodium Chloride (NS Flush) 2 ml BID IV FLUSH Last administered on 09/01/17at 09: 09; Start 08/29/17 at 21:00 Acetaminophen (Tylenol) 650 mg Q6H PRN PO FEVER >101F; Start 08/29/17 at 19:00 Famotidine (Pepcid Inj) 20 mg Q12HR IV PUSH Last administered on 08/31/17at 09: 50; Start 08/29/17 at 21:00; Stop 08/31/17 at 13:36; Status DC Ondansetron HCl (Zofran Inj) 4 mg Q6H PRN IV PUSH NAUSEA OR VOMITING; Start 08/04 at 19:00 Zolpidem Tartrate (Ambien) 5 mg HS PRN PO INSOMNIA Last administered on at 20:16; Start 08/29/17 at 19:00; Stop 08/31/17 at 13:44; Status DC Albuterol/ Ipratropium (Duoneb Neb) 1 ampule Q4HR NEB INH Last administered on 08/30/17at 07:57; Start 08/29/17 at 20:00; Stop 08/30/17 at 11:26; Status DC Albuterol/ Ipratropium (Duoneb Neb) 1 ampule Q2HR NEB PRN INH WHEEZING; Start 08/29/17 at 19:00; Stop 08/30/17 at 11:26; Status DC Enoxaparin Sodium (Lovenox Inj) 40 mg Q24H SQ Last administered on 08/31/17at 20 :24; Start 08/29/17 at 21:00 Miscellaneous Information 1 Q361D XX Last administered on 08/29/17at 19:00; Start 08/29/17 at 19:00 Chlorhexidine Gluconate (Chlorhexidine 2% Cloth) 3 pack Taper DAILY@04 TOP Last administered on 08/31/17at 04:00; Start 08/30/17 at 04:00; Stop 08/26/18 at 03:59 Chlorhexidine Gluconate (Chlorhexidine 2% Cloth) 3 pack UNSCH PRN TOP HYGIENIC CARE; Start 08/29/17 at 19:00 Senna/Docusate Sodium (Kimberly-Colace) 1 tab BID PO Last administered on at 20:16; Start 08/29/17 at 21:00 Magnesium Hydroxide (Milk Of Magnesia Liq) 30 ml Q12H PRN PO Mild constipation ; Start 08/29/17 at 19:00 Sennosides (Senokot) 17.2 mg Q12H PRN PO Moderate constipation; Start 08/29/17 at 19:00 Bisacodyl (Dulcolax Supp) 10 mg DAILY PRN RECTAL SEVERE CONSITIPATION; Start at 19:00 Lactulose (Lactulose Liq) 30 ml DAILY PRN PO SEVERE CONSITIPATION; Start at 19:00 Furosemide (Lasix Inj) 20 mg Q6H IV PUSH Last administered on 08/30/17at 17:00; Start 08/30/17 at 00:00; Stop 08/30/17 at 18:01; Status DC Dextrose (D50w (Vial) Inj) 50 ml UNSCH PRN IV PUSH HYPOGLYCEMIA-SEE COMMENTS; Start 08/29/17 at 19:15 Glucagon (Glucagon Inj) 1 mg UNSCH PRN OTHER HYPOGLYCEMIA-SEE COMMENTS; Start 08/29/17 at 19:15 Insulin Aspart (NovoLOG SUPPLEMENTAL SCALE) 1 ACHS SLIDING SCALE SQ Last administered on 09/01/17at 11:57; Start 08/29/17 at 21:00 Miscellaneous (Pill Splitter) 1 ea UNSCH PRN OTHER SEE LABEL COMMENTS; Start at 19:30 Methylprednisolone Sodium Succinate (SoluMEDROL INJ) 40 mg Q12H IV PUSH Last administered on 09/01/17at 15:30; Start 08/30/17 at 03:00 Azithromycin 500 mg/Sodium Chloride 250 ml @ 250 mls/hr Q24H IV Last administered on 08/31/17at 02:42; Start 08/30/17 at 03:00; Stop 08/31/17 at 13:44 ; Status DC Cefepime HCl 2000 mg/Sodium Chloride 100 ml @ 200 mls/hr Q12H IV Last administered on 08/31/17at 02:44; Start 08/30/17 at 04:00; Stop 08/31/17 at 13:44 ; Status DC Albuterol/ Ipratropium (Duoneb Neb) 1 ampule Q4HR NEB NEB Last administered on 09/01/17at 12:15; Start 08/30/17 at 12:00 Albuterol/ Ipratropium (Duoneb Neb) 1 ampule Q2HR NEB PRN NEB SHORTNESS OF BREATH; Start 08/30/17 at 11:00 Budesonide/ Formoterol Fumarate (Symbicort 160-4.5 Mcg Inh) 2 puff Q12HR INH Last administered on 09/01/17at 09:11; Start 08/30/17 at 11:00 Nicotine (Habitrol 21 Mg Patch.24 Hr) 1 patch DAILY T-DERMAL Last administered on 09/01/17at 09:07; Start 08/30/17 at 16:30 Miscellaneous Information 1 DAILY T-DERMAL Last administered on 09/01/17at 09:00 ; Start 08/31/17 at 09:00 Famotidine (Pepcid Inj) 10 mg Q12HR IV PUSH ; Start 08/31/17 at 21:00; Stop at 21:00; Status DC Famotidine (Pepcid) 20 mg BID PO Last administered on 09/01/17at 09:08; Start at 21:00; Stop 09/01/17 at 15:30; Status DC Levofloxacin (Levaquin) 750 mg DAILY PO Last administered on 09/01/17at 09:08; Start 08/31/17 at 13:45; Stop 09/05/17 at 13:44 Famotidine (Pepcid) 10 mg BID PO ; Start 09/01/17 at 21:00 A/P Assessment and Plan Assessment: 67yF with Acute COPD exacerbation. cultures have been NGTD. remains afebrile. will de-escalate therapy to Levaquin po monotherapy for full duration 7 days (5 more days, anticipated stop date 09/04). stable for transfer out of ICU. Acute COPD exacerbation Acute hypoxic and hypercaribc respiratory failure - COPD exacerbation - Pulmonary edema- improved. - Aerosols - IV steroids - Empiric antibiotics: de-escalate to levaquin monotherapy. - wean o2 by nc for goal spo2 > 88% -Strep pneumo antigen negative. Legionella antigen negative. influenza ag negative. Mucinex Duo nebs Incentive spirometry Diabetes mellitus - Insulin sliding scale - Glipizide Sliding scale coverage with Accu-Cheks before meals and at bedtime Hypertension - Cozaar - Coreg - d/c nitro drip. CHF- preserved EF type. - No acute ischemic EKG changes - Troponins negative - 2-D echo-EF 60-65% no RWMA - Cozaar - Coreg Peripheral vascular disease - Plavix GERD - change to po pepcid. Insomnia -Ambien 5 mg 1 by mouth daily at bedtime DVT GI prophylaxis - Teds SCDs - Subcutaneous Lovenox - Pepcid A.m. labs PT and OT eval and treat Discharge Planning Pending breathing improvement Marcos Ramos DO Sep 01, 2017 16:10
[2017-09-01] MEDS ORDERED: ZOLPIDEM TARTRATE 5 MG TAB PO PRN (16:15)
--- NOTE | 2017-09-01 18:37 | HHI.PR ---
Subjective Remarks ALERT LESS SOB Objective Vital Signs Date Time Temp Pulse Resp B/P (MAP) Pulse Ox O2 Delivery O2 Flow Rate FiO2 09/01/17 16:00 98.4 76 20 108/57 (74) 95 09/01/17 12:00 99.1 86 20 110/55 (73) 95 09/01/17 08:00 Room Air 09/01/17 08:00 98.7 81 20 180/81 (114) 96 09/01/17 08:00 85 09/01/17 07:37 96 21 09/01/17 04:00 98.6 82 18 123/80 (94) 95 09/01/17 03:45 80 09/01/17 00:00 98.0 70 18 121/71 (88) 95 09/01/17 00:00 Room Air 08/31/17 23:45 80 08/31/17 20:37 76 08/31/17 20:32 96 21 08/31/17 20:00 98.2 77 18 172/78 (109) 96 08/31/17 20:00 Room Air I/O 08/31/17 08/31/17 08/31/17 09/01/17 09/01/17 09/01/17 07:00 15:00 23:00 07:00 15:00 23:00 Intake Total 470 ml 200 ml 700 ml 480 ml Output Total 1000 ml 1250 ml Balance -530 ml 200 ml -550 ml 480 ml Intake Oral 120 ml 700 ml 480 ml IV Total 350 ml 200 ml Output Urine Total 1000 ml 1250 ml # Voids 4 6 2 Result Diagram: 08/31/1744208/31/17442 Objective Remarks GENERAL: SKIN: Warm and dry. HEAD: Atraumatic. Normocephalic. EYES: Pupils equal and round. No scleral icterus. No injection or drainage. ENT: No nasal bleeding or discharge. Mucous membranes pink and moist. NECK: Trachea midline. No JVD. CARDIOVASCULAR: Regular rate and rhythm. RESPIRATORY: No accessory muscle use. Clear to auscultation. Breath sounds equal bilaterally. GASTROINTESTINAL: Abdomen soft, non-tender, nondistended. Hepatic and splenic margins not palpable. MUSCULOSKELETAL: Extremities without clubbing, cyanosis, or edema. No obvious deformities. NEUROLOGICAL: Awake and alert. No obvious cranial nerve deficits. Motor grossly within normal limits. Five out of 5 muscle strength in the arms and legs. Normal speech. PSYCHIATRIC: Appropriate mood and affect; insight and judgment normal. Assessment and Plan Assessment and Plan COPD EXACERBATION RESPIRATORY FAILURE PLAN O2 NEEDED BRONCHODILATOR THERAPY INCREASE ACTIVIT7 Jason Gomez MD Sep 01, 2017 18:37
[2017-09-01] MEDS: guaiFENesin E.R. 600 MG TAB PO SCH (20:08)
[2017-09-01] MEDS: GABAPENTIN 100 MG CAP PO SCH (20:08)
[2017-09-01] MEDS: ENOXAPARIN SODIUM 40 MG/0.4 ML SYRINGE SQ SCH (20:08)
[2017-09-01] MEDS: ATORVASTATIN 40 MG TAB PO SCH (20:08)
[2017-09-01] MEDS: INSULIN DETEMIR 100 UNITS/ML VIAL SQ SCH (20:09)
[2017-09-02] VITALS (12 sets, daily range): BP systolic 104–189; BP diastolic 63–88; PULSE 64–82; RESP 16–20; TEMP 98.4–99.3; O2SAT 94–99
[2017-09-02] MEDS: RESP: ALBUTEROL 2.5 MG/IPRATROPIUM 0.5 MG NEB (SCH) NEB ×6 (00:38→20:19)
[2017-09-02] MEDS: methylPREDNISolone SOD SUCC 40 MG/1 ML VIAL IV PUSH SCH ×2 (03:09→14:55)
[2017-09-02] MEDS: CHLORHEXIDINE GLUCONATE 2 % 1 PACK (2 CLOTHS) TOP SCH (03:10)
[2017-09-02 06:40] LABS: AUTOMATED NEUTROPHIL # 6.4 TH/MM3 (1.8-7.7); BASOPHIL % 0.1 % (0.0-2.0); EOSINOPHIL % 0.1 % (0.0-4.0); HEMATOCRIT 45.3 % (35.0-46.0); HEMOGLOBIN 15.5 GM/DL (11.6-15.3); LYMPH % 17.6 % (9.0-44.0); LYMPHOCYTE # 1.4 TH/MM3 (1.0-4.8); MEAN CELL VOLUME 78.3 FL (80.0-100.0); MEAN CORPUSCULAR HEMOGLOBIN 26.8 PG (27.0-34.0); MEAN CORPUSCULAR HGB CONC 34.3 % (32.0-36.0); MEAN PLATELET VOLUME 8.9 FL (7.0-11.0); MONO % 4.6 % (0.0-8.0); MONOCYTE # 0.4 TH/MM3 (0-0.9); NEUT % 77.6 % (16.0-70.0); PLATELET COUNT 174 TH/MM3 (150-450); RED BLOOD COUNT 5.78 MIL/MM3 (4.00-5.30); RED CELL DISTRIBUTION WIDTH 16.3 % (11.6-17.2); WHITE BLOOD COUNT 8.2 TH/MM3 (4.0-11.0)
[2017-09-02 07:03] LABS: ALKALINE PHOSPHATASE 136 U/L (45-117); FREE T4 0.84 NG/DL (0.76-1.46); PHOSPHORUS 3.8 MG/DL (2.5-4.9); TOTAL BILIRUBIN ADULT 0.4 MG/DL (0.2-1.0); TOTAL PROTEIN 7.2 GM/DL (6.4-8.2)
[2017-09-02 07:06] LABS: ALT (GPT) 18 U/L (10-53); AST (GOT) 14 U/L (15-37); BICARBONATE 22.7 MEQ/L (21.0-32.0); BLOOD UREA NITROGEN 36 MG/DL (7-18); CALCIUM 8.5 MG/DL (8.5-10.1); CHLORIDE 108 MEQ/L (98-107); CREATININE 1.34 MG/DL (0.50-1.00); GLOMERULAR FILTRATION RATE 40 ML/MIN (>89); GLUCOSE,RANDOM 120 MG/DL (74-106); MAGNESIUM 2.2 MG/DL (1.5-2.5); SODIUM (NA) 140 MEQ/L (136-145)
[2017-09-02] MEDS: glipiZIDE 5 MG TAB PO SCH ×2 (07:06→14:57)
[2017-09-02] MEDS: FAMOTIDINE 20 MG TAB PO SCH ×2 (08:15→20:25)
[2017-09-02] MEDS: SERTRALINE HCL 50 MG TAB PO SCH (08:15)
[2017-09-02] MEDS: traMADol HCL 50 MG TAB PO PRN ×2 (08:15→20:25)
[2017-09-02] MEDS: LOSARTAN 25 MG TAB PO SCH (08:15)
[2017-09-02] MEDS: CARVEDILOL 6.25 MG TAB PO SCH ×2 (08:15→20:25)
[2017-09-02] MEDS: LEVOFLOXACIN 750 MG TAB PO SCH (08:15)
[2017-09-02] MEDS: SODIUM CHLORIDE 0.9% FLUSH 10 ML FLUSH IV FLUSH SCH ×2 (08:16→20:32)
[2017-09-02] MEDS: INSULIN ASPART SUPPLEMENTAL SCALE SQ SCH ×4 (08:16→20:27)
[2017-09-02] MEDS: BUDESONIDE-FORMOTEROL 160/4.5 MCG INHALER INH SCH ×2 (08:16→20:30)
[2017-09-02] MEDS: guaiFENesin E.R. 600 MG TAB PO SCH ×2 (08:16→20:24)
[2017-09-02] MEDS: CLOPIDOGREL 75 MG TAB PO SCH (08:16)
[2017-09-02] MEDS: MELOXICAM 15 MG TAB PO SCH (08:16)
[2017-09-02] MEDS: DOCUSATE SODIUM 50 MG/SENNA 8.6 MG TAB PO SCH ×2 (08:17→21:00)
[2017-09-02] MEDS: NICOTINE 21 MG/24 HR PATCH T-DERMAL SCH (08:17)
[2017-09-02] MEDS: REMOVE OLD PATCH T-DERMAL SCH (08:17)
[2017-09-02] MEDS: FUROSEMIDE 40 MG TAB PO SCH (08:23)
--- NOTE | 2017-09-02 08:32 | HHI.PR ---
Subjective Remarks ALERT LESS SOB Objective Vital Signs Date Time Temp Pulse Resp B/P (MAP) Pulse Ox O2 Delivery O2 Flow Rate FiO2 09/02/17 03:59 71 09/02/17 01:54 117/67 (84) 09/02/17 00:00 98.7 79 20 189/86 (120) 96 09/01/17 23:58 75 09/01/17 20:11 87 09/01/17 20:00 98.9 86 18 166/75 (105) 96 09/01/17 19:53 99 09/01/17 19:00 Room Air 09/01/17 16:00 98.4 76 20 108/57 (74) 95 09/01/17 12:00 99.1 86 20 110/55 (73) 95 I/O 09/01/17 09/01/17 09/01/17 09/02/17 09/02/17 09/02/17 07:00 15:00 23:00 07:00 15:00 23:00 Intake Total 480 ml 320 ml Output Total 400 ml Balance 480 ml -80 ml Intake Oral 480 ml 320 ml Output Urine Total 400 ml # Voids 6 2 2 Result Diagram: 09/02/17 0555 09/02/17 0555 Objective Remarks GENERAL: SKIN: Warm and dry. HEAD: Atraumatic. Normocephalic. EYES: Pupils equal and round. No scleral icterus. No injection or drainage. ENT: No nasal bleeding or discharge. Mucous membranes pink and moist. NECK: Trachea midline. No JVD. CARDIOVASCULAR: Regular rate and rhythm. RESPIRATORY: No accessory muscle use. Clear to auscultation. Breath sounds equal bilaterally. GASTROINTESTINAL: Abdomen soft, non-tender, nondistended. Hepatic and splenic margins not palpable. MUSCULOSKELETAL: Extremities without clubbing, cyanosis, or edema. No obvious deformities. NEUROLOGICAL: Awake and alert. No obvious cranial nerve deficits. Motor grossly within normal limits. Five out of 5 muscle strength in the arms and legs. Normal speech. PSYCHIATRIC: Appropriate mood and affect; insight and judgment normal. Assessment and Plan Assessment and Plan COPD EXACERBATION RESPIRATORY FAILURE PLAN O2 NEEDED BRONCHODILATOR THERAPY INCREASE ACTIVIT7 Jason Gomez MD Sep 02, 2017 08:32
--- NOTE | 2017-09-02 11:59 | HHI.PR ---
Subjective Remarks 67-year-old female patient with history of COPD, tobacco use disorder, peripheral vascular disease, status post left AKA, presents today because she felt extremely short of breath after she was smoking today. She was barely able to talk when EMS got there, was given Solu-Medrol and has had 2 nebulizers according to EMS with some improvement symptoms. History is limited due to the patient's respiratory distress. Subjective: 08/30: Patient complaining of back pain, and requesting nicotine patch. Respiratory status slightly improved. 08/31: clinically improving. on nc o2. complains of cough. denies other complaints. cultures NGTD. ROS otherwise negative. tolerating diet. 09-01 TRANSFERRED TO OUR SERVICE TODAY WAS IN ICU COPD EXACERBATION CONTINUE ON CURRENT TREATMENT WITH NEBS AND STEROIDS PT AND OT DW PATIENT STILL SOB WANTS SLEEPER 09-02 PATIENT STATES SHE IS BREATHING A LITTLE BETTER TODAY CONTINUE PT AND OT SEEN BY PULMONARY DW RN AND PT Objective Vitals Vital Signs Date Time Temp Pulse Resp B/P (MAP) Pulse Ox O2 Delivery O2 Flow Rate FiO2 09/02/17 08:01 99.3 77 16 136/88 (104) 94 09/02/17 08:00 Room Air 09/02/17 03:59 71 09/02/17 01:54 117/67 (84) 09/02/17 00:00 98.7 79 20 189/86 (120) 96 09/01/17 23:58 75 09/01/17 20:11 87 09/01/17 20:00 98.9 86 18 166/75 (105) 96 09/01/17 19:53 99 09/01/17 19:00 Room Air 09/01/17 16:00 98.4 76 20 108/57 (74) 95 09/01/17 12:00 99.1 86 20 110/55 (73) 95 I/O 09/01/17 09/01/17 09/01/17 09/02/17 09/02/17 09/02/17 07:00 15:00 23:00 07:00 15:00 23:00 Intake Total 480 ml 320 ml Output Total 400 ml Balance 480 ml -80 ml Intake Oral 480 ml 320 ml Output Urine Total 400 ml # Voids 6 2 2 Result Diagram: 09/02/17 0555 09/02/17 0555 Other Results Laboratory Tests Test 08/30/17 12:30 08/31/17 04:43 08/31/17 04:46 09/02/17 05:55 Blood Gas Puncture Site RT RADIAL Blood Gas Patient Temperature 98.6 Blood Gas HCO3 17 mmol/L Blood Gas Base Excess -6.1 mmol/L Blood Gas Oxygen Saturation 95 % Arterial Blood pH 7.45 Arterial Blood Partial Pressure CO2 25 mmHg Arterial Blood Partial Pressure O2 90 mmHg Arterial Blood Oxygen Content 18.9 Vol % Arterial Blood Carboxyhemoglobin 0.8 % Arterial Blood Methemoglobin 1.3 % Blood Gas Hemoglobin 14.1 G/DL Oxygen Delivery Device NASAL CANNULA Blood Gas Liter Flow 2 L/M White Blood Count 12.8 TH/MM3 8.2 TH/MM3 Red Blood Count 5.19 MIL/MM3 5.78 MIL/MM3 Hemoglobin 13.4 GM/DL 15.5 GM/DL Hematocrit 40.5 % 45.3 % Mean Corpuscular Volume 78.1 FL 78.3 FL Mean Corpuscular Hemoglobin 25.9 PG 26.8 PG Mean Corpuscular Hemoglobin Concent 33.1 % 34.3 % Red Cell Distribution Width 16.2 % 16.3 % Platelet Count 170 TH/MM3 174 TH/MM3 Mean Platelet Volume 8.7 FL 8.9 FL Blood Urea Nitrogen 29 MG/DL 36 MG/DL Creatinine 1.63 MG/DL 1.34 MG/DL Random Glucose 165 MG/DL 120 MG/DL Calcium Level 8.3 MG/DL 8.5 MG/DL Sodium Level 137 MEQ/L 140 MEQ/L Potassium Level 4.0 MEQ/L 4.0 MEQ/L Chloride Level 104 MEQ/L 108 MEQ/L Carbon Dioxide Level 24.3 MEQ/L 22.7 MEQ/L Anion Gap 9 MEQ/L 9 MEQ/L Estimat Glomerular Filtration Rate 32 ML/MIN 40 ML/MIN Lactic Acid Level 2.1 mmol/L Neutrophils (%) (Auto) 77.6 % Lymphocytes (%) (Auto) 17.6 % Monocytes (%) (Auto) 4.6 % Eosinophils (%) (Auto) 0.1 % Basophils (%) (Auto) 0.1 % Neutrophils # (Auto) 6.4 TH/MM3 Lymphocytes # (Auto) 1.4 TH/MM3 Monocytes # (Auto) 0.4 TH/MM3 Eosinophils # (Auto) 0.0 TH/MM3 Basophils # (Auto) 0.0 TH/MM3 CBC Comment DIFF FINAL Differential Comment Total Protein 7.2 GM/DL Albumin 3.0 GM/DL Phosphorus Level 3.8 MG/DL Magnesium Level 2.2 MG/DL Alkaline Phosphatase 136 U/L Aspartate Amino Transf (AST/SGOT) 14 U/L Alanine Aminotransferase (ALT/SGPT) 18 U/L Total Bilirubin 0.4 MG/DL Free Thyroxine 0.84 NG/DL Thyroid Stimulating Hormone 3rd Gen 0.543 uIU/ML Imaging Last Impressions Chest X-Ray 08/30/17 0000 Signed Impressions: Service Date/Time: Wednesday, August 30, 2017 11:34 - CONCLUSION: No acute cardiopulmonary disease identified. Wiliam Irby MD Objective Remarks GENERAL: AWAKE ALERT AND ORIENTED x3 -IN MILD DISTRESS SKIN: Warm and dry. HEAD: Atraumatic. Normocephalic. EYES: Pupils equal and round. No scleral icterus. No injection or drainage. EOMI ENT: No nasal bleeding or discharge. Mucous membranes pink and moist.TONGUE MIDLINE NECK: Trachea midline. No JVD. SUPPLE CARDIOVASCULAR: Regular rate and rhythm. S1,S2 NO S3 OR S4 NO HEAVE OR THRILL RESPIRATORY: No accessory muscle use. FEW rhonchi and wheezes bilaterally. Breath sounds equal bilaterally. GASTROINTESTINAL: Abdomen soft, non-tender, nondistended. Hepatic and splenic margins not palpable. MUSCULOSKELETAL: Extremities without clubbing, cyanosis, or edema. No obvious deformities. NEUROLOGICAL: Awake and alert. No obvious cranial nerve deficits. Motor grossly within normal limits. Five out of 5 muscle strength in the arms and legs. Normal speech. Left [id number] amputation-right great toe amputation PSYCHIATRIC: Appropriate mood and affect; insight and judgment normal. Medications and IVs Current Medications Sodium Chloride (NS Flush) 2 ml UNSCH PRN IVF FLUSH AFTER USING IV ACCESS; Start 08/29/17 at 16:30; Stop 08/30/17 at 16:21; Status DC Albuterol/ Ipratropium (Duoneb Neb) 1 ampule Q15M INH Last administered on 08/29at 16:45; Start 08/29/17 at 16:30; Stop 08/29/17 at 16:46; Status DC Nitroglycerin (Nitroglycerin 2% Oint) 1 inch ONCE ONCE TOPICAL ; Start at 17:30; Stop 08/29/17 at 17:52; Status DC Nitroglycerin/ Dextrose 250 ml @ 1.5 mls/hr TITRATE PRN IV Hypertension Last administered on 08/30/17at 11:52; Start 08/29/17 at 18:00; Stop 08/31/17 at 13:44 ; Status DC Furosemide (Lasix Inj) 40 mg ONCE ONCE IV PUSH Last administered on 08/29/17at 18:10; Start 08/29/17 at 18:00; Stop 08/29/17 at 18:01; Status DC Alendronate Sodium (Fosamax) 70 mg Q7D PO Last administered on 08/30/17 09:04 ; Start 08/30/17 at 09:00 Atorvastatin Calcium (Lipitor) 40 mg HS PO Last administered on 09/01/17 20:08 ; Start 08/29/17 at 21:00 Carvedilol (Coreg) 6.25 mg BID PO Last administered on 09/02/17 08:15; Start 08/29/17 at 21:00 Clopidogrel Bisulfate (Plavix) 75 mg DAILY PO Last administered on 09/02/17at 08 :16; Start 08/30/17 at 09:00 Furosemide (Lasix) 40 mg DAILY PO Last administered on 09/02/17at 08:23; Start 08/31/17 at 09:00 Gabapentin (Neurontin) 100 mg HS PO Last administered on 09/01/17at 20:08; Start 08/29/17 at 21:00 Insulin Detemir (Levemir Inj) 14 units HS SQ Last administered on 09/01/17at 20: 09; Start 08/29/17 at 21:00 Losartan Potassium (Cozaar) 25 mg DAILY PO Last administered on 09/02/17at 08:15 ; Start 08/30/17 at 09:00 Meloxicam (Mobic) 15 mg DAILY PO Last administered on 09/02/17 08:16; Start at 09:00 Sertraline HCl (Zoloft) 50 mg DAILY PO Last administered on 09/02/17at 08:15; Start 08/30/17 at 09:00 Tramadol HCl (Ultram) 50 mg Q8H PRN PO PAIN 1-10 Last administered on at 08:15; Start 08/29/17 at 19:00 Glipizide (Glucotrol) 2.5 mg BIDAC PO Last administered on 09/02/17at 07:06; Start 08/30/17 at 07:00 Sodium Chloride (NS Flush) 2 ml UNSCH PRN IV FLUSH FLUSH AFTER USING IV ACCESS ; Start 08/29/17 at 19:00 Sodium Chloride (NS Flush) 2 ml BID IV FLUSH Last administered on 09/02/17at 08: 16; Start 08/29/17 at 21:00 Acetaminophen (Tylenol) 650 mg Q6H PRN PO FEVER >101F; Start 08/29/17 at 19:00 Famotidine (Pepcid Inj) 20 mg Q12HR IV PUSH Last administered on 08/31/17at 09: 50; Start 08/29/17 at 21:00; Stop 08/31/17 at 13:36; Status DC Ondansetron HCl (Zofran Inj) 4 mg Q6H PRN IV PUSH NAUSEA OR VOMITING; Start 08/04 at 19:00 Zolpidem Tartrate (Ambien) 5 mg HS PRN PO INSOMNIA Last administered on at 20:16; Start 08/29/17 at 19:00; Stop 08/31/17 at 13:44; Status DC Albuterol/ Ipratropium (Duoneb Neb) 1 ampule Q4HR NEB INH Last administered on 08/30/17at 07:57; Start 08/29/17 at 20:00; Stop 08/30/17 at 11:26; Status DC Albuterol/ Ipratropium (Duoneb Neb) 1 ampule Q2HR NEB PRN INH WHEEZING; Start 08/29/17 at 19:00; Stop 08/30/17 at 11:26; Status DC Enoxaparin Sodium (Lovenox Inj) 40 mg Q24H SQ Last administered on 09/01/17at 20 :08; Start 08/29/17 at 21:00 Miscellaneous Information 1 Q361D XX Last administered on 08/29/17at 19:00; Start 08/29/17 at 19:00 Chlorhexidine Gluconate (Chlorhexidine 2% Cloth) 3 pack Taper DAILY@04 TOP Last administered on 08/31/17at 04:00; Start 08/30/17 at 04:00; Stop 08/26/18 at 03:59 Chlorhexidine Gluconate (Chlorhexidine 2% Cloth) 3 pack UNSCH PRN TOP HYGIENIC CARE; Start 08/29/17 at 19:00 Senna/Docusate Sodium (Kimberly-Colace) 1 tab BID PO Last administered on at 20:16; Start 08/29/17 at 21:00 Magnesium Hydroxide (Milk Of Magnesia Liq) 30 ml Q12H PRN PO Mild constipation ; Start 08/29/17 at 19:00 Sennosides (Senokot) 17.2 mg Q12H PRN PO Moderate constipation; Start 08/29/17 at 19:00 Bisacodyl (Dulcolax Supp) 10 mg DAILY PRN RECTAL SEVERE CONSITIPATION; Start at 19:00 Lactulose (Lactulose Liq) 30 ml DAILY PRN PO SEVERE CONSITIPATION; Start at 19:00 Furosemide (Lasix Inj) 20 mg Q6H IV PUSH Last administered on 08/30/17at 17:00; Start 08/30/17 at 00:00; Stop 08/30/17 at 18:01; Status DC Dextrose (D50w (Vial) Inj) 50 ml UNSCH PRN IV PUSH HYPOGLYCEMIA-SEE COMMENTS; Start 08/29/17 at 19:15 Glucagon (Glucagon Inj) 1 mg UNSCH PRN OTHER HYPOGLYCEMIA-SEE COMMENTS; Start 08/29/17 at 19:15 Insulin Aspart (NovoLOG SUPPLEMENTAL SCALE) 1 ACHS SLIDING SCALE SQ Last administered on 09/02/17at 08:16; Start 08/29/17 at 21:00 Miscellaneous (Pill Splitter) 1 ea UNSCH PRN OTHER SEE LABEL COMMENTS; Start at 19:30 Methylprednisolone Sodium Succinate (SoluMEDROL INJ) 40 mg Q12H IV PUSH Last administered on 09/02/17at 03:09; Start 08/30/17 at 03:00 Azithromycin 500 mg/Sodium Chloride 250 ml @ 250 mls/hr Q24H IV Last administered on 08/31/17at 02:42; Start 08/30/17 at 03:00; Stop 08/31/17 at 13:44 ; Status DC Cefepime HCl 2000 mg/Sodium Chloride 100 ml @ 200 mls/hr Q12H IV Last administered on 08/31/17at 02:44; Start 08/30/17 at 04:00; Stop 08/31/17 at 13:44 ; Status DC Albuterol/ Ipratropium (Duoneb Neb) 1 ampule Q4HR NEB NEB Last administered on 09/02/17at 08:05; Start 08/30/17 at 12:00 Albuterol/ Ipratropium (Duoneb Neb) 1 ampule Q2HR NEB PRN NEB SHORTNESS OF BREATH; Start 08/30/17 at 11:00 Budesonide/ Formoterol Fumarate (Symbicort 160-4.5 Mcg Inh) 2 puff Q12HR INH Last administered on 09/02/17at 08:16; Start 08/30/17 at 11:00 Nicotine (Habitrol 21 Mg Patch.24 Hr) 1 patch DAILY T-DERMAL Last administered on 09/02/17at 08:17; Start 08/30/17 at 16:30 Miscellaneous Information 1 DAILY T-DERMAL Last administered on 09/02/17at 08:17 ; Start 08/31/17 at 09:00 Famotidine (Pepcid Inj) 10 mg Q12HR IV PUSH ; Start 08/31/17 at 21:00; Stop at 21:00; Status DC Famotidine (Pepcid) 20 mg BID PO Last administered on 09/01/17at 09:08; Start at 21:00; Stop 09/01/17 at 15:30; Status DC Levofloxacin (Levaquin) 750 mg DAILY PO Last administered on 09/02/17at 08:15; Start 08/31/17 at 13:45; Stop 09/05/17 at 13:44 Famotidine (Pepcid) 10 mg BID PO Last administered on 09/02/17at 08:15; Start at 21:00 Guaifenesin (Mucinex Er) 600 mg BID PO Last administered on 09/02/17at 08:16; Start 09/01/17 at 21:00 Zolpidem Tartrate (Ambien) 5 mg HS PRN PO insomnia; Start 09/01/17 at 16:15 A/P Assessment and Plan Assessment: 67yF with Acute COPD exacerbation. cultures have been NGTD. remains afebrile. will de-escalate therapy to Levaquin po monotherapy for full duration 7 days (5 more days, anticipated stop date 09/04). stable for transfer out of ICU. Acute COPD exacerbation Acute hypoxic and hypercaribc respiratory failure - COPD exacerbation - Pulmonary edema- improved. - Aerosols - IV steroids - Empiric antibiotics: de-escalate to levaquin monotherapy. - wean o2 by nc for goal spo2 > 88% -Strep pneumo antigen negative. Legionella antigen negative. influenza ag negative. Mucinex Duo nebs Incentive spirometry Diabetes mellitus - Insulin sliding scale - Glipizide Sliding scale coverage with Accu-Cheks before meals and at bedtime Hypertension - Cozaar - Coreg - d/c nitro drip. CHF- preserved EF type. - No acute ischemic EKG changes - Troponins negative - 2-D echo-EF 60-65% no RWMA - Cozaar - Coreg Peripheral vascular disease - Plavix GERD - change to po pepcid. Insomnia -Ambien 5 mg 1 by mouth daily at bedtime DVT GI prophylaxis - Teds SCDs - Subcutaneous Lovenox - Pepcid A.m. labs PT and OT eval and treat SLOW IMPROVEMENT Discharge Planning Pending breathing improvement Marcos Ramos DO Sep 02, 2017 11:59
[2017-09-02] MEDS: GABAPENTIN 100 MG CAP PO SCH (20:24)
[2017-09-02] MEDS: ATORVASTATIN 40 MG TAB PO SCH (20:24)
[2017-09-02] MEDS: INSULIN DETEMIR 100 UNITS/ML VIAL SQ SCH (20:26)
[2017-09-02] MEDS: ENOXAPARIN SODIUM 40 MG/0.4 ML SYRINGE SQ SCH (20:26)
[2017-09-02 20:45] LABS: HEMOGLOBIN A1C 6.7 % (4.3-6.0)
[2017-09-03] VITALS: BP 109/75; PULSE 71; RESP 16; TEMP 98.2; O2SAT 96
[2017-09-03] MEDS: RESP: ALBUTEROL 2.5 MG/IPRATROPIUM 0.5 MG NEB (SCH) NEB ×4 (00:12→11:00)
[2017-09-03 00:14] VITALS: PULSE 75
[2017-09-03 04:00] VITALS: BP 131/82; PULSE 70; RESP 16; TEMP 98.2; O2SAT 96
[2017-09-03] MEDS: CHLORHEXIDINE GLUCONATE 2 % 1 PACK (2 CLOTHS) TOP SCH (04:00)
[2017-09-03 04:16] VITALS: PULSE 64
[2017-09-03] MEDS: methylPREDNISolone SOD SUCC 40 MG/1 ML VIAL IV PUSH SCH (04:18)
[2017-09-03 07:31] VITALS: O2SAT 98
[2017-09-03] MEDS: glipiZIDE 5 MG TAB PO SCH (07:53)
[2017-09-03] MEDS: INSULIN ASPART SUPPLEMENTAL SCALE SQ SCH (08:00)
[2017-09-03 08:01] VITALS: BP 108/68; PULSE 65; RESP 18; TEMP 97.8; O2SAT 96
[2017-09-03] MEDS: guaiFENesin E.R. 600 MG TAB PO SCH (08:15)
[2017-09-03] MEDS: DOCUSATE SODIUM 50 MG/SENNA 8.6 MG TAB PO SCH (08:15)
[2017-09-03] MEDS: FUROSEMIDE 40 MG TAB PO SCH (08:15)
[2017-09-03] MEDS: LEVOFLOXACIN 750 MG TAB PO SCH (08:15)
[2017-09-03] MEDS: LOSARTAN 25 MG TAB PO SCH (08:16)
[2017-09-03] MEDS: CLOPIDOGREL 75 MG TAB PO SCH (08:16)
[2017-09-03] MEDS: FAMOTIDINE 20 MG TAB PO SCH (08:16)
[2017-09-03] MEDS: CARVEDILOL 6.25 MG TAB PO SCH (08:16)
[2017-09-03] MEDS: SERTRALINE HCL 50 MG TAB PO SCH (08:16)
[2017-09-03] MEDS: MELOXICAM 15 MG TAB PO SCH (08:17)
[2017-09-03] MEDS: NICOTINE 21 MG/24 HR PATCH T-DERMAL SCH (08:17)
[2017-09-03] MEDS: BUDESONIDE-FORMOTEROL 160/4.5 MCG INHALER INH SCH (08:18)
[2017-09-03] MEDS: SODIUM CHLORIDE 0.9% FLUSH 10 ML FLUSH IV FLUSH SCH (08:18)
[2017-09-03] MEDS: REMOVE OLD PATCH T-DERMAL SCH (08:19)
--- NOTE | 2017-09-03 09:42 | HHI.PR ---
Subjective Remarks 67-year-old female patient with history of COPD, tobacco use disorder, peripheral vascular disease, status post left AKA, presents today because she felt extremely short of breath after she was smoking today. She was barely able to talk when EMS got there, was given Solu-Medrol and has had 2 nebulizers according to EMS with some improvement symptoms. History is limited due to the patient's respiratory distress. Subjective: 08/30: Patient complaining of back pain, and requesting nicotine patch. Respiratory status slightly improved. 08/31: clinically improving. on nc o2. complains of cough. denies other complaints. cultures NGTD. ROS otherwise negative. tolerating diet. 09-01 TRANSFERRED TO OUR SERVICE TODAY WAS IN ICU COPD EXACERBATION CONTINUE ON CURRENT TREATMENT WITH NEBS AND STEROIDS PT AND OT DW PATIENT STILL SOB WANTS SLEEPER 09-02 PATIENT STATES SHE IS BREATHING A LITTLE BETTER TODAY CONTINUE PT AND OT SEEN BY PULMONARY DW RN AND PT 09-03 PATIENT STATES SHE IS BREATHING A LITTLE BETTER TODAY DC TO HOME WITH HOME NEBULIZER ARA RN AND PT STOP SMOKING Objective Vitals Vital Signs Date Time Temp Pulse Resp B/P (MAP) Pulse Ox O2 Delivery O2 Flow Rate FiO2 09/03/17 08:01 97.8 65 18 108/68 (81) 96 09/03/17 07:31 98 21 09/03/17 04:16 64 09/03/17 04:00 Room Air 09/03/17 04:00 98.2 70 16 131/82 (98) 96 09/03/17 00:14 75 09/03/17 00:00 98.2 71 16 109/75 (86) 96 09/03/17 00:00 Room Air 09/02/17 20:23 99 09/02/17 20:06 64 09/02/17 20:00 98.5 64 16 104/63 (77) 97 09/02/17 19:00 Room Air 09/02/17 16:01 98.4 75 17 127/85 (99) 94 09/02/17 16:00 70 09/02/17 12:01 99.3 81 17 106/68 (81) 96 09/02/17 12:00 82 I/O 09/02/17 09/02/17 09/02/17 09/03/17 09/03/17 09/03/17 07:00 15:00 23:00 07:00 15:00 23:00 Intake Total 320 ml 380 ml 650 ml Output Total 400 ml Balance -80 ml 380 ml 650 ml Intake Oral 320 ml 380 ml 650 ml Output Urine Total 400 ml # Voids 2 4 3 # Bowel Movements 1 0 Result Diagram: 09/02/17 0555 09/02/17 0555 Other Results Laboratory Tests Test 09/02/17 05:55 White Blood Count 8.2 TH/MM3 Red Blood Count 5.78 MIL/MM3 Hemoglobin 15.5 GM/DL Hematocrit 45.3 % Mean Corpuscular Volume 78.3 FL Mean Corpuscular Hemoglobin 26.8 PG Mean Corpuscular Hemoglobin Concent 34.3 % Red Cell Distribution Width 16.3 % Platelet Count 174 TH/MM3 Mean Platelet Volume 8.9 FL Neutrophils (%) (Auto) 77.6 % Lymphocytes (%) (Auto) 17.6 % Monocytes (%) (Auto) 4.6 % Eosinophils (%) (Auto) 0.1 % Basophils (%) (Auto) 0.1 % Neutrophils # (Auto) 6.4 TH/MM3 Lymphocytes # (Auto) 1.4 TH/MM3 Monocytes # (Auto) 0.4 TH/MM3 Eosinophils # (Auto) 0.0 TH/MM3 Basophils # (Auto) 0.0 TH/MM3 CBC Comment DIFF FINAL Differential Comment Blood Urea Nitrogen 36 MG/DL Creatinine 1.34 MG/DL Random Glucose 120 MG/DL Total Protein 7.2 GM/DL Albumin 3.0 GM/DL Calcium Level 8.5 MG/DL Phosphorus Level 3.8 MG/DL Magnesium Level 2.2 MG/DL Alkaline Phosphatase 136 U/L Aspartate Amino Transf (AST/SGOT) 14 U/L Alanine Aminotransferase (ALT/SGPT) 18 U/L Total Bilirubin 0.4 MG/DL Sodium Level 140 MEQ/L Potassium Level 4.0 MEQ/L Chloride Level 108 MEQ/L Carbon Dioxide Level 22.7 MEQ/L Anion Gap 9 MEQ/L Estimat Glomerular Filtration Rate 40 ML/MIN Hemoglobin A1c 6.7 % Free Thyroxine 0.84 NG/DL Thyroid Stimulating Hormone 3rd Gen 0.543 uIU/ML Imaging Last Impressions Chest X-Ray 08/30/17 0000 Signed Impressions: Service Date/Time: Wednesday, August 30, 2017 11:34 - CONCLUSION: No acute cardiopulmonary disease identified. Wiliam Irby MD Objective Remarks GENERAL: AWAKE ALERT AND ORIENTED x3 -IN MILD DISTRESS SKIN: Warm and dry. HEAD: Atraumatic. Normocephalic. EYES: Pupils equal and round. No scleral icterus. No injection or drainage. EOMI ENT: No nasal bleeding or discharge. Mucous membranes pink and moist.TONGUE MIDLINE NECK: Trachea midline. No JVD. SUPPLE CARDIOVASCULAR: Regular rate and rhythm. S1,S2 NO S3 OR S4 NO HEAVE OR THRILL RESPIRATORY: No accessory muscle use. FEW rhonchi and wheezes bilaterally. Breath sounds equal bilaterally. GASTROINTESTINAL: Abdomen soft, non-tender, nondistended. Hepatic and splenic margins not palpable. MUSCULOSKELETAL: Extremities without clubbing, cyanosis, or edema. No obvious deformities. NEUROLOGICAL: Awake and alert. No obvious cranial nerve deficits. Motor grossly within normal limits. Five out of 5 muscle strength in the arms and legs. Normal speech. Left [id number] amputation-right great toe amputation PSYCHIATRIC: Appropriate mood and affect; insight and judgment normal. Procedures NONE Medications and IVs Current Medications Sodium Chloride (NS Flush) 2 ml UNSCH PRN IVF FLUSH AFTER USING IV ACCESS; Start 08/29/17 at 16:30; Stop 08/30/17 at 16:21; Status DC Albuterol/ Ipratropium (Duoneb Neb) 1 ampule Q15M INH Last administered on 08/29at 16:45; Start 08/29/17 at 16:30; Stop 08/29/17 at 16:46; Status DC Nitroglycerin (Nitroglycerin 2% Oint) 1 inch ONCE ONCE TOPICAL ; Start at 17:30; Stop 08/29/17 at 17:52; Status DC Nitroglycerin/ Dextrose 250 ml @ 1.5 mls/hr TITRATE PRN IV Hypertension Last administered on 08/30/17at 11:52; Start 08/29/17 at 18:00; Stop 08/31/17 at 13:44 ; Status DC Furosemide (Lasix Inj) 40 mg ONCE ONCE IV PUSH Last administered on 08/29/17at 18:10; Start 08/29/17 at 18:00; Stop 08/29/17 at 18:01; Status DC Alendronate Sodium (Fosamax) 70 mg Q7D PO Last administered on 08/30/17at 09:04 ; Start 08/30/17 at 09:00 Atorvastatin Calcium (Lipitor) 40 mg HS PO Last administered on 09/02/17at 20:24 ; Start 08/29/17 at 21:00 Carvedilol (Coreg) 6.25 mg BID PO Last administered on 09/03/17at 08:16; Start 08/29/17 at 21:00 Clopidogrel Bisulfate (Plavix) 75 mg DAILY PO Last administered on 09/03/17at 08 :16; Start 08/30/17 at 09:00 Furosemide (Lasix) 40 mg DAILY PO Last administered on 09/03/17at 08:15; Start 08/31/17 at 09:00 Gabapentin (Neurontin) 100 mg HS PO Last administered on 09/02/17at 20:24; Start 08/29/17 at 21:00 Insulin Detemir (Levemir Inj) 14 units HS SQ Last administered on 09/02/17at 20: 26; Start 08/29/17 at 21:00 Losartan Potassium (Cozaar) 25 mg DAILY PO Last administered on 09/03/17at 08:16 ; Start 08/30/17 at 09:00 Meloxicam (Mobic) 15 mg DAILY PO Last administered on 09/03/17at 08:17; Start at 09:00 Sertraline HCl (Zoloft) 50 mg DAILY PO Last administered on 09/03/17at 08:16; Start 08/30/17 at 09:00 Tramadol HCl (Ultram) 50 mg Q8H PRN PO PAIN 1-10 Last administered on at 20:25; Start 08/29/17 at 19:00 Glipizide (Glucotrol) 2.5 mg BIDAC PO Last administered on 09/03/17at 07:53; Start 08/30/17 at 07:00 Sodium Chloride (NS Flush) 2 ml UNSCH PRN IV FLUSH FLUSH AFTER USING IV ACCESS ; Start 08/29/17 at 19:00 Sodium Chloride (NS Flush) 2 ml BID IV FLUSH Last administered on 09/03/17at 08: 18; Start 08/29/17 at 21:00 Acetaminophen (Tylenol) 650 mg Q6H PRN PO FEVER >101F; Start 08/29/17 at 19:00 Famotidine (Pepcid Inj) 20 mg Q12HR IV PUSH Last administered on 08/31/17at 09: 50; Start 08/29/17 at 21:00; Stop 08/31/17 at 13:36; Status DC Ondansetron HCl (Zofran Inj) 4 mg Q6H PRN IV PUSH NAUSEA OR VOMITING; Start 08/04 at 19:00 Zolpidem Tartrate (Ambien) 5 mg HS PRN PO INSOMNIA Last administered on at 20:16; Start 08/29/17 at 19:00; Stop 08/31/17 at 13:44; Status DC Albuterol/ Ipratropium (Duoneb Neb) 1 ampule Q4HR NEB INH Last administered on 08/30/17at 07:57; Start 08/29/17 at 20:00; Stop 08/30/17 at 11:26; Status DC Albuterol/ Ipratropium (Duoneb Neb) 1 ampule Q2HR NEB PRN INH WHEEZING; Start 08/29/17 at 19:00; Stop 08/30/17 at 11:26; Status DC Enoxaparin Sodium (Lovenox Inj) 40 mg Q24H SQ Last administered on 09/02/17at 20 :26; Start 08/29/17 at 21:00 Miscellaneous Information 1 Q361D XX Last administered on 08/29/17at 19:00; Start 08/29/17 at 19:00 Chlorhexidine Gluconate (Chlorhexidine 2% Cloth) 3 pack Taper DAILY@04 TOP Last administered on 08/31/17at 04:00; Start 08/30/17 at 04:00; Stop 08/26/18 at 03:59 Chlorhexidine Gluconate (Chlorhexidine 2% Cloth) 3 pack UNSCH PRN TOP HYGIENIC CARE; Start 08/29/17 at 19:00 Senna/Docusate Sodium (Kimberly-Colace) 1 tab BID PO Last administered on at 08:15; Start 08/29/17 at 21:00 Magnesium Hydroxide (Milk Of Magnesia Liq) 30 ml Q12H PRN PO Mild constipation ; Start 08/29/17 at 19:00 Sennosides (Senokot) 17.2 mg Q12H PRN PO Moderate constipation; Start 08/29/17 at 19:00 Bisacodyl (Dulcolax Supp) 10 mg DAILY PRN RECTAL SEVERE CONSITIPATION; Start at 19:00 Lactulose (Lactulose Liq) 30 ml DAILY PRN PO SEVERE CONSITIPATION; Start at 19:00 Furosemide (Lasix Inj) 20 mg Q6H IV PUSH Last administered on 08/30/17at 17:00; Start 08/30/17 at 00:00; Stop 08/30/17 at 18:01; Status DC Dextrose (D50w (Vial) Inj) 50 ml UNSCH PRN IV PUSH HYPOGLYCEMIA-SEE COMMENTS; Start 08/29/17 at 19:15 Glucagon (Glucagon Inj) 1 mg UNSCH PRN OTHER HYPOGLYCEMIA-SEE COMMENTS; Start 08/29/17 at 19:15 Insulin Aspart (NovoLOG SUPPLEMENTAL SCALE) 1 ACHS SLIDING SCALE SQ Last administered on 09/02/17at 20:27; Start 08/29/17 at 21:00 Miscellaneous (Pill Splitter) 1 ea UNSCH PRN OTHER SEE LABEL COMMENTS; Start at 19:30 Methylprednisolone Sodium Succinate (SoluMEDROL INJ) 40 mg Q12H IV PUSH Last administered on 09/03/17at 04:18; Start 08/30/17 at 03:00 Azithromycin 500 mg/Sodium Chloride 250 ml @ 250 mls/hr Q24H IV Last administered on 08/31/17at 02:42; Start 08/30/17 at 03:00; Stop 08/31/17 at 13:44 ; Status DC Cefepime HCl 2000 mg/Sodium Chloride 100 ml @ 200 mls/hr Q12H IV Last administered on 08/31/17at 02:44; Start 08/30/17 at 04:00; Stop 08/31/17 at 13:44 ; Status DC Albuterol/ Ipratropium (Duoneb Neb) 1 ampule Q4HR NEB NEB Last administered on 09/03/17at 07:30; Start 08/30/17 at 12:00 Albuterol/ Ipratropium (Duoneb Neb) 1 ampule Q2HR NEB PRN NEB SHORTNESS OF BREATH; Start 08/30/17 at 11:00 Budesonide/ Formoterol Fumarate (Symbicort 160-4.5 Mcg Inh) 2 puff Q12HR INH Last administered on 09/03/17at 08:18; Start 08/30/17 at 11:00 Nicotine (Habitrol 21 Mg Patch.24 Hr) 1 patch DAILY T-DERMAL Last administered on 09/03/17at 08:17; Start 08/30/17 at 16:30 Miscellaneous Information 1 DAILY T-DERMAL Last administered on 09/02/17at 08:17 ; Start 08/31/17 at 09:00 Famotidine (Pepcid Inj) 10 mg Q12HR IV PUSH ; Start 08/31/17 at 21:00; Stop at 21:00; Status DC Famotidine (Pepcid) 20 mg BID PO Last administered on 09/01/17at 09:08; Start at 21:00; Stop 09/01/17 at 15:30; Status DC Levofloxacin (Levaquin) 750 mg DAILY PO Last administered on 09/03/17at 08:15; Start 08/31/17 at 13:45; Stop 09/05/17 at 13:44 Famotidine (Pepcid) 10 mg BID PO Last administered on 09/03/17at 08:16; Start at 21:00 Guaifenesin (Mucinex Er) 600 mg BID PO Last administered on 09/03/17at 08:15; Start 09/01/17 at 21:00 Zolpidem Tartrate (Ambien) 5 mg HS PRN PO insomnia; Start 09/01/17 at 16:15 A/P Assessment and Plan Assessment: 67yF with Acute COPD exacerbation. cultures have been NGTD. remains afebrile. will de-escalate therapy to Levaquin po monotherapy for full duration 7 days (5 more days, anticipated stop date 09/04). stable for transfer out of ICU. Acute COPD exacerbation Acute hypoxic and hypercaribc respiratory failure - COPD exacerbation - Pulmonary edema- improved. - Aerosols - IV steroids - Empiric antibiotics: de-escalate to levaquin monotherapy. - wean o2 by nc for goal spo2 > 88% -Strep pneumo antigen negative. Legionella antigen negative. influenza ag negative. Mucinex Duo nebs Incentive spirometry Diabetes mellitus - Insulin sliding scale - Glipizide Sliding scale coverage with Accu-Cheks before meals and at bedtime Hypertension - Cozaar - Coreg - d/c nitro drip. CHF- preserved EF type. - No acute ischemic EKG changes - Troponins negative - 2-D echo-EF 60-65% no RWMA - Cozaar - Coreg Peripheral vascular disease - Plavix GERD - change to po pepcid. Insomnia -Ambien 5 mg 1 by mouth daily at bedtime DVT GI prophylaxis - Teds SCDs - Subcutaneous Lovenox - Pepcid EC to home today PT and OT eval and treat SLOW IMPROVEMENT DC TO HOME TODAY Discharge Planning DC TO HOME TODAY Marcos Ramos DO Sep 03, 2017 09:42
[2017-09-03] MEDS ORDERED: CARV6.252 PO (09:48)
[2017-09-03] MEDS ORDERED: CLOP75TA PO (09:48)
[2017-09-03] MEDS ORDERED: FURO1TAB60 PO (09:48)
[2017-09-03] MEDS ORDERED: LOSA25TA PO (09:48)
[2017-09-03] MEDS ORDERED: PRED10PA2 PO (09:48)
[2017-09-03] MEDS ORDERED: SERT-132 PO (09:48)
[2017-09-03] MEDS ORDERED: guaiFENesin ER PO (09:48)
[2017-09-03] MEDS ORDERED: Budeson-Formot 160-4.5 Mcg Inh INH (09:48)
[2017-09-03] MEDS ORDERED: POTA-163 PO (09:48)
[2017-09-03] MEDS ORDERED: GABA100C4 PO (09:48)
[2017-09-03] MEDS ORDERED: ATOR40TA16 PO (09:48)
[2017-09-03] MEDS ORDERED: GLIP-157 PO (09:48)
[2017-09-03] MEDS ORDERED: VENTAER INH (09:48)
[2017-09-03] MEDS ORDERED: Albuterol-Ipratropium Neb NEB (09:48)
[2017-09-03] MEDS ORDERED: FAMO20TA2 PO (09:48)
[2017-09-03] MEDS ORDERED: LEVA750T9 PO (09:48)
[2017-09-03] MEDS ORDERED: TRAM50TA PO (09:48)
[2017-09-03] MEDS ORDERED: MELO15TA20 PO (09:48)
[2017-09-03] MEDS ORDERED: NEBULIZER1 MI1 (09:49)
[2017-09-03] MEDS ORDERED: NICO14DI4 T-DERMAL (09:53)
--- NOTE | 2017-09-03 09:54 | HHI.FF ---
Face to Face Verification Diagnosis: (1) COPD exacerbation (2) Hypertensive emergency (3) Pulmonary edema (4) Poorly controlled type 2 diabetes mellitus (5) Tobacco dependency Physical Therapy Order: Evaluate and Treat, Improve ambulation, Strength and gait training Occupational Therapy Order: Evaluate and Treat, Improve ADL, Gross motor coordination, Fine motor coordination Home Health Nursing Order: Medical education Nursing assessment with vital signs Home Health Aide Order: To Assist In: Bathing and personal care, time study technologist and meal prep I have seen patient Brady Veliz on 09/03/17. My clinical findings support the need for the requested home health care services because: Ltd mobility - disease progression Patient has SOB I certify that my clinical findings support that this patient is homebound because: Hx COPD- exertion dyspnea/weakness Unsteady gait/balance Marcos Ramos DO Sep 03, 2017 09:53
--- NOTE | 2017-09-03 09:56 | HHI.DS ---
Discharge Summary Admission Date Aug 29, 2017 at 18:20 Discharge Date: Sep 03, 2017 Admitting Diagnosis respiratory distress/COPD/pulmonary edema/BiPAP (1) Poorly controlled type 2 diabetes mellitus ICD Code: E11.9 - Poorly controlled type 2 diabetes mellitus Diagnosis: Secondary Status: Chronic (2) Tobacco dependency ICD Code: F17.200 - Tobacco dependency Diagnosis: Principal Status: Chronic (3) COPD exacerbation ICD Code: J44.1 - Chronic obstructive pulmonary disease with (acute) exacerbation Diagnosis: Principal Status: Acute (4) Pulmonary edema ICD Code: J81.1 - Chronic pulmonary edema Status: Acute (5) HTN (hypertension) ICD Code: I10 - HTN (hypertension) Diagnosis: Principal Status: Chronic (6) Anxiety ICD Code: F41.9 - Anxiety Diagnosis: Secondary Status: Acute Procedures NONE Brief History - From Admission 67-year-old female patient with history of COPD, tobacco use disorder, peripheral vascular disease, status post left AKA, presents today because she felt extremely short of breath after she was smoking today. She was barely able to talk when EMS got there, was given Solu-Medrol and has had 2 nebulizers according to EMS with some improvement symptoms. History is limited due to the patient's respiratory distress. CBC/BMP: 09/02/17 0555 09/02/17 0555 Significant Findings Laboratory Tests Test 09/02/17 05:55 Red Blood Count 5.78 MIL/MM3 (4.00-5.30) Hemoglobin 15.5 GM/DL (11.6-15.3) Mean Corpuscular Volume 78.3 FL (80.0-100.0) Mean Corpuscular Hemoglobin 26.8 PG (27.0-34.0) Neutrophils (%) (Auto) 77.6 % (16.0-70.0) Blood Urea Nitrogen 36 MG/DL (7-18) Creatinine 1.34 MG/DL (0.50-1.00) Random Glucose 120 MG/DL (74-106) Albumin 3.0 GM/DL (3.4-5.0) Alkaline Phosphatase 136 U/L (45-117) Aspartate Amino Transf (AST/SGOT) 14 U/L (15-37) Chloride Level 108 MEQ/L (98-107) Estimat Glomerular Filtration Rate 40 ML/MIN (>89) Hemoglobin A1c 6.7 % (4.3-6.0) Imaging Last Impressions Chest X-Ray 08/30/17 0000 Signed Impressions: Service Date/Time: Wednesday, August 30, 2017 11:34 - CONCLUSION: No acute cardiopulmonary disease identified. Wiliam Irby MD PE at Discharge GENERAL: AWAKE ALERT AND ORIENTED x3 -IN MILD DISTRESS SKIN: Warm and dry. HEAD: Atraumatic. Normocephalic. EYES: Pupils equal and round. No scleral icterus. No injection or drainage. EOMI ENT: No nasal bleeding or discharge. Mucous membranes pink and moist.TONGUE MIDLINE NECK: Trachea midline. No JVD. SUPPLE CARDIOVASCULAR: Regular rate and rhythm. S1,S2 NO S3 OR S4 NO HEAVE OR THRILL RESPIRATORY: No accessory muscle use. FEW rhonchi and wheezes bilaterally. Breath sounds equal bilaterally. GASTROINTESTINAL: Abdomen soft, non-tender, nondistended. Hepatic and splenic margins not palpable. MUSCULOSKELETAL: Extremities without clubbing, cyanosis, or edema. No obvious deformities. NEUROLOGICAL: Awake and alert. No obvious cranial nerve deficits. Motor grossly within normal limits. Five out of 5 muscle strength in the arms and legs. Normal speech. Left usira-lgz-bmil amputation-right great toe amputation PSYCHIATRIC: Appropriate mood and affect; insight and judgment normal. Hospital Course 67-year-old female patient with history of COPD, tobacco use disorder, peripheral vascular disease, status post left AKA, presents today because she felt extremely short of breath after she was smoking today. She was barely able to talk when EMS got there, was given Solu-Medrol and has had 2 nebulizers according to EMS with some improvement symptoms. History is limited due to the patient's respiratory distress. Subjective: 08/30: Patient complaining of back pain, and requesting nicotine patch. Respiratory status slightly improved. 08/31: clinically improving. on nc o2. complains of cough. denies other complaints. cultures NGTD. ROS otherwise negative. tolerating diet. 09-01 TRANSFERRED TO OUR SERVICE TODAY WAS IN ICU COPD EXACERBATION CONTINUE ON CURRENT TREATMENT WITH NEBS AND STEROIDS PT AND OT DW PATIENT STILL SOB WANTS SLEEPER 16 PATIENT STATES SHE IS BREATHING A LITTLE BETTER TODAY CONTINUE PT AND OT SEEN BY PULMONARY DW RN AND PT 1-17 PATIENT STATES SHE IS BREATHING A LITTLE BETTER TODAY DC TO HOME WITH HOME NEBULIZER ARA RN AND PT STOP SMOKING Pt Condition on Discharge: Fair Discharge Disposition: Disch w/ Home Health Serv Discharge Time: > 30 minutes Discharge Instructions DIET: Follow Instructions for: Heart Healthy Diet, Diabetic Diet Activities you can perform: Regular-No Restrictions Follow up Referrals: PCP Follow-up - 2-3 Days with Bandar Vu MD New Medications: Nebulizer (Nebulizer) 1 Mis Mis EA .ROUTE DIRECTED for Breathing Treatment, #1 0 Refills Nicotine Patch (Nicoderm CQ Patch) 14 Mg/24 Hr Patch 14 MG T-DERMAL DAILY for Smoking Cessation, #30 PATCH 0 Refills Prednisone (48) 10 mg tab Dose Pack (Prednisone (48) 10 mg tab Dose Pack) 10 Mg Dspk 10 MG PO DIRECTED for Inflammation, #1 DSPK 0 Refills Famotidine (Famotidine) 20 Mg Tab 10 MG PO BID for Manage Heartburn, #60 TAB Levofloxacin (Levaquin) 750 Mg Tablet 750 MG PO DAILY for Infection, #10 TAB [Albuterol-Ipratropium Neb] () 1 AMPULE NEBU 1 AMPULE NEB Q4HR NEB for Shortness of Breath, #180 AMPULE [Budeson-Formot 160-4.5 Mcg Inh] () 1 INH AERO 2 PUFF INH Q12HR for Shortness of Breath, #1 INHALER [guaiFENesin ER] () 600 MG TABCR 600 MG PO BID, #60 TAB Continued Medications: Albuterol 18 GM Inh (Ventolin Hfa 18 GM Inh) 90 Mcg/Act Aer 2 PUFF INH Q6H PRN for SHORTNESS OF BREATH, #1 INHALER 0 Refills (This prescription has been renewed) Alendronate (Alendronate) 70 Mg Tab 70 MG PO Q7D for Osteporosis Treatment, #4 TAB 0 Refills Atorvastatin (Atorvastatin) 40 Mg Tab 40 MG PO HS for Cholesterol Management, #30 TAB 0 Refills (This prescription has been renewed) Carvedilol (Carvedilol) 6.25 Mg Tab 6.25 MG PO BID for Blood Pressure Management, #60 TAB 0 Refills (This prescription has been renewed) Clopidogrel (Clopidogrel) 75 Mg Tab 75 MG PO DAILY for Blood Clot Prevention, #30 TAB 0 Refills (This prescription has been renewed) Furosemide (Lasix) 40 Mg Tab 40 MG PO DAILY for Volume overload, #30 TAB 0 Refills (This prescription has been renewed) Gabapentin (Gabapentin) 100 Mg Cap 100 MG PO HS for Pain, #30 CAP 0 Refills (This prescription has been renewed) Glipizide ER (Glipizide XL) 5 Mg Bibiana 5 MG PO DAILY for Blood Sugar Management, #30 TAB 0 Refills (This prescription has been renewed) Take with breakfast or first main meal of the day Insulin Glargine Inj (Lantus Inj) 1,000 Unit/10 Ml Vial 14 UNITS SQ HS for Blood Sugar Management, VIAL 0 Refills Losartan (Losartan) 25 Mg Tab 25 MG PO DAILY for Blood Pressure Management, #30 TAB 0 Refills (This prescription has been renewed) Meloxicam (Meloxicam) 15 Mg Tab 15 MG PO DAILY for Arthritis Pain, #30 TAB 0 Refills (This prescription has been renewed) Potassium Chloride ER (Potassium Chloride ER) 20 Meq Tab 20 MEQ PO DAILY for Electrolyte Replacement, #30 TAB 0 Refills (This prescription has been renewed) Sertraline (Sertraline) 50 Mg Tab 50 MG PO DAILY for Anxiety, #30 TAB 0 Refills (This prescription has been renewed) Tramadol (Tramadol) 50 Mg Tab 50 MG PO Q8H PRN for PAIN, #30 TAB 0 Refills (This prescription has been renewed ) Marcos Ramos DO Sep 03, 2017 09:56
== END 2017-09-03 12:26 | disposition home health service (06) | DRG 189 ==
LOC: NEPC 16:25 → NEDA 18:20 → HIME 21:00 → N04A 08-31 19:45
PROVIDERS: ADMIT Hospitalist; ATTEND Hospitalist
PROC: 5A09357 Assistance with Respiratory Ventilation, Less than 24 Consecutive Hours, Continuous Positive Airway Pressure (ICD-10-PCS; principal; 2017-08-29)
DX: J96.02 Acute respiratory failure with hypercapnia (principal); N17.9 Acute kidney failure, unspecified; E87.2 Acidosis; I11.0 Hypertensive heart disease with heart failure; I50.9 Heart failure, unspecified; J44.1 Chronic obstructive pulmonary disease with (acute) exacerbation; I16.1 Hypertensive emergency; J96.01 Acute respiratory failure with hypoxia; E11.51 Type 2 diabetes mellitus with diabetic peripheral angiopathy without gangrene; K21.9 Gastro-esophageal reflux disease without esophagitis; M54.9 Dorsalgia, unspecified; R74.8 Abnormal levels of other serum enzymes; E11.65 Type 2 diabetes mellitus with hyperglycemia; M06.9 Rheumatoid arthritis, unspecified; G47.00 Insomnia, unspecified; N39.3 Stress incontinence (female) (male); F17.200 Nicotine dependence, unspecified, uncomplicated; F32.9 Major depressive disorder, single episode, unspecified; F41.9 Anxiety disorder, unspecified; Z79.4 Long term (current) use of insulin; Z88.1 Allergy status to other antibiotic agents; Z88.5 Allergy status to narcotic agent; Z89.411 Acquired absence of right great toe; Z89.612 Acquired absence of left leg above knee
CPT/HCPCS: 36600; 71045; 80048; 80053; 82550; 82805; 83036; 83605; 83735; 83880; 84100; 84439; 84443; 84484; 85007; 85025; 85027; 85610; 85730; 87040; 87070; 87205; 87449; 87641; 87804; 93005; 93306; 94002; 94003; 94150; 94640; 94664; 94667; 94668; 96365; 96375; J0456; J0692; J1650; J1815; J1940; J2920; J7050